=== PATIENT | female | born 1950 | race Caucasian/White ===

== ENCOUNTER 2019-02-19 23:03 | Inpatient (IN) | payer MEDICARE, OTHER ==
[2019-02-19] MEDS ORDERED: ASPIRIN 81 MG PO STA (23:06)
--- NOTE | 2019-02-19 23:26 | ED ---
General Adult HPI - General Chief complaint: Chest Pain Stated complaint: chest pain Time Seen by Provider: 02/19/19 23:05 Source: patient, EMS Mode of arrival: EMS Limitations: no limitations - History of Present Illness Initial comments: Dictation was produced using [employer] dictation software. please excuse any grammatical, word or spelling errors. Chief Complaint: 68-year-old female presents with chest pain. History of Present Illness: She is 68-year-old female presents today with chest pain. She states the pain as a stabbing pain that radiates to her right jaw. She still been having progressive exertional dyspnea over the last several weeks. She was seen by her primary care physician yesterday. Her PCP did an EKG which she reports demonstrated T-wave inversions. She was discharged from the PCPs office with plans to have a stress test on Friday. Today she had this episode of chest pain. She's been having this pain ongoing for the last several days patient states that in the past and would last for 5 minutes and go away. Today she was concerned because her symptoms lasted for longer than 5 minutes. No associated diaphoresis. No associated nausea or vomiting. Patient's past medical history of hypertension. Denies tobacco use. No numbness and paresthesias to the arms or legs. She had some nitroglycerin that she took without significant effect on her chest pain. Currently she denies any chest pain. She called EMS and was brought to the emergency department. The ROS documented in this emergency department record has been reviewed and confirmed by me. Those systems with pertinent positive or negative responses have been documented in the HPI. All other systems are other negative and/or noncontributory. PHYSICAL EXAM: General Impression: Alert and oriented x3, not in acute distress HEENT: Normocephalic atraumatic, extra-ocular movements intact, pupils equal and reactive to light bilaterally, mucous membranes moist. Cardiovascular: Heart regular rate and rhythm, S1&S2 audible, no murmurs, rubs or gallops Chest: Lungs clear to auscultation bilaterally, no rhonchi, no wheeze, no rales Abdomen: Bowel sounds present, abdomen soft, non-tender, non-distended, no organomegaly Musculoskeletal: Pulses present and equal in all extremities, no peripheral edema Motor: no focal deficits noted Neurological: CN II-XII grossly intact, no focal motor or sensory deficits noted Skin: Intact with no visualized rashes Psych: Normal affect and mood ED course: 68-year-old female presents with atypical chest pain with typical features. Her blood pressure is 182/106. rest of vital signs are unremarkable. EKG shows diffuse T wave inversions. She is currently symptom-free. Laboratory evaluation obtained. CBC, coag panel unremarkable. Metabolic panel is unremarkable. Troponin elevated 0.393. Chest x-ray shows no acute processes. Clinical presentation consistent with non-ST segment elevation [place]. Patient given heparin. She is given aspirin. Patient will be admitted for non- ST segment elevation myocardial infarction. Patient agreeable with results. Patient given Nitropaste. Patient case was discussed in detail with Dr. Caruso who is aware of patient and her elevated troponin. Cardiology consulted. She understandable agreeable to plan. EKG interpretation: Ventricular rate a 65, normal sinus rhythm,. 180, QS 90, QTC 470. No NV prolongation, no QTC prolongation. No old EKG for comparison. There are diffuse T-wave inversions apparent in precordial leads, high lateral leads - Related Data Allergies Allergy/AdvReac Type Severity Reaction Status Date / Time amoxicillin Allergy Rash/Hives Verified 02/19/19 23:29 erythromycin base Allergy Rash/Hives Verified 02/19/19 23:29 keratin Allergy Swelling Verified 02/19/19 23:29 peanut [Peanut Butter] Allergy Itching Verified 02/19/19 23:29 Penicillins Allergy Rash/Hives Verified 02/19/19 23:29 Sulfa (Sulfonamide Allergy Unknown Verified 02/19/19 23:29 Antibiotics) Childhood wheat Allergy Rash/Hives Verified 02/19/19 23:29 Review of Systems ROS Statement: Those systems with pertinent positive or pertinent negative responses have been documented in the HPI. ROS Other: All systems not noted in ROS Statement are negative. Past Medical History Past Medical History: Hypertension History of Any Multi-Drug Resistant Organisms: None Reported Past Surgical History: Adenoidectomy, Back Surgery, Cholecystectomy, Hysterectomy Past Psychological History: No Psychological Hx Reported Smoking Status: Former smoker Past Alcohol Use History: Occasional Past Drug Use History: None Reported General Exam Limitations: no limitations Course Vital Signs 02/19/19 02/19/19 23:15 23:19 Temperature 98.5 F Pulse Rate 63 Pulse Rate [ 63 [facility]ending [facility] ] Respiratory 18 Rate Blood Pressure 182/106 O2 Sat by Pulse 97 Oximetry Medical Decision Making - Lab Data Result diagrams: 02/19/19 23:07 02/19/19 23:07 Lab Results 02/19/19 02/19/19 02/19/19 Range/Units 23:07 23:07 23:07 WBC 6.4 (3.8-10.6) k/uL RBC 3.33 L (3.80-5.40) m/uL Hgb 11.0 L (11.4-16.0) gm/dL Hct 32.9 L (34.0-46.0) % MCV 98.6 (80.0-100.0) fL MCH 32.9 (25.0-35.0) pg MCHC 33.4 (31.0-37.0) g/dL RDW 12.7 (11.5-15.5) % Plt Count 272 (150-450) k/uL Neutrophils % 41 % Lymphocytes % 47 % Monocytes % 5 % Eosinophils % 4 % Basophils % 1 % Neutrophils # 2.6 (1.3-7.7) k/uL Lymphocytes # 3.0 (1.0-4.8) k/uL Monocytes # 0.3 (0-1.0) k/uL Eosinophils # 0.2 (0-0.7) k/uL Basophils # 0.1 (0-0.2) k/uL PT 9.8 (9.0-12.0) sec INR 0.9 (<1.2) APTT 22.7 (22.0-30.0) sec Sodium 141 (137-145) mmol/L Potassium 4.2 (3.5-5.1) mmol/L Chloride 110 H (98-107) mmol/L Carbon Dioxide 23 (22-30) mmol/L Anion Gap 8 mmol/L BUN 17 (7-17) mg/dL Creatinine 1.00 (0.52-1.04) mg/dL Est GFR (CKD-EPI)AfAm 67 (>60 ml/min/1.73 sqM) Est GFR (CKD-EPI)NonAf 58 (>60 ml/min/1.73 sqM) Glucose 111 H (74-99) mg/dL Calcium 9.1 (8.4-10.2) mg/dL Magnesium 2.2 (1.6-2.3) mg/dL Total Bilirubin 0.3 (0.2-1.3) mg/dL AST 23 (14-36) U/L ALT 13 (9-52) U/L Alkaline Phosphatase 62 (38-126) U/L Troponin I (0.000-0.034) ng/mL Total Protein 7.1 (6.3-8.2) g/dL Albumin 4.1 (3.5-5.0) g/dL 02/19/19 Range/Units 23:07 WBC (3.8-10.6) k/uL RBC (3.80-5.40) m/uL Hgb (11.4-16.0) gm/dL Hct (34.0-46.0) % MCV (80.0-100.0) fL MCH (25.0-35.0) pg MCHC (31.0-37.0) g/dL RDW (11.5-15.5) % Plt Count (150-450) k/uL Neutrophils % % Lymphocytes % % Monocytes % % Eosinophils % % Basophils % % Neutrophils # (1.3-7.7) k/uL Lymphocytes # (1.0-4.8) k/uL Monocytes # (0-1.0) k/uL Eosinophils # (0-0.7) k/uL Basophils # (0-0.2) k/uL PT (9.0-12.0) sec INR (<1.2) APTT (22.0-30.0) sec Sodium (137-145) mmol/L Potassium (3.5-5.1) mmol/L Chloride (98-107) mmol/L Carbon Dioxide (22-30) mmol/L Anion Gap mmol/L BUN (7-17) mg/dL Creatinine (0.52-1.04) mg/dL Est GFR (CKD-EPI)AfAm (>60 ml/min/1.73 sqM) Est GFR (CKD-EPI)NonAf (>60 ml/min/1.73 sqM) Glucose (74-99) mg/dL Calcium (8.4-10.2) mg/dL Magnesium (1.6-2.3) mg/dL Total Bilirubin (0.2-1.3) mg/dL AST (14-36) U/L ALT (9-52) U/L Alkaline Phosphatase (38-126) U/L Troponin I 0.393 H* (0.000-0.034) ng/mL Total Protein (6.3-8.2) g/dL Albumin (3.5-5.0) g/dL Disposition Clinical Impression: NSTEMI (non-ST elevated myocardial infarction) Disposition: ADMITTED IP TO THIS HOSP Referrals: Marcelle Marcano DO [Primary Care Provider] - 1-2 days Decision Time: 00:29
[2019-02-19 23:30] LABS: Basophils # (A) 0.1 k/uL (0-0.2); Basophils % (A) 1 %; Eosinophils # (A) 0.2 k/uL (0-0.7); Eosinophils % (A) 4 %; HCT 32.9 % (34.0-46.0); Lymphocytes % (A) 47 %; MCH 32.9 pg (25.0-35.0); MCHC 33.4 g/dL (31.0-37.0); MCV 98.6 fL (80.0-100.0); Mean Platelet Volume 7.1; Monocytes # (A) 0.3 k/uL (0-1.0); Monocytes % (A) 5 %; Neutrophils # (A) 2.6 k/uL (1.3-7.7); Neutrophils % (A) 41 %; Platelet Count 272 k/uL (150-450); RBC 3.33 m/uL (3.80-5.40); RDW 12.7 % (11.5-15.5); WBC 6.4 k/uL (3.8-10.6)
[2019-02-19 23:38] LABS: Albumin 4.1 g/dL (3.5-5.0); Calcium 9.1 mg/dL (8.4-10.2); Magnesium 2.2 mg/dL (1.6-2.3); Potassium 4.2 mmol/L (3.5-5.1); Total Bilirubin 0.3 mg/dL (0.2-1.3); Total Protein 7.1 g/dL (6.3-8.2)
[2019-02-19 23:39] LABS: INR 0.9 (<1.2); Partial Thromboplastin Time 22.7 sec (22.0-30.0); Prothrombin Time 9.8 sec (9.0-12.0)
--- NOTE | 2019-02-20 00:04 | XR ---
EXAMINATION TYPE: XR chest 2V DATE OF EXAM: 02/19/2019 COMPARISON: NONE HISTORY: Chest pain TECHNIQUE: Frontal and lateral views of the chest are obtained. FINDINGS: Heart and mediastinum are normal. Lungs are clear. Costophrenic angles are clear. There ar e chest leads. Bony thorax is intact. IMPRESSION: No active cardiopulmonary disease. Normal heart.
[2019-02-20] MEDS ORDERED: HEPARIN SODIUM,PORCINE 5,000 UNIT/ML 1 ML VIAL IV ONE (00:17)
[2019-02-20] MEDS ORDERED: HEPARIN SODIUM,PORCINE 5,000 UNIT/ML 1 ML VIAL IV PRN (00:17)
[2019-02-20] MEDS ORDERED: NITROGLYCERIN SL TABS 0.4 MG TAB SUBLINGUAL PRN ×2 (00:26→13:08)
[2019-02-20] MEDS ORDERED: HEPARIN SOD,PORK IN 0.45% NACL 25,000 UNIT in 0.45% NACL 1 250ML.BAG IV SCH (00:30)
[2019-02-20] MEDS: NITROGLYCERIN OINT 1 INCH/GM PACKET TOPICAL SCH ×5 (00:33→22:54)
[2019-02-20 08:39] LABS: Cholesterol 208 mg/dL (<200); HDL Cholesterol 42 mg/dL (40-60); LDL Cholesterol,Calculated 140 mg/dL (0-99); Triglycerides 129 mg/dL (<150)
[2019-02-20] MEDS: METOPROLOL TARTRATE 25 MG TAB PO SCH ×2 (09:00→20:38)
[2019-02-20] MEDS: LOSARTAN 25 MG TAB PO SCH ×2 (09:00→20:39)
[2019-02-20] MEDS: ATORVASTATIN 40 MG TAB PO SCH (09:00)
[2019-02-20] MEDS ORDERED: ALPRAZolam 0.5 MG TAB PO PRN (09:32)
[2019-02-20] MEDS ORDERED: ALPRAZolam 0.25 MG TAB PO PRN (09:32)
[2019-02-20] MEDS ORDERED: SODIUM CHLORIDE 0.9% 1,000 ML in EMPTY BAG 1 BAG IV ONE (09:32)
--- NOTE | 2019-02-20 09:44 | P.CRDCN ---
History of Present Illness History of present illness: HISTORY OF PRESENTING ILLNESS This is a pleasant 68-year-old female past medical history significant for hypertension. She presented with chest pressure. 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 We have been asked to see him in consultation for chest pain. She states for the previous one week she has been experiencing intermittent symptoms of chest discomfort in the left precordial region. Previously her pain would come she would sit down and her pain would subside. This all episode lasted roughly 5 minutes with no radiation or associated symptoms. However yesterday she felt a pressure in the chest and this time radiated to the base of her neck and associated with shortness of breath. She sat down to rest and her symptoms did not improve. She continues to have vague pressure in the chest that has decreased in intensity since admission however she still feels discomfort at the base of her neck. She saw her primary care physician regarding this chest discomfort for which he ordered an EKG and she is scheduled for a stress test next week. DIAGNOSTICS EKG reveals sinus mechanism heart rate of 65, T-wave inversions noted in the precordial leads.. Chest xray different acute cardiopulmonary process. Troponin 0.393 and 0.488, LDL 140, HDL 42 and total cholesterol 208. Laboratory reviewed, WBC 6.4, hemoglobin 11, platelets 272, sodium 141, potassium 4.2, creatinine 1.0 with GFR 58, magnesium 2.2,. Current cardiac medications include losartan 25 mg daily, clonidine 0.1 mg 3 times a day. REVIEW OF SYSTEMS At the time of my exam: CONSTITUTIONAL: Denies fever or chills. CARDIOVASCULAR: Complains of chest pain Denies shortness of breath, orthopnea, PND or palpitations. RESPIRATORY: Denies cough. GASTROINTESTINAL: Denies abdominal pain, diarrhea, constipation, nausea or vomiting. MUSCULOSKELETAL: Denies myalgias. NEUROLOGIC: Denies numbness, tingling or weakness. ENDOCRINE: Denies fatigue, weight change, polydipsia or polyurina. GENITOURINARY: Denies burning, hematuria or urgency with micturation. HEMATOLOGIC: Denies history of anemia or bleeding. PHYSICAL EXAMINATION Blood pressure 141/93 heart rate 69 afebrile maintaining oxygen saturation on room air. CONSTITUTIONAL: No apparent distress. HEENT: Head is normocephalic. Pupils are equal, round. Sclerae anicteric. Mucous membranes of the mouth are moist. No JVD. No carotid bruit. CHEST EXAMINATION: Lungs are clear to auscultation. No chest wall tenderness is noted on palpation or with deep breathing. HEART EXAMINATION: Regular rate and rhythm. S1, S2 heard. No murmurs, gallops or rub. ABDOMEN: Soft, nontender. Positive bowel sounds. EXTREMITIES: 2+ peripheral pulses, no lower extremity edema and no calf tenderness. NEUROLOGIC EXAMINATION: Patient is awake, alert and oriented x3. ASSESSMENT Non-ST elevated myocardial infarction Unstable angina Hypertension Dyslipidemia PLAN Obtain 2-D echocardiogram and Doppler study to assess cardiac structure and function. Proceed with cardiac catheterization. I have discussed the risks, benefits and alternative therapies for the above-mentioned procedure and for both sedation/analgesia as well as necessary blood product administration, if indicated, as they pertain to this patient. The patient has indicated understanding and acceptance of the risks and procedures discussed. Questions have been answered appropriately and she is agreeable to move forward with the above stated procedure. Initiate atorvastatin 40 mg daily, Lopressor 25 mg twice a day. Continue losartan 25 mg twice a day. Further recommendations to follow based upon clinical course. Thank you kindly for this consultation. Nurse Practitioner note has been reviewed, I agree with a documented findings and plan of care. Patient was seen and examined. Past Medical History Past Medical History: Hypertension History of Any Multi-Drug Resistant Organisms: None Reported Past Surgical History: Adenoidectomy, Back Surgery, Cholecystectomy, Hysterectomy Past Anesthesia/Blood Transfusion Reactions: No Reported Reaction Past Psychological History: No Psychological Hx Reported Smoking Status: Former smoker Past Alcohol Use History: Occasional Past Drug Use History: None Reported Medications and Allergies Home Medications Medication Instructions Recorded Confirmed Type Acetaminophen/Diphenhydramine 1 - 2 tab PO HS PRN 02/20/19 02/20/19 History [Tylenol Pm Ex-Strength Caplet] Celecoxib [CeleBREX] 200 mg PO DAILY 02/20/19 02/20/19 History Dipyridamole-Aspirin 200-25 mg 1 tab PO BID 02/20/19 02/20/19 History [Aggrenox 25MG -200MG] Levothyroxine Sodium 112 mcg PO DAILY 02/20/19 02/20/19 History Losartan [Cozaar] 25 mg PO BID 02/20/19 02/20/19 History Pantoprazole [Protonix] 40 mg PO DAILY 02/20/19 02/20/19 History Sertraline [Zoloft] 50 mg PO DAILY 02/20/19 02/20/19 History cloNIDine HCL [Catapres] 0.1 mg PO TID 02/20/19 02/20/19 History lamoTRIgine [LaMICtal] 100 mg PO HS 02/20/19 02/20/19 History Allergies Allergy/AdvReac Type Severity Reaction Status Date / Time amoxicillin Allergy Rash/Hives Verified 02/20/19 08:32 erythromycin base Allergy Rash/Hives Verified 02/20/19 08:32 keratin Allergy Swelling Verified 02/20/19 08:32 peanut [Peanut Butter] Allergy Itching Verified 02/20/19 08:32 Penicillins Allergy Rash/Hives Verified 02/20/19 08:32 Sulfa (Sulfonamide Allergy Unknown Verified 02/20/19 08:32 Antibiotics) Childhood wheat Allergy Rash/Hives Verified 02/20/19 08:32 Physical Exam Vitals: Vital Signs Temp Pulse Pulse Resp BP BP Pulse Ox 02/20/19 04:00 98.0 F 69 18 141/93 97 02/20/19 01:39 98.3 F 70 18 146/100 97 02/20/19 01:30 70 18 02/20/19 01:03 66 18 145/90 97 02/20/19 00:36 63 18 184/102 98 02/19/19 23:19 63 02/19/19 23:15 98.5 F 63 18 182/106 97 Intake and Output 02/19/19 02/20/19 02/20/19 22:59 06:59 14:59 Intake Total 160 Balance 160 Intake: IV 160 0.9 160 Other: Voiding Method Toilet # Voids 1 Weight 71.2 kg Results 02/19/19 23:07 02/19/19 23:07 Cardiac Enzymes 02/19/19 02/19/19 02/20/19 Range/Units 23:07 23:07 05:33 AST 23 (14-36) U/L Troponin I 0.393 H* 0.488 H* (0.000-0.034) ng/mL Coagulation 02/19/19 02/20/19 Range/Units 23:07 05:33 PT 9.8 (9.0-12.0) sec APTT 22.7 69.3 H (22.0-30.0) sec Lipids 02/20/19 Range/Units 05:33 Triglycerides 129 (<150) mg/dL Cholesterol 208 H (<200) mg/dL HDL Cholesterol 42 (40-60) mg/dL CBC 02/19/19 Range/Units 23:07 WBC 6.4 (3.8-10.6) k/uL RBC 3.33 L (3.80-5.40) m/uL Hgb 11.0 L (11.4-16.0) gm/dL Hct 32.9 L (34.0-46.0) % Plt Count 272 (150-450) k/uL Comprehensive Metabolic Panel 02/19/19 Range/Units 23:07 Sodium 141 (137-145) mmol/L Potassium 4.2 (3.5-5.1) mmol/L Chloride 110 H (98-107) mmol/L Carbon Dioxide 23 (22-30) mmol/L BUN 17 (7-17) mg/dL Creatinine 1.00 (0.52-1.04) mg/dL Glucose 111 H (74-99) mg/dL Calcium 9.1 (8.4-10.2) mg/dL AST 23 (14-36) U/L ALT 13 (9-52) U/L Alkaline Phosphatase 62 (38-126) U/L Total Protein 7.1 (6.3-8.2) g/dL Albumin 4.1 (3.5-5.0) g/dL Current Medications Generic Name Dose Route Start Last Admin Trade Name Freq PRN Reason Stop Dose Admin Alprazolam 0.25 mg 02/20/19 09:32 Xanax PO Q6HR PRN Mild Anxiety Alprazolam 0.5 mg 02/20/19 09:32 Xanax PO Q6HR PRN Moderate Anxiety Aspirin 325 mg 02/21/19 09:00 Aspirin PO DAILY LEROY Atorvastatin Calcium 40 mg 02/20/19 09:00 02/20/19 09:00 Lipitor PO 40 mg DAILY LEROY Administration Heparin Sodium (Porcine) 0 unit 02/20/19 00:17 Heparin IV PER PROTOCOL PRN Low PTT Protocol Heparin Sodium/Sodium Chloride 250 mls @ 8.709 mls/hr 02/20/19 00:30 02/20/19 00:24 25,000 unit/ Sodium Chloride IV 12 units/kg/hr .Q24H LEROY 8.709 mls/hr Administration Protocol 12 UNITS/KG/HR Sodium Chloride 1,000 ml/ IV 1,000 mls @ 71.2 mls/hr 02/20/19 09:32 Solution IV 02/20/19 23:34 .Q14H3M ONE 1 ML/KG/HR Losartan Potassium 25 mg 02/20/19 09:00 02/20/19 09:00 Cozaar PO 25 mg BID LEROY Administration Metoprolol Tartrate 25 mg 02/20/19 09:00 02/20/19 09:00 Lopressor PO 25 mg BID LEORY Administration Nitroglycerin 0.4 mg 02/20/19 00:26 Nitrostat SUBLINGUAL Q5M PRN Chest Pain Nitroglycerin 1 inch 02/20/19 00:30 02/20/19 06:23 Nitro-Bid Oint TOPICAL 1 inch Q6HR LEROY Administration Intake and Output 02/19/19 02/20/19 02/20/19 22:59 06:59 14:59 Intake Total 160 Balance 160 Intake: IV 160 0.9 160 Other: Voiding Method Toilet # Voids 1 Weight 71.2 kg 02/19/19 23:07 02/19/19 23:07
[2019-02-20] MEDS ORDERED: ASPIRIN 325 MG TAB PO STA (10:01)
[2019-02-20] MEDS ORDERED: ATORVASTATIN 40 MG TAB PO STA (10:02)
--- NOTE | 2019-02-20 11:27 | P.HPIM ---
History of Present Illness 62-year-old pleasant female came in with complaints of chest pressure-like sensation has been going on for the about a week and lately it has been worsening and lastly episodes lasted for 5 minutes radiating to the neck area. Patient is found to have mildly elevated troponin of 0.4 patient is being treated for non-ST elevation microinfarction will undergo cardiac catheterization today. He was having the shortness of breath associated with this chest pain. Patient just pain is nonpleuritic not associated with food. Review of Systems REVIEW OF SYSTEMS: CONSTITUTIONAL: No fever, no malaise, no fatigue. HEENT: No recent visual problems or hearing problems. Denied any sore throat. CARDIOVASCULAR: No orthopnea, PND, no palpitations, no syncope. PULMONARY:no cough, no hemoptysis. GASTROINTESTINAL: No diarrhea, no nausea, no vomiting, no abdominal pain. NEUROLOGICAL: No headaches, no weakness, no numbness. HEMATOLOGICAL: Denies any bleeding or petechiae. GENITOURINARY: Denies any burning micturition, frequency, or urgency. MUSCULOSKELETAL/RHEUMATOLOGICAL: Denies any joint pain, swelling, or any muscle pain. ENDOCRINE: Denies any polyuria or polydipsia. The rest of the 14-point review of systems is negative. Past Medical History Past Medical History: Hypertension History of Any Multi-Drug Resistant Organisms: None Reported Past Surgical History: Adenoidectomy, Back Surgery, Cholecystectomy, Hysterectomy Past Anesthesia/Blood Transfusion Reactions: No Reported Reaction Past Psychological History: No Psychological Hx Reported Smoking Status: Former smoker Past Alcohol Use History: Occasional Past Drug Use History: None Reported Medications and Allergies Home Medications Medication Instructions Recorded Confirmed Type Acetaminophen/Diphenhydramine 1 - 2 tab PO HS PRN 02/20/19 02/20/19 History [Tylenol Pm Ex-Strength Caplet] Celecoxib [CeleBREX] 200 mg PO DAILY 02/20/19 02/20/19 History Dipyridamole-Aspirin 200-25 mg 1 tab PO BID 02/20/19 02/20/19 History [Aggrenox 25MG -200MG] Levothyroxine Sodium 112 mcg PO DAILY 02/20/19 02/20/19 History Losartan [Cozaar] 25 mg PO BID 02/20/19 02/20/19 History Pantoprazole [Protonix] 40 mg PO DAILY 02/20/19 02/20/19 History Sertraline [Zoloft] 50 mg PO DAILY 02/20/19 02/20/19 History cloNIDine HCL [Catapres] 0.1 mg PO TID 02/20/19 02/20/19 History lamoTRIgine [LaMICtal] 100 mg PO HS 02/20/19 02/20/19 History Allergies Allergy/AdvReac Type Severity Reaction Status Date / Time amoxicillin Allergy Rash/Hives Verified 02/20/19 08:32 erythromycin base Allergy Rash/Hives Verified 02/20/19 08:32 keratin Allergy Swelling Verified 02/20/19 08:32 peanut [Peanut Butter] Allergy Itching Verified 02/20/19 08:32 Penicillins Allergy Rash/Hives Verified 02/20/19 08:32 Sulfa (Sulfonamide Allergy Unknown Verified 02/20/19 08:32 Antibiotics) Childhood wheat Allergy Rash/Hives Verified 02/20/19 08:32 Physical Exam Vitals: Vital Signs Temp Pulse Pulse Resp BP BP Pulse Ox 02/20/19 04:00 98.0 F 69 18 141/93 97 02/20/19 01:39 98.3 F 70 18 146/100 97 02/20/19 01:30 70 18 02/20/19 01:03 66 18 145/90 97 02/20/19 00:36 63 18 184/102 98 02/19/19 23:19 63 02/19/19 23:15 98.5 F 63 18 182/106 97 Intake and Output 02/19/19 02/20/19 02/20/19 22:59 06:59 14:59 Intake Total 160 84.187 Balance 160 84.187 Intake: IV 160 0.9 160 Intake, IV Titration 84.187 Amount Heparin Sod,Pork in 0.45% 84.187 NaCl 25,000 unit In 0.45 % NaCl 1 250ml.bag @ 12 UNITS/KG/HR 8.709 mls/hr IV .Q24H [facility] Rx#: [id number] Other: Voiding Method Toilet # Voids 1 Weight 71.2 kg PHYSICAL EXAMINATION: GENERAL: The patient is alert and oriented x3, not in any acute distress. Well developed, well nourished. HEENT: Pupils are round and equally reacting to light. EOMI. No scleral icterus. No conjunctival pallor. Normocephalic, atraumatic. No pharyngeal erythema. No thyromegaly. CARDIOVASCULAR: S1 and S2 present. No murmurs, rubs, or gallops. PULMONARY: Chest is clear to auscultation, no wheezing or crackles. ABDOMEN: Soft, nontender, nondistended, normoactive bowel sounds. No palpable organomegaly. MUSCULOSKELETAL: No joint swelling or deformity. EXTREMITIES: No cyanosis, clubbing, or pedal edema. NEUROLOGICAL: Gross neurological examination did not reveal any focal deficits. SKIN: No rashes. Results CBC & Chem 7: 02/19/19 23:07 02/19/19 23:07 Labs: Abnormal Lab Results - Last 24 Hours (Table) 02/19/19 02/19/19 02/19/19 Range/Units 23:07 23:07 23:07 RBC 3.33 L (3.80-5.40) m/uL Hgb 11.0 L (11.4-16.0) gm/dL Hct 32.9 L (34.0-46.0) % APTT (22.0-30.0) sec Chloride 110 H (98-107) mmol/L Glucose 111 H (74-99) mg/dL Troponin I 0.393 H* (0.000-0.034) ng/mL Cholesterol (<200) mg/dL LDL Cholesterol, Calc (0-99) mg/dL 02/20/19 02/20/19 02/20/19 Range/Units 05:33 05:33 05:33 RBC (3.80-5.40) m/uL Hgb (11.4-16.0) gm/dL Hct (34.0-46.0) % APTT 69.3 H (22.0-30.0) sec Chloride (98-107) mmol/L Glucose (74-99) mg/dL Troponin I 0.488 H* (0.000-0.034) ng/mL Cholesterol 208 H (<200) mg/dL LDL Cholesterol, Calc 140 H (0-99) mg/dL Thrombosis Risk Factor Assmnt - Choose All That Apply Any of the Below Risk Factors Present?: No Other Risk Factors: Yes Each Risk Factor Represents 2 Points: Age 61-74 years Thrombosis Risk Factor Assessment Total Risk Factor Score: 2 Thrombosis Risk Factor Assessment Level: Low Risk Assessment and Plan Plan: Acute non-ST elevation myocardial infarction:: Patient will continued on IV heparin patient will undergo cardiac catheterization today. He'll be continued on antiplatelet therapy beta elly. -Hyperlipidemia -Hypertension -Depression -Hypothyroidism -Other psychiatric issues including depression: Patient will be resumed and continued on home medications patient is on clonidine apparently for his ADHD. Right now as she was started on beta elly on hold off on clonidine probably will start her back on that medication upon discharge.
[2019-02-20] MEDS ORDERED: LIDOCAINE 1% INJ 10MG/ML (20 ML MDV) ONE (11:34)
[2019-02-20] MEDS ORDERED: fentaNYL (PF) 50 MCG/ML 2 ML AMP ONE (11:35)
[2019-02-20] MEDS ORDERED: IV FLUID CONTINUATION 800 ML IV ONE (11:59)
[2019-02-20] MEDS ORDERED: fentaNYL (PF) 50 MCG/ML 2 ML AMP IV ONE (12:08)
[2019-02-20] MEDS ORDERED: LIDOCAINE 1% INJ 10MG/ML (20 ML MDV) SQ ONE (12:08)
[2019-02-20] MEDS ORDERED: MIDAZOLAM 2 MG/2 ML VIAL IV ONE (12:08)
[2019-02-20] MEDS ORDERED: BIVALIRUDIN BOLUS 250 MG/50 ML IV ONE (12:30)
[2019-02-20] MEDS ORDERED: PRASUGREL 10 MG TAB ONE (12:31)
[2019-02-20] MEDS ORDERED: PRASUGREL 10 MG TAB PO ONE (12:33)
[2019-02-20] MEDS ORDERED: BIVALIRUDIN 250 MG in SODIUM CHLORIDE 0.9% 50 ML IV ONE (12:34)
[2019-02-20] MEDS ORDERED: MIDAZOLAM 2 MG/2 ML VIAL IVP ONE (12:40)
[2019-02-20] MEDS ORDERED: HYDROmorphone 1 MG/ML 1 ML SYRINGE ONE (12:46)
[2019-02-20] MEDS ORDERED: HYDROmorphone 1 MG/ML 1 ML SYRINGE IVP ONE (12:48)
[2019-02-20] MEDS ORDERED: ENALAPRILAT 1.25 MG/ML 1 ML VIAL ONE (12:53)
[2019-02-20] MEDS ORDERED: hydrALAZINE HCL 20 MG/ML 1 ML VIAL ONE (12:53)
[2019-02-20] MEDS ORDERED: NITROGLYCERIN 1000MCG/10ML SYRINGE INTRAARTER ONE (12:53)
[2019-02-20] MEDS ORDERED: hydrALAZINE HCL 20 MG/ML 1 ML VIAL IV ONE (12:56)
[2019-02-20] MEDS ORDERED: ENALAPRILAT 1.25 MG/ML 1 ML VIAL IV ONE (12:56)
[2019-02-20] MEDS ORDERED: IOPAMIDOL-370 100ML BTL INJ ONE (13:01)
[2019-02-20] MEDS ORDERED: IOPAMIDOL-370 125ML BTL INJ ONE (13:01)
[2019-02-20] MEDS ORDERED: RX INFO: IV CONTRAST WAS GIVEN 1 EACH MISC MISCELLANE PRN (13:08)
[2019-02-20] MEDS ORDERED: MAG HYDROX/AL HYDROX/SIMETH 30 ML CUP PO PRN (13:08)
[2019-02-20] MEDS ORDERED: ZOLPIDEM 5 MG TAB PO PRN (13:08)
[2019-02-20] MEDS ORDERED: ATROPINE SULFATE 0.1 MG/ML 10ML SYRINGE IV PRN (13:08)
[2019-02-20] MEDS ORDERED: SODIUM CHLORIDE 0.9% 1,000 ML IV SCH (13:15)
--- NOTE | 2019-02-20 13:22 | P.PCN ---
Date of Procedure: 02/20/19 Operative Findings: PERCUTANEOUS CORONARY INTERVENTION Performing physician: Antoine Slade M.D. RPVI Procedure performed: 1. Successful stenting of the distal left anterior descending artery using 2.0 x 15 mm Stafford JIA with an excellent angiographic results (90% to 0%) 2. Successful stenting of the proximal left anterior descending artery using 3.25 x 18 mm Xience JIA with an excellent angiographic results (99% to 0%) Indication: This is a pleasant 68-year-old female patient who presented to the hospital with a chest discomfort associated with EKG changes concerning for ischemia as well as abnormal cardiac enzymes consistent with acute non-ST elevation CA. She underwent a heart catheterization by Dr. Garcia and that revealed severe triple- vessel CAD. The decision was made to or percutaneous coronary intervention on the LAD and bring the patient back to undergo PCI of the LCx and RCA Approach: Right common femoral artery Complication: None Level of sedation: Moderate sedation next of 34 minutes Procedure description: Please refer to be diagnostic heart catheterization was performed by Dr. Garcia earlier today. Anticoagulation was initiated using Angiomax. Subsequently I did engage the left main using JL 3.5 guide. I did wire the LAD using a whisper wire. I did balloon angioplasty of the LAD using 2.5 mm balloon which was inflated distally under 10 john and proximally under 12 john. Each inflation was done for 15 seconds. Because I had difficulties advancing the balloon I decided to wire the LAD using a candis wire which was a run-through wire. Having said that I wire the LAD using a run-through wire and the run- through wire was positioned in the distal LAD. After that for the lesion distally, I deployed 2.0 x 15 mm Joe JIA which was positioned under fluoroscopy guidance and deployed under 12 john for 20 seconds. For the lesion in the proximal LAD I deployed 3.25 by 18 mm Xience JIA where the stent again was positioned under fluoroscopy guidance and deployed under 12 john for 20 seconds. Subsequently a gave the patient 200 g of IC nitroglycerin. Then I did do an angiogram which revealed excellent angiographic results without any dissection and was REGINA-3 flow. I did deploy the Perclose device with good hemostasis. Postprocedure management: 1. Dual antiplatelet therapy 2. Risk factors modification 3. PCI of the RCA and LCx 4. Follow-up with the patient
--- NOTE | 2019-02-20 15:01 | ECHOF ---
Referral Reason:cp MEASUREMENTS -------- HEIGHT: 162.6 cm WEIGHT: 70.8 kg BP: RVIDd: 3.2 cm (< 3.3) IVSd: 0.9 cm (0.6 - 1.1) LVIDd: 4.1 cm (3.9 - 5.3) LVPWd: 1.2 cm (0.6 - 1.1) IVSs: 1.2 cm LVIDs: 3.4 cm LVPWs: 1.3 cm LAESV Index (A-L): 20.16 ml/m Ao Diam: 2.6 cm (2.0 - 3.7) AV Cusp: 2.0 cm (1.5 - 2.6) LA Diam: 2.7 cm (2.7 - 3.8) MV EXCURSION: 11.106 mm (> 18.000) MV EF SLOPE: 41 mm/s (70 - 150) EPSS: 0.7 cm MV E Kermit: 0.49 m/s MV DecT: 279 ms MV A Kermit: 0.56 m/s MV E/A Ratio: 0.88 RAP: 5.00 mmHg RVSP: 7.46 mmHg TAPSE: 18.39 mm FINDINGS -------- Sinus rhythm. This was a technically difficult study with suboptimal views. The left ventricular size is normal. Left ventricular wall thickness is normal. Overall left vent ricular systolic function is moderately impaired with, an EF between 35 - 40 %. Normal LAP. Grade 1 Diastolic Dysfunction. Apical anterior LV wall motion is hypokinetic. Apical lateral LV wall mo tion is hypokinetic. Apical inferior LV wall motion is hypokinetic. Apical septum LV wall motio n is hypokinetic. Septal Hypokinesis The right ventricle is normal in size. The left atrial size is normal. Normal LA size by volume 22+/-6 ml/m2. The right atrial size is normal. 5.0mg of Lumason was utilized for enhancement of images The aortic valve is trileaflet and appears structurally normal. The mitral valve is normal. Mild mitral regurgitation is present. The tricuspid valve appears structurally normal. Mild tricuspid regurgitation present. Right vent ricular systolic pressure is normal at < 35 mmHg. There is no pulmonic regurgitation present. The aortic root size is normal. IVC Not well visulized. There is no pericardial effusion. CONCLUSIONS -------- 1. Sinus rhythm. 2. This was a technically difficult study with suboptimal views. 3. The left ventricular size is normal. 4. Left ventricular wall thickness is normal. 5. Overall left ventricular systolic function is moderately impaired with, an EF between 35 - 40 %. 6. Normal LAP. Grade 1 Diastolic Dysfunction. 7. Apical anterior LV wall motion is hypokinetic. 8. Apical lateral LV wall motion is hypokinetic. 9. Apical inferior LV wall motion is hypokinetic. 10. Apical septum LV wall motion is hypokinetic. 11. Septal Hypokinesis 12. The right ventricle is normal in size. 13. The left atrial size is normal. 14. Normal LA size by volume 22+/-6 ml/m2. 15. The right atrial size is normal. 16. 5.0mg of Lumason was utilized for enhancement of images 17. The aortic valve is trileaflet and appears structurally normal. 18. The mitral valve is normal. 19. Mild mitral regurgitation is present. 20. The tricuspid valve appears structurally normal. 21. Mild tricuspid regurgitation present. 22. Right ventricular systolic pressure is normal at < 35 mmHg. 23. There is no pulmonic regurgitation present. 24. The aortic root size is normal. 25. IVC Not well visulized. 26. There is no pericardial effusion. LEATHER LEVELER: Mari Franks RDCS
[2019-02-20] MEDS: cloNIDine HCL 0.1 MG TAB PO SCH ×2 (17:34→22:05)
--- NOTE | 2019-02-20 18:08 | CC ---
CARDIAC CATHETERIZATION REPORT INDICATION: Acute non ST-segment elevation PA. PROCEDURE NOTE: After obtaining informed consent, left heart catheterization and coronary angiogram were performed via the right femoral artery using standard Jay catheters. Patient tolerated the procedure well without any obvious immediate complications. A femoral angiogram was performed and Angio-Seal will be deployed for hemostasis. Patient received moderate conscious sedation and total sedation time was 20 minutes. FINDINGS: HEMODYNAMICS: Left ventricular end-diastolic pressure is 16-18 mm. There is no significant gradient across the aortic valve. LEFT VENTRICULOGRAM: Left ventriculogram is not performed. ANGIOGRAPHIC DATA: Left main coronary artery: Left main coronary artery appears calcified but is free of significant stenosis. Divides into left anterior descending coronary artery and circumflex coronary artery. LAD shows 2 focal areas of tight stenosis. Proximally there is a 90-95% focal stenosis and distally there is another 90% stenosis. Circumflex coronary artery shows a 70% stenosis. Right coronary artery which is a large dominant vessel shows a long segment of atherosclerotic plaque extending from proximal to the mid RCA. At its worst it seems to be 70% stenosed. CONCLUSIONS: Three-vessel coronary artery disease with focal stenotic lesions within the proximal and distal LAD, circumflex coronary artery and proximal to mid RCA. PLAN: Patient will undergo angioplasty with stent placement of LAD and we will address the circumflex and the right coronary artery down the road. MMODL / IJN: [id number] /
[2019-02-20] MEDS: lamoTRIgine 100 MG TAB PO SCH (20:38)
[2019-02-21] MEDS: NITROGLYCERIN OINT 1 INCH/GM PACKET TOPICAL SCH ×4 (05:58→23:59)
[2019-02-21] MEDS: LEVOTHYROXINE 112 MCG TAB PO SCH (06:03)
[2019-02-21] MEDS: LOSARTAN 25 MG TAB PO SCH ×2 (08:19→19:54)
[2019-02-21] MEDS: PRASUGREL 10 MG TAB PO SCH (08:20)
[2019-02-21] MEDS: METOPROLOL TARTRATE 25 MG TAB PO SCH ×2 (08:20→19:54)
[2019-02-21] MEDS: PANTOPRAZOLE 40 MG TABLET PO SCH (08:20)
[2019-02-21] MEDS: SERTRALINE 50 MG TAB PO SCH (08:20)
[2019-02-21] MEDS: ATORVASTATIN 40 MG TAB PO SCH (08:20)
[2019-02-21] MEDS: cloNIDine HCL 0.1 MG TAB PO SCH (08:25)
[2019-02-21] MEDS ORDERED: ASPIRIN 325 MG TAB PO SCH (09:00)
[2019-02-21] MEDS: ASPIRIN 81 MG PO SCH (10:19)
--- NOTE | 2019-02-21 11:08 | P.PN ---
Subjective patient was admitted for non-ST elevation myocardial infarction underwent cardiac catheterization which showed three-vessel disease patient had stenting of mid and distal LAD patient will undergo stenting to RCA down the line. Patient does have EF of 35-40% probably acute systolic dysfunction from acute myocardial. Patient is chest pain-free feeling much better today. Constitutional: Denied any fatigue denied any fever. Cardio vascular: denied any chest pain, palpitations Gastrointestinal denied any nausea vomiting Pulmonary: Denied any shortness of breath cough Neurologic denied any new focal deficits All inpatient medications were reviewed and appropriate changes in these medications as dictated in the interval history and assessment and plan. Objective - Vital Signs Vital signs: Vital Signs Temp 97.2 F L 02/21/19 07:15 Pulse 65 02/21/19 08:00 Resp 18 02/21/19 08:00 BP 108/62 02/21/19 07:15 Pulse Ox 96 02/21/19 07:15 Intake & Output 02/20/19 02/21/19 02/21/19 18:59 06:59 18:59 Intake Total 1344.187 260 Output Total 550 Balance 794.187 260 Weight 70 kg Intake: IV 400 Sodium Chloride 0.9% 1, 225 000 ml @ 75 mls/hr IV . [id number] LEROY Rx#:[id number] Intake, IV Titration 84.187 Amount Heparin Sod,Pork in 0.45% 84.187 NaCl 25,000 unit In 0.45 % NaCl 1 250ml.bag @ 12 UNITS/KG/HR 8.709 mls/hr IV .Q24H LEROY Rx#: [id number] Oral 860 260 Output: Urine 550 Other: Voiding Method Toilet Toilet Toilet # Voids 1 1 - Exam PHYSICAL EXAMINATION: GENERAL: The patient is alert and oriented x3, not in any acute distress. Well developed, well nourished. HEENT: Pupils are round and equally reacting to light. EOMI. No scleral icterus. No conjunctival pallor. Normocephalic, atraumatic. No pharyngeal erythema. No thyromegaly. CARDIOVASCULAR: S1 and S2 present. No murmurs, rubs, or gallops. PULMONARY: Chest is clear to auscultation, no wheezing or crackles. ABDOMEN: Soft, nontender, nondistended, normoactive bowel sounds. No palpable organomegaly. MUSCULOSKELETAL: No joint swelling or deformity. EXTREMITIES: No cyanosis, clubbing, or pedal edema. NEUROLOGICAL: Gross neurological examination did not reveal any focal deficits. SKIN: No rashes. - Labs CBC & Chem 7: 02/19/19 23:07 02/21/19 05:59 Labs: Abnormal Lab Results - Last 24 Hours (Table) 02/20/19 02/21/19 02/21/19 Range/Units 10:40 05:59 05:59 APTT 20.9 L (22.0-30.0) sec Creatinine 1.10 H (0.52-1.04) mg/dL Troponin I 0.272 H* (0.000-0.034) ng/mL Assessment and Plan Plan: Acute non-ST elevation myocardial infarction::patient had cardiac catheteriz ation and stenting to mid and distal LAD patient occlusion Bryant as well. He'll be continued on antiplatelet therapy beta elly. -acute systolic dysfunction probably ischemic cardiomyopathy not in acute heart failure exacerbation. Patient is euvolemic patient will continue on DOMINICK inhibitor. EF 35-40% -Hyperlipidemia -Hypertension -Depression -Hypothyroidism -Other psychiatric issues including depression: Patient will be resumed and continued on home medications patient is on clonidine apparently for his ADHD. Right now as she was started on beta elly on hold off on clonidine probably will start her back on that medication upon discharge.
--- NOTE | 2019-02-21 11:15 | P.PN ---
Subjective HISTORY OF PRESENTING ILLNESS This is a pleasant 68-year-old female past medical history significant for hypertension. She underwent cardiac catheterization yesterday revealing LAD with 2 areas of tight stenosis, proximal 90-95% and distally 90%, circumflex with 70% stenosis, RCA with a long segment of atherosclerotic plaque extending from the proximal to the mid RCA at worst 70%, left main free of significant disease. She underwent successful stent placement to the LAD with 2 drug- eluting stents. She is seen and examined resting heart was sitting up in bed in no acute distress. She denies any further symptoms of chest discomfort. She has been up and ambulating without difficulty. Blood pressure 108/62 heart rate 65 afebrile maintaining oxygen saturation on room air. Laboratory data reviewed, creatinine 1.1. Currently maintained on Effient 10 mg daily, metoprolol 25 mg twice a day, losartan 25 mg twice a day, atorvastatin 40 mg daily and aspirin 81 mg daily. Echocardiogram revealed impaired LV systolic function. PHYSICAL EXAMINATION CONSTITUTIONAL: No apparent distress. HEENT: Head is normocephalic. Pupils are equal, round. Sclerae anicteric. Mucous membranes of the mouth are moist. No JVD. No carotid bruit. CHEST EXAMINATION: Lungs are clear to auscultation. No chest wall tenderness is noted on palpation or with deep breathing. HEART EXAMINATION: Regular rate and rhythm. S1, S2 heard. No murmurs, gallops or rub. EXTREMITIES: 2+ peripheral pulses, no lower extremity edema and no calf tenderness. Right femoral access site clean, dry and intact with no evidence of hematoma, bleeding or ecchymosis. ASSESSMENT Non-ST elevated myocardial infarction Unstable angina Hypertension Dyslipidemia PLAN Continue current medical regimen. Continue to observe for additional 24 hours. Importance of dual antiplatelet therapy compliance discussed at great length with the patient. We will ask the medical case manager to check the cost of Effient tomorrow morning when the pharmacy opens. Further recommendations to follow. Nurse Practitioner note has been reviewed, I agree with a documented findings and plan of care. Patient was seen and examined. Objective - Vital Signs Vital signs: Vital Signs Temp 97.2 F L 02/21/19 07:15 Pulse 65 02/21/19 08:00 Resp 18 02/21/19 08:00 BP 108/62 02/21/19 07:15 Pulse Ox 96 02/21/19 07:15 Intake & Output 02/20/19 02/21/19 02/21/19 18:59 06:59 18:59 Intake Total 1344.187 260 Output Total 550 Balance 794.187 260 Weight 70 kg Intake: IV 400 Sodium Chloride 0.9% 1, 225 000 ml @ 75 mls/hr IV . [id number] [facility]ERO[facility] Rx#:[id number] Intake, IV Titration 84.187 Amount Heparin Sod,Pork in 0.45% 84.187 NaCl 25,000 unit In 0.45 % NaCl 1 250ml.bag @ 12 UNITS/KG/HR 8.709 mls/hr IV .Q24H [facility]EROY Rx#: [id number] Oral 860 260 Output: Urine 550 Other: Voiding Method Toilet Toilet Toilet # Voids 1 1 - Labs CBC & Chem 7: 02/19/19 23:07 02/21/19 05:59 Labs: Abnormal Lab Results - Last 24 Hours (Table) 02/20/19 02/21/19 02/21/19 Range/Units 10:40 05:59 05:59 APTT 20.9 L (22.0-30.0) sec Creatinine 1.10 H (0.52-1.04) mg/dL Troponin I 0.272 H* (0.000-0.034) ng/mL
[2019-02-21] MEDS ORDERED: LOPERAMIDE 2 MG CAP PO PRN (11:52)
[2019-02-21] MEDS: lamoTRIgine 100 MG TAB PO SCH (19:54)
[2019-02-22] MEDS: NITROGLYCERIN OINT 1 INCH/GM PACKET TOPICAL SCH ×2 (05:53→11:30)
[2019-02-22] MEDS: LEVOTHYROXINE 112 MCG TAB PO SCH (05:53)
[2019-02-22 07:40] LABS: HCT 34.3 % (34.0-46.0); HGB 11.2 gm/dL (11.4-16.0); MCH 32.8 pg (25.0-35.0); MCHC 32.7 g/dL (31.0-37.0); MCV 100.2 fL (80.0-100.0); Mean Platelet Volume 6.8; Platelet Count 269 k/uL (150-450); RBC 3.42 m/uL (3.80-5.40); RDW 12.9 % (11.5-15.5)
[2019-02-22 07:51] LABS: Calcium 9.2 mg/dL (8.4-10.2); Potassium 4.2 mmol/L (3.5-5.1)
[2019-02-22] MEDS: PRASUGREL 10 MG TAB PO SCH (10:22)
[2019-02-22] MEDS: METOPROLOL TARTRATE 25 MG TAB PO SCH (10:22)
[2019-02-22] MEDS: PANTOPRAZOLE 40 MG TABLET PO SCH (10:22)
[2019-02-22] MEDS: SERTRALINE 50 MG TAB PO SCH (10:23)
[2019-02-22] MEDS: ATORVASTATIN 40 MG TAB PO SCH (10:23)
[2019-02-22] MEDS: LOSARTAN 25 MG TAB PO SCH ×2 (10:23→19:52)
[2019-02-22] MEDS: ASPIRIN 81 MG PO SCH (10:23)
[2019-02-22] MEDS ORDERED: MELOXICAM 7.5 MG TAB PO SCH (10:30)
--- NOTE | 2019-02-22 11:35 | P.DS ---
Providers Date of admission: 02/20/19 00:26 Expected date of discharge: 02/22/19 Attending physician: Sebastian Marcano MD Consults: 02/20/19 00:26 Consult Physician Urgent Consulting Provider: Danny Garcia Consult Reason/Comments: nstemi Do you want consulting provider notified?: Yes 02/20/19 13:08 Consult Physician Routine Consulting Provider: [facility] Consult Reason/Comments: Post Interventional patient Do you want consulting provider notified?: Already Contacted Primary care physician: Marcelle Marcano Hospital Course: Final Diagnoses: Acute non-ST elevation myocardial infarction::patient had cardiac catheterization and stenting to mid and distal LAD. -Unstable angina -acute systolic dysfunction probably ischemic cardiomyopathy not in acute heart failure exacerbation. -Hyperlipidemia -Hypertension -Depression -Hypothyroidism Hospital course: This a 68-year-old female admitted with non-STEMI, status post cardiac catheterization with stenting of the mid and distal LAD. Significant clinical improvement. Patient will be discharged home in a stable condition with guarded prognosis, pending clearance and final DC recommendations as per cardiology. - Exam GENERAL: alert and oriented x3, no acute distress. CARDIOVASCULAR: S1 and S2 present. No murmurs, rubs, or gallops. PULMONARY: Chest is clear to auscultation, no wheezing or crackles. ABDOMEN: Soft, nontender, nondistended, normoactive bowel sounds. No palpable organomegaly NEUROLOGICAL: Gross neurological examination did not reveal any focal deficits. The impression and plan of care has been dictated as directed. : I performed a history and examination of this patient, discussed the same with the dictator. I agree with the dictator's note ,documented as a scribe. Any additional findings or plans will be noted. Patient Condition at Discharge: Stable Plan - Discharge Summary Discharge Rx Participant: No New Discharge Prescriptions: New Nitroglycerin Sl Tabs [Nitrostat] 0.4 mg SUBLINGUAL Q5M PRN #100 tab PRN Reason: Chest Pain Prasugrel [Effient] 10 mg PO DAILY #30 tab Atorvastatin [Lipitor] 40 mg PO DAILY #30 tab Metoprolol Tartrate [Lopressor] 25 mg PO BID #60 tab Aspirin EC [Ecotrin Low Dose] 81 mg PO DAILY #30 tablet. cloNIDine HCL [Catapres] 0.1 mg PO TID #1 tab Continue Celecoxib [CeleBREX] 200 mg PO DAILY Sertraline [Zoloft] 50 mg PO DAILY Pantoprazole [Protonix] 40 mg PO DAILY Losartan [Cozaar] 25 mg PO BID lamoTRIgine [LaMICtal] 100 mg PO HS Levothyroxine Sodium 112 mcg PO DAILY Acetaminophen/Diphenhydramine [Tylenol Pm Ex-Strength Caplet] 1 - 2 tab PO HS PRN PRN Reason: Pain Discontinued Dipyridamole-Aspirin 200-25 mg [Aggrenox 25MG -200MG] 1 tab PO BID cloNIDine HCL [Catapres] 0.1 mg PO TID Discharge Medication List Acetaminophen/Diphenhydramine [Tylenol Pm Ex-Strength Caplet] 1 - 2 tab PO HS PRN 02/20/19 [History] Celecoxib [CeleBREX] 200 mg PO DAILY 02/20/19 [History] Levothyroxine Sodium 112 mcg PO DAILY 02/20/19 [History] Losartan [Cozaar] 25 mg PO BID 02/20/19 [History] Pantoprazole [Protonix] 40 mg PO DAILY 02/20/19 [History] Sertraline [Zoloft] 50 mg PO DAILY 02/20/19 [History] lamoTRIgine [LaMICtal] 100 mg PO HS 02/20/19 [History] Aspirin EC [Ecotrin Low Dose] 81 mg PO DAILY #30 tablet. 02/22/19 [Rx] Atorvastatin [Lipitor] 40 mg PO DAILY #30 tab 02/22/19 [Rx] Metoprolol Tartrate [Lopressor] 25 mg PO BID #60 tab 02/22/19 [Rx] Nitroglycerin Sl Tabs [Nitrostat] 0.4 mg SUBLINGUAL Q5M PRN #100 tab 02/22/19 [Rx] Prasugrel [Effient] 10 mg PO DAILY #30 tab 02/22/19 [Rx] cloNIDine HCL [Catapres] 0.1 mg PO TID #1 tab 02/22/19 [Rx] Follow up Appointment(s)/Referral(s): Marcelle Marcano DO [Primary Care Provider] - 02/26/19 11:00 am (Friday with Dr. Sebastian Marcano in [place]) Danny Garcia MD [STAFF PHYSICIAN] - 03/04/19 3:30 pm () Ambulatory/Diagnostic Orders: Complete Blood Count w/diff [LAB.AMB] Time Frame: 3 Days, Location: None Selected Patient Instructions/Handouts: *Surgery [facility] - After Heart Catheterization - Monitoring Coordinator Instructions Activity/Diet/Wound Care/Special Instructions: Pending cardiology clearance, marie CASTILLO recommendations. Imdur -as per cardiology. Confirm cardiology follow-up prior to discharge.
--- NOTE | 2019-02-22 12:45 | P.PN ---
Subjective Progress Note Date: 02/22/19 This is a pleasant 68-year-old female who presented to the hospital with a non-ST elevation myocardial infarction. She underwent a cardiac catheterization which revealed a LAD stenosis of 90-95% proximal and 90% distal for which she underwent stent placement, circumflex also had a 70% stenosis, RCA had a long segment of plaque extending from the proximal to the mid RCA of 70%, left main was free of any disease. Patient was seen and examined this morning, she denied any chest discomfort, but did complain of some mid back discomfort that felt like a band sensation. She states that it was similar to her presenting symptoms. She also states that the symptoms to come and go. Her EKG shows normal sinus rhythm with deep T-wave inversions noted in the anterior lateral leads. Echocardiogram with Doppler study was performed which revealed an ejection fraction of 35-40%. Blood pressure this morning 178/98, heart rate in the 70s, 95% on room air. White blood cell count 7.0, hemoglobin 11.2, platelet count 69. Sodium 142, potassium 4.2, BUN 24 and creatinine 1.0. Patient's current medications include aspirin 81 mg daily, Lipitor 40 mg daily which we will increase to 80 mg daily, Cozaar 25 mg one tablet by mouth twice a day, metoprolol 25 mg one tablet by mouth twice a day, mild ache which we will discontinue, Nitropaste which we will discontinue, Effient 10 mg daily. We will discontinue the Lopressor and start the patient on Coreg for more optimal blood pressure control. We will also start the patient on some Aldactone today. Patient has been encouraged to be up ambulating in the hallway today, she has not yet ambulated. Objective - Vital Signs Vital signs: Vital Signs Temp 98.6 F 02/22/19 08:00 Pulse 75 02/22/19 08:00 Resp 18 02/22/19 08:00 BP 178/98 02/22/19 08:00 Pulse Ox 95 02/22/19 08:00 Intake & Output 02/21/19 02/22/19 02/22/19 18:59 06:59 18:59 Intake Total 1320 Balance 1320 Weight 70 kg 70 kg Intake: Oral 1320 Other: Voiding Method Toilet Toilet # Voids 1 - Exam PHYSICAL EXAMINATION: GENERAL: 68-year-old female in no acute distress at the time of my examination HEENT: Head is atraumatic, normocephalic. Pupils equal, round. Sclera anicteric. Conjunctiva are clear. Mucous membranes of the mouth are moist. Neck is supple. There is no elevated jugular venous pressure. No carotid bruit is heard. HEART EXAMINATION: Heart S1, S2 normal. No murmur or gallop heard. CHEST EXAMINATION: Lungs are clear to auscultation and precussion. No chest wall tenderness is noted on palpation or with deep breathing. ABDOMEN: Soft, nontender. Bowel sounds are heard. No organomegaly noted. EXTREMITIES: 2+ peripheral pulses with no evidence of peripheral edema and no ca lf tenderness noted. Right groin is soft, no evidence of any hematoma. NEUROLOGIC patient is awake, alert and oriented 3 . . - Labs CBC & Chem 7: 02/22/19 07:02 02/22/19 07:02 Labs: Abnormal Lab Results - Last 24 Hours (Table) 02/22/19 02/22/19 Range/Units 07:02 07:02 RBC 3.42 L (3.80-5.40) m/uL Hgb 11.2 L (11.4-16.0) gm/dL MCV 100.2 H (80.0-100.0) fL Chloride 110 H (98-107) mmol/L BUN 24 H (7-17) mg/dL Glucose 103 H (74-99) mg/dL Assessment and Plan Plan: Assessment and plan #1 non-ST elevation myocardial infarction, status post angioplasty and stenting of the LAD with 2 drug-eluting stents #2 ischemic cardiomyopathy #3 hypertension #4 hyperlipidemia Plan We will discontinue the Lopressor and start the patient on Coreg for more optimal blood pressure control. Add Aldactone to the medication regime. Discontinue the Nitropaste. Continue baby aspirin along with Effient. Continue to observe for 24 hours. DNP note has been reviewed, I agree with a documented findings and plan of care. Patient was seen and examined.
[2019-02-22] MEDS: CARVEDILOL 6.25 MG TAB PO SCH ×2 (14:01→17:58)
[2019-02-22] MEDS: SPIRONOLACTONE 25 MG TAB PO SCH (14:01)
[2019-02-22] MEDS ORDERED: ISOSORBIDE MONONITRATE ER 30 MG TAB.ER.24H PO STA (15:36)
[2019-02-22] MEDS ORDERED: LOSARTAN 25 MG TAB PO STA (15:37)
[2019-02-22] MEDS ORDERED: ASPIRIN 325 MG TAB PO STA (15:42)
[2019-02-22] MEDS ORDERED: NITROGLYCERIN SL TABS 0.4 MG TAB SUBLINGUAL PRN (15:42)
[2019-02-22] MEDS ORDERED: SODIUM CHLORIDE 0.9% 1,000 ML in EMPTY BAG 1 BAG IV ONE (15:42)
[2019-02-22] MEDS ORDERED: ATORVASTATIN 80 MG TAB PO STA (15:42)
[2019-02-22] MEDS ORDERED: CARVEDILOL 6.25 MG TAB PO SCH (17:30)
[2019-02-22] MEDS: lamoTRIgine 100 MG TAB PO SCH (19:52)
[2019-02-23] MEDS: ALPRAZolam 0.25 MG TAB PO PRN (00:25)
[2019-02-23] MEDS: ASPIRIN 81 MG PO SCH (05:56)
[2019-02-23] MEDS: ATORVASTATIN 80 MG TAB PO SCH (05:56)
[2019-02-23] MEDS: LEVOTHYROXINE 112 MCG TAB PO SCH (06:21)
[2019-02-23] MEDS: PANTOPRAZOLE 40 MG TABLET PO SCH (06:22)
[2019-02-23] MEDS: PRASUGREL 10 MG TAB PO SCH (06:22)
[2019-02-23] MEDS: CARVEDILOL 6.25 MG TAB PO SCH ×2 (06:22→16:40)
[2019-02-23] MEDS: LOSARTAN 25 MG TAB PO SCH ×2 (06:22→20:12)
[2019-02-23] MEDS: SERTRALINE 50 MG TAB PO SCH (06:22)
[2019-02-23] MEDS: SPIRONOLACTONE 25 MG TAB PO SCH (06:22)
[2019-02-23 06:25] LABS: Glucose,Whole Blood 108 mg/dL (75-99)
[2019-02-23] MEDS: ALPRAZolam 0.5 MG TAB PO PRN (13:39)
--- NOTE | 2019-02-23 17:49 | P.PN ---
Subjective Progress Note Date: 02/23/19 Hospital course: This a 68-year-old female admitted with non-STEMI, status post cardiac catheterization with stenting of the mid and distal LAD. Patient reported fluctuating "band like" pain in her mid back, similar to her prior symptoms she presented with, discharges placed on hold yesterday patient con tinued to be monitored over night. Symptoms persisted and patient is scheduled with cardiac catheterization today with cardiology. Objective - Vital Signs Vital signs: Vital Signs Temp 97.7 F 02/23/19 15:22 Pulse 84 02/23/19 15:24 Resp 16 02/23/19 15:24 BP 153/80 02/23/19 15:22 Pulse Ox 98 02/23/19 15:22 Intake & Output 02/22/19 02/23/19 02/23/19 18:59 06:59 18:59 Intake Total 1340 580 Balance 1340 580 Weight 69.9 kg Intake: IV 20 580 Invasive Line 2 20 20 Sodium Chloride 0.9% 1, 560 000 ml In Empty Bag 1 bag @ 1 ML/KG/HR 70 mls/hr IV .[id number] ONE Rx#: [id number] Oral 1320 Other: Voiding Method Toilet Toilet Toilet # Voids 3 2 - Exam GENERAL: alert and oriented x3, no acute distress. CARDIOVASCULAR: S1 and S2 present. No murmurs, rubs, or gallops. PULMONARY: Chest is clear to auscultation, no wheezing or crackles. ABDOMEN: Soft, nontender, nondistended, normoactive bowel sounds. No palpable organomegaly NEUROLOGICAL: Gross neurological examination did not reveal any focal deficits. - Labs CBC & Chem 7: 02/22/19 07:02 02/22/19 07:02 Labs: Abnormal Lab Results - Last 24 Hours (Table) 02/23/19 Range/Units 06:23 POC Glucose (mg/dL) 108 H (75-99) mg/dL Assessment and Plan Assessment: Acute non-ST elevation myocardial infarction: Status post cardiac catheterization and stenting to mid and distal LAD. -Unstable angina -acute systolic dysfunction probably ischemic cardiomyopathy not in acute heart failure exacerbation. -Hyperlipidemia -Hypertension -Depression -Hypothyroidism Plan: Continue current medication regime , Coreg, Effient, baby aspirin, Aldactone , statin, monitoring and symptomatic treatment. NPO, scheduled to return back for further cardiac catheterization/intervention. Follow closely with cardiology. The impression and plan of care has been dictated as directed. : I performed a history and examination of this patient, discussed the same with the dictator. I agree with the dictator's note ,documented as a scribe. Any additional findings or plans will be noted.
[2019-02-23] MEDS: lamoTRIgine 100 MG TAB PO SCH (20:12)
[2019-02-24] MEDS: ATORVASTATIN 80 MG TAB PO SCH (05:04)
[2019-02-24] MEDS: CARVEDILOL 6.25 MG TAB PO SCH ×2 (05:04→17:17)
[2019-02-24] MEDS: LEVOTHYROXINE 112 MCG TAB PO SCH (05:04)
[2019-02-24] MEDS: PANTOPRAZOLE 40 MG TABLET PO SCH (05:04)
[2019-02-24] MEDS: LOSARTAN 25 MG TAB PO SCH ×2 (05:04→21:25)
[2019-02-24] MEDS: PRASUGREL 10 MG TAB PO SCH (05:04)
[2019-02-24] MEDS: ASPIRIN 81 MG PO SCH (05:04)
[2019-02-24] MEDS: SERTRALINE 50 MG TAB PO SCH (05:05)
[2019-02-24] MEDS: ALPRAZolam 0.25 MG TAB PO PRN (05:05)
[2019-02-24 06:29] LABS: Calcium 9.4 mg/dL (8.4-10.2)
[2019-02-24 06:34] LABS: Basophils % (A) 0 %; Eosinophils # (A) 0.2 k/uL (0-0.7); Eosinophils % (A) 3 %; HCT 33.3 % (34.0-46.0); HGB 11.2 gm/dL (11.4-16.0); Lymphocytes # (A) 2.1 k/uL (1.0-4.8); Lymphocytes % (A) 31 %; MCH 33.4 pg (25.0-35.0); MCHC 33.6 g/dL (31.0-37.0); MCV 99.2 fL (80.0-100.0); Mean Platelet Volume 6.3; Monocytes # (A) 0.4 k/uL (0-1.0); Monocytes % (A) 6 %; Neutrophils # (A) 3.8 k/uL (1.3-7.7); Neutrophils % (A) 57 %; Platelet Count 276 k/uL (150-450); RBC 3.35 m/uL (3.80-5.40); RDW 12.7 % (11.5-15.5); WBC 6.7 k/uL (3.8-10.6)
[2019-02-24] MEDS ORDERED: LIDOCAINE 1% INJ 10MG/ML (20 ML MDV) ONE (09:12)
[2019-02-24] MEDS ORDERED: VERAPAMIL 2.5 MG/ML 2 ML AMP ONE (09:16)
[2019-02-24] MEDS ORDERED: SODIUM CHLORIDE 0.9% 1,000 ML IV ONE (09:23)
[2019-02-24] MEDS: MIDAZOLAM 2 MG/2 ML VIAL IV ONE ×2 (09:28→09:44)
[2019-02-24] MEDS ORDERED: LIDOCAINE 1% INJ 10MG/ML (20 ML MDV) SQ ONE (09:31)
[2019-02-24] MEDS ORDERED: BIVALIRUDIN BOLUS 250 MG/50 ML IV ONE (09:45)
[2019-02-24] MEDS ORDERED: BIVALIRUDIN 250 MG in SODIUM CHLORIDE 0.9% 50 ML IV ONE (09:46)
[2019-02-24] MEDS ORDERED: ONDANSETRON 4 MG/2 ML VIAL ONE (09:59)
[2019-02-24] MEDS ORDERED: hydrALAZINE HCL 20 MG/ML 1 ML VIAL ONE (10:01)
[2019-02-24] MEDS ORDERED: hydrALAZINE HCL 20 MG/ML 1 ML VIAL IV ONE (10:02)
[2019-02-24] MEDS: NITROGLYCERIN 1000MCG/10ML SYRINGE INTRACORON ONE ×2 (10:03→10:05)
[2019-02-24] MEDS ORDERED: ONDANSETRON 4 MG/2 ML VIAL IVP ONE (10:03)
[2019-02-24] MEDS ORDERED: IOPAMIDOL-370 125ML BTL INJ ONE (10:10)
[2019-02-24] MEDS ORDERED: ATROPINE SULFATE 0.1 MG/ML 10ML SYRINGE IV PRN (10:21)
[2019-02-24] MEDS ORDERED: MAG HYDROX/AL HYDROX/SIMETH 30 ML CUP PO PRN (10:21)
[2019-02-24] MEDS ORDERED: ZOLPIDEM 5 MG TAB PO PRN (10:21)
[2019-02-24] MEDS ORDERED: RX INFO: IV CONTRAST WAS GIVEN 1 EACH MISC MISCELLANE PRN (10:21)
[2019-02-24] MEDS ORDERED: SODIUM CHLORIDE 0.9% 1,000 ML IV SCH (10:30)
--- NOTE | 2019-02-24 11:00 | PTCA ---
PERCUTANEOUSTRANS CORORONARY ANGIOGRAPHY PERCUTANEOUS CORONARY INTERVENTION: DATE OF SERVICE: February 24, 2019 PERFORMING PHYSICIAN: Judith. Antoine Slade MD, [facility]. PROCEDURE PERFORMED: 1. An atherectomy of the right coronary artery using the orbital atherectomy device. 2. Successful stenting of the mid right coronary artery using 3.0 x 28 mm Xience JIA with an excellent angiographic results and reduction of stenosis from 80% to 0%. 3. Placement of transvenous temporary pacemaker from right femoral artery. INDICATION: This is a pleasant 68-year-old female patient who presented to the hospital this past Friday with chest discomfort and ruled in for acute [id number]-WX-[id number] myocardial infarction. She underwent at that point, a heart catheterization by Dr. Garcia and that revealed severe triple-vessel coronary artery disease with critical LAD and severe disease involving the circumflex and RCA. She underwent at that point, stenting of the LAD. She continues to have chest discomfort and she was brought today to undergo a PCI of the RCA and left circumflex. APPROACH: Right common femoral artery. COMPLICATION: None. LEVEL OF SEDATION: Moderate with sedation length of 45 minutes. PROCEDURE DESCRIPTION: After obtaining an informed consent, the patient was brought to the cardiac cleaning laborer. The right common femoral artery was cannulated using micropuncture technique, the micropuncture wire passed easily then I placed a 6-Iranian sheath. After that, I cannulated the right common femoral vein using the same technique and I placed another 6-Iranian sheath there as well. After that under fluoroscopy guidance, I advanced transvenous temporary pacemaker to the right ventricle where the pacemaker was positioned in the RV apex under fluoroscopy guidance and the pacemaker was set up for a back heart rate of 60 and amp of 5. After that, I cannulated the right coronary artery using JR4 guide. I did wire it using a Whisper wire then I exchanged my Whisper wire into ViperWire using a Teleport catheter. Please note that anticoagulation with Angiomax was started right after accessing the right common femoral artery and right common femoral vein. Subsequently, I did atherectomy of the right coronary artery using the orbital atherectomy device from [facility] where I did 2 runs under low speed. Subsequently I did balloon angioplasty using 2.5 x 15 mm balloon before I deployed a 3.0 x 28 mm Xience JIA where the stent was positioned under fluoroscopy guidance and deployed under 14 atmospheres for 20 seconds with the following angiogram showing excellent angiographic results and the procedure was completed without any complication. POSTPROCEDURE MANAGEMENT: 1. Dual antiplatelet therapy. 2. Risk factors modifications. 3. PCI of the left circumflex to be done. We did not do it this time because of the contrast threshold. LEYLA / FERNANDEZ: [id number] /
[2019-02-24] MEDS: NITROGLYCERIN SL TABS 0.4 MG TAB SUBLINGUAL PRN ×2 (11:28→11:34)
[2019-02-24] MEDS: NITROGLYCERIN-D5W PMX 50 MG in DEXTROSE/WATER 1 250ML.BAG IV SCH (12:00)
[2019-02-24] MEDS: ISOSORBIDE MONONITRATE ER 30 MG TAB.ER.24H PO SCH (13:09)
[2019-02-24] MEDS: SPIRONOLACTONE 25 MG TAB PO SCH (13:09)
--- NOTE | 2019-02-24 15:11 | P.PN ---
Subjective Progress Note Date: 02/24/19 Hospital course: This a 68-year-old female admitted with non-STEMI, status post cardiac catheterization with stenting of the mid and distal LAD. Patient reported fluctuating "band like" pain in her mid back, similar to her prior symptoms she presented with, discharges placed on hold yesterday patient con tinued to be monitored over night. Symptoms persisted and patient is scheduled with cardiac catheterization today with cardiology. 02/24/19 scheduled for cardiac catheterization this morning. Currently denies chest pain, shortness of breath or palpitations. Hypertensive, hydralazine ordered as per cardiology. Objective - Vital Signs Vital signs: Vital Signs Temp 97.5 F L 02/24/19 08:05 Pulse 69 02/24/19 13:15 Resp 18 02/24/19 13:15 BP 161/86 02/24/19 13:15 Pulse Ox 99 02/24/19 13:15 Intake & Output 02/23/19 02/24/19 02/24/19 18:59 06:59 18:59 Intake Total 1980 95 Balance 1980 95 Weight 70 kg Intake: IV 580 95 Invasive Line 2 20 Sodium Chloride 0.9% 1, 560 000 ml In Empty Bag 1 bag @ 1 ML/KG/HR 70 mls/hr IV .[id number] ONE Rx#: [id number] Oral 1400 Other: Voiding Method Toilet Toilet # Voids 1 1 - Exam GENERAL: alert and oriented x3, no acute distress. CARDIOVASCULAR: S1 and S2 present. No murmurs, rubs, or gallops. PULMONARY: Chest is clear to auscultation, no wheezing or crackles. ABDOMEN: Soft, nontender, nondistended, normoactive bowel sounds. No palpable organomegaly NEUROLOGICAL: Gross neurological examination did not reveal any focal deficits. SKIN: No rash - Labs CBC & Chem 7: 02/24/19 05:32 02/24/19 05:32 Labs: Abnormal Lab Results - Last 24 Hours (Table) 02/24/19 02/24/19 Range/Units 05:32 05:32 RBC 3.35 L (3.80-5.40) m/uL Hgb 11.2 L (11.4-16.0) gm/dL Hct 33.3 L (34.0-46.0) % Chloride 110 H (98-107) mmol/L Carbon Dioxide 21 L (22-30) mmol/L BUN 22 H (7-17) mg/dL Glucose 108 H (74-99) mg/dL Assessment and Plan Assessment: Acute non-ST elevation myocardial infarction: Status post cardiac catheterization and stenting to mid and distal LAD. -Unstable angina -acute systolic dysfunction probably ischemic cardiomyopathy not in acute heart failure exacerbation. -Hyperlipidemia -Hypertension -Depression -Hypothyroidism Plan: Continue current medication regime , Coreg, Effient, baby aspirin, Aldactone , statin, monitoring and symptomatic treatment. NPO, scheduled to return back for further cardiac catheterization/intervention this morning. Follow closely with cardiology. The impression and plan of care has been dictated as directed. : I performed a history and examination of this patient, discussed the same with the dictator. I agree with the dictator's note ,documented as a scribe. Any additional findings or plans will be noted.
[2019-02-24] MEDS: ALPRAZolam 0.5 MG TAB PO PRN ×2 (16:11→22:54)
[2019-02-24] MEDS ORDERED: MORPHINE SULFATE 2 MG/ML SYRINGE IVP STA (17:41)
[2019-02-24] MEDS: lamoTRIgine 100 MG TAB PO SCH (21:25)
[2019-02-25 06:29] LABS: Basophils % (A) 1 %; Eosinophils # (A) 0.3 k/uL (0-0.7); Eosinophils % (A) 4 %; HCT 30.3 % (34.0-46.0); Lymphocytes # (A) 2.1 k/uL (1.0-4.8); Lymphocytes % (A) 31 %; MCH 32.3 pg (25.0-35.0); MCHC 31.9 g/dL (31.0-37.0); MCV 101.5 fL (80.0-100.0); Mean Platelet Volume 7.1; Monocytes # (A) 0.4 k/uL (0-1.0); Monocytes % (A) 6 %; Neutrophils # (A) 3.7 k/uL (1.3-7.7); Neutrophils % (A) 56 %; Platelet Count 259 k/uL (150-450); RBC 2.98 m/uL (3.80-5.40); RDW 12.8 % (11.5-15.5); WBC 6.5 k/uL (3.8-10.6)
[2019-02-25 06:30] LABS: HGB 9.6 gm/dL (11.4-16.0)
[2019-02-25] MEDS: LEVOTHYROXINE 112 MCG TAB PO SCH (06:32)
[2019-02-25] MEDS: CARVEDILOL 6.25 MG TAB PO SCH ×2 (06:32→17:01)
[2019-02-25 06:39] LABS: Calcium 8.5 mg/dL (8.4-10.2); Potassium 3.6 mmol/L (3.5-5.1)
[2019-02-25] MEDS: PRASUGREL 10 MG TAB PO SCH (08:07)
[2019-02-25] MEDS: SPIRONOLACTONE 25 MG TAB PO SCH (08:07)
[2019-02-25] MEDS: SERTRALINE 50 MG TAB PO SCH (08:07)
[2019-02-25] MEDS: LOSARTAN 25 MG TAB PO SCH ×2 (08:07→20:28)
[2019-02-25] MEDS: ASPIRIN 81 MG PO SCH (08:07)
[2019-02-25] MEDS: PANTOPRAZOLE 40 MG TABLET PO SCH (08:07)
[2019-02-25] MEDS: ISOSORBIDE MONONITRATE ER 30 MG TAB.ER.24H PO SCH (08:08)
[2019-02-25] MEDS: ATORVASTATIN 80 MG TAB PO SCH (08:08)
[2019-02-25] MEDS: ALPRAZolam 0.5 MG TAB PO PRN ×2 (09:56→20:28)
[2019-02-25] MEDS: NITROGLYCERIN-D5W PMX 50 MG in DEXTROSE/WATER 1 250ML.BAG IV SCH (10:04)
[2019-02-25] MEDS ORDERED: ACETAMINOPHEN TAB 325 MG TAB PO PRN (11:15)
[2019-02-25 12:05] LABS: Glucose,Whole Blood 117 mg/dL (75-99)
[2019-02-25 14:12] VITALS: BMI 26.8
--- NOTE | 2019-02-25 14:39 | P.PN ---
Subjective Progress Note Date: 02/25/19 This is a pleasant 68-year-old female who presented to the hospital with a non-ST elevation myocardial infarction. She underwent a cardiac catheterization which revealed a LAD stenosis of 90-95% proximal and 90% distal for which she underwent stent placement, circumflex also had a 70% stenosis, RCA had a long segment of plaque extending from the proximal to the mid RCA of 70%, left main was free of any disease. Patient was seen and examined this morning, she denied any chest discomfort, but did complain of some mid back discomfort that felt like a band sensation. She states that it was similar to her presenting symptoms. She also states that the symptoms to come and go. Her EKG shows normal sinus rhythm with deep T-wave inversions noted in the anterior lateral leads. Echocardiogram with Doppler study was performed which revealed an ejection fraction of 35-40%. Blood pressure this morning 178/98, heart rate in the 70s, 95% on room air. White blood cell count 7.0, hemoglobin 11.2, platelet count 69. Sodium 142, potassium 4.2, BUN 24 and creatinine 1.0. Patient's current medications include aspirin 81 mg daily, Lipitor 40 mg daily which we will increase to 80 mg daily, Cozaar 25 mg one tablet by mouth twice a day, metoprolol 25 mg one tablet by mouth twice a day, mild ache which we will discontinue, Nitropaste which we will discontinue, Effient 10 mg daily. We will discontinue the Lopressor and start the patient on Coreg for more optimal blood pressure control. We will also start the patient on some Aldactone today. Patient has been encouraged to be up ambulating in the hallway today, she has not yet ambulated. 02/25/2019 Patient was taken back to the cardiac catheterization lab yesterday underwent stenting of the RCA, prior to that patient did undergo arthrectomy of the RCA using the orbital arthrectomy device. She also had placement of a transvenous. Pacemaker from the right femoral artery. was seen and examined this morning, denied any chest pain, breathing is stable. She just feels extremely tired. Blood pressure 142/60 with a heart rate in the 80s, 97% on room air. White blood cell count 6.5, hemoglobin 9.6, 11.2 yesterday, platelet count 259. Sodium 143, potassium 3.6, BUN 19 and creatinine 0.8. Objective - Vital Signs Vital signs: Vital Signs Temp 98.2 F 02/25/19 08:00 Pulse 86 02/25/19 12:00 Resp 20 02/25/19 12:00 BP 142/67 02/25/19 12:00 Pulse Ox 97 02/25/19 12:00 Intake & Output 02/24/19 02/25/19 02/25/19 18:59 06:59 18:59 Intake Total 455 237 360 Output Total 500 Balance -45 237 360 Weight 70.8 kg 70.8 kg Intake: IV 95 Oral 360 237 360 Output: Urine 500 Other: Voiding Method Bedpan # Voids 1 1 - Exam PHYSICAL EXAMINATION: GENERAL: 68-year-old female in no acute distress at the time of my examination HEENT: Head is atraumatic, normocephalic. Pupils equal, round. Sclera anicteric. Conjunctiva are clear. Mucous membranes of the mouth are moist. Neck is supple. There is no elevated jugular venous pressure. No carotid bruit is heard. HEART EXAMINATION: Heart S1, S2 normal. No murmur or gallop heard. CHEST EXAMINATION: Lungs are clear to auscultation and precussion. No chest wall tenderness is noted on palpation or with deep breathing. ABDOMEN: Soft, nontender. Bowel sounds are heard. No organomegaly noted. EXTREMITIES: 2+ peripheral pulses with no evidence of peripheral edema and no calf tenderness noted. Right groin is soft, resume no hematoma, no bruit. NEUROLOGIC patient is awake, alert and oriented 3 . . - Labs CBC & Chem 7: 02/25/19 05:43 02/25/19 05:43 Labs: Abnormal Lab Results - Last 24 Hours (Table) 02/25/19 02/25/19 02/25/19 Range/Units 05:43 05:43 11:54 RBC 2.98 L (3.80-5.40) m/uL Hgb 9.6 L D (11.4-16.0) gm/dL Hct 30.3 L (34.0-46.0) % MCV 101.5 H (80.0-100.0) fL Chloride 111 H (98-107) mmol/L BUN 19 H (7-17) mg/dL Glucose 111 H (74-99) mg/dL POC Glucose (mg/dL) 117 H (75-99) mg/dL Assessment and Plan Plan: Assessment and plan #1 non-ST elevation myocardial infarction, status post angioplasty and stenting of the LAD with 2 drug-eluting stents #2 ischemic cardiomyopathy #3 hypertension #4 hyperlipidemia Plan We will continue the patient on her current medications. Check a CBC in the morning, encouraged her to walk in the hallway this afternoon plan for possible discharge home in the morning if stable. DNP note has been reviewed, I agree with a documented findings and plan of care. Patient was seen and examined.
[2019-02-25 16:51] LABS: Glucose,Whole Blood 102 mg/dL (75-99)
[2019-02-25] MEDS: lamoTRIgine 100 MG TAB PO SCH (20:28)
--- NOTE | 2019-02-25 21:49 | P.PN ---
Subjective Progress Note Date: 02/25/19 She underwent cath yesterday and is now feeling much better. Had some chest discomfort last night but today has felt well. No dyspnea with exertion. Objective - Vital Signs Vital signs: Vital Signs Temp 98.0 F 02/25/19 20:32 Pulse 79 02/25/19 20:32 Resp 16 02/25/19 20:32 BP 133/83 02/25/19 20:32 Pulse Ox 96 02/25/19 20:32 Intake & Output 02/25/19 02/25/19 02/26/19 06:59 18:59 06:59 Intake Total 237 720 360 Balance 237 720 360 Weight 70.8 kg 70.8 kg Intake: Oral 237 720 360 Other: Voiding Method Bedpan Toilet # Voids 1 3 1 - Exam Gen: alert, well developed, NAD HEENT: mucus membranes moist CV: RRR, no murmur Lungs: normal effort, clear throughout Ext: no edema - Labs CBC & Chem 7: 02/25/19 05:43 02/25/19 05:43 Labs: Abnormal Lab Results - Last 24 Hours (Table) 02/25/19 02/25/19 02/25/19 Range/Units 05:43 05:43 11:54 RBC 2.98 L (3.80-5.40) m/uL Hgb 9.6 L D (11.4-16.0) gm/dL Hct 30.3 L (34.0-46.0) % MCV 101.5 H (80.0-100.0) fL Chloride 111 H (98-107) mmol/L BUN 19 H (7-17) mg/dL Glucose 111 H (74-99) mg/dL POC Glucose (mg/dL) 117 H (75-99) mg/dL 02/25/19 Range/Units 16:49 RBC (3.80-5.40) m/uL Hgb (11.4-16.0) gm/dL Hct (34.0-46.0) % MCV (80.0-100.0) fL Chloride (98-107) mmol/L BUN (7-17) mg/dL Glucose (74-99) mg/dL POC Glucose (mg/dL) 102 H (75-99) mg/dL Assessment and Plan (1) Coronary artery disease involving [place] coronary artery Current Visit: Yes Status: Acute Code(s): I25.10 - ATHSCL HEART DISEASE OF [place] CORONARY ARTERY W/O ANG PCTRS SNOMED Code(s): 4509661059802 (2) NSTEMI (non-ST elevated myocardial infarction) Current Visit: Yes Status: Acute Code(s): I21.4 - NON-ST ELEVATION (NSTEMI) MYOCARDIAL INFARCTION SNOMED Code(s): 12261554 (3) Essential hypertension Current Visit: Yes Status: Acute Code(s): I10 - ESSENTIAL (PRIMARY) HYPERTENSION SNOMED Code(s): 21261154 (4) Acquired hypothyroidism Current Visit: Yes Status: Acute Code(s): E03.9 - HYPOTHYROIDISM, UNSPECIFIED SNOMED Code(s): 788736000 Plan: Continue to monitor patient, continue on current treatment including beta block er, ARB, effient, ASA. Discharge planning in progress for tomorrow
[2019-02-25 23:56] VITALS: RESP 18
[2019-02-26] MEDS: LEVOTHYROXINE 112 MCG TAB PO SCH (06:42)
[2019-02-26] MEDS: CARVEDILOL 6.25 MG TAB PO SCH (06:42)
[2019-02-26 08:08] LABS: Basophils % (A) 0 %; Eosinophils # (A) 0.3 k/uL (0-0.7); Eosinophils % (A) 4 %; HCT 28.2 % (34.0-46.0); HGB 9.6 gm/dL (11.4-16.0); Lymphocytes % (A) 34 %; MCH 33.8 pg (25.0-35.0); MCV 99.4 fL (80.0-100.0); Mean Platelet Volume 6.4; Monocytes # (A) 0.3 k/uL (0-1.0); Monocytes % (A) 6 %; Neutrophils # (A) 3.1 k/uL (1.3-7.7); Neutrophils % (A) 53 %; Platelet Count 256 k/uL (150-450); RBC 2.84 m/uL (3.80-5.40); RDW 12.8 % (11.5-15.5); WBC 5.9 k/uL (3.8-10.6)
[2019-02-26] MEDS: ATORVASTATIN 80 MG TAB PO SCH (08:37)
[2019-02-26] MEDS: PRASUGREL 10 MG TAB PO SCH (08:37)
[2019-02-26] MEDS: SPIRONOLACTONE 25 MG TAB PO SCH (08:37)
[2019-02-26] MEDS: SERTRALINE 50 MG TAB PO SCH (08:38)
[2019-02-26] MEDS: ASPIRIN 81 MG PO SCH (08:38)
[2019-02-26] MEDS: ISOSORBIDE MONONITRATE ER 30 MG TAB.ER.24H PO SCH (08:38)
[2019-02-26] MEDS: PANTOPRAZOLE 40 MG TABLET PO SCH (08:38)
[2019-02-26] MEDS: LOSARTAN 25 MG TAB PO SCH (08:38)
[2019-02-26] MEDS: NITROGLYCERIN-D5W PMX 50 MG in DEXTROSE/WATER 1 250ML.BAG IV SCH (08:39)
[2019-02-26 09:12] VITALS: BP 134/64; PULSE 71; TEMP 97.4
--- NOTE | 2019-02-26 12:34 | P.PN ---
Subjective Progress Note Date: 02/26/19 This is a pleasant 68-year-old female who presented to the hospital with a non-ST elevation myocardial infarction. She underwent a cardiac catheterization which revealed a LAD stenosis of 90-95% proximal and 90% distal for which she underwent stent placement, circumflex also had a 70% stenosis, RCA had a long segment of plaque extending from the proximal to the mid RCA of 70%, left main was free of any disease. Patient was seen and examined this morning, she denied any chest discomfort, but did complain of some mid back discomfort that felt like a band sensation. She states that it was similar to her presenting symptoms. She also states that the symptoms to come and go. Her EKG shows normal sinus rhythm with deep T-wave inversions noted in the anterior lateral leads. Echocardiogram with Doppler study was performed which revealed an ejection fraction of 35-40%. Blood pressure this morning 178/98, heart rate in the 70s, 95% on room air. White blood cell count 7.0, hemoglobin 11.2, platelet count 69. Sodium 142, potassium 4.2, BUN 24 and creatinine 1.0. Patient's current medications include aspirin 81 mg daily, Lipitor 40 mg daily which we will increase to 80 mg daily, Cozaar 25 mg one tablet by mouth twice a day, metoprolol 25 mg one tablet by mouth twice a day, mild ache which we will discontinue, Nitropaste which we will discontinue, Effient 10 mg daily. We will discontinue the Lopressor and start the patient on Coreg for more optimal blood pressure control. We will also start the patient on some Aldactone today. Patient has been encouraged to be up ambulating in the hallway today, she has not yet ambulated. 02/25/2019 Patient was taken back to the cardiac catheterization lab yesterday underwent stenting of the RCA, prior to that patient did undergo arthrectomy of the RCA using the orbital arthrectomy device. She also had placement of a transvenous. Pacemaker from the right femoral artery. Patient was seen and examined this morning, denied any chest pain, breathing is stable. She just feels extremely tired. Blood pressure 142/60 with a heart rate in the 80s, 97% on room air. White blood cell count 6.5, hemoglobin 9.6, 11.2 yesterday, platelet count 259. Sodium 143, potassium 3.6, BUN 19 and creatinine 0.8. 02/26/2019 Patient seen and examined this morning, sitting up at bedside. Hemodynamically stable. Denies any chest discomfort and no difficulty in breathing. She slept well through the night last night. Blood pressure 134/60 with a heart rate of 70, 95% on room air. White blood cell count 5.9, hemoglobin 9.6, platelet count 256. Objective - Vital Signs Vital signs: Vital Signs Temp 97.4 F L 02/26/19 08:00 Pulse 71 02/26/19 08:00 Resp 18 02/26/19 08:00 BP 134/64 02/26/19 08:00 Pulse Ox 95 02/26/19 08:00 Intake & Output 02/25/19 02/26/19 02/26/19 18:59 06:59 18:59 Intake Total 720 360 120 Balance 720 360 120 Weight 70.8 kg 71.6 kg Intake: Oral 720 360 120 Other: Voiding Method Toilet # Voids 3 1 - Exam PHYSICAL EXAMINATION: GENERAL: 68-year-old female in no acute distress at the time of my examination HEENT: Head is atraumatic, normocephalic. Pupils equal, round. Sclera anicteric. Conjunctiva are clear. Mucous membranes of the mouth are moist. Neck is supple. There is no elevated jugular venous pressure. No carotid bruit is heard. HEART EXAMINATION: Heart S1, S2 normal. No murmur or gallop heard. CHEST EXAMINATION: Lungs are clear to auscultation and precussion. No chest wall tenderness is noted on palpation or with deep breathing. ABDOMEN: Soft, nontender. Bowel sounds are heard. No organomegaly noted. EXTREMITIES: 2+ peripheral pulses with no evidence of peripheral edema and no calf tenderness noted. Right groin is soft, resume no hematoma, no bruit. NEUROLOGIC patient is awake, alert and oriented 3 . . - Labs CBC & Chem 7: 02/26/19 07:51 02/25/19 05:43 Labs: Abnormal Lab Results - Last 24 Hours (Table) 02/25/19 02/26/19 Range/Units 16:49 07:51 RBC 2.84 L (3.80-5.40) m/uL Hgb 9.6 L (11.4-16.0) gm/dL Hct 28.2 L (34.0-46.0) % POC Glucose (mg/dL) 102 H (75-99) mg/dL Assessment and Plan Plan: Assessment and plan #1 non-ST elevation myocardial infarction, status post angioplasty and stenting of the LAD with 2 drug-eluting stents #2 ischemic cardiomyopathy #3 hypertension #4 hyperlipidemia Plan We will continue the patient on her current medications. Hemoglobin today is 9.6, patient be able to be discharged home today from cardiology's perspective, we will make her a follow-up appointment to see Dr. Mccullough in the office post discharge. DNP note has been reviewed, I agree with a documented findings and plan of care. Patient was seen and examined.
== END 2019-02-26 12:50 | disposition home or self-care (01) | DRG 247 ==
LOC: EC 23:03 → 3SCARD 02-20 00:26
PROVIDERS: ADMIT Family Medicine; ATTEND Family Medicine
PROC: 4A023N7 Measurement of Cardiac Sampling and Pressure, Left Heart, Percutaneous Approach (ICD-10-PCS; 2019-02-20)
PROC: B2111ZZ Fluoroscopy of Multiple Coronary Arteries using Low Osmolar Contrast (ICD-10-PCS; 2019-02-20)
PROC: 027035Z Dilation of Coronary Artery, One Artery with Two Drug-eluting Intraluminal Devices, Percutaneous Approach (ICD-10-PCS; principal; 2019-02-20 11:25)
PROC: 027034Z Dilation of Coronary Artery, One Artery with Drug-eluting Intraluminal Device, Percutaneous Approach (ICD-10-PCS; 2019-02-24)
PROC: X2C0361 Extirpation of Matter from Coronary Artery, One Artery using Orbital Atherectomy Technology, Percutaneous Approach, New Technology Group 1 (ICD-10-PCS; 2019-02-24)
PROC: 5A1213Z Performance of Cardiac Pacing, Intermittent (ICD-10-PCS; 2019-02-24)
DX: I21.4 Non-ST elevation (NSTEMI) myocardial infarction (principal); E03.9 Hypothyroidism, unspecified; E78.5 Hyperlipidemia, unspecified; F32.9 Major depressive disorder, single episode, unspecified; F90.9 Attention-deficit hyperactivity disorder, unspecified type; I10 Essential (primary) hypertension; I25.110 Atherosclerotic heart disease of native coronary artery with unstable angina pectoris; I25.5 Ischemic cardiomyopathy; Z79.1 Long term (current) use of non-steroidal anti-inflammatories (NSAID); Z79.82 Long term (current) use of aspirin; Z79.890 Hormone replacement therapy; Z79.899 Other long term (current) drug therapy; Z87.891 Personal history of nicotine dependence; Z90.710 Acquired absence of both cervix and uterus; Z90.49 Acquired absence of other specified parts of digestive tract; Z88.1 Allergy status to other antibiotic agents; Z88.0 Allergy status to penicillin; Z88.2 Allergy status to sulfonamides; M54.9 Dorsalgia, unspecified
CPT/HCPCS: 36415; 71046; 80048; 80053; 80061; 82565; 83735; 84484; 85025; 85027; 85610; 85730; 93005; 93306; 93458; 96365; 96376; 99285; C1874

== ENCOUNTER → 2019-03-01 | Outpatient (CLI) | payer MEDICARE, OTHER ==
[2019-03-01 11:11] LABS: Basophils % (A) 1 %; Eosinophils # (A) 0.2 k/uL (0-0.7); Eosinophils % (A) 4 %; HCT 29.7 % (34.0-46.0); Lymphocytes % (A) 42 %; MCH 33.6 pg (25.0-35.0); MCHC 33.8 g/dL (31.0-37.0); MCV 99.3 fL (80.0-100.0); Monocytes # (A) 0.2 k/uL (0-1.0); Monocytes % (A) 5 %; Neutrophils # (A) 2.1 k/uL (1.3-7.7); Neutrophils % (A) 46 %; Platelet Count 305 k/uL (150-450); RBC 2.99 m/uL (3.80-5.40); RDW 12.7 % (11.5-15.5); WBC 4.7 k/uL (3.8-10.6)
[2019-03-01 17:44] LABS: African American GFR (CKD) 53.8 (60.0-200.0); Anion Gap 11.3 mmol/L (4.00-12.00); Calcium 8.9 mg/dL (8.7-10.3); Carbon Dioxide 22.7 mmol/L (21.6-31.8); Potassium 3.9 mmol/L (3.5-5.5)
== END | disposition home or self-care (01) ==
LOC: LABWHC1 09:12
PROVIDERS: ATTEND Nurse Practitioner
DX: I21.4 Non-ST elevation (NSTEMI) myocardial infarction (principal)
CPT/HCPCS: 36415; 80048; 85025

== ENCOUNTER → 2019-04-05 | Outpatient (CLI) | payer MEDICARE ==
[2019-04-05 10:48] LABS: HGB 10.6 gm/dL (11.4-16.0); MCH 33.3 pg (25.0-35.0); MCV 100.9 fL (80.0-100.0); Platelet Count 227 k/uL (150-450); RBC 3.17 m/uL (3.80-5.40); RDW 12.8 % (11.5-15.5); WBC 4.9 k/uL (3.8-10.6)
== END | disposition home or self-care (01) ==
LOC: LABPAT 09:59
PROVIDERS: ATTEND Internal Medicine Interventional Cardiology
DX: Z01.812 Encounter for preprocedural laboratory examination (principal); I25.10 Atherosclerotic heart disease of native coronary artery without angina pectoris
CPT/HCPCS: 36415; 80051; 82565; 84520; 85027

== ENCOUNTER 2019-04-08 08:26 | Day surgery (SDC) | payer MEDICARE, OTHER ==
[2019-04-02 14:14] VITALS: BMI 26.6
[~2019-04-08 08:26] MED LIST: ALPRAZolam 0.25 MG TAB PO PRN; ALPRAZolam 0.5 MG TAB PO PRN; ASPIRIN 325 MG TAB PO STA; NITROGLYCERIN SL TABS 0.4 MG TAB SUBLINGUAL PRN; SODIUM CHLORIDE 0.9% 1,000 ML in EMPTY BAG 1 BAG IV ONE
[2019-04-08] MEDS ORDERED: SODIUM CHLORIDE 0.9% 1,000 ML IV ONE (08:49)
[2019-04-08] MEDS ORDERED: hydrALAZINE HCL 20 MG/ML 1 ML VIAL IVP STA ×2 (08:58→14:41)
[2019-04-08] MEDS: LOSARTAN 25 MG TAB PO SCH (10:26)
[2019-04-08] MEDS: cloNIDine HCL 0.1 MG TAB PO SCH ×2 (10:26→18:36)
[2019-04-08] MEDS ORDERED: LIDOCAINE 1% INJ 10MG/ML (20 ML MDV) ONE (11:32)
[2019-04-08] MEDS ORDERED: MIDAZOLAM 2 MG/2 ML VIAL IV ONE ×2 (11:46→12:10)
[2019-04-08] MEDS ORDERED: LIDOCAINE 1% INJ 10MG/ML (20 ML MDV) SQ ONE (11:47)
[2019-04-08] MEDS ORDERED: BIVALIRUDIN BOLUS 250 MG/50 ML IV ONE (11:51)
[2019-04-08] MEDS ORDERED: BIVALIRUDIN 250 MG in SODIUM CHLORIDE 0.9% 50 ML IV ONE (11:51)
[2019-04-08] MEDS ORDERED: HYDROmorphone 1 MG/ML 1 ML SYRINGE ONE (12:06)
[2019-04-08] MEDS ORDERED: HYDROmorphone 1 MG/ML 1 ML SYRINGE IVP ONE (12:07)
[2019-04-08] MEDS: NITROGLYCERIN 1000MCG/10ML SYRINGE INTRACORON ONE ×2 (12:07→12:17)
[2019-04-08] MEDS ORDERED: IOPAMIDOL-370 125ML BTL INJ ONE (12:24)
[2019-04-08] MEDS ORDERED: NITROGLYCERIN SL TABS 0.4 MG TAB SUBLINGUAL PRN ×2 (12:28→12:31)
[2019-04-08] MEDS ORDERED: MAG HYDROX/AL HYDROX/SIMETH 30 ML CUP PO PRN (12:31)
[2019-04-08] MEDS ORDERED: RX INFO: IV CONTRAST WAS GIVEN 1 EACH MISC MISCELLANE PRN (12:31)
[2019-04-08] MEDS ORDERED: ZOLPIDEM 5 MG TAB PO PRN (12:31)
[2019-04-08] MEDS ORDERED: ATROPINE SULFATE 0.1 MG/ML 10ML SYRINGE IV PRN (12:31)
[2019-04-08] MEDS ORDERED: SODIUM CHLORIDE 0.9% 1,000 ML IV SCH (12:45)
--- NOTE | 2019-04-08 16:12 | PTCA ---
PERCUTANEOUSTRANS CORORONARY ANGIOGRAPHY DATE OF SERVICE: 04/08/2019 PERFORMING PHYSICIAN: Antoine Slade M.D. PROCEDURE PERFORMED: Successful stenting of the mid left circumflex using 2.75 x 15 and 2.75 x 15 mm Xience drug-eluting stents which were post dilated using 3 mm noncompliant balloon with excellent angiographic results and reduction of stenosis from 90% to 0%. INDICATION: This is a 69-year-old female patient with hypertension and dyslipidemia who was admitted to the hospital a few weeks ago with acute cnt-ZM-hicfuezzy myocardial infarction. She underwent heart catheterization and stenting of the LAD and RCA and she was brought today to undergo PCI of the left circumflex. APPROACH: Right common femoral artery. COMPLICATIONS: None. LEVEL OF SEDATION: Moderate, with sedation length of 41 minutes. PROCEDURE DESCRIPTION: After obtaining informed consent, the patient was brought to the cardiac laboratory technology teacher. The right common femoral artery was cannulated using micropuncture technique. The micropuncture wire passed easily. Then I placed a 6-[place] sheath in the right common femoral artery. After that, anticoagulation was initiated using Angiomax with bolus and drip. Subsequently I did engage the left main using JL4 guide. I did wire the left circumflex using a long Whisper J wire and short run-through wire. I did that because of tortuous mid left circumflex. After that I did balloon angioplasty of the left circumflex using a 2.5 x 12 mm balloon. After that, I deployed 2.75 x 15 mm Xience JIA where the stent was positioned under fluoroscopic guidance and deployed under 18 atmospheres for 20 seconds. The following angiogram showed an area distal to the stent that appeared to be hazy and tight, and because of that I decided to cover that with a stent. I pre-dilated using 2.5 x 12 mm balloon before I deployed another 2.75 x 15 mm Xience JIA. The second stent was deployed under 16 atmospheres for 20 seconds. I post- dilated 2 stents using 3.0 x 20 mm NC balloon. The following angiogram showed excellent angiographic results and the procedure was completed without any complication. POST-PROCEDURE MANAGEMENT: 1. Dual anti-platelet therapy. 2. Risk factor modifications. 3. Follow up with the patient. MMODL / IJN: [id number] /
[2019-04-08] MEDS: CARVEDILOL 6.25 MG TAB PO SCH (18:36)
[2019-04-08] MEDS ORDERED: hydrALAZINE HCL 20 MG/ML 1 ML VIAL IVP PRN (19:22)
[2019-04-08] MEDS ORDERED: lamoTRIgine 100 MG TAB PO SCH (21:00)
[2019-04-09 05:03] VITALS: PULSE 67; RESP 18; TEMP 98
[2019-04-09] MEDS ORDERED: LEVOTHYROXINE 112 MCG TAB PO SCH (06:30)
[2019-04-09] MEDS: CARVEDILOL 6.25 MG TAB PO SCH (06:39)
[2019-04-09 07:17] LABS: Basophils % (A) 0 %; Eosinophils # (A) 0.1 k/uL (0-0.7); Eosinophils % (A) 2 %; HCT 32.2 % (34.0-46.0); HGB 10.5 gm/dL (11.4-16.0); Lymphocytes # (A) 2.2 k/uL (1.0-4.8); Lymphocytes % (A) 35 %; MCH 32.6 pg (25.0-35.0); MCHC 32.6 g/dL (31.0-37.0); MCV 99.9 fL (80.0-100.0); Mean Platelet Volume 7.7; Monocytes # (A) 0.4 k/uL (0-1.0); Monocytes % (A) 6 %; Neutrophils # (A) 3.6 k/uL (1.3-7.7); Neutrophils % (A) 56 %; Platelet Count 227 k/uL (150-450); RBC 3.23 m/uL (3.80-5.40); WBC 6.5 k/uL (3.8-10.6)
[2019-04-09 07:25] LABS: Calcium 9.3 mg/dL (8.4-10.2); Potassium 3.8 mmol/L (3.5-5.1)
[2019-04-09] MEDS ORDERED: PANTOPRAZOLE 40 MG TABLET PO SCH (07:30)
[2019-04-09] MEDS: LOSARTAN 25 MG TAB PO SCH (08:57)
[2019-04-09] MEDS ORDERED: ISOSORBIDE MONONITRATE ER 30 MG TAB.ER.24H PO SCH (09:00)
[2019-04-09] MEDS ORDERED: ATORVASTATIN 80 MG TAB PO SCH (09:00)
[2019-04-09] MEDS ORDERED: ASPIRIN 81 MG PO SCH (09:00)
[2019-04-09] MEDS ORDERED: SERTRALINE 50 MG TAB PO SCH (09:00)
[2019-04-09] MEDS ORDERED: PRASUGREL 10 MG TAB PO SCH (09:00)
[2019-04-09] MEDS ORDERED: MELOXICAM 7.5 MG TAB PO SCH (09:00)
[2019-04-09] MEDS ORDERED: SPIRONOLACTONE 25 MG TAB PO SCH (09:00)
[2019-04-09] MEDS: cloNIDine HCL 0.1 MG TAB PO SCH (09:04)
[2019-04-09 09:13] VITALS: BP 151/87
--- NOTE | 2019-04-09 09:48 | DS ---
DISCHARGE SUMMARY ADMISSION DATE: April 08, 2019 DISCHARGE DATE: April 09, 2019 BRIEF HISTORY: This is a 69-year-old female patient who is known to have coronary artery disease and prior stenting of the LAD and RCA and known severe disease involving the left circumflex, who was experiencing symptoms of chest discomfort with exertion. Because she continues to have chest discomfort and she was on maximized medical treatment, she was brought today to undergo PCI of the left circumflex. She underwent yesterday PCI of the left circumflex with an excellent angiographic result by the end and without any complication from right groin approach. The right groin is soft and nontender and without any bruises. The patient is going to be discharged home on dual antiplatelet therapy and I will follow up with the patient next week in the office. MMSAKINA / FERNANDEZ: [id number] /
== END 2019-04-09 09:30 | disposition home or self-care (01) ==
LOC: CATHCVL 08:26 → 3SCARD 12:26 → CATHCVL 04-09 09:30
PROVIDERS: ATTEND Internal Medicine Interventional Cardiology
DX: I25.10 Atherosclerotic heart disease of native coronary artery without angina pectoris (principal); I10 Essential (primary) hypertension; E78.5 Hyperlipidemia, unspecified
CPT/HCPCS: 80048; 85025; C9600; C1769 ×4; C1887; C1725 ×2; C1894; C1874; J2250; J0360; J2001; J1170; J0583; Q9967

== ENCOUNTER → 2020-06-10 | Outpatient (CLI) | payer MEDICARE, OTHER ==
--- NOTE | 2020-06-11 14:47 | XR ---
EXAMINATION TYPE: XR bone survey complete DATE OF EXAM: 06/10/2020 COMPARISON: NONE HISTORY: I67.89 D64.89 D47.2 N18.9 . Abnormal blood lab values. Technique: Complete skeletal survey. Bony calvarium : 2 views of the bony calvarium demonstrate. No suspicious focal lytic lesion clearly seen. Chest x-ray: No acute cardiopulmonary process. Demineralization without suspicious focal lytic lesion clearly seen. Spine: Two views of the cervical, thoracic and lumbar spines are submitted. Grade 1 anterolisthesis C6 on C7. Moderate disc space narrowing and spurring C4-C5 level. Multilevel uncovertebral facet dege nerative changes. Below convex scoliosis centered at L3-L4 level. Moderate to severe disc space narro wing and spurring right L3-L4 level. Metallic disc material L4-L5 level. Multilevel spinous process h ypertrophy and facet arthropathy in the lumbar spine. Severe narrowing and bony fusion L2-L3 level. D emineralization. No suspicious focal lytic lesion clearly seen. PELVIS: Single view of the pelvis demonstrates gvfj-op-knzxmfqi axial joint space loss both hips. Sca ttered pelvic phleboliths. Lucency from overlying bowel gas makes evaluation right iliac bone slightl y suboptimal. No suspicious focal lytic lesion clearly seen. UPPER EXTREMITIES: Two views of the upper extremities. Demineralization is present. No suspicious foc al lytic lesion clearly seen. LOWER EXTREMITIES: 2 views of the lower extremities show some demineralization without suspicious foc al lytic lesion clearly seen IMPRESSION: No suspicious focal lytic lesion clearly identified.
== END | disposition home or self-care (01) ==
LOC: RADXRMAIN 13:09
PROVIDERS: ATTEND Internal Medicine Hematology & Oncology
DX: I67.89 Other cerebrovascular disease (principal); N18.9 Chronic kidney disease, unspecified; D47.2 Monoclonal gammopathy; D64.89 Other specified anemias
CPT/HCPCS: 77075

== ENCOUNTER → 2022-01-02 | Outpatient (CLI) | payer MEDICARE ==
--- NOTE | 2022-01-02 08:38 | MM ---
Reason for Exam: Screening (asymptomatic). Last mammogram was performed 8 year(s) and 4 month(s) ago. Patient History: Menarche at age 13. First Full-Term at age 25. Left ovary removed at age 43. Right ovary removed at age 43. Hysterectomy at age 43. Postmenopausal. Patient has history of breast feeding. Other cancer, age 30. Estrogen for 10 years from age 43 until age 53. Paternal aunt had breast cancer, age 70. Risk Values: [place] 5 year model risk: 1.9%. NCI Lifetime model risk: 5.4%. Prior Study Comparison: 05/31/2010 Bilateral Screening Mammogram, [facility]. 06/05/2011 Bilateral Screening Mammogram, [facility]. 08/10/2012 Bilateral Screening Mammogram, [facility]. 08/24/2013 Bilateral Screening Mammogram, [facility]. 08/31/2013 Left Diagnostic Mammogram, [facility]. Tissue Density: The breast tissue is heterogeneously dense. This may lower the sensitivity of mammography. Findings: Analyzed By CAD. At the site of clinical concern there is an approximate 2 cm spiculated mass 8.3 cm from the nipple highly suspicious for malignancy. No additional masses are seen within either breast. There are enlarged lymph nodes within the left axilla which are also suspicious. A couple of benign calcifications are noted. Overall Assessment: Incomplete: need additional imaging evaluation, BI-RAD 0 Management: Diagnostic Breast Ultrasound of the left breast. A clinical breast exam by your physician is recommended on an annual basis and results should be correlated with mammographic findings. Electronically signed and approved by: Chetan Guzmán M.D. Radiologis
--- NOTE | 2022-01-02 08:43 | USB ---
Reason for Exam: Clinical finding. Patient History: Menarche at age 13. First Full-Term at age 25. Left ovary removed at age 43. Right ovary removed at age 43. Hysterectomy at age 43. Postmenopausal. Patient has history of breast feeding. Other cancer, age 30. Estrogen for 10 years from age 43 until age 53. Paternal aunt had breast cancer, age 70. Risk Values: Ursula 5 year model risk: 1.9%. NCI Lifetime model risk: 5.4%. Technique: Method: Targeted. Prior Study Comparison: 08/10/2012 Bilateral Screening Mammogram, [facility]. 08/24/2013 Bilateral Screening Mammogram, [facility]. 08/31/2013 Left Diagnostic Mammogram, [facility]. Findings: The area of palpable concern of the left breast, the axilla of the left breast and the retroareolar of the left breast were scanned. There is a hypoechoic spiculated mass at the left 1:00 position 8 cm from the nipple which measures of 2.0 x 1.4 x 1.4 cm and is felt to reflect malignancy until proven otherwise. In addition there are 2 enlarged lymph nodes within the left axilla with thickened cortex. No additional masses are seen with certainty. Overall Assessment: Highly suggestive of malignancy, BI-RAD 5 Management: Ultrasound Core Biopsy of the left breast. A clinical breast exam by your physician is recommended on an annual basis and results should be correlated with mammographic findings. Electronically signed and approved by: Chetan Guzmán M.D. Radiologis
== END | disposition home or self-care (01) ==
LOC: RADMAMWWP 07:38
PROVIDERS: ATTEND Family Medicine
DX: Z12.31 Encounter for screening mammogram for malignant neoplasm of breast (principal); Z08 Encounter for follow-up examination after completed treatment for malignant neoplasm; Z80.3 Family history of malignant neoplasm of breast
CPT/HCPCS: 77063; 77067

== ENCOUNTER → 2022-01-08 | Day surgery (SDC) | payer MEDICARE ==
--- NOTE | 2022-01-15 09:16 | USB ---
Risk Values: Ursula 5 year model risk: 1.9%. NCI Lifetime model risk: 5.4%. Pathology Description: Location: 1 o'clock. Marker Left Behind. Needle Type: Celero Cores: 3 Gauge: 12 The procedure of ultrasound guided core biopsy was explained to the patient. Benefits, alternatives, and risks were discussed. An informed consent was then obtained. The patient was placed in supine positioning for imaging and for the procedure. The overlying skin was prepped and draped in usual sterile fashion. Lidocaine buffered with bicarbonate was used as anesthetic into the skin and subcutaneous tissue up to area of concern in the left 1:00 breast. Also localized was an abnormal axillary tail lymph node. Under ultrasound guidance, a 12-gauge vacuum assisted biopsy gun device was used to obtain 3 core samples from the 1:00 mass. Following this, a biopsy clip was left in lesion. In addition two core samples were obtained from an abnormal left axillary tail lymph node. Microclip marker was also deployed. The patient tolerated the procedure well without any immediate complication. The patient was kept in the radiology department for short stay after the procedure and then discharged home in stable condition. Postprocedure mammogram: The patient was transferred to mammography for physician ordered post procedure mammogram for clip placement verification. Impression: Successful, uncomplicated ultrasound guided core biopsy of area of concern in the left 1:00 breast as well as an abnormal lymph node left axillary tail, full pathology results to follow. Pathology Results: Result: Malignant, Invasive ductal carcinoma. A. LEFT BREAST, ONE O'CLOCK, ULTRASOUND GUIDED NEEDLE CORE BIOPSY: Invasive moderately differentiated ductal carcinoma (Grade 2). See Surgical Pathology Cancer Case Summary. B. LEFT AXILLA LLYMPH NODE, CORE BIOPSY: Lymph node positive for metastatic carcinoma consistent with ductal breast primary. Greatest dimension of metastatic tumor measures 10 mm. Pathology Description: Location: axilla. Marker Left Behind. Needle Type: Celero Cores: 2 Gauge: 12 Tissue Density: Left: The breast tissue is heterogeneously dense. This may lower the sensitivity of mammography. Overall Assessment: Malignant Assessment: MG diagnostic mammo LT wo CAD. - Left: Known biopsy proven malignancy, BI-RAD 6. Management: Surgical Consultation of the left breast. Electronically signed and approved by: Chetan Guzmán M.D. Radiologis
== END ==
LOC: RADUSWWP 12:44
PROVIDERS: ATTEND Surgery
DX: D05.12 Intraductal carcinoma in situ of left breast (principal); C77.3 Secondary and unspecified malignant neoplasm of axilla and upper limb lymph nodes
CPT/HCPCS: 88305; 88342; 88341; 77065; 38505; 19083; A4648; 19084

== ENCOUNTER → 2022-02-01 | Outpatient (CLI) | payer MEDICARE ==
--- NOTE | 2022-02-03 09:29 | PE ---
EXAMINATION TYPE: PET CT fusion skull to thigh DATE OF EXAM: 02/01/2022 COMPARISON: Recent mammograms and ultrasounds. HISTORY: Newly diagnosed left-sided breast cancer. TECHNIQUE: Following the intravenous administration of 11.7 mCi of F-18 FDG, whole body images are p erformed from the skull base to the midthigh. Images are reviewed on the computer in the coronal, ax ial, and sagittal planes. Reconstructed rotating images are created on independent workstation and r eviewed on the computer. A localization and attenuation correction CT is performed in conjunction w ith the PET scan. Blood glucose equal 79. SCAN: Initial Scan FINDINGS: SKULL BASE AND NECK: No areas of abnormal hypermetabolic uptake. CHEST, MEDIASTINUM, AND HILAR REGION: Left upper outer quadrant breast spiculated mass measures 2.2 x 2.0 cm axial image 87 has mild hypermetabolic uptake, max SUV of 3.4. Biopsy clip noted lateral infe rior aspect axial image 89. Abnormal left axillary lymph node redemonstrated measuring 1.7 x 1.5 cm has abnormal hypermetabolic u ptake, max SUV 4.86 on axial image 77. Biopsy clip not well seen on CT images. No areas of abnormal hypermetabolic uptake in the right breast or axilla. No areas of abnormal hyperm etabolic uptake in the remainder of the thorax. ABDOMEN AND PELVIS: Normal excretion. No areas of abnormal hypermetabolic uptake. OSSEOUS STRUCTURES: No areas of abnormal hypermetabolic uptake. OTHER CT: Mild calcified plaque left carotid bulb level. Severe three-vessel coronary artery calcific ation and/or stents. Correlate clinically. Ascending aorta is ectatic up to 3.6 cm. Cholecystectomy clips are seen. Sigmoid colonic diverticula. Uterus surgically absent. Scattered pelv ic phleboliths are seen. Facet arthropathy in the lower lumbar spine. Severe disc space narrowing L4-L5 level. IMPRESSION: Demonstration of known left breast neoplasm and left axillary adenopathy. No involvement in the right breast identified on PET/CT. No metastatic disease seen.
== END | disposition home or self-care (01) ==
LOC: RADPETMAIN 14:44
PROVIDERS: ATTEND Internal Medicine Hematology & Oncology
DX: C50.412 Malignant neoplasm of upper-outer quadrant of left female breast (principal)
CPT/HCPCS: 78815; A9552

== ENCOUNTER → 2022-02-11 | Outpatient (CLI) | payer MEDICARE ==
--- NOTE | 2022-02-12 09:11 | BMR ---
EXAMINATION TYPE: MR breast BILAT wo/w con DATE OF EXAM: 02/11/2022 COMPARISON: 3-D screening mammogram January 02, 2022 BI-RADS 0. Left breast limited ultrasound same day BI-RADS 5 HISTORY: Left breast cancer, lump of left breast, history of positive biopsy January 08, 2022 invas richard moderately differentiated ductal carcinoma grade 2 with positive axillary involvement. PET/CT Oct luis [id number] TECHNIQUE: A series of fat and water weighted images in the long and short axis views of both breasts are obtained in conjunction with dynamic contrast MRI with subtraction technique. The patient was i njected with 7 mL intravenous Gadavist gadolinium contrast. Three-dimensional and additional postpr ocessing imaging is created on independent workstation and reviewed during official interpretation of this study. FINDINGS: Heterogeneously dense fibroglandular tissue is redemonstrated bilaterally. Abnormal enlarge d left axillary lymph nodes are redemonstrated correlating with history of biopsy proven disease. Dyn ami postcontrast imaging shows mild background enhancement bilaterally. Delayed dynamic imaging show s no suspicious internal mammary adenopathy bilaterally. With regards to the right breast there is no abnormal skin thickening. No pathologic enhancement or e nhancing masses are identified. The chest wall is intact. Regards to the left breast there is enhancing 2.3 x 2.2 x 2.3 cm mass axial image 772 series 801 and sagittal image 25 in the slight upper outer aspect middle 2 slight posterior depth with artifact from biopsy clip along the anterior lateral inferior aspect or spine to biopsy-proven neoplasm with some irregular margins. There is abnormal confluent 2.0 x 1.3 cm left axillary lymph nodes with biopsy cli p along the anterior inferior aspect. There are 3 abnormal adjacent enlarged left axillary lymph node s. Some additional prominent but subcentimeter lymph nodes are seen superior to this in the left axil la. Findings correlate with most recent PET/CT. No additional pathologic enhancement or enhancing mas ses. No abnormal skin thickening. The chest wall is intact. No suspicious incidental findings. IMPRESSION: Biopsy-proven malignancy left breast with left axillary adenopathy redemonstrated. No mul ticentric neoplasm left breast or evidence for invasive malignancy in the opposite right breast. BI-RADS 6 biopsy-proven cancer left breast BI-RADS 1 negative study right breast Recommendation: Appropriate surgical and oncologic management of known left breast neoplasm.
== END | disposition home or self-care (01) ==
LOC: RADMRIMAIN 15:51
PROVIDERS: ATTEND Surgery
DX: C50.912 Malignant neoplasm of unspecified site of left female breast (principal)
CPT/HCPCS: C8908; A9585; 77049

== ENCOUNTER 2022-02-19 10:54 | Day surgery (SDC) | payer MEDICARE ==
[2022-02-15 14:53] VITALS: BMI 24.9
[~2022-02-19 10:54] MED LIST changes: +ACETAMINOPHEN TAB 500 MG TAB PO PRN; -ALPRAZolam 0.25 MG TAB PO PRN; -ALPRAZolam 0.5 MG TAB PO PRN; -ASPIRIN 325 MG TAB PO STA; +HEPARIN SODIUM,PORCINE/PF 5,000 UNIT/0.5 ML SYRINGE SQ PRN; -NITROGLYCERIN SL TABS 0.4 MG TAB SUBLINGUAL PRN; +Pre Op ABX Message 1 EACH MISC MISCELLANE ONE; -SODIUM CHLORIDE 0.9% 1,000 ML in EMPTY BAG 1 BAG IV ONE
--- NOTE | 2022-02-19 11:07 | P.GSHP ---
History of Present Illness H&P Date: 02/19/22 Chief Complaint: Left breast cancer 71-year-old female here today for Port-A-Cath placement. Patient was recently diagnosed with left breast cancer with regional cameron metastasis. Patient is starting neoadjuvant chemotherapy. Has not had a port previously. Past Medical History Past Medical History: Coronary Artery Disease (CAD), Cancer, CVA/TIA, Hyperlipidemia, Hypertension, Myocardial Infarction ([place]), Osteoarthritis (OA), Renal Disease, Thyroid Disorder Additional Past Medical History / Comment(s): hx. thyroid cancer early , colitis, TIA approx. 12 yrs. ago-no residual effects. chronic kidney disease stage 4, monoclonal anemia, recent dx left breast cancer Last Myocardial Infarction Date:: 2018 History of Any Multi-Drug Resistant Organisms: None Reported Past Surgical History: Adenoidectomy, Back Surgery, Cholecystectomy, Heart Catheterization With Stent, Hysterectomy Additional Past Surgical History / Comment(s): 5 stents total, total thyroidectomy & radioactive iodine tx. after, cage/disk back surgery, shanelle cataract, rt eye surgery Past Anesthesia/Blood Transfusion Reactions: No Reported Reaction Date of Last Stent Placement:: 04/08/19 Smoking Status: Former smoker - Past Family History Mother Family Medical History: No Reported History Father Family Medical History: Cancer Medications and Allergies Home Medications Medication Instructions Recorded Confirmed Type Acetaminophen/Diphenhydramine 1 - 2 tab PO HS PRN 02/20/19 02/15/22 History [Tylenol Pm Ex-Strength Caplet] Levothyroxine Sodium 112 mcg PO DAILY 02/20/19 02/15/22 History Losartan [Cozaar] 25 mg PO HS 02/20/19 02/15/22 History Pantoprazole [Protonix] 40 mg PO DAILY 02/20/19 02/15/22 History Sertraline [Zoloft] 50 mg PO DAILY 02/20/19 02/15/22 History lamoTRIgine [LaMICtal] 100 mg PO HS 02/20/19 02/15/22 History Aspirin EC [Ecotrin Low Dose] 81 mg PO DAILY #30 tablet.dr 02/22/19 02/15/22 Rx Isosorbide Mononitrate ER [Imdur] 30 mg PO DAILY #30 tab.er.24h 02/26/19 02/15/22 Rx Nitroglycerin Sl Tabs [Nitrostat] 0.4 mg SUBLINGUAL Q5M PRN #25 tab 02/26/19 02/15/22 Rx Spironolactone [Aldactone] 25 mg PO DAILY #30 tab 02/26/19 02/15/22 Rx Atorvastatin [Lipitor] 80 mg PO HS 02/15/22 02/15/22 History carvediloL [Coreg] 3.125 mg PO BID 02/15/22 02/15/22 History Allergies Allergy/AdvReac Type Severity Reaction Status Date / Time amoxicillin Allergy Rash/Hives Verified 02/15/22 14:34 erythromycin base Allergy Rash/Hives Verified 02/15/22 14:34 keratin Allergy Swelling Verified 02/15/22 14:34 peanut [Peanut Butter] Allergy Itching Verified 02/15/22 14:34 Penicillins Allergy Rash/Hives Verified 02/15/22 14:34 Sulfa (Sulfonamide Allergy Unknown Verified 02/15/22 14:34 Antibiotics) Childhood wheat Allergy Rash/Hives Verified 02/15/22 14:34 clopidogrel [From Plavix] AdvReac Itching Verified 02/15/22 14:34 Surgical - Exam Physical exam: General: Well-developed, well-nourished HEENT: Normocephalic, sclerae nonicteric Abdomen: Nontender, nondistended Extremities: No edema Neuro: Alert and oriented Assessment and Plan (1) Breast cancer, left Narrative/Plan: 71-year-old female with left-sided breast cancer. We'll proceed with Port-A-Cath placement at this time. Risks of bleeding, infection, DVT, pneumothorax, catheter malfunction, anesthesia related complications were discussed. The patient understands and wishes to proceed. Current Visit: Yes Status: Acute Code(s): C50.912 - MALIGNANT NEOPLASM OF UNSPECIFIED SITE OF LEFT FEMALE BREAST SNOMED Code(s): 220786112
[2022-02-19] MEDS ORDERED: ONDANSETRON 4 MG/2 ML VIAL IVP ONE (11:26)
[2022-02-19] MEDS ORDERED: HYDROmorphone 0.5 MG/0.5 ML SYRINGE IVP PRN (11:26)
[2022-02-19] MEDS ORDERED: LIDOCAINE 1% (10MG/ML) FOR IV START INTRADERMA PRN (11:26)
[2022-02-19] MEDS ORDERED: DEXAMETHASONE SOD PHOSPHATE 4 MG/ML 1 ML VIAL IV ONE (11:26)
[2022-02-19] MEDS ORDERED: LACTATED RINGERS 1,000 ML IV SCH (11:26)
[2022-02-19] MEDS ORDERED: fentaNYL (PF) 50 MCG/ML 2 ML AMP ONE (12:29)
[2022-02-19] MEDS ORDERED: SODIUM CHLORIDE 0.9% 100 ML BAG ONE (12:29)
[2022-02-19] MEDS ORDERED: LIDOCAINE 2% INJ 20 MG/ML (2 ML VIAL) ONE (12:29)
[2022-02-19] MEDS ORDERED: MIDAZOLAM 2 MG/2 ML VIAL ONE (12:29)
[2022-02-19] MEDS ORDERED: PROPOFOL 10 MG/ML 20 ML VIAL IV ONE (12:29)
[2022-02-19] MEDS ORDERED: ceFAZolin 1,000 MG VIAL ONE (12:29)
[2022-02-19] MEDS ORDERED: PHENYLEPHRINE-0.9% NACL SYG 1,000 MCG/10 ML SYRINGE ONE (12:29)
[2022-02-19] MEDS ORDERED: LIDOCAINE 1% INJ 10MG/ML (10 ML MDV) SQ ONE ×2 (12:32→12:34)
[2022-02-19] MEDS ORDERED: ceFAZolin 1,000 MG VIAL IVPB ONE (12:45)
[2022-02-19] MEDS ORDERED: NALOXONE 0.4 MG/ML 1 ML VIAL IV PRN (13:23)
--- NOTE | 2022-02-19 13:25 | P.OP ---
Date of Procedure: 02/19/22 Procedure(s) Performed: PREOPERATIVE DIAGNOSIS: Breast cancer POSTOPERATIVE DIAGNOSIS: Same PROCEDURE: Port-A-Cath placement with fluoroscopic and ultrasound guidance SURGEON: Zeeshan EBL: Minimal ANESTHESIA: Gen. COMPLICATIONS: None OPERATIVE PROCEDURE: Patient was brought and placed on the operative table in the supine position. The patient was sedated per anesthesia that time. The chest and neck were prepped and draped in usual sterile fashion. The ultrasound probe was used to identify the location of the right internal jugular vein. The skin was localized with lidocaine. The Seldinger needle was advanced into the IJ under ultrasound guidance. The wire was advanced through the needle under fl uoroscopic guidance into the superior vena cava. A port pocket was created in the right infraclavicular location. The catheter was tunneled from the wire entrance site to the port pocket. The port was then connected to the catheter. The dilator introducer was threaded over the guidewire. The guidewire and dilator were then removed. The catheter was advanced through the introducer and introducer was then removed. The tip was seen to be in the right atrial junction via fluoroscopy. A picture of the radiograph showing the tip at the radial digital junction was taken. Port was flushed with both saline and a Hep- Lock solution. There was good flow both in and out of the port. The port was sutured in underlying tissues using 3-0 silk sutures. The subcutaneous tissues were reapproximated using 3-0 Vicryl sutures and the skin at both locations using 4-0 Monocryl sutures. Skin glue and sterile dressings then applied. DISPOSITION: Stable to recovery room
[2022-02-19 13:33] VITALS: RESP 16; TEMP 97.8
--- NOTE | 2022-02-19 14:00 | FL ---
EXAMINATION TYPE: FL guided central line placemt HISTORY: Fluoroscopy time Impression: 1. Fluoroscopy support provided to the referring physician.
--- NOTE | 2022-02-19 14:09 | XR ---
EXAMINATION TYPE: XR chest 1V portable DATE OF EXAM: 02/19/2022 2:04 PM COMPARISON: Chest radiographs from 02/19/2019. TECHNIQUE: XR chest 1V portable Frontal and lateral views of the chest. CLINICAL INDICATION:Female, 71 years old with history of Check line placement; FINDINGS: Lungs/Pleura: There is no evidence of pleural effusion, focal consolidation, or pneumothorax. Pulmonary vascularity: Unremarkable. Heart/mediastinum: Cardiomediastinal silhouette is unremarkable. Musculoskeletal: No acute osseous pathology. Lines/Tubes: Eqygsf-u-Yufj projecting over the right hemithorax with distal tip at the superior vena cava. IMPRESSION: Right Ixakfv-v-Fkum with tip in appropriate position. No pneumothorax.
[2022-02-19 14:39] VITALS: BP 144/82; PULSE 72
== END 2022-02-19 14:40 | disposition home or self-care (01) ==
LOC: OR 10:54
PROVIDERS: ATTEND Surgery
DX: C50.912 Malignant neoplasm of unspecified site of left female breast (principal); I25.10 Atherosclerotic heart disease of native coronary artery without angina pectoris; E78.5 Hyperlipidemia, unspecified; I10 Essential (primary) hypertension; I25.2 Old myocardial infarction; M19.90 Unspecified osteoarthritis, unspecified site; E07.9 Disorder of thyroid, unspecified; Z87.891 Personal history of nicotine dependence; Z86.73 Personal history of transient ischemic attack (TIA), and cerebral infarction without residual deficits; Z90.89 Acquired absence of other organs; Z90.49 Acquired absence of other specified parts of digestive tract; Z95.5 Presence of coronary angioplasty implant and graft; Z90.710 Acquired absence of both cervix and uterus; Z98.41 Cataract extraction status, right eye; Z98.42 Cataract extraction status, left eye; Z79.82 Long term (current) use of aspirin; Z79.890 Hormone replacement therapy; Z79.1 Long term (current) use of non-steroidal anti-inflammatories (NSAID); Z79.899 Other long term (current) drug therapy; Z88.0 Allergy status to penicillin; Z88.1 Allergy status to other antibiotic agents; Z88.2 Allergy status to sulfonamides; Z91.010 Allergy to peanuts; Z91.018 Allergy to other foods
CPT/HCPCS: 77001; 71045; 36561; 76937; J2250; J1100; J2405; J0690; J3010; J1642; J2370; J2001 ×2; J2704; J1644

== ENCOUNTER 2022-02-28 09:10 | Inpatient (IN) | payer MEDICARE ==
[2022-02-28] MEDS ORDERED: SODIUM CHLORIDE 0.9% 500 ML 500 ML IV STA (09:36)
[2022-02-28] MEDS ORDERED: SODIUM CHLORIDE 0.9% 1,000 ML IV STA (09:36)
[2022-02-28] MEDS ORDERED: DIPHENOX-ATROP 2.5-0.025 MG 1 EACH TAB PO STA (09:37)
[2022-02-28] MEDS ORDERED: ONDANSETRON 4 MG/2 ML VIAL IVP STA (09:37)
--- NOTE | 2022-02-28 10:07 | ED ---
General Adult HPI - General Chief complaint: Weakness Stated complaint: Chemo Side Effects Time Seen by Provider: 02/28/22 09:27 Source: patient, RN notes reviewed Mode of arrival: wheelchair Limitations: no limitations - History of Present Illness Initial comments: 71-year-old female presents to the emergency Department chief complaint of weakness, nausea, diarrhea. Patient states she had chemotherapy last Friday states his was the first round of chemotherapy for breast cancer. Patient states that she started having diarrhea on Friday has been persistent. Patient states she's had very minimal intake. Patient denies any fevers or chills she did have some mild abdominal discomfort yesterday but has resolved. Patient states she just feels very weak and fatigued at this time. - Related Data Home Medications Medication Instructions Recorded Confirmed Acetaminophen/Diphenhydramine 1 - 2 tab PO HS PRN 02/20/19 02/22/22 [Tylenol Pm Ex-Strength Caplet] Levothyroxine Sodium 112 mcg PO DAILY 02/20/19 02/22/22 Losartan [Cozaar] 25 mg PO HS 02/20/19 02/22/22 Pantoprazole [Protonix] 40 mg PO DAILY 02/20/19 02/22/22 Sertraline [Zoloft] 50 mg PO DAILY 02/20/19 02/22/22 lamoTRIgine [LaMICtal] 100 mg PO HS 02/20/19 02/22/22 Atorvastatin [Lipitor] 80 mg PO HS 02/15/22 02/22/22 carvediloL [Coreg] 3.125 mg PO BID 02/15/22 02/22/22 Aspirin EC [Ecotrin Low Dose] 81 mg PO DAILY 02/19/22 02/22/22 Cyanocobalamin [Vitamin B-12] 500 mg PO DAILY 02/19/22 02/22/22 Ergocalciferol [Vitamin D2 (1250 1.25 mg PO WEEKLY 02/19/22 02/22/22 Mcg = 77771 Iu)] Previous Rx's Medication Instructions Recorded Isosorbide Mononitrate ER [Imdur] 30 mg PO DAILY #30 tab.er.24h 02/26/19 Nitroglycerin Sl Tabs [Nitrostat] 0.4 mg SUBLINGUAL Q5M PRN #25 tab 02/26/19 Spironolactone [Aldactone] 25 mg PO DAILY #30 tab 02/26/19 Allergies Allergy/AdvReac Type Severity Reaction Status Date / Time amoxicillin Allergy Rash/Hives Verified 02/28/22 09:24 erythromycin base Allergy Rash/Hives Verified 02/28/22 09:24 keratin Allergy Swelling Verified 02/28/22 09:24 Penicillins Allergy Rash/Hives Verified 02/28/22 09:24 Sulfa (Sulfonamide Allergy Unknown Verified 02/28/22 09:24 Antibiotics) Childhood wheat Allergy Rash/Hives Verified 02/28/22 09:24 clopidogrel [From Plavix] AdvReac Itching Verified 02/28/22 09:24 imiquimod AdvReac Nausea & Verified 02/28/22 09:24 Vomiting imiquimod AdvReac Vomiting Uncoded 02/28/22 09:24 Review of Systems ROS Statement: Those systems with pertinent positive or pertinent negative responses have been documented in the HPI. ROS Other: All systems not noted in ROS Statement are negative. Past Medical History Past Medical History: Coronary Artery Disease (CAD), Cancer, CVA/TIA, Hyperlipidemia, Hypertension, Myocardial Infarction ([place]), Osteoarthritis (OA), Renal Disease, Thyroid Disorder Additional Past Medical History / Comment(s): hx. thyroid cancer early , colitis, TIA approx. 12 yrs. ago-no residual effects. chronic kidney disease stage 4, monoclonal anemia, recent dx left breast cancer Last Myocardial Infarction Date:: 2018 History of Any Multi-Drug Resistant Organisms: None Reported Past Surgical History: Adenoidectomy, Back Surgery, Cholecystectomy, Heart Catheterization With Stent, Hysterectomy Additional Past Surgical History / Comment(s): 5 stents total, total thyroidectomy & radioactive iodine tx. after, cage/disk back surgery, shanelle cataract, rt eye surgery Past Anesthesia/Blood Transfusion Reactions: No Reported Reaction Date of Last Stent Placement:: 04/08/19 Past Psychological History: Depression Smoking Status: Former smoker - Past Family History Mother Family Medical History: No Reported History Father Family Medical History: Cancer General Exam Limitations: no limitations General appearance: alert, in no apparent distress Head exam: Present: atraumatic, normocephalic, normal inspection Eye exam: Present: normal appearance, PERRL, EOMI. Absent: scleral icterus, conjunctival injection, periorbital swelling ENT exam: Present: normal exam, mucous membranes moist Neck exam: Present: normal inspection. Absent: tenderness, meningismus, lymphadenopathy Respiratory exam: Present: normal lung sounds bilaterally. Absent: respiratory distress, wheezes, rales, rhonchi, stridor Cardiovascular Exam: Present: regular rate, normal rhythm, normal heart sounds. Absent: systolic murmur, diastolic murmur, rubs, gallop, clicks GI/Abdominal exam: Present: soft, normal bowel sounds. Absent: distended, tenderness, guarding, rebound, rigid Back exam: Absent: CVA tenderness (R), CVA tenderness (L) Neurological exam: Present: alert Course Vital Signs 02/28/22 09:24 Temperature 98.2 F Pulse Rate 88 Respiratory 16 Rate Blood Pressure 119/78 O2 Sat by Pulse 99 Oximetry Medical Decision Making - Medical Decision Making 71-year-old female presented for diarrhea status post chemotherapy. Patient is acidotic, metabolic acidosis related to diarrhea, dehydration. Patient will be admitted for fluid hydration, symptom control. - Lab Data Result diagrams: 02/28/22 09:57 02/28/22 09:57 Lab Results 02/28/22 02/28/22 02/28/22 Range/Units 09:57 09:57 09:57 WBC 1.5 L (3.8-10.6) k/uL RBC 3.63 L (3.80-5.40) m/uL Hgb 12.6 (11.4-16.0) gm/dL Hct 36.4 (34.0-46.0) % MCV 100.2 H (80.0-100.0) fL MCH 34.7 (25.0-35.0) pg MCHC 34.6 (31.0-37.0) g/dL RDW 12.8 (11.5-15.5) % Plt Count 166 (150-450) k/uL MPV 9.9 Sodium 141 (137-145) mmol/L Potassium 4.1 (3.5-5.1) mmol/L Chloride 111 H (98-107) mmol/L Carbon Dioxide 16 L (22-30) mmol/L Anion Gap 14 mmol/L BUN 44 H (7-17) mg/dL Creatinine 1.31 H (0.52-1.04) mg/dL Est GFR (CKD-EPI)AfAm 47 (>60 ml/min/1.73 sqM) Est GFR (CKD-EPI)NonAf 41 (>60 ml/min/1.73 sqM) Glucose 137 H (74-99) mg/dL Plasma Lactic Acid Moises (0.7-2.0) mmol/L Calcium 9.0 (8.4-10.2) mg/dL Phosphorus 3.2 (2.5-4.5) mg/dL Magnesium 2.2 (1.6-2.3) mg/dL Total Bilirubin 0.9 (0.2-1.3) mg/dL AST 36 (14-36) U/L ALT 55 H (4-34) U/L Alkaline Phosphatase 94 (38-126) U/L Total Protein 7.5 (6.3-8.2) g/dL Albumin 4.5 (3.5-5.0) g/dL Amylase 39 (30-110) U/L Lipase 55 (23-300) U/L Urine Color Yellow Urine Appearance Cloudy H (Clear) Urine pH 5.5 (5.0-8.0) Ur Specific [place] 1.023 (1.001-1.035) Urine Protein 1+ H (Negative) Urine Glucose (UA) Negative (Negative) Urine Ketones 1+ H (Negative) Urine Blood Trace H (Negative) Urine Nitrite Negative (Negative) Urine Bilirubin Negative (Negative) Urine Urobilinogen <2.0 (<2.0) mg/dL Ur Leukocyte Esterase Small H (Negative) Urine RBC 2 (0-5) /hpf Urine WBC 17 H (0-5) /hpf Ur Squamous Epith Cells 6 H (0-4) /hpf Hyaline Casts 18 H (0-2) /lpf Urine Mucus Few H (None) /hpf 02/28/22 Range/Units 09:57 WBC (3.8-10.6) k/uL RBC (3.80-5.40) m/uL Hgb (11.4-16.0) gm/dL Hct (34.0-46.0) % MCV (80.0-100.0) fL MCH (25.0-35.0) pg MCHC (31.0-37.0) g/dL RDW (11.5-15.5) % Plt Count (150-450) k/uL MPV Sodium (137-145) mmol/L Potassium (3.5-5.1) mmol/L Chloride (98-107) mmol/L Carbon Dioxide (22-30) mmol/L Anion Gap mmol/L BUN (7-17) mg/dL Creatinine (0.52-1.04) mg/dL Est GFR (CKD-EPI)AfAm (>60 ml/min/1.73 sqM) Est GFR (CKD-EPI)NonAf (>60 ml/min/1.73 sqM) Glucose (74-99) mg/dL Plasma Lactic Acid Moises 1.5 (0.7-2.0) mmol/L Calcium (8.4-10.2) mg/dL Phosphorus (2.5-4.5) mg/dL Magnesium (1.6-2.3) mg/dL Total Bilirubin (0.2-1.3) mg/dL AST (14-36) U/L ALT (4-34) U/L Alkaline Phosphatase (38-126) U/L Total Protein (6.3-8.2) g/dL Albumin (3.5-5.0) g/dL Amylase (30-110) U/L Lipase (23-300) U/L Urine Color Urine Appearance (Clear) Urine pH (5.0-8.0) Ur Specific [place] (1.001-1.035) Urine Protein (Negative) Urine Glucose (UA) (Negative) Urine Ketones (Negative) Urine Blood (Negative) Urine Nitrite (Negative) Urine Bilirubin (Negative) Urine Urobilinogen (<2.0) mg/dL Ur Leukocyte Esterase (Negative) Urine RBC (0-5) /hpf Urine WBC (0-5) /hpf Ur Squamous Epith Cells (0-4) /hpf Hyaline Casts (0-2) /lpf Urine Mucus (None) /hpf Disposition Clinical Impression: Metabolic acidosis, Diarrhea, Dehydration, Status post chemotherapy, Breast cancer, left Disposition: ADMITTED IP TO THIS HOSP Condition: Fair Referrals: Marcelle Marcano DO [Primary Care Provider] - 1-2 days Time of Disposition: 11:40
[2022-02-28 10:14] LABS: HCT 36.4 % (34.0-46.0); HGB 12.6 gm/dL (11.4-16.0); MCH 34.7 pg (25.0-35.0); MCHC 34.6 g/dL (31.0-37.0); MCV 100.2 fL (80.0-100.0); Mean Platelet Volume 9.9; Platelet Count 166 k/uL (150-450); RBC 3.63 m/uL (3.80-5.40); RDW 12.8 % (11.5-15.5)
[2022-02-28 10:31] LABS: Albumin 4.5 g/dL (3.5-5.0); Magnesium 2.2 mg/dL (1.6-2.3); Phosphorus 3.2 mg/dL (2.5-4.5); Potassium 4.1 mmol/L (3.5-5.1); Total Bilirubin 0.9 mg/dL (0.2-1.3); Total Protein 7.5 g/dL (6.3-8.2)
[2022-02-28 10:32] LABS: WBC 1.5 k/uL (3.8-10.6)
[2022-02-28 10:59] LABS: Appearance,Urine Cloudy (Clear); Bilirubin,Urine Negative (Negative); Blood,Urine Trace (Negative); Color,Urine Yellow; Glucose,Urine (UA) Negative (Negative); Hyaline Casts,Urine 18 /lpf (0-2); Ketones,Urine 1+ (Negative); Leukocyte Esterase,Urine Small (Negative); Mucus,Urine Few /hpf; Nitrite,Urine Negative (Negative); PH, Urine 5.5 (5.0-8.0); Protein,Urine 1+ (Negative); RBC,Urine 2 /hpf (0-5); Specific Gravity,Urine 1.023 (1.001-1.035); Squamous Epithelial Cell,Urine 6 /hpf (0-4); Urobilinogen,Urine <2.0 mg/dL (<2.0); WBC,Urine 17 /hpf (0-5)
[2022-02-28] MEDS ORDERED: NALOXONE 0.4 MG/ML 1 ML VIAL IV PRN (12:17)
[2022-02-28] MEDS: SODIUM CHLORIDE 0.9% 1,000 ML IV SCH (12:30)
[2022-02-28 15:55] LABS: Neutrophils % (M) 29 %
[2022-02-28 15:56] LABS: Band Neutrophils % 4 %; Eosinophils # (M) 0.03 k/uL (0-0.7); Lymphocytes # (M) 0.78 k/uL (1.0-4.8); Nucleated Red Blood Cells 0 /100 WBC (0-0); Total Cells Counted 100
[2022-02-28 15:57] LABS: Reactive Lymphocytes Present
[2022-02-28] MEDS: LOPERAMIDE 2 MG CAP PO PRN (21:48)
[2022-03-01] MEDS: SODIUM CHLORIDE 0.9% 1,000 ML IV SCH ×2 (04:07→18:18)
[2022-03-01] MEDS: ONDANSETRON 4 MG/2 ML VIAL IVP PRN (07:27)
[2022-03-01] MEDS: SERTRALINE 50 MG TAB PO SCH (09:50)
[2022-03-01] MEDS: LOPERAMIDE 2 MG CAP PO PRN (09:50)
[2022-03-01] MEDS: PANTOPRAZOLE 40 MG TABLET PO SCH (09:50)
[2022-03-01] MEDS: LEVOTHYROXINE 112 MCG TAB PO SCH (09:50)
[2022-03-01] MEDS: ISOSORBIDE MONONITRATE ER 30 MG TAB.ER.24H PO SCH (09:50)
[2022-03-01] MEDS ORDERED: DIPHENOX-ATROP 2.5-0.025 MG 1 EACH TAB PO STA (11:36)
--- NOTE | 2022-03-01 11:52 | P.CONS ---
History of Present Illness - Reason for Consult Consult date: 03/01/22 breast cancer Requesting physician: Nehemias Gamez - Chief Complaint weak, poor oral intake - History of Present Illness Mrs. Ness is a pleasant female patient of Dr. Appiah with well-controlled comorbid conditions who was initially seen 2018 for anemia. She was startedo oral iron, she had colonoscopy in 2018, EGD in 2010, was on PPI therapy. Workup showed a very small IgA kappa monoclonal protein, could not be further quantified. Bone survey and 24 hour urine is negative for plasma cell neoplasm. 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 She was seen 01/28/22 because of a new diagnosis Of breast cancer. Mammogram 01/02/22 that was prompted by her feeling pain and a lump in the left breast while reaching across with her left arm. The symptoms had started about 10-14 days prior to the mammogram. This showed a 2 cm thick related mass at 8.3 cm from the nipple. Prior mammogram had been in 2013. There was enlarged lymph nodes in the axilla. US same day showed a 2 x 1.4 x 1.4 cm related mass at 1:00, 8 cm from the nipple. There are 2 enlarged lymph nodes in the left axilla that were concerning. US-guided biopsy of the breast mass, as well as the left axillary tail lymph node, both positive for invasive ductal carcinoma, grade 2, strongly ER/GA positive, HER-2 2+ IHC, FISH showed amplification. There was no prior personal history of breast or ovarian malignancy. A paternal aunt had history of breast cancer in her 70s. Patient had menarche at 13, and JUANITA/BSO in her mid 30s. She is G4, P4, L4. P1 was at 25. She breast-fed 1 child for about 3 months. She took hormone replacement therapy after her surgery for about 10 years. Staging PET showed uptake in the primary site and left axilla but no evidence of distant disease. Baseline echocardiogram was normal. 02/12/[address] Appiah to discuss results Of testing, diagnosis, prognosis. Intent of treatment curative. Patient had first cycle neoadjuvant treatment with carboplatin/Taxotere/trastuzumab/Pertuzumab with GCSF. She had her first cycle on Fri, diarrhea started Sun, She could have 10-14 stools in a day, she tried Imodium but it was not working. Reports anything she ate or d rank went "right through me". This led to poor intake, Subsequent progressive weakness. Denies fever, oral irritation, nausea, vomiting, unusual chest pain, cough, difficulty breathing, abdominal cramping, blood or mucus in the stool, no urinary symptoms, swelling in the legs. On admission she was provided with a dose of Lomotil and it lasted for about 5 hours-decreased episodes and urgency of stooling-but then, frequency and urgency have returned. Patient reports that she has a history of diarrhea, is prone to diarrhea, denies a formal diagnosis of colitis or other gastrointestinal disorder. Patient reports allergy to wheat. C. difficile negative. CBC good considering patient just had treatment, WBC/ANC low, patient did receive G-CSF. Creatinine elevated at 1.31. Review of Systems 10 point review of systems is negative except as stated in HPI Past Medical History Past Medical History: Coronary Artery Disease (CAD), Cancer, CVA/TIA, Hyperlipidemia, Hypertension, Myocardial Infarction ([place]), Osteoarthritis (OA), Renal Disease, Thyroid Disorder Additional Past Medical History / Comment(s): hx. thyroid cancer early , colitis, TIA approx. 12 yrs. ago-no residual effects. chronic kidney disease stage 4, monoclonal anemia, recent dx left breast cancer Last Myocardial Infarction Date:: 2018 History of Any Multi-Drug Resistant Organisms: None Reported Past Surgical History: Adenoidectomy, Back Surgery, Cholecystectomy, Heart Catheterization With Stent, Hysterectomy Additional Past Surgical History / Comment(s): 5 stents total, total thyroidectomy & radioactive iodine tx. after, cage/disk back surgery, shanelle cataract, rt eye surgery Past Anesthesia/Blood Transfusion Reactions: No Reported Reaction Date of Last Stent Placement:: 04/08/19 Past Psychological History: Depression Smoking Status: Former smoker Past Alcohol Use History: Rare Additional Past Alcohol Use History / Comment(s): quit smoking 1992, smoked since teens, 1ppd Past Drug Use History: None Reported - Past Family History Mother Family Medical History: No Reported History Father Family Medical History: Cancer Medications and Allergies Home Medications Medication Instructions Recorded Confirmed Type Acetaminophen/Diphenhydramine 1 - 2 tab PO HS PRN 02/20/19 02/28/22 History [Tylenol Pm Ex-Strength Caplet] Levothyroxine Sodium 112 mcg PO DAILY 02/20/19 02/28/22 History Losartan [Cozaar] 25 mg PO HS 02/20/19 02/28/22 History Pantoprazole [Protonix] 40 mg PO DAILY 02/20/19 02/28/22 History Sertraline [Zoloft] 50 mg PO DAILY 02/20/19 02/28/22 History lamoTRIgine [LaMICtal] 100 mg PO HS 02/20/19 02/28/22 History Isosorbide Mononitrate ER [Imdur] 30 mg PO DAILY #30 tab.er.24h 02/26/19 02/28/22 Rx Nitroglycerin Sl Tabs [Nitrostat] 0.4 mg SUBLINGUAL Q5M PRN #25 tab 02/26/19 02/28/22 Rx Spironolactone [Aldactone] 25 mg PO DAILY #30 tab 02/26/19 02/28/22 Rx Atorvastatin [Lipitor] 80 mg PO HS 02/15/22 02/28/22 History carvediloL [Coreg] 3.125 mg PO BID 02/15/22 02/28/22 History Aspirin EC [Ecotrin Low Dose] 81 mg PO DAILY 02/19/22 02/28/22 History Cyanocobalamin [Vitamin B-12] 500 mg PO DAILY 02/19/22 02/28/22 History Ergocalciferol [Vitamin D2 (1250 1.25 mg PO BOYKIN 02/19/22 02/28/22 History Mcg = 15160 Iu)] Chemo Infusion 1 dose IV DIRECTED 02/28/22 02/28/22 History dexAMETHasone [Decadron] 8 mg PO DIRECTED 02/28/22 02/28/22 History ondansetron HCL [Zofran] 8 mg PO Q8HR PRN 02/28/22 02/28/22 History Allergies Allergy/AdvReac Type Severity Reaction Status Date / Time amoxicillin Allergy Rash/Hives Verified 02/28/22 12:36 erythromycin base Allergy Rash/Hives Verified 02/28/22 12:36 keratin Allergy Swelling Verified 02/28/22 12:36 Penicillins Allergy Rash/Hives Verified 02/28/22 12:36 Sulfa (Sulfonamide Allergy Unknown Verified 02/28/22 12:36 Antibiotics) Childhood wheat Allergy Rash/Hives Verified 02/28/22 12:36 clopidogrel [From Plavix] AdvReac Itching Verified 02/28/22 12:36 imiquimod AdvReac Nausea & Verified 02/28/22 12:36 Vomiting Physical Exam Vitals: Vital Signs Temp Pulse Pulse Resp BP BP BP 03/01/22 04:32 97.7 F 75 16 02/28/22 18:27 98.5 F 72 18 143/77 02/28/22 17:23 72 18 132/81 02/28/22 15:19 72 18 139/79 02/28/22 12:31 86 18 138/84 110/69 02/28/22 09:24 98.2 F 88 16 119/78 BP Pulse Ox 03/01/22 04:32 159/89 95 02/28/22 18:27 97 02/28/22 17:23 96 02/28/22 15:19 98 02/28/22 12:31 144/97 96 02/28/22 09:24 99 Intake and Output 02/28/22 03/01/22 03/01/22 22:59 06:59 14:59 Other: Voiding Method Toilet # Bowel Movements 10 - Constitutional General appearance: average body habitus, cooperative, no acute distress - EENT Eyes: anicteric sclerae, EOMI ENT: hearing grossly normal, normal oropharynx - Neck Neck: no lymphadenopathy - Respiratory Respiratory: right: CTA, left: wheezing - Cardiovascular Rhythm: regular Heart sounds: normal: S1, S2 Abnormal Heart Sounds: no systolic murmur, no diastolic murmur, no rub, no S3 Gallop, no S4 Gallop, no click, no other leg Peripheral Edema: bilateral: None - Gastrointestinal General gastrointestinal: no absent bowel sounds, no decreased bowel sounds, no distended, no hepatomegaly, no hyperactive bowel sounds, normal bowel sounds, no organomegaly, no rigid, no scaphoid, soft, no splenomegaly, no tenderness, no umbilical hernia, no ventral hernia - Integumentary Integumentary: normal - Neurologic Neurologic: CNII-XII intact - Musculoskeletal Musculoskeletal: strength equal bilaterally - Psychiatric Psychiatric: A&O x's 3, appropriate affect, intact judgment & insight Results CBC & Chem 7: 02/28/22 09:57 02/28/22 09:57 Labs: Abnormal Lab Results - Last 24 Hours (Table) 02/28/22 02/28/22 02/28/22 Range/Units 09:57 09:57 09:57 WBC 1.5 L (3.8-10.6) k/uL RBC 3.63 L (3.80-5.40) m/uL MCV 100.2 H (80.0-100.0) fL Neutrophils # (Manual) 0.40 L* (1.3-7.7) k/uL Lymphocytes # (Manual) 0.78 L (1.0-4.8) k/uL Chloride 111 H (98-107) mmol/L Carbon Dioxide 16 L (22-30) mmol/L BUN 44 H (7-17) mg/dL Creatinine 1.31 H (0.52-1.04) mg/dL Glucose 137 H (74-99) mg/dL ALT 55 H (4-34) U/L Urine Appearance Cloudy H (Clear) Urine Protein 1+ H (Negative) Urine Ketones 1+ H (Negative) Urine Blood Trace H (Negative) Ur Leukocyte Esterase Small H (Negative) Urine WBC 17 H (0-5) /hpf Ur Squamous Epith Cells 6 H (0-4) /hpf Hyaline Casts 18 H (0-2) /lpf Urine Mucus Few H (None) /hpf Microbiology - Last 24 Hours (Table) 02/28/22 09:57 Urine Culture - Preliminary Urine,Voided Assessment and Plan (1) Diarrhea Current Visit: Yes Status: Acute Priority: High Code(s): R19.7 - DIARRHEA, UNSPECIFIED SNOMED Code(s): 58423969 (2) Dehydration Current Visit: Yes Status: Acute Priority: High Code(s): E86.0 - DEHYDRATION SNOMED Code(s): 25764593 (3) Breast cancer, left Current Visit: Yes Status: Acute Priority: High Code(s): C50.912 - MALIGNANT NEOPLASM OF UNSPECIFIED SITE OF LEFT FEMALE BREAST SNOMED Code(s): 603928087 Plan: Diarrhea. Patient has a history of the same but, her general can cause exacerbations of diarrhea. C. difficile is negative. Patient is not having any severe abdominal symptoms, Exam is overall benign. 1 time dose of 2 tablets of Lomotil was ordered for patient as she stated this worked well for her. Added when necessary dose of Lomotil that can be alternated with the Imodium. Patient is receiving IV fluids for dehydration. Hemoglobin and platelets are normal. Low WBC and ANC reviewed. Patient received G-CSF 1 week ago, anticipate recovery of WBC/ANC in the next 2-3 days. Patient encouraged to eat what she tolerates. Will report patient admission to treating Oncologist. Encourage patient to utilize Lomotil and treat diarrhea before adjusting regimen as intent is curative. Attests: I have seen and examined pt, performed H&P, developed impression and plan of care. Discussed with dictator. Agree with documentation, dictated as a scribe.
[2022-03-01] MEDS: lamoTRIgine 100 MG TAB PO SCH (20:10)
[2022-03-01] MEDS: DIPHENOX-ATROP 2.5-0.025 MG 1 EACH TAB PO PRN (20:10)
[2022-03-01] MEDS: ATORVASTATIN 80 MG TAB PO SCH (20:10)
[2022-03-02] MEDS: ONDANSETRON 4 MG/2 ML VIAL IVP PRN (01:27)
[2022-03-02] MEDS: DIPHENOX-ATROP 2.5-0.025 MG 1 EACH TAB PO PRN ×3 (01:27→16:23)
[2022-03-02] MEDS: LEVOTHYROXINE 112 MCG TAB PO SCH (06:40)
[2022-03-02] MEDS: SODIUM CHLORIDE 0.9% 1,000 ML IV SCH ×2 (06:40→16:24)
[2022-03-02 07:01] LABS: Basophils % (A) 0 %; Eosinophils % (A) 0 %; HCT 30.6 % (34.0-46.0); HGB 10.4 gm/dL (11.4-16.0); Lymphocytes # (A) 1.2 k/uL (1.0-4.8); Lymphocytes % (A) 10 %; MCH 34.6 pg (25.0-35.0); MCHC 34.1 g/dL (31.0-37.0); MCV 101.5 fL (80.0-100.0); Macrocytosis Slight; Mean Platelet Volume 9.7; Monocytes # (A) 0.8 k/uL (0-1.0); Monocytes % (A) 6 %; Neutrophils # (A) 10.4 k/uL (1.3-7.7); Neutrophils % (A) 83 %; Platelet Count 165 k/uL (150-450); RBC 3.02 m/uL (3.80-5.40); RDW 13.1 % (11.5-15.5); WBC 12.6 k/uL (3.8-10.6)
[2022-03-02] MEDS: PANTOPRAZOLE 40 MG TABLET PO SCH ×2 (09:47→16:23)
[2022-03-02] MEDS: ISOSORBIDE MONONITRATE ER 30 MG TAB.ER.24H PO SCH (09:47)
[2022-03-02] MEDS: SERTRALINE 50 MG TAB PO SCH (09:47)
[2022-03-02] MEDS ORDERED: [UNRECOGNIZED DRUG - OTHER] PO PRN (11:31)
[2022-03-02] MEDS ORDERED: NITROGLYCERIN SL TABS 0.4 MG TAB SUBLINGUAL PRN (11:31)
[2022-03-02] MEDS ORDERED: ACETAMINOPHEN PO PRN (11:31)
[2022-03-02] MEDS: CEFEPIME 2 GM in SODIUM CHLORIDE 0.9% 100 ML IVPB SCH ×2 (12:59→20:35)
[2022-03-02] MEDS ORDERED: diphenhydrAMINE 50 MG/ML 1 ML VIAL IVP PRN (14:00)
[2022-03-02] MEDS: carvediloL 3.125 MG TAB PO SCH (16:24)
[2022-03-02] MEDS: ATORVASTATIN 80 MG TAB PO SCH (20:35)
[2022-03-02] MEDS: lamoTRIgine 100 MG TAB PO SCH (20:35)
[2022-03-02] MEDS: LOSARTAN 25 MG TAB PO SCH (20:35)
[2022-03-02] MEDS: HEPARIN SODIUM,PORCINE/PF 5,000 UNIT/0.5 ML SYRINGE SQ SCH (20:35)
[2022-03-02] MEDS: LOPERAMIDE 2 MG CAP PO PRN (20:43)
--- NOTE | 2022-03-03 03:01 | HP ---
HISTORY AND PHYSICAL CHIEF COMPLAINT: Diarrhea, fever. HISTORY OF PRESENT ILLNESS: This 71-year-old woman with the past medical history of multiple medical problems, is undergoing chemotherapy for left breast cancer. The patient is complaining of diarrhea. Clostridium difficile is negative. Patient also has some mild fever also. There is no history of any headache, loss of consciousness, and seizures. The labs showed neutropenia initially, but white count is elevated at this time. Creatinine is 1.31. PAST MEDICAL HISTORY: History of breast cancer, history of CAD. The rest of the history and old chart is reviewed. HOME MEDICATIONS: Reviewed include Zofran, and dose and rest of medication noted. ALLERGIES: Reviewed include penicillin and multiple other antibiotics. FAMILY HISTORY: No history of heart disease or strokes in the family. SOCIAL HISTORY: Previous history of smoking. REVIEW OF SYSTEMS: 14-point review of systems is negative except as mentioned earlier. PHYSICAL EXAMINATION: VITAL SIGNS: Pulse is 88, blood pressure n, respirations 16. HEENT: Conjunctivae normal. NECK: n. CARDIOVASCULAR: n RESPIRATION: Few scattered rhonchi. ABDOMEN: Soft. Mild diffuse discomfort. No guarding. No rigidity. No mass palpable. LEGS: No edema. No swelling. NERVOUS SYSTEM: n LABORATORY DATA: WBCntd. The rest of the labs are noted. Otherwise, no other labs are available. ASSESSMENT: 1. Diarrhea. Possible neutropenic sepsis. 2. Possible chemotherapy-induced diarrhea. 3. Neutropenia. 4. History of breast cancer. 5. Hypertension. 6. Hyperlipidemia. 7. Multiple medical issues. RECOMMENDATIONS AND DISCUSSION: This 71-year-old woman who presented with multiple complex medical issues, we will monitor the patient closely. Recommend empiric antibiotics. Symptomatic treatment for the diarrhea. Otherwise cautious IV fluids. Resume the home medications. DVT prophylaxis. Prognosis guarded because of multiple complex medical issues and further recommendations to follow. See orders for further details. MMODL / IJN: [id number] / VITOR
[2022-03-03] MEDS: CEFEPIME 2 GM in SODIUM CHLORIDE 0.9% 100 ML IVPB SCH ×3 (03:54→15:29)
[2022-03-03] MEDS: DIPHENOX-ATROP 2.5-0.025 MG 1 EACH TAB PO PRN ×2 (03:54→15:28)
[2022-03-03] MEDS: SODIUM CHLORIDE 0.9% 1,000 ML IV SCH ×2 (03:56→21:27)
[2022-03-03] MEDS: LEVOTHYROXINE 112 MCG TAB PO SCH (06:34)
[2022-03-03 07:05] LABS: INR 1.1 (<1.2); Partial Thromboplastin Time 23.3 sec (22.0-30.0)
[2022-03-03] MEDS: PANTOPRAZOLE 40 MG TABLET PO SCH ×2 (08:39→16:20)
[2022-03-03] MEDS: SERTRALINE 50 MG TAB PO SCH (08:39)
[2022-03-03] MEDS: HEPARIN SODIUM,PORCINE/PF 5,000 UNIT/0.5 ML SYRINGE SQ SCH ×2 (08:39→21:27)
[2022-03-03] MEDS: ISOSORBIDE MONONITRATE ER 30 MG TAB.ER.24H PO SCH (08:39)
[2022-03-03] MEDS: CYANOCOBALAMIN 500 MCG TAB PO SCH (08:39)
[2022-03-03] MEDS: SPIRONOLACTONE 25 MG TAB PO SCH (08:39)
[2022-03-03] MEDS: carvediloL 3.125 MG TAB PO SCH ×2 (08:39→16:20)
[2022-03-03] MEDS: ONDANSETRON 4 MG/2 ML VIAL IVP PRN (08:41)
[2022-03-03] MEDS ORDERED: ERGOCALCIFEROL 1,250 MCG (50,000 IU) CAPSULE PO SCH (09:00)
[2022-03-03 10:16] LABS: African American GFR (CKD) 64.1 (60.0-200.0); Albumin 3.7 g/dL (3.8-4.9); Albumin/Globulin Ratio 1.63 (1.60-3.17); Anion Gap 12.9 mmol/L (10.00-18.00); BUN/Creat Ratio 23.82 Ratio (12.00-20.00); Blood Urea Nitrogen 24.3 mg/dL (9.0-27.0); Calcium 8.9 mg/dL (8.7-10.3); Carbon Dioxide 16.3 mmol/L (20.0-27.5); Globulin 2.2 g/dL (1.6-3.3); Non-African American GFR(CKD) 55.3 (60.0-200.0); Potassium 3.6 mmol/L (3.5-5.5); Total Bilirubin 0.3 mg/dL (0.30-1.20); Total Protein 5.9 g/dL (6.2-8.2)
[2022-03-03 11:24] LABS: Basophils # (M) 0 X 10*3/uL (0.00-0.10); Crenated RBC 2+; Elliptocytes 2+; Eosinophils # (M) 0 X 10*3/uL (0.04-0.35); HCT 27.8 % (37.2-46.3); HGB 9.3 g/dL (12.0-15.0); MCH 34.2 pg (27.0-32.0); MCHC 33.5 g/dL (32.0-37.0); MCV 102.2 fL (80.0-97.0); Mean Platelet Volume 12.5 fL (9.5-12.2); Monocytes # (M) 0.56 X 10*3/uL (0.20-1.00); Myelocytes % 1 % (0-0); NRBC Per 100 WBC 0.1 /100 WBCS (0.0-0.0); Neutrophils # (M) 16.54 X 10*3/uL (2.00-8.90); Neutrophils % (M) 88 %; Platelet Count 168 X 10*3/uL (140-440); RBC 2.72 X 10*6/uL (4.10-5.20); RDW 13.9 % (11.5-14.5)
[2022-03-03] MEDS: IOPAMIDOL CONTRAST (ORAL USE) VIAL PO PRN ×2 (15:20→16:20)
--- NOTE | 2022-03-03 15:40 | XR ---
EXAMINATION TYPE: XR chest 1V portable DATE OF EXAM: 03/03/2022 COMPARISON: 02/19/2022 HISTORY: Short of breath TECHNIQUE: Single view FINDINGS: Heart is normal. Lungs are clear of infiltrate. No heart failure. There are no hilar masses . There is right central venous catheter with tip in the superior vena cava. Costophrenic angles are clear. IMPRESSION: No active cardiopulmonary disease. No change.
--- NOTE | 2022-03-03 17:24 | CT ---
EXAMINATION TYPE: CT abdomen pelvis wo con DATE OF EXAM: 03/03/2022 COMPARISON: None HISTORY: Diarrhea, nausea and vomiting. CT DLP: 282.8 mGycm Automated exposure control for dose reduction was used. Images obtained from the diaphragm to the floor the pelvis with oral contrast only. The lung bases are clear of infiltrate. No pleural effusion. Heart size is normal. No pericardial eff usion. Liver spleen and stomach appear intact. No pancreatic mass. There are clips from cholecystectomy. The bile ducts are not dilated. There is no adrenal mass. Kidneys have normal size. No hydronephrosis. Ureters are not dilated. No re troperitoneal adenopathy. Bladder distends smoothly. No inguinal hernia. No free fluid in the pelvis. There is mild levoscoliosis. There is a minimal thoracolumbar dextroscoliosis. There is multilevel l umbar spondylotic changes. There is disc prosthesis at L4-5. The bony pelvis is intact. The hip joint s are intact. Appendix is partly seen and appears normal. There is no mesenteric edema. No ascites or free air. No sign of a bowel obstruction. There is large bowel fluid extending to the sigmoid colon. IMPRESSION: Large bowel fluid could relate to some diarrhea. This appears new compared to the old exam. Otherwise negative exam. No evidence of bowel obstruction.
[2022-03-03] MEDS: LOPERAMIDE 2 MG CAP PO PRN (18:58)
[2022-03-03] MEDS: LOSARTAN 25 MG TAB PO SCH (21:27)
[2022-03-03] MEDS: ATORVASTATIN 80 MG TAB PO SCH (21:27)
[2022-03-03] MEDS: lamoTRIgine 100 MG TAB PO SCH (21:27)
--- NOTE | 2022-03-04 02:38 | PN ---
PROGRESS NOTE DATE OF SERVICE: 03/03/2022 SUBJECTIVE: This 71-year-old woman, who was admitted with significant diarrhea, is being closely monitored. No chest pain. No palpitations. No fever. OBJECTIVE: VITAL SIGNS: Pulse is 81, blood pressure 112/64, respirations 18. CHEST: Clear to auscultation. CARDIOVASCULAR: S1, S2. ABDOMEN: Soft. Mild diffuse discomfort. PAST MEDICAL HISTORY: Reviewed. REVIEW OF SYSTEMS: A 14-point review of systems is negative as mentioned earlier. CURRENT MEDICATIONS: Reviewed and include cefepime. Dose and rest of medications reviewed. LABORATORY DATA: WBC 18.8. ASSESSMENT: 1. Intractable diarrhea, possible neutropenic sepsis. 2. Possible chemotherapy-induced diarrhea. 3. Urinary tract infection with Klebsiella pneumoniae and Proteus mirabilis. 4. Neutropenia. 5. History of breast cancer. 6. Hypertension. 7. Hyperlipidemia. 8. Multiple medical issues. RECOMMENDATIONS: I recommend to continue current medications and symptomatic treatment. The C. difficile has been negative. I would recommend stool culture as well as CT scan of the abdomen and pelvis and chest x-ray to complete the workup. See orders for further details. The urine culture is showing Klebsiella pneumoniae and Proteus mirabilis. Infectious Disease consultation also has been recommended. MMODL / IJN: [id number] /
[2022-03-04] MEDS: SODIUM CHLORIDE 0.9% 1,000 ML IV SCH ×2 (03:45→21:19)
[2022-03-04] MEDS: CEFEPIME 2 GM in SODIUM CHLORIDE 0.9% 100 ML IVPB SCH (04:57)
[2022-03-04] MEDS: DIPHENOX-ATROP 2.5-0.025 MG 1 EACH TAB PO PRN (05:00)
[2022-03-04] MEDS: LOPERAMIDE 2 MG CAP PO PRN ×2 (05:00→13:46)
[2022-03-04] MEDS: LEVOTHYROXINE 112 MCG TAB PO SCH (06:04)
--- NOTE | 2022-03-04 08:49 | P.CONS ---
History of Present Illness - Reason for Consult Consult date: 03/03/22 Sepsis Requesting physician: Maggie Gonzalez - Chief Complaint Vomiting and diarrhea x 5 days - History of Present Illness Patient is a 71-year female with a past medical history significant for breast cancer for the patient is here for her first chemotherapy on 02/12 patient mention 2 days later on Friday she started feeling sick and did have multiple episodes of loose stools with the symptom persisted she presented to the ER on 02/28/2022 her main symptom has been diarrhea and patient mention when she was started on Lomotil she started having more of a vomiting and unable to keep anything down patient did have mild lower abdominal pain morphine the laking due to the abruption and no radiation with the symptoms the patient has been evaluated by ER physician on arrival to the ER the patient was afebrile she did have 1 low-grade fever of 99.9 on 03/01/2022 however the patient did have no fever since then the patient not hypoxic or need for supplemental oxygen patient did have a white count of 1.5 on admission which is up to 18.80 today BUN/creatinine was mildly elevated on admission subsequent normalized limits of the normal urine was mildly positive urine culture reviewed grew Klebsiella and Proteus patient is currently be treated with the cefepime infectious disease was consulted for further management of antibiotic therapy concern for sepsis Review of Systems Positive point has been mentioned in the HPI rest of the systems are negative Past Medical History Past Medical History: Coronary Artery Disease (CAD), Cancer, CVA/TIA, Hyperlipidemia, Hypertension, Myocardial Infarction ([place]), Osteoarthritis (OA), Renal Disease, Thyroid Disorder Additional Past Medical History / Comment(s): hx. thyroid cancer early , colitis, TIA approx. 12 yrs. ago-no residual effects. chronic kidney disease stage 4, monoclonal anemia, recent dx left breast cancer Last Myocardial Infarction Date:: 2018 History of Any Multi-Drug Resistant Organisms: None Reported Past Surgical History: Adenoidectomy, Back Surgery, Cholecystectomy, Heart Catheterization With Stent, Hysterectomy Additional Past Surgical History / Comment(s): 5 stents total, total thyroidectomy & radioactive iodine tx. after, cage/disk back surgery, shanelle cataract, rt eye surgery Past Anesthesia/Blood Transfusion Reactions: No Reported Reaction Date of Last Stent Placement:: 04/08/19 Past Psychological History: Depression Smoking Status: Former smoker Past Alcohol Use History: Rare Additional Past Alcohol Use History / Comment(s): quit smoking 1992, smoked since teens, 1ppd Past Drug Use History: None Reported - Past Family History Mother Family Medical History: No Reported History Father Family Medical History: Cancer Medications and Allergies Home Medications Medication Instructions Recorded Confirmed Type Acetaminophen/Diphenhydramine 1 - 2 tab PO HS PRN 02/20/19 02/28/22 History [Tylenol Pm Ex-Strength Caplet] Levothyroxine Sodium 112 mcg PO DAILY 02/20/19 02/28/22 History Losartan [Cozaar] 25 mg PO HS 02/20/19 02/28/22 History Pantoprazole [Protonix] 40 mg PO DAILY 02/20/19 02/28/22 History Sertraline [Zoloft] 50 mg PO DAILY 02/20/19 02/28/22 History lamoTRIgine [LaMICtal] 100 mg PO HS 02/20/19 02/28/22 History Isosorbide Mononitrate ER [Imdur] 30 mg PO DAILY #30 tab.er.24h 02/26/19 02/28/22 Rx Nitroglycerin Sl Tabs [Nitrostat] 0.4 mg SUBLINGUAL Q5M PRN #25 tab 02/26/19 02/28/22 Rx Spironolactone [Aldactone] 25 mg PO DAILY #30 tab 02/26/19 02/28/22 Rx Atorvastatin [Lipitor] 80 mg PO HS 02/15/22 02/28/22 History carvediloL [Coreg] 3.125 mg PO BID 02/15/22 02/28/22 History Aspirin EC [Ecotrin Low Dose] 81 mg PO DAILY 02/19/22 02/28/22 History Cyanocobalamin [Vitamin B-12] 500 mg PO DAILY 02/19/22 02/28/22 History Ergocalciferol [Vitamin D2 (1250 1.25 mg PO BOYKIN 02/19/22 02/28/22 History Mcg = 56701 Iu)] Chemo Infusion 1 dose IV DIRECTED 02/28/22 02/28/22 History dexAMETHasone [Decadron] 8 mg PO DIRECTED 02/28/22 02/28/22 History ondansetron HCL [Zofran] 8 mg PO Q8HR PRN 02/28/22 02/28/22 History Allergies Allergy/AdvReac Type Severity Reaction Status Date / Time amoxicillin Allergy Rash/Hives Verified 02/28/22 12:36 erythromycin base Allergy Rash/Hives Verified 02/28/22 12:36 keratin Allergy Swelling Verified 02/28/22 12:36 Penicillins Allergy Rash/Hives Verified 02/28/22 12:36 Sulfa (Sulfonamide Allergy Unknown Verified 02/28/22 12:36 Antibiotics) Childhood wheat Allergy Rash/Hives Verified 02/28/22 12:36 clopidogrel [From Plavix] AdvReac Itching Verified 02/28/22 12:36 imiquimod AdvReac Nausea & Verified 02/28/22 12:36 Vomiting Physical Exam Vitals: Vital Signs Temp Pulse Resp BP BP Pulse Ox 03/03/22 11:50 98.0 F 81 18 112/64 97 03/03/22 08:00 88 16 03/03/22 04:23 97.3 F L 88 16 134/75 97 03/02/22 21:00 97.7 F 83 16 144/70 83 L Intake and Output 03/03/22 03/03/22 03/03/22 06:59 14:59 22:59 Intake Total 700 Balance 700 Intake: Intake, IV Titration 700 Amount Cefepime 2 gm In Sodium 100 Chloride 0.9% 100 ml @ 25 mls/hr IVPB Q8H [facility] Rx#: [id number] Sodium Chloride 0.9% 1, 600 000 ml @ 75 mls/hr IV . [id number] [facility] Rx#:[id number] Other: Voiding Method Toilet GENERAL DESCRIPTION: Elderly female lying in bed, no distress. No tachypnea or accessory muscle of respiration use. HEENT: Shows Pallor , no scleral icterus. Oral mucous membrane is dry. No pharyngeal erythema or thrush NECK: Trachea central, no thyromegaly. LUNGS: Unlabored breathing. Decreased breath sounds at the base. No wheeze or crackle. HEART: S1, S2, regular rate and rhythm. No loud murmur ABDOMEN: Soft, no tenderness , guarding or rigidity, no organomegaly EXTREMITIES: No edema of feet. SKIN: No rash, no masses palpable. NEUROLOGICAL: The patient is awake, alert, oriented x3, mood and affect normal. Results CBC & Chem 7: 03/03/22 06:15 03/03/22 06:07 Labs: Abnormal Lab Results - Last 24 Hours (Table) 03/03/22 03/03/22 Range/Units 06:07 06:15 WBC 18.80 H (4.50-10.00) X 10*3/uL RBC 2.72 L (4.10-5.20) X 10*6/uL Hgb 9.3 L (12.0-15.0) g/dL Hct 27.8 L (37.2-46.3) % MCV 102.2 H (80.0-97.0) fL MCH 34.2 H (27.0-32.0) pg MPV 12.5 H (9.5-12.2) fL Absolute Nucleated RBC 0.02 H (0.00-0.00) X 10*3/uL Myelocytes % 1 H (0-0) % Neutrophils # (Manual) 16.54 H (2.00-8.90) X 10*3/uL Eosinophils # (Manual) 0 L (0.04-0.35) X 10*3/uL NRBC/100 WBC Diff 0.1 H (0.0-0.0) /100 WBCS Chloride 116 H (96-109) mmol/L Carbon Dioxide 16.3 L (20.0-27.5) mmol/L Est GFR (CKD-EPI)NonAf 55.3 L (60.0-200.0) BUN/Creatinine Ratio 23.82 H (12.00-20.00) Ratio Glucose 127 H (70-110) mg/dL Total Protein 5.9 L (6.2-8.2) g/dL Albumin 3.7 L (3.8-4.9) g/dL Microbiology - Last 24 Hours (Table) 03/02/22 11:33 Blood Culture - Preliminary Blood No Growth after 24 hours 03/02/22 11:33 Blood Culture - Preliminary Blood No Growth after 24 hours 02/28/22 09:57 Urine Culture - Final Urine,Voided Klebsiella pneumoniae Proteus mirabilis Assessment and Plan (1) UTI (urinary tract infection) Current Visit: Yes Status: Acute Code(s): N39.0 - URINARY TRACT INFECTION, SITE NOT SPECIFIED SNOMED Code(s): 04301589 Plan: 1patient presented to hospital with intractable nausea vomiting and diarrhea more likely due to her chemotherapy patient did have mildly positive UA and possible component of cystitis/Drake not entirely excluded with urine culture did grow Klebsiella and Proteus. 2we will check a stool culture stool for C. difficile to complete the work-up. 3we will switch cefepime to Rocephin to which both the pathogens are sensitive. 4-Gentle IV fluid We will follow on clinical condition and cultures to further adjust medication if needed Thank you for this consultation will follow this patient along with you Time with Patient: Greater than 30
[2022-03-04] MEDS: carvediloL 3.125 MG TAB PO SCH ×2 (09:16→17:27)
[2022-03-04] MEDS: PANTOPRAZOLE 40 MG TABLET PO SCH ×2 (09:16→17:27)
[2022-03-04] MEDS: ISOSORBIDE MONONITRATE ER 30 MG TAB.ER.24H PO SCH (09:16)
[2022-03-04] MEDS: CYANOCOBALAMIN 500 MCG TAB PO SCH (09:16)
[2022-03-04] MEDS: SPIRONOLACTONE 25 MG TAB PO SCH (09:16)
[2022-03-04] MEDS: SERTRALINE 50 MG TAB PO SCH (09:16)
[2022-03-04] MEDS: HEPARIN SODIUM,PORCINE/PF 5,000 UNIT/0.5 ML SYRINGE SQ SCH ×2 (09:16→21:17)
[2022-03-04 09:19] LABS: ALT 36 U/L (8-44); AST 35 U/L (13-35); African American GFR (CKD) 43.7 (60.0-200.0); Albumin 3.6 g/dL (3.8-4.9); Albumin/Globulin Ratio 1.71 (1.60-3.17); Alkaline Phosphatase 96 U/L (41-126); BUN/Creat Ratio 19.71 Ratio (12.00-20.00); Blood Urea Nitrogen 27.6 mg/dL (9.0-27.0); Calcium 8.7 mg/dL (8.7-10.3); Carbon Dioxide 12.9 mmol/L (20.0-27.5); Chloride 119 mmol/L (96-109); Globulin 2.1 g/dL (1.6-3.3); Glucose 86 mg/dL (70-110); Non-African American GFR(CKD) 37.7 (60.0-200.0); Potassium 3.2 mmol/L (3.5-5.5); Sodium 146 mmol/L (135-145); Total Bilirubin <0.15 mg/dL (0.30-1.20); Total Protein 5.7 g/dL (6.2-8.2)
[2022-03-04 09:58] LABS: Acanthocytes 2+; Basophils # (A) 0.01 X 10*3/uL (0.00-0.10); Basophils % (A) 0 %; Eosinophils # (A) 0.02 X 10*3/uL (0.04-0.35); Eosinophils % (A) 0.1 %; HCT 26.7 % (37.2-46.3); HGB 8.5 g/dL (12.0-15.0); Immature Grans, Automated 2.9 %; Lymphocytes # (A) 2.02 X 10*3/uL (0.90-5.00); MCH 33.3 pg (27.0-32.0); MCHC 31.8 g/dL (32.0-37.0); MCV 104.7 fL (80.0-97.0); Mean Platelet Volume 12.3 fL (9.5-12.2); Monocytes # (A) 1.23 X 10*3/uL (0.20-1.00); Monocytes % (A) 5.5 %; NRBC Per 100 WBC 0.1 /100 WBCS (0.0-0.0); Neutrophils % (A) 82.5 %; Platelet Count 176 X 10*3/uL (140-440); RBC 2.55 X 10*6/uL (4.10-5.20); RDW 14.1 % (11.5-14.5); WBC 22.44 X 10*3/uL (4.50-10.00)
[2022-03-04] MEDS ORDERED: BENZOCAINE/MENTHOL LOZENG 1 EACH LOZENGE MUCOUS MEM PRN (11:23)
[2022-03-04] MEDS ORDERED: Potassium Replacement Protocol 1 EACH MISC MISCELLANE PRN (15:29)
--- NOTE | 2022-03-04 15:55 | P.PN ---
Subjective Progress Note Date: 03/04/22 This is a 71-year-old female admitted with nausea, vomiting, diarrhea-suspect related to chemotherapy, acute UTI, neutropenia and multiple other medical issues. Neutropenia has resolved. Afebrile. denies chest pain, palpitations or shortness of breath. Denies chills. Denies nausea vomiting or abdominal pain, requesting diet advancement. Diarrhea episodes have decreased today. Potassium 3.2, replacement protocol ordered. Large bowel fluid could relate to some diarrhea and CT of abdomen and pelvis otherwise negative exam with no evidence of bowel obstruction reported. Objective - Vital Signs Vital signs: Vital Signs Temp 97.8 F 03/04/22 13:00 Pulse 73 03/04/22 13:00 Resp 16 03/04/22 13:00 BP 144/73 03/04/22 13:00 Pulse Ox 97 03/04/22 13:00 FiO2 Intake & Output 03/03/22 03/04/22 03/04/22 18:59 06:59 18:59 Intake Total 60 625 Output Total 50 Balance 10 625 Intake: Intake, IV Titration 625 Amount Cefepime 2 gm In Sodium 100 Chloride 0.9% 100 ml @ 25 mls/hr IVPB Q12H [facility] Rx# :[id number] Sodium Chloride 0.9% 1, 525 000 ml @ 75 mls/hr IV . [id number] [facility] Rx#:[id number] Oral 60 Output: Emesis 50 Other: Voiding Method Toilet Toilet # Voids 5 # Bowel Movements 3 4 - Exam PHYSICAL EXAM: VITAL SIGNS: [As above] GENERAL: Sitting up in bed, no acute distress HEENT: Conjunctivae normal. eyes normal. NECK: Supple, No JVD. No thyroid enlargement. No LNs CARDIOVASCULAR: S1, S2 regular.. No murmur RESPIRATION: Breath sounds diminished in the bases. No rhonchi or crackles ABDOMEN: Soft, nontender . No guarding. no masses palpable. Bowel sounds heard. LEGS: No edema. no swelling PSYCHIATRY: Alert and oriented X3, mood and affect normal. NERVOUS SYSTEM: Cranial N 2-12 grossly normal. No focal deficits. Strength and sensation grossly intact.. Skin: Warm and dry, no rash - Labs CBC & Chem 7: 03/04/22 04:19 03/04/22 04:19 Labs: Abnormal Lab Results - Last 24 Hours (Table) 03/04/22 03/04/22 Range/Units 04:19 04:19 WBC 22.44 H (4.50-10.00) X 10*3/uL RBC 2.55 L (4.10-5.20) X 10*6/uL Hgb 8.5 L (12.0-15.0) g/dL Hct 26.7 L (37.2-46.3) % MCV 104.7 H (80.0-97.0) fL MCH 33.3 H (27.0-32.0) pg MCHC 31.8 L (32.0-37.0) g/dL MPV 12.3 H (9.5-12.2) fL Absolute Nucleated RBC 0.02 H (0.00-0.00) X 10*3/uL Immature Gran # 0.66 H (0.00-0.04) X 10*3/uL Neutrophils # 18.50 H (1.80-7.70) X 10*3/uL Monocytes # 1.23 H (0.20-1.00) X 10*3/uL Eosinophils # 0.02 L (0.04-0.35) X 10*3/uL NRBC/100 WBC Diff 0.1 H (0.0-0.0) /100 WBCS Sodium 146 H (135-145) mmol/L Potassium 3.2 L (3.5-5.5) mmol/L Chloride 119 H (96-109) mmol/L Carbon Dioxide 12.9 L (20.0-27.5) mmol/L BUN 27.6 H (9.0-27.0) mg/dL Est GFR (CKD-EPI)AfAm 43.7 L (60.0-200.0) Est GFR (CKD-EPI)NonAf 37.7 L (60.0-200.0) Total Bilirubin <0.15 L (0.30-1.20) mg/dL Total Protein 5.7 L (6.2-8.2) g/dL Albumin 3.6 L (3.8-4.9) g/dL Microbiology - Last 24 Hours (Table) 03/02/22 11:33 Blood Culture - Preliminary Blood No Growth after 48 hours 03/02/22 11:33 Blood Culture - Preliminary Blood No Growth after 48 hours Assessment and Plan Assessment: Intractable nausea vomiting and diarrhea suspect related to chemotherapy,C-diff. negative. Leukopenia, recovered Dehydration secondary to the above Acute UTI with Klebsiella pneumoniae and Proteus mirabilis Hypokalemia History of left breast cancer Plan: Continue on current medication regime ,monitoring and symptomatic anoop atment. Maintain gentle IV fluid hydration, Lomotil, alternating with Imodium prn. Potassium replacement protocol. Magnesium level added on/pending. Diet advancement to soft diet. Antibiotics as per infectious disease. Discharge planning in progress for tomorrow pending patient tolerates diet advancement, final DC recommendations and clearance per ID. The impression and plan of care has been dictated as directed. : I performed a history and examination of this patient, discussed the same with the dictator. I agree with the dictator's note ,documented as a scribe. Any additional findings or plans will be noted.
[2022-03-04] MEDS: POTASSIUM CHLORIDE ER 20 MEQ TAB.ER PO SCH ×2 (16:02→17:27)
[2022-03-04] MEDS: lamoTRIgine 100 MG TAB PO SCH (21:17)
[2022-03-04] MEDS: LOSARTAN 25 MG TAB PO SCH (21:17)
[2022-03-04] MEDS: ATORVASTATIN 80 MG TAB PO SCH (21:17)
--- NOTE | 2022-03-04 22:56 | P.PN ---
Subjective Progress Note Date: 03/04/22 Principal diagnosis: Urinary tract infection/leukocytosis Patient is a 71 year old female with with a recent diagnosis of her breast cancer status post chemotherapy subsequently admitted to the hospital with intractable nausea vomiting and diarrhea. On today's evaluation that is 03/04/2022, the patient denies having any fever or any chills denies any further nausea or vomiting no abdominal pain or chest pain shortness of breath or cough Objective - Vital Signs Vital signs: Vital Signs Temp 97.6 F 03/04/22 04:30 Pulse 73 03/04/22 04:30 Resp 15 03/04/22 04:30 BP 155/79 03/04/22 04:30 Pulse Ox 99 03/04/22 04:30 FiO2 Intake & Output 03/03/22 03/04/22 03/04/22 18:59 06:59 18:59 Intake Total 60 625 Output Total 50 Balance 10 625 Intake: Intake, IV Titration 625 Amount Cefepime 2 gm In Sodium 100 Chloride 0.9% 100 ml @ 25 mls/hr IVPB Q12H [facility] Rx# :[id number] Sodium Chloride 0.9% 1, 525 000 ml @ 75 mls/hr IV . [id number] [facility] Rx#:[id number] Oral 60 Output: Emesis 50 Other: Voiding Method Toilet Toilet # Voids 5 # Bowel Movements 3 4 - Exam GENERAL DESCRIPTION: An elderly female lying in bed in no distress RESPIRATORY SYSTEM: Unlabored breathing , decreased breath sounds at bases HEART: S1 S2 regular rate and rhythm , ABDOMEN: Soft , no tenderness EXTREMITIES: No edema feet - Labs CBC & Chem 7: 03/04/22 04:19 03/04/22 20:21 Labs: Abnormal Lab Results - Last 24 Hours (Table) 03/04/22 03/04/22 Range/Units 04:19 04:19 WBC 22.44 H (4.50-10.00) X 10*3/uL RBC 2.55 L (4.10-5.20) X 10*6/uL Hgb 8.5 L (12.0-15.0) g/dL Hct 26.7 L (37.2-46.3) % MCV 104.7 H (80.0-97.0) fL MCH 33.3 H (27.0-32.0) pg MCHC 31.8 L (32.0-37.0) g/dL MPV 12.3 H (9.5-12.2) fL Absolute Nucleated RBC 0.02 H (0.00-0.00) X 10*3/uL Immature Gran # 0.66 H (0.00-0.04) X 10*3/uL Neutrophils # 18.50 H (1.80-7.70) X 10*3/uL Monocytes # 1.23 H (0.20-1.00) X 10*3/uL Eosinophils # 0.02 L (0.04-0.35) X 10*3/uL NRBC/100 WBC Diff 0.1 H (0.0-0.0) /100 WBCS Sodium 146 H (135-145) mmol/L Potassium 3.2 L (3.5-5.5) mmol/L Chloride 119 H (96-109) mmol/L Carbon Dioxide 12.9 L (20.0-27.5) mmol/L BUN 27.6 H (9.0-27.0) mg/dL Est GFR (CKD-EPI)AfAm 43.7 L (60.0-200.0) Est GFR (CKD-EPI)NonAf 37.7 L (60.0-200.0) Total Bilirubin <0.15 L (0.30-1.20) mg/dL Total Protein 5.7 L (6.2-8.2) g/dL Albumin 3.6 L (3.8-4.9) g/dL Microbiology - Last 24 Hours (Table) 03/02/22 11:33 Blood Culture - Preliminary Blood No Growth after 24 hours 03/02/22 11:33 Blood Culture - Preliminary Blood No Growth after 24 hours Assessment and Plan (1) UTI (urinary tract infection) Current Visit: Yes Status: Acute Code(s): N39.0 - URINARY TRACT INFECTION, SITE NOT SPECIFIED SNOMED Code(s): 26455338 Plan: 1patient presented to hospital with intractable nausea vomiting and diarrhea more likely due to her chemotherapy patient did have mildly positive UA and possible component of cystitis/Drake not entirely excluded with urine culture did grow Klebsiella and Proteus. 2 stool culture pending stool for C. difficile has been negative. 3patient will continue with Rocephin and monitor clinical course closely Time with Patient: Less than 30
[2022-03-05] MEDS ORDERED: Potassium Replacement Protocol 1 EACH MISC MISCELLANE PRN ×2 (00:20→09:31)
[2022-03-05] MEDS: POTASSIUM CHLORIDE ER 20 MEQ TAB.ER PO SCH ×2 (00:36→01:50)
[2022-03-05] MEDS: LEVOTHYROXINE 112 MCG TAB PO SCH (05:09)
[2022-03-05] MEDS: ONDANSETRON 4 MG/2 ML VIAL IVP PRN (05:14)
[2022-03-05] MEDS: LOSARTAN 25 MG TAB PO SCH ×3 (05:47→20:33)
[2022-03-05] MEDS: carvediloL 3.125 MG TAB PO SCH ×2 (08:13→17:32)
[2022-03-05] MEDS: HEPARIN SODIUM,PORCINE/PF 5,000 UNIT/0.5 ML SYRINGE SQ SCH ×2 (08:13→20:33)
[2022-03-05] MEDS: SERTRALINE 50 MG TAB PO SCH (08:13)
[2022-03-05] MEDS: CYANOCOBALAMIN 500 MCG TAB PO SCH (08:13)
[2022-03-05] MEDS: PANTOPRAZOLE 40 MG TABLET PO SCH ×2 (08:13→17:32)
[2022-03-05] MEDS: SPIRONOLACTONE 25 MG TAB PO SCH (08:13)
[2022-03-05] MEDS: ISOSORBIDE MONONITRATE ER 30 MG TAB.ER.24H PO SCH (08:13)
--- NOTE | 2022-03-05 08:34 | P.PN ---
Subjective Progress Note Date: 03/04/22 Principal diagnosis: N,V,D post chemo TCHP with GCSF In f/u today pt is reporting up to 10 stools during day and hourly over night, bright gree, no abd pain or rectal pain, no blood or mucus. Not using antidiarrheals consistently. No stool infection. UA + for le pneu and proteus winnie. No fevers, she is ambulating. Objective - Vital Signs Vital signs: Vital Signs Temp 97.8 F 03/04/22 13:00 Pulse 73 03/04/22 13:00 Resp 16 03/04/22 13:00 BP 144/73 03/04/22 13:00 Pulse Ox 97 03/04/22 13:00 FiO2 Intake & Output 03/04/22 03/04/22 03/05/22 06:59 18:59 06:59 Intake Total 625 875 Balance 625 875 Intake: Intake, IV Titration 625 875 Amount Cefepime 2 gm In Sodium 100 Chloride 0.9% 100 ml @ 25 mls/hr IVPB Q12H [facility] Rx# :[id number] Sodium Chloride 0.9% 1, 525 825 000 ml @ 75 mls/hr IV . [id number] [facility] Rx#:[id number] cefTRIAXone 1 gm In 50 Sodium Chloride 0.9% 50 ml @ 100 mls/hr IVPB Q24HR [facility] Rx#:[id number] Other: Voiding Method Toilet # Voids 6 # Bowel Movements 4 6 - Constitutional General appearance: Present: average body habitus, cooperative, no acute distress - EENT Eyes: Present: anicteric sclerae, EOMI ENT: Present: hearing grossly normal, normal oropharynx - Respiratory Respiratory: bilateral: CTA - Cardiovascular Rhythm: regular Heart sounds: normal: S1, S2 Abnormal Heart Sounds: Absent: systolic murmur, diastolic murmur, rub, S3 Gallop, S4 Gallop, click, other - Peripheral edema leg Peripheral Edema: bilateral: None - Gastrointestinal General gastrointestinal: Present: normal bowel sounds, soft. Absent: absent bowel sounds, decreased bowel sounds, distended, hepatomegaly, hyperactive bowel sounds, organomegaly, rigid, scaphoid, splenomegaly, tenderness, umbilical hernia, ventral hernia - Integumentary Integumentary: Present: normal - Neurologic Neurologic: Present: CNII-XII intact - Musculoskeletal Musculoskeletal: Present: strength equal bilaterally - Psychiatric Psychiatric: Present: A&O x's 3, appropriate affect, intact judgment & insight - Labs CBC & Chem 7: 03/04/22 04:19 03/04/22 20:21 Labs: Abnormal Lab Results - Last 24 Hours (Table) 03/04/22 03/04/22 Range/Units 04:19 04:19 WBC 22.44 H (4.50-10.00) X 10*3/uL RBC 2.55 L (4.10-5.20) X 10*6/uL Hgb 8.5 L (12.0-15.0) g/dL Hct 26.7 L (37.2-46.3) % MCV 104.7 H (80.0-97.0) fL MCH 33.3 H (27.0-32.0) pg MCHC 31.8 L (32.0-37.0) g/dL MPV 12.3 H (9.5-12.2) fL Absolute Nucleated RBC 0.02 H (0.00-0.00) X 10*3/uL Immature Gran # 0.66 H (0.00-0.04) X 10*3/uL Neutrophils # 18.50 H (1.80-7.70) X 10*3/uL Monocytes # 1.23 H (0.20-1.00) X 10*3/uL Eosinophils # 0.02 L (0.04-0.35) X 10*3/uL NRBC/100 WBC Diff 0.1 H (0.0-0.0) /100 WBCS Sodium 146 H (135-145) mmol/L Potassium 3.2 L (3.5-5.5) mmol/L Chloride 119 H (96-109) mmol/L Carbon Dioxide 12.9 L (20.0-27.5) mmol/L BUN 27.6 H (9.0-27.0) mg/dL Est GFR (CKD-EPI)AfAm 43.7 L (60.0-200.0) Est GFR (CKD-EPI)NonAf 37.7 L (60.0-200.0) Total Bilirubin <0.15 L (0.30-1.20) mg/dL Total Protein 5.7 L (6.2-8.2) g/dL Albumin 3.6 L (3.8-4.9) g/dL Microbiology - Last 24 Hours (Table) 03/02/22 11:33 Blood Culture - Preliminary Blood No Growth after 48 hours 03/02/22 11:33 Blood Culture - Preliminary Blood No Growth after 48 hours - Imaging and Cardiology CT scan - abdomen: report reviewed CT scan - pelvis: report reviewed Assessment and Plan (1) Diarrhea Current Visit: Yes Status: Acute Priority: High Code(s): R19.7 - DIARRHEA, UNSPECIFIED SNOMED Code(s): 72403210 (2) Dehydration Current Visit: Yes Status: Acute Priority: High Code(s): E86.0 - DEHYDRATION SNOMED Code(s): 67744620 (3) Breast cancer, left Current Visit: Yes Status: Acute Priority: High Code(s): C50.912 - MALIGNANT NEOPLASM OF UNSPECIFIED SITE OF LEFT FEMALE BREAST SNOMED Code(s): 382922726 Plan: Diarrhea. Patient has a history of the same. C. difficile is negative. Patient is not having any severe abdominal symptoms, Exam remains benign. Antidiarrheals not being given in any consistent manner. Lomotil ordered sched, imodium PRN Cont IV fluids. Anemia and normal plt at rich. G-CSF about 10 days ago-recovery and increase in WBC/ANC 2/2 the same. Patient encouraged to eat what she tolerates. Dr. Mcgheeests: I have seen and examined pt, performed H&P, developed impression and plan of care. Discussed with dictator. Agree with documentation, dictated as a scribe.
[2022-03-05] MEDS: SODIUM CHLORIDE 0.9% 1,000 ML IV SCH (08:52)
[2022-03-05 10:20] LABS: BUN/Creat Ratio 16.62 Ratio (12.00-20.00)
[2022-03-05 10:21] LABS: African American GFR (CKD) 47.8 (60.0-200.0); Anion Gap 12.5 mmol/L (10.00-18.00); Blood Urea Nitrogen 21.6 mg/dL (9.0-27.0); Calcium 8.6 mg/dL (8.7-10.3); Non-African American GFR(CKD) 41.2 (60.0-200.0); Potassium 2.9 mmol/L (3.5-5.5)
[2022-03-05] MEDS: MAG HYDROX/AL HYDROX/SIMETH 30 ML, LIDOCAINE VISCOUS 2% 30 ML, diphenhydrAMINE ELIXIR 7... PO SCH ×12 (10:39→23:34)
[2022-03-05] MEDS: SIMETHICONE 80 MG CHEWABLE PO SCH ×4 (10:40→22:17)
[2022-03-05] MEDS: DIPHENOX-ATROP 2.5-0.025 MG 1 EACH TAB PO SCH ×4 (10:40→22:17)
[2022-03-05 11:36] LABS: Basophils # (A) 0.01 X 10*3/uL (0.00-0.10); Basophils % (A) 0 %; Eosinophils # (A) 0.02 X 10*3/uL (0.04-0.35); Eosinophils % (A) 0.1 %; HCT 27.9 % (37.2-46.3); HGB 9.3 g/dL (12.0-15.0); Immature Grans, Automated 3.8 %; Lymphocytes # (A) 2.06 X 10*3/uL (0.90-5.00); Lymphocytes % (A) 7.7 %; MCH 33.6 pg (27.0-32.0); MCHC 33.3 g/dL (32.0-37.0); MCV 100.7 fL (80.0-97.0); Mean Platelet Volume 11.7 fL (9.5-12.2); Monocytes # (A) 1.23 X 10*3/uL (0.20-1.00); Monocytes % (A) 4.6 %; NRBC Per 100 WBC 0.1 /100 WBCS (0.0-0.0); Neutrophils # (A) 22.49 X 10*3/uL (1.80-7.70); Neutrophils % (A) 83.8 %; Platelet Count 212 X 10*3/uL (140-440); RBC 2.77 X 10*6/uL (4.10-5.20); RDW 14.5 % (11.5-14.5); WBC 26.82 X 10*3/uL (4.50-10.00)
[2022-03-05 11:37] LABS: Acanthocytes 2+
[2022-03-05 11:55] VITALS: RESP 18
[2022-03-05] MEDS: POTASSIUM CHLORIDE 20 MEQ in WATER FOR INJECTION 1 100ML.BAG IVPB SCH ×4 (12:22→22:17)
[2022-03-05] MEDS ORDERED: ACETAMINOPHEN TAB 325 MG TAB PO PRN (12:25)
--- NOTE | 2022-03-05 12:36 | P.PN ---
Subjective Progress Note Date: 03/05/22 Principal diagnosis: N,V,D post chemo TCHP with GCSF In f/u today pt reporting few less stools, still diarrhea, no abd pain or rectal pain, blood or mucus. She did vomit 1 overnight, relates it to oral potassium. Her throat irritation is since starting treatment. No respiratory complaints, denies swelling in the legs, she is ambulatory. Objective - Vital Signs Vital signs: Vital Signs Temp 97.9 F 03/05/22 11:26 Pulse 75 03/05/22 11:26 Resp 18 03/05/22 11:26 BP 154/80 03/05/22 11:26 Pulse Ox 96 03/05/22 11:26 FiO2 Intake & Output 03/04/22 03/05/22 03/05/22 18:59 06:59 18:59 Intake Total 875 Output Total 150 Balance 875 -150 Intake: Intake, IV Titration 875 Amount Sodium Chloride 0.9% 1, 825 000 ml @ 75 mls/hr IV . [id number] [facility] Rx#:[id number] cefTRIAXone 1 gm In 50 Sodium Chloride 0.9% 50 ml @ 100 mls/hr IVPB Q24HR [facility] Rx#:[id number] Output: Urine/Stool Mix 150 Other: Voiding Method Toilet # Voids 6 1 # Bowel Movements 6 - Constitutional General appearance: Present: average body habitus, cooperative, no acute distress - EENT EENT Comment(s): Mild oral irritation, redness, no ulcerations or thrush Eyes: Present: anicteric sclerae, EOMI ENT: Present: hearing grossly normal - Respiratory Respiratory: bilateral: CTA - Cardiovascular Rhythm: regular Heart sounds: normal: S1, S2 Abnormal Heart Sounds: Absent: systolic murmur, diastolic murmur, rub, S3 Gallop, S4 Gallop, click, other - Peripheral edema leg Peripheral Edema: bilateral: None - Gastrointestinal General gastrointestinal: Present: normal bowel sounds, soft - Neurologic Neurologic: Present: CNII-XII intact - Musculoskeletal Musculoskeletal: Present: strength equal bilaterally - Psychiatric Psychiatric: Present: A&O x's 3, appropriate affect, intact judgment & insight - Labs CBC & Chem 7: 03/05/22 05:34 03/05/22 05:34 Labs: Abnormal Lab Results - Last 24 Hours (Table) 03/04/22 03/05/22 03/05/22 Range/Units 20:21 05:34 05:34 WBC 26.82 H (4.50-10.00) X 10*3/uL RBC 2.77 L (4.10-5.20) X 10*6/uL Hgb 9.3 L (12.0-15.0) g/dL Hct 27.9 L (37.2-46.3) % MCV 100.7 H (80.0-97.0) fL MCH 33.6 H (27.0-32.0) pg Absolute Nucleated RBC 0.04 H (0.00-0.00) X 10*3/uL Immature Gran # 1.01 H (0.00-0.04) X 10*3/uL Neutrophils # 22.49 H (1.80-7.70) X 10*3/uL Monocytes # 1.23 H (0.20-1.00) X 10*3/uL Eosinophils # 0.02 L (0.04-0.35) X 10*3/uL NRBC/100 WBC Diff 0.1 H (0.0-0.0) /100 WBCS Sodium 146 H (135-145) mmol/L Potassium 3.3 L 2.9 L (3.5-5.1) mmol/L Chloride 119 H (96-109) mmol/L Carbon Dioxide 15.0 L (20.0-27.5) mmol/L Est GFR (CKD-EPI)AfAm 47.8 L (60.0-200.0) Est GFR (CKD-EPI)NonAf 41.2 L (60.0-200.0) Calcium 8.6 L (8.7-10.3) mg/dL Microbiology - Last 24 Hours (Table) 03/04/22 19:40 Stool Culture - Preliminary Stool 03/02/22 11:33 Blood Culture - Preliminary Blood No Growth after 48 hours 03/02/22 11:33 Blood Culture - Preliminary Blood No Growth after 48 hours Assessment and Plan (1) Diarrhea Current Visit: Yes Status: Acute Priority: High Code(s): R19.7 - DIARRHEA, UNSPECIFIED SNOMED Code(s): 18286738 (2) Dehydration Current Visit: Yes Status: Acute Priority: High Code(s): E86.0 - DEHYDRATION SNOMED Code(s): 06350201 (3) Breast cancer, left Current Visit: Yes Status: Acute Priority: High Code(s): C50.912 - MALIGNANT NEOPLASM OF UNSPECIFIED SITE OF LEFT FEMALE BREAST SNOMED Code(s): 053452090 Plan: Diarrhea. Patient has a history of the same. C. difficile is negative. Patient is not having any severe abdominal symptoms, Exam remains benign. Antidiarrheals were not being given in any consistent manner. Wanted to have Lomotil ordered sched and imodium PRN-did not get the orders in. This was corrected today. Have asked for stool to be collected and volume to be recorded Pt oral irritation being treated. Cont IV fluids. Anemia, mild stable, not progressive, normal plt at rich. G-CSF about 10 days ago-recovery and increase in WBC/ANC 2/2 the same. Patient encouraged to eat what she tolerates. D/W Dietitian. She will see pt and provide info for diarrhea and dietary preferences\ Rx for lomotil [facility]
[2022-03-05] MEDS: LORATADINE 10 MG TAB PO SCH (14:51)
[2022-03-05] MEDS: SALT AND SODA MOUTHWASH 1,000 ML PO SCH ×3 (14:51→21:01)
[2022-03-05 15:02] VITALS: BMI 25.7
--- NOTE | 2022-03-05 16:49 | P.DS ---
Providers Date of admission: 03/04/22 09:53 Expected date of discharge: 03/05/22 Attending physician: Sebastian Marcano MD Consults: 02/28/22 14:52 Consult Physician Urgent Consulting Provider: Micah Hurst Consult Reason/Comments: Established patient Do you want consulting provider notified?: Yes 03/03/22 15:04 Consult Physician Routine Consulting Provider: Rosa Maria Delgado Consult Reason/Comments: sepsis Do you want consulting provider notified?: Yes Primary care physician: Marcelle Marcano [facility] Course: Final Diagnoses: Intractable nausea vomiting and diarrhea suspect related to chemotherapy,C-diff. negative. HTN, improved after IV fluids discontinued Leukopenia, recovered Dehydration secondary to the above Acute UTI with Klebsiella pneumoniae and Proteus mirabilis Hypokalemia History of left breast cancer Hospital course:This is a 71-year-old female admitted with nausea, vomiting, diarrhea-suspect related to chemotherapy, acute UTI, neutropenia and multiple other medical issues. Neutropenia has resolved. Afebrile. denies chest pain, palpitations or shortness of breath. Denies chills. Denies nausea vomiting or abdominal pain, requesting diet advancement. Diarrhea episodes have decreased today. Potassium 3.2, replacement protocol ordered. Large bowel fluid could relate to some diarrhea and CT of abdomen and pelvis otherwise negative exam with no evidence of bowel obstruction reported. Received potassium supplementation with repeat potassium level III.3 last night, a.m. labs pending. Complains of mild soreness/burning, cools solution ordered. Blood pressure elevated this morning, IV fluids discontinued. Diarrhea significantly improved. Patient will be discharged home later today, in a stable condition with guarded prognosis, after: patient tolerates lunch, blood pressure within normal limits-otherwise will add another antihypertensive as needed, pending potassium level within normal limits and pending final DC recommendations and clearance per both oncology and infectious disease. The impression and plan of care has been dictated as directed. : I performed a history and examination of this patient, discussed the same with the dictator. I agree with the dictator's note ,documented as a scribe. Any additional findings or plans will be noted. Patient Condition at Discharge: Stable Plan - Discharge Summary Discharge Rx Participant: Yes New Discharge Prescriptions: New Loperamide [Imodium] 2 mg PO QID PRN cap PRN Reason: Diarrhea Diphenox-Atrop 2.5-0.025 mg [Lomotil] 2 tab PO QID PRN 3 Days #24 tab PRN Reason: Diarrhea Simethicone [Gas-X] 125 mg PO Q8H PRN #1 capsule PRN Reason: Bloating Diphenox-Atrop 2.5-0.025 mg [Lomotil] 2 each PO QID PRN #24 tab PRN Reason: Diarrhea Continue Sertraline [Zoloft] 50 mg PO DAILY Losartan [Cozaar] 25 mg PO HS lamoTRIgine [LaMICtal] 100 mg PO HS Levothyroxine Sodium 112 mcg PO DAILY Acetaminophen/Diphenhydramine [Tylenol Pm Ex-Strength Caplet] 1 - 2 tab PO HS PRN PRN Reason: Pain Spironolactone [Aldactone] 25 mg PO DAILY #30 tab Isosorbide Mononitrate ER [Imdur] 30 mg PO DAILY #30 tab.er.24h Nitroglycerin Sl Tabs [Nitrostat] 0.4 mg SUBLINGUAL Q5M PRN #25 tab PRN Reason: Chest Pain Atorvastatin [Lipitor] 80 mg PO HS dexAMETHasone [Decadron] 8 mg PO DIRECTED Chemo Infusion 1 dose IV DIRECTED carvediloL [Coreg] 3.125 mg PO BID Ergocalciferol [Vitamin D2 (1250 Mcg = 03947 Iu)] 1.25 mg PO BOYKIN Aspirin EC [Ecotrin Low Dose] 81 mg PO DAILY Cyanocobalamin [Vitamin B-12] 500 mg PO DAILY ondansetron HCL [Zofran] 8 mg PO Q8HR PRN PRN Reason: Nausea Changed Pantoprazole [Protonix] 40 mg PO BID #60 tab Discharge Medication List Acetaminophen/Diphenhydramine [Tylenol Pm Ex-Strength Caplet] 1 - 2 tab PO HS PRN 02/20/19 [History] Levothyroxine Sodium 112 mcg PO DAILY 02/20/19 [History] Losartan [Cozaar] 25 mg PO HS 02/20/19 [History] Sertraline [Zoloft] 50 mg PO DAILY 02/20/19 [History] lamoTRIgine [LaMICtal] 100 mg PO HS 02/20/19 [History] Isosorbide Mononitrate ER [Imdur] 30 mg PO DAILY #30 tab.er.24h 02/26/19 [Rx] Nitroglycerin Sl Tabs [Nitrostat] 0.4 mg SUBLINGUAL Q5M PRN #25 tab 02/26/19 [Rx] Spironolactone [Aldactone] 25 mg PO DAILY #30 tab 02/26/19 [Rx] Atorvastatin [Lipitor] 80 mg PO HS 02/15/22 [History] carvediloL [Coreg] 3.125 mg PO BID 02/15/22 [History] Aspirin EC [Ecotrin Low Dose] 81 mg PO DAILY 02/19/22 [History] Cyanocobalamin [Vitamin B-12] 500 mg PO DAILY 02/19/22 [History] Ergocalciferol [Vitamin D2 (1250 Mcg = 68582 Iu)] 1.25 mg PO BOYKIN 02/19/22 [History] Chemo Infusion 1 dose IV DIRECTED 02/28/22 [History] dexAMETHasone [Decadron] 8 mg PO DIRECTED 02/28/22 [History] ondansetron HCL [Zofran] 8 mg PO Q8HR PRN 02/28/22 [History] Diphenox-Atrop 2.5-0.025 mg [Lomotil] 2 each PO QID PRN #24 tab 03/05/22 [Rx] Diphenox-Atrop 2.5-0.025 mg [Lomotil] 2 tab PO QID PRN 3 Days #24 tab 03/05/22 [Rx] Loperamide [Imodium] 2 mg PO QID PRN cap 03/05/22 [Rx] Pantoprazole [Protonix] 40 mg PO BID #60 tab 03/05/22 [Rx] Simethicone [Gas-X] 125 mg PO Q8H PRN #1 capsule 03/05/22 [Rx] Follow up Appointment(s)/Referral(s): Irwin Appiah MD [STAFF PHYSICIAN] - 03/22/22 8:45 am (This appointment is at the [facility], [facility], second floor) Marcelle Marcano DO [Primary Care Provider] - 03/11/22 8:45 am (patient will be seen in [facility] [place])
--- NOTE | 2022-03-05 20:07 | CDI ---
Documentation Clarification Form Date: 03/05/2022 07:42:20 PM From: Kylie Ibarra RN, CCDS Admit Date: 03/04/2022 09:53:00 AM Patient Name: Odilia Ness Visit Number: [id number] Discharge Date: ATTENTION: The Clinical Documentation Specialists (CDI) and [facility] Coding Staff appreciate your assistance in clarifying documentation. Please respond to the clarification below the line at the bottom and electronically sign. The CDI & [facility] Coding staff will review the response and follow-up if needed. Please note: Queries are made part of the Legal Health Record. If you have any questions, please contact the author of this message via ITS. Dr. Sebastian Marcano The patient presented with the following clinical indicators. Additional clarification regarding the etiology/cause of the clinical indicators is requested. History/Risk Factors: Left breast cancer 03/03 Attending (covering Dr. Gonzalez) Intractable diarrhea, possible neutropenic sepsis 03/03 ID: Intractable nausea, vomiting and diarrhea documented likely due to her chemotherapy. She had mildly positive UA and possible component of cystitis with urine culture did grow Klebsiella and proteus. 03/04 Attending: Intractable nausea vomiting, and diarrhea suspected related to chemotherapy. Acute UTI with Klebsiella pneumoniae and Proteus mirabilis. Clinical Indicators: 71-year-old female presented to hospital with intractable nausea, vomiting and diarrhea documented likely due to her chemotherapy. She had mildly positive UA and possible component of cystitis with urine culture did grow Klebsiella and proteus per ID progress note on 03/04/22. WBC: 1.5, 12.6, 18.80 Lactic acid: 1.5 03/02 Blood cultures: Pending, no growth to date 02/28 Vital signs: 119/78 88 16 98.2 99 % Ra Treatment: .9NS 1,000 Bolus x2 02/28 Zosyn 4 MG IVP Once stat then Q 8 RPN Cefepime HCL 2 GM IVPB Q8 hrs. 03/02-03/03 Rocephin 1 GM IVPB 03/04 In your professional opinion, please clarify if these findings signify one of the following conditions: [ ] Sepsis Ruled In [ ] Sepsis, Ruled out [ ] Other, please specify [ ] Unable to determine SIRS Criteria: 2 or more of the following may indicate SIRS -Temperature < 96.8F (36C) or > 101.0F (38.3C) -Heart Rate > 90 bpm -Respiratory Rate > 20 breaths/min or PaCO2 < 32 mmHg -White Blood Cell Count > 12,000 or < 4,000 cells/mm3 or > 10% bands (Template Last Reviewed: May 2020) Sepsis Ruled In MTDD
[2022-03-05] MEDS: ATORVASTATIN 80 MG TAB PO SCH (20:33)
[2022-03-05] MEDS: lamoTRIgine 100 MG TAB PO SCH (20:33)
[2022-03-06] MEDS: SALT AND SODA MOUTHWASH 1,000 ML PO SCH ×3 (05:17→09:52)
[2022-03-06] MEDS: LEVOTHYROXINE 112 MCG TAB PO SCH (05:17)
[2022-03-06 05:33] VITALS: TEMP 98.2
[2022-03-06 06:34] LABS: ALT 33 U/L (4-34); AST 48 U/L (14-36); African American GFR (CKD) 63 (>60 ml/min/1.73 sqM); Albumin 3.5 g/dL (3.5-5.0); Albumin/Globulin Ratio 1.4; Alkaline Phosphatase 129 U/L (38-126); Anion Gap 7 mmol/L; Blood Urea Nitrogen 14 mg/dL (7-17); Calcium 8.2 mg/dL (8.4-10.2); Carbon Dioxide 20 mmol/L (22-30); Chloride 114 mmol/L (98-107); Globulin 2.5 g/dL; Glucose 98 mg/dL (74-99); Non-African American GFR(CKD) 54 (>60 ml/min/1.73 sqM); Potassium 3.4 mmol/L (3.5-5.1); Sodium 141 mmol/L (137-145); Total Bilirubin 0.4 mg/dL (0.2-1.3)
[2022-03-06] MEDS: SIMETHICONE 80 MG CHEWABLE PO SCH (09:51)
[2022-03-06] MEDS: HEPARIN SODIUM,PORCINE/PF 5,000 UNIT/0.5 ML SYRINGE SQ SCH (09:51)
[2022-03-06] MEDS: ISOSORBIDE MONONITRATE ER 30 MG TAB.ER.24H PO SCH (09:51)
[2022-03-06] MEDS: PANTOPRAZOLE 40 MG TABLET PO SCH (09:51)
[2022-03-06] MEDS: SERTRALINE 50 MG TAB PO SCH (09:51)
[2022-03-06] MEDS: carvediloL 3.125 MG TAB PO SCH (09:52)
[2022-03-06] MEDS: LOSARTAN 25 MG TAB PO SCH (09:52)
[2022-03-06] MEDS: MAG HYDROX/AL HYDROX/SIMETH 30 ML, LIDOCAINE VISCOUS 2% 30 ML, diphenhydrAMINE ELIXIR 7... PO SCH ×4 (09:52)
[2022-03-06] MEDS: SPIRONOLACTONE 25 MG TAB PO SCH (09:52)
[2022-03-06] MEDS: LORATADINE 10 MG TAB PO SCH (09:52)
[2022-03-06] MEDS: CYANOCOBALAMIN 500 MCG TAB PO SCH (09:52)
[2022-03-06 11:22] VITALS: BP 139/78; PULSE 74
[2022-03-06] MEDS: DIPHENOX-ATROP 2.5-0.025 MG 1 EACH TAB PO SCH (11:27)
--- NOTE | 2022-03-06 12:13 | P.PN ---
Subjective Progress Note Date: 03/06/22 Principal diagnosis: N,V,D post chemo TCHP with GCSF In f/u today pt reports she slept through the night with no stooling! Throat irritation is stable, she is swallowing a little better. No other c/o. Objective - Vital Signs Vital signs: Vital Signs Temp 98.2 F 03/06/22 11:17 Pulse 74 03/06/22 11:17 Resp 18 03/06/22 11:17 BP 139/78 03/06/22 11:17 Pulse Ox 99 03/06/22 11:17 FiO2 Intake & Output 03/05/22 03/06/22 03/06/22 18:59 06:59 18:59 Intake Total 200 60 Output Total 150 Balance 50 60 Weight 68.039 kg Intake: Intake, IV Titration 200 Amount Potassium Chloride 20 meq 200 In Water For Injection 1 100ml.bag @ 50 mls/hr IVPB Q2H [facility] Rx#: [id number] Oral 60 Output: Urine/Stool Mix 150 Other: Voiding Method Toilet # Voids 2 - Constitutional General appearance: Present: average body habitus, cooperative, no acute distress - EENT Eyes: Present: anicteric sclerae, EOMI ENT: Present: hearing grossly normal, normal oropharynx - Respiratory Respiratory: bilateral: CTA - Cardiovascular Rhythm: regular Heart sounds: normal: S1, S2 Abnormal Heart Sounds: Absent: systolic murmur, diastolic murmur, rub, S3 Gallop, S4 Gallop, click, other - Peripheral edema leg Peripheral Edema: bilateral: None - Gastrointestinal General gastrointestinal: Present: normal bowel sounds, soft - Integumentary Integumentary: Present: normal - Neurologic Neurologic: Present: CNII-XII intact - Musculoskeletal Musculoskeletal: Present: strength equal bilaterally - Psychiatric Psychiatric: Present: A&O x's 3, appropriate affect, intact judgment & insight - Labs CBC & Chem 7: 03/05/22 05:34 03/06/22 06:00 Labs: Abnormal Lab Results - Last 24 Hours (Table) 03/05/22 03/06/22 Range/Units 17:41 06:00 Potassium 3.3 L 3.4 L (3.5-5.1) mmol/L Chloride 114 H (98-107) mmol/L Carbon Dioxide 20 L (22-30) mmol/L Calcium 8.2 L (8.4-10.2) mg/dL AST 48 H (14-36) U/L Alkaline Phosphatase 129 H (38-126) U/L Total Protein 6.0 L (6.3-8.2) g/dL Microbiology - Last 24 Hours (Table) 03/04/22 19:40 Stool Culture - Preliminary Stool Estefanía albicans 03/02/22 11:33 Blood Culture - Preliminary Blood No Growth after 72 hours 03/02/22 11:33 Blood Culture - Preliminary Blood No Growth after 72 hours Assessment and Plan (1) Diarrhea Current Visit: Yes Status: Acute Priority: High Code(s): R19.7 - DIARRHEA, UNSPECIFIED SNOMED Code(s): 55255970 (2) Dehydration Current Visit: Yes Status: Acute Priority: High Code(s): E86.0 - DEHYDRATION SNOMED Code(s): 79146952 (3) Breast cancer, left Current Visit: Yes Status: Acute Priority: High Code(s): C50.912 - MALIGNANT NEOPLASM OF UNSPECIFIED SITE OF LEFT FEMALE BREAST SNOMED Code(s): 639189040 Plan: Diarrhea. Patient has a history of the same. Sched antidiarrheals, no stools overnight. Stool volume with urine was 150cc. Pt to cont antidiarrheals, hold only if no stool in a day. She verbalized understanding. Rx for the same sent Educated on oral care. Cont salt and soda and kools. K+ still slightly low. Rx sent for KCL 10meq BID until seen in ofc next Tue Appt for blood draw, BMP and mag levels in ofc next week.
--- NOTE | 2022-03-06 13:50 | P.PN ---
Subjective Progress Note Date: 03/05/22 Principal diagnosis: Urinary tract infection/leukocytosis Patient is a 71 year old female with with a recent diagnosis of her breast cancer status post chemotherapy subsequently admitted to the hospital with intractable nausea vomiting and diarrhea. On today's evaluation that is 03/05/2022 the patient remains to be afebrile, the patient is breathing comfortably patient does have any nausea vomiting no abdominal pain and the patient already has improved no bowel movement since yesterday no chest pain shortness of breath or cough Objective - Vital Signs Vital signs: Vital Signs Temp 97.9 F 03/05/22 11:26 Pulse 75 03/05/22 11:26 Resp 18 03/05/22 11:26 BP 154/80 03/05/22 11:26 Pulse Ox 96 03/05/22 11:26 FiO2 Intake & Output 03/04/22 03/05/22 03/05/22 18:59 06:59 18:59 Intake Total 875 Output Total 150 Balance 875 -150 Weight 68.039 kg Intake: Intake, IV Titration 875 Amount Sodium Chloride 0.9% 1, 825 000 ml @ 75 mls/hr IV . [id number] [facility] Rx#:[id number] cefTRIAXone 1 gm In 50 Sodium Chloride 0.9% 50 ml @ 100 mls/hr IVPB Q24HR [facility] Rx#:[id number] Output: Urine/Stool Mix 150 Other: Voiding Method Toilet # Voids 6 1 # Bowel Movements 6 - Exam GENERAL DESCRIPTION: An elderly female lying in bed in no distress RESPIRATORY SYSTEM: Unlabored breathing , decreased breath sounds at bases HEART: S1 S2 regular rate and rhythm , ABDOMEN: Soft , no tenderness EXTREMITIES: No edema feet - Labs CBC & Chem 7: 03/05/22 05:34 03/06/22 06:00 Labs: Abnormal Lab Results - Last 24 Hours (Table) 03/04/22 03/05/22 03/05/22 Range/Units 20:21 05:34 05:34 WBC 26.82 H (4.50-10.00) X 10*3/uL RBC 2.77 L (4.10-5.20) X 10*6/uL Hgb 9.3 L (12.0-15.0) g/dL Hct 27.9 L (37.2-46.3) % MCV 100.7 H (80.0-97.0) fL MCH 33.6 H (27.0-32.0) pg Absolute Nucleated RBC 0.04 H (0.00-0.00) X 10*3/uL Immature Gran # 1.01 H (0.00-0.04) X 10*3/uL Neutrophils # 22.49 H (1.80-7.70) X 10*3/uL Monocytes # 1.23 H (0.20-1.00) X 10*3/uL Eosinophils # 0.02 L (0.04-0.35) X 10*3/uL NRBC/100 WBC Diff 0.1 H (0.0-0.0) /100 WBCS Sodium 146 H (135-145) mmol/L Potassium 3.3 L 2.9 L (3.5-5.1) mmol/L Chloride 119 H (96-109) mmol/L Carbon Dioxide 15.0 L (20.0-27.5) mmol/L Est GFR (CKD-EPI)AfAm 47.8 L (60.0-200.0) Est GFR (CKD-EPI)NonAf 41.2 L (60.0-200.0) Calcium 8.6 L (8.7-10.3) mg/dL Microbiology - Last 24 Hours (Table) 03/02/22 11:33 Blood Culture - Preliminary Blood No Growth after 72 hours 03/02/22 11:33 Blood Culture - Preliminary Blood No Growth after 72 hours 03/04/22 19:40 Stool Culture - Preliminary Stool Assessment and Plan (1) UTI (urinary tract infection) Current Visit: Yes Status: Acute Code(s): N39.0 - URINARY TRACT INFECTION, SITE NOT SPECIFIED SNOMED Code(s): 00630941 Plan: 1patient presented to hospital with intractable nausea vomiting and diarrhea more likely due to her chemotherapy patient did have mildly positive UA and possible component of cystitis/Drake not entirely excluded with urine culture did grow Klebsiella and Proteus. 2 stool culture pending stool for C. difficile has been negative. 3Patient seem to have shown clinical improvement with Rocephin to continue inpatient finishing therapy with oral Ceftin Time with Patient: Less than 30
--- NOTE | 2022-03-06 13:51 | P.PN ---
Subjective Progress Note Date: 03/06/22 Principal diagnosis: Urinary tract infection/leukocytosis Patient is a 71 year old female with with a recent diagnosis of her breast cancer status post chemotherapy subsequently admitted to the hospital with intractable nausea vomiting and diarrhea. On today's evaluation that is 03/06/2022 the patient remains to be afebrile, the patient is breathing comfortably patient denies having any chest pain or shortness of breath or cough denies any further nausea vomiting no abdominal pain acute diarrhea has resolved no bowel movement over the last 2 days per patient Objective - Vital Signs Vital signs: Vital Signs Temp 98.2 F 03/06/22 11:17 Pulse 74 03/06/22 11:17 Resp 18 03/06/22 11:17 BP 139/78 03/06/22 11:17 Pulse Ox 99 03/06/22 11:17 FiO2 Intake & Output 03/05/22 03/06/22 03/06/22 18:59 06:59 18:59 Intake Total 200 60 Output Total 150 Balance 50 60 Weight 68.039 kg Intake: Intake, IV Titration 200 Amount Potassium Chloride 20 meq 200 In Water For Injection 1 100ml.bag @ 50 mls/hr IVPB Q2H [facility] Rx#: [id number] Oral 60 Output: Urine/Stool Mix 150 Other: Voiding Method Toilet # Voids 2 - Exam GENERAL DESCRIPTION: An elderly female lying in bed in no distress RESPIRATORY SYSTEM: Unlabored breathing , decreased breath sounds at bases HEART: S1 S2 regular rate and rhythm , ABDOMEN: Soft , no tenderness EXTREMITIES: No edema feet - Labs CBC & Chem 7: 03/05/22 05:34 03/06/22 06:00 Labs: Abnormal Lab Results - Last 24 Hours (Table) 03/05/22 03/06/22 Range/Units 17:41 06:00 Potassium 3.3 L 3.4 L (3.5-5.1) mmol/L Chloride 114 H (98-107) mmol/L Carbon Dioxide 20 L (22-30) mmol/L Calcium 8.2 L (8.4-10.2) mg/dL AST 48 H (14-36) U/L Alkaline Phosphatase 129 H (38-126) U/L Total Protein 6.0 L (6.3-8.2) g/dL Microbiology - Last 24 Hours (Table) 03/04/22 19:40 Stool Culture - Preliminary Stool Estefanía albicans 03/02/22 11:33 Blood Culture - Preliminary Blood No Growth after 72 hours 03/02/22 11:33 Blood Culture - Preliminary Blood No Growth after 72 hours Assessment and Plan (1) UTI (urinary tract infection) Current Visit: Yes Status: Acute Code(s): N39.0 - URINARY TRACT INFECTION, SITE NOT SPECIFIED SNOMED Code(s): 47057484 Plan: 1patient presented to hospital with intractable nausea vomiting and diarrhea more likely due to her chemotherapy patient did have mildly positive UA and possible component of cystitis/Pyelo not entirely excluded with urine culture di d grow Klebsiella and Proteus. 2 Stool culture have been finalized with Estefanía which is likely GI arjun. 3patient urine culture positive for Klebsiella and Proteus patient has clinically responded to Rocephin finishing therapy with oral Ceftin Time with Patient: Less than 30
== END 2022-03-06 14:13 | disposition home or self-care (01) | DRG 872 ==
LOC: EC 09:10 → 5NMEDONC 12:17 → OBSVTOIN 03-04 09:53
PROVIDERS: ADMIT Family Medicine; ATTEND Family Medicine
DX: A41.9 Sepsis, unspecified organism (principal); N39.0 Urinary tract infection, site not specified; E87.20 Acidosis, unspecified; K52.1 Toxic gastroenteritis and colitis; A41.59 Other Gram-negative sepsis; C50.912 Malignant neoplasm of unspecified site of left female breast; D70.9 Neutropenia, unspecified; E78.5 Hyperlipidemia, unspecified; E86.0 Dehydration; E87.6 Hypokalemia; E89.0 Postprocedural hypothyroidism; I10 Essential (primary) hypertension; I25.10 Atherosclerotic heart disease of native coronary artery without angina pectoris; D64.9 Anemia, unspecified; I25.2 Old myocardial infarction; Z17.0 Estrogen receptor positive status [ER+]; T45.1X5A Adverse effect of antineoplastic and immunosuppressive drugs, initial encounter; Z79.82 Long term (current) use of aspirin; Z79.890 Hormone replacement therapy; Z79.899 Other long term (current) drug therapy; Z80.3 Family history of malignant neoplasm of breast; Z85.850 Personal history of malignant neoplasm of thyroid; Z86.73 Personal history of transient ischemic attack (TIA), and cerebral infarction without residual deficits; Z87.891 Personal history of nicotine dependence; Z92.21 Personal history of antineoplastic chemotherapy; Z88.1 Allergy status to other antibiotic agents; Z88.0 Allergy status to penicillin; Z88.2 Allergy status to sulfonamides
CPT/HCPCS: 36415; 71045; 74176; 80048; 80053; 81001; 82150; 83605; 83690; 83735; 84100; 84132; 85025; 85610; 85730; 87040; 87045; 87046; 87077; 87086; 87186; 87324; 96361; 96374; 99285

== ENCOUNTER 2022-03-20 14:12 | Emergency (ER) | payer MEDICARE ==
[2022-03-20 15:01] VITALS: RESP 16
[2022-03-20] MEDS ORDERED: SODIUM CHLORIDE 0.9% 1,000 ML IV STA ×2 (19:00)
[2022-03-20 20:16] LABS: Basophils % (A) 0 %; Eosinophils # (A) 0.1 k/uL (0-0.7); Eosinophils % (A) 1 %; HCT 32.1 % (34.0-46.0); HGB 10.7 gm/dL (11.4-16.0); Lymphocytes # (A) 1.3 k/uL (1.0-4.8); Lymphocytes % (A) 13 %; MCH 34.3 pg (25.0-35.0); MCHC 33.4 g/dL (31.0-37.0); MCV 102.9 fL (80.0-100.0); Macrocytosis Slight; Mean Platelet Volume 9.2; Monocytes # (A) 0.2 k/uL (0-1.0); Monocytes % (A) 2 %; Neutrophils # (A) 8.1 k/uL (1.3-7.7); Neutrophils % (A) 82 %; Platelet Count 296 k/uL (150-450); RBC 3.12 m/uL (3.80-5.40); RDW 14.2 % (11.5-15.5); WBC 9.8 k/uL (3.8-10.6)
--- NOTE | 2022-03-20 20:17 | XR ---
EXAMINATION TYPE: XR chest 2V DATE OF EXAM: 03/20/2022 COMPARISON: 03/03/2022 HISTORY: Weakness TECHNIQUE: 2 view FINDINGS: Heart is normal. Lungs are clear. Diaphragm is normal. The pulmonary vascularity is normal. There is right central venous catheter with tip in the superior vena cava. IMPRESSION: No active cardiopulmonary disease. There is 20% wedging of T10 vertebra that appears new compared to chest x-ray of 02/19/2019.
[2022-03-20 20:21] LABS: Albumin 4.3 g/dL (3.5-5.0); Calcium 9.2 mg/dL (8.4-10.2); Magnesium 1.9 mg/dL (1.6-2.3); Total Bilirubin 0.7 mg/dL (0.2-1.3); Total Protein 7.5 g/dL (6.3-8.2)
[2022-03-20 20:33] LABS: Potassium 6.4 mmol/L (3.5-5.1)
--- NOTE | 2022-03-20 21:04 | ED ---
Weakness HPI - General Chief complaint: Weakness Stated complaint: Blood pressure, Dizzy Time Seen by Provider: 03/20/22 18:42 Source: patient Mode of arrival: wheelchair Limitations: no limitations - History of Present Illness Initial comments: This patient is a 72-year-old woman with history of breast cancer. She states she currently is having therapy, last treatment, being last week. She states that she has had increasing fatigue, generalized weakness, and has a little bit of increased weakness with walking. She suspects she may be a little de hydrated. She is not having focal weakness. She has not noted fever or chills. No chest pain or dyspnea. On review of systems she is denying symptoms related to focal infection. No cough, chest pain, congestion or dyspnea. No urinary frequency or dysuria. No sinus congestion, sore throat or cough. MD Complaint: generalized weakness, lack of energy, difficulty walking Onset/Timin -: days(s) Location: generalized Severity: moderate Severity scale (1-10): 0 Consistency: constant Improves with: none Worsens with: none Associated Symptoms: denies other symptoms - Related Data Home Medications Medication Instructions Recorded Confirmed Acetaminophen/Diphenhydramine 1 - 2 tab PO HS PRN 02/20/19 03/15/22 [Tylenol Pm Ex-Strength Caplet] Levothyroxine Sodium 112 mcg PO DAILY 02/20/19 03/15/22 Losartan [Cozaar] 25 mg PO HS 02/20/19 03/15/22 Sertraline [Zoloft] 50 mg PO DAILY 02/20/19 03/15/22 lamoTRIgine [LaMICtal] 100 mg PO HS 02/20/19 03/15/22 Atorvastatin [Lipitor] 80 mg PO HS 02/15/22 03/15/22 carvediloL [Coreg] 3.125 mg PO BID 02/15/22 03/15/22 Aspirin EC [Ecotrin Low Dose] 81 mg PO DAILY 02/19/22 03/15/22 Cyanocobalamin [Vitamin B-12] 500 mg PO DAILY 02/19/22 03/15/22 Ergocalciferol [Vitamin D2 (1250 1.25 mg PO BOYKIN 02/19/22 03/15/22 Mcg = 79266 Iu)] Chemo Infusion 1 dose IV DIRECTED 02/28/22 03/15/22 dexAMETHasone [Decadron] 8 mg PO DIRECTED 02/28/22 03/15/22 ondansetron HCL [Zofran] 8 mg PO Q8HR PRN 02/28/22 03/15/22 Previous Rx's Medication Instructions Recorded Isosorbide Mononitrate ER [Imdur] 30 mg PO DAILY #30 tab.er.24h 02/26/19 Nitroglycerin Sl Tabs [Nitrostat] 0.4 mg SUBLINGUAL Q5M PRN #25 tab 02/26/19 Spironolactone [Aldactone] 25 mg PO DAILY #30 tab 02/26/19 Diphenox-Atrop 2.5-0.025 mg 2 each PO QID PRN #24 tab 03/05/22 [Lomotil] Diphenox-Atrop 2.5-0.025 mg 2 tab PO QID PRN 3 Days #24 tab 03/05/22 [Lomotil] Loperamide [Imodium] 2 mg PO QID PRN cap 03/05/22 Pantoprazole [Protonix] 40 mg PO BID #60 tab 03/05/22 Simethicone [Gas-X] 125 mg PO Q8H PRN #1 capsule 03/05/22 Potassium Chloride 10 meq PO BID #14 tab 03/06/22 Allergies Allergy/AdvReac Type Severity Reaction Status Date / Time amoxicillin Allergy Rash/Hives Verified 03/20/22 15:00 erythromycin base Allergy Rash/Hives Verified 03/20/22 15:00 keratin Allergy Swelling Verified 03/20/22 15:00 Penicillins Allergy Rash/Hives Verified 03/20/22 15:00 Sulfa (Sulfonamide Allergy Unknown Verified 03/20/22 15:00 Antibiotics) Childhood wheat Allergy Rash/Hives Verified 03/20/22 15:00 clopidogrel [From Plavix] AdvReac Itching Verified 03/20/22 15:00 imiquimod AdvReac Nausea & Verified 03/20/22 15:00 Vomiting Review of Systems ROS Statement: Those systems with pertinent positive or pertinent negative responses have been documented in the HPI. ROS Other: All systems not noted in ROS Statement are negative. Constitutional: Reports: weakness. Denies: fever, chills ENT: Denies: throat pain, congestion Respiratory: Denies: cough, dyspnea Cardiovascular: Denies: chest pain, palpitations, syncope Gastrointestinal: Denies: abdominal pain, vomiting, diarrhea Genitourinary: Denies: dysuria, frequency, hematuria Musculoskeletal: Denies: back pain Skin: Denies: rash Neurological: Denies: headache, weakness Past Medical History Past Medical History: Coronary Artery Disease (CAD), Cancer, CVA/TIA, Hyperlipidemia, Hypertension, Myocardial Infarction ([place]), Osteoarthritis (OA), Renal Disease, Thyroid Disorder Additional Past Medical History / Comment(s): hx. thyroid cancer early , c olitis, TIA approx. 12 yrs. ago-no residual effects. chronic kidney disease stage 4, monoclonal anemia, recent dx left breast cancer Last Myocardial Infarction Date:: 2018 History of Any Multi-Drug Resistant Organisms: None Reported Past Surgical History: Adenoidectomy, Back Surgery, Cholecystectomy, Heart Catheterization With Stent, Hysterectomy Additional Past Surgical History / Comment(s): 5 stents total, total thyroidectomy & radioactive iodine tx. after, cage/disk back surgery, shanelle cataract, rt eye surgery Past Anesthesia/Blood Transfusion Reactions: No Reported Reaction Date of Last Stent Placement:: 04/08/19 Past Psychological History: Depression Smoking Status: Former smoker Past Alcohol Use History: None Reported Past Drug Use History: None Reported - Past Family History Mother Family Medical History: No Reported History Father Family Medical History: Cancer General Exam Limitations: no limitations General appearance: alert, in no apparent distress Head exam: Present: atraumatic, normocephalic Eye exam: Present: normal appearance. Absent: scleral icterus, conjunctival injection ENT exam: Present: normal oropharynx, mucous membranes dry Neck exam: Present: normal inspection, full ROM. Absent: meningismus Respiratory exam: Present: normal lung sounds bilaterally. Absent: respiratory distress, wheezes, rales, rhonchi, stridor Cardiovascular Exam: Present: regular rate, normal rhythm, normal heart sounds. Absent: systolic murmur, diastolic murmur, rubs, gallop GI/Abdominal exam: Present: soft. Absent: distended, tenderness, guarding, rebound, rigid, mass Extremities exam: Present: normal inspection, normal capillary refill. Absent: pedal edema, calf tenderness Back exam: Present: normal inspection. Absent: CVA tenderness (R), CVA tenderness (L) Neurological exam: Present: alert Skin exam: Present: warm, dry, intact, normal color. Absent: rash Course Vital Signs 03/20/22 03/20/22 03/20/22 14:57 20:23 23:08 Temperature 97.9 F 98.1 F 98.8 F Pulse Rate 67 80 76 Respiratory 16 16 16 Rate Blood Pressure 85/54 129/103 138/72 O2 Sat by Pulse 98 97 99 Oximetry Medical Decision Making - Medical Decision Making Patient is 72-year-old woman currently undergoing cancer treatment related breast cancer. She presents with generalized weakness and fatigue and is found to have dehydration as well as hyperkalemia. Treatment given in the department and I was going to admit the patient but she states she would much rather go home. Will at this point defer to patient's wishes. Discussed appropriate further care as well as having the potassium checked in short order and returning if she is not feeling any better or if there is any worsening. - Lab Data Result diagrams: 03/20/22 19:58 03/20/22 19:58 Lab Results 03/20/22 03/20/22 03/20/22 Range/Units 19:58 19:58 19:58 WBC 9.8 (3.8-10.6) k/uL RBC 3.12 L (3.80-5.40) m/uL Hgb 10.7 L (11.4-16.0) gm/dL Hct 32.1 L (34.0-46.0) % MCV 102.9 H (80.0-100.0) fL MCH 34.3 (25.0-35.0) pg MCHC 33.4 (31.0-37.0) g/dL RDW 14.2 (11.5-15.5) % Plt Count 296 (150-450) k/uL MPV 9.2 Neutrophils % 82 % Lymphocytes % 13 % Monocytes % 2 % Eosinophils % 1 % Basophils % 0 % Neutrophils # 8.1 H (1.3-7.7) k/uL Lymphocytes # 1.3 (1.0-4.8) k/uL Monocytes # 0.2 (0-1.0) k/uL Eosinophils # 0.1 (0-0.7) k/uL Basophils # 0.0 (0-0.2) k/uL Macrocytosis Slight Sodium 133 L (137-145) mmol/L Potassium 6.4 H* (3.5-5.1) mmol/L Chloride 101 (98-107) mmol/L Carbon Dioxide 23 (22-30) mmol/L Anion Gap 9 mmol/L BUN 27 H (7-17) mg/dL Creatinine 1.56 H (0.52-1.04) mg/dL Est GFR (CKD-EPI)AfAm 38 (>60 ml/min/1.73 sqM) Est GFR (CKD-EPI)NonAf 33 (>60 ml/min/1.73 sqM) Glucose 103 H (74-99) mg/dL Plasma Lactic Acid Moises 1.1 (0.7-2.0) mmol/L Calcium 9.2 (8.4-10.2) mg/dL Magnesium 1.9 (1.6-2.3) mg/dL Total Bilirubin 0.7 (0.2-1.3) mg/dL AST 59 H (14-36) U/L ALT 35 H (4-34) U/L Alkaline Phosphatase 123 (38-126) U/L Troponin I (0.000-0.034) ng/mL Total Protein 7.5 (6.3-8.2) g/dL Albumin 4.3 (3.5-5.0) g/dL 03/20/22 Range/Units 19:58 WBC (3.8-10.6) k/uL RBC (3.80-5.40) m/uL Hgb (11.4-16.0) gm/dL Hct (34.0-46.0) % MCV (80.0-100.0) fL MCH (25.0-35.0) pg MCHC (31.0-37.0) g/dL RDW (11.5-15.5) % Plt Count (150-450) k/uL MPV Neutrophils % % Lymphocytes % % Monocytes % % Eosinophils % % Basophils % % Neutrophils # (1.3-7.7) k/uL Lymphocytes # (1.0-4.8) k/uL Monocytes # (0-1.0) k/uL Eosinophils # (0-0.7) k/uL Basophils # (0-0.2) k/uL Macrocytosis Sodium (137-145) mmol/L Potassium (3.5-5.1) mmol/L Chloride (98-107) mmol/L Carbon Dioxide (22-30) mmol/L Anion Gap mmol/L BUN (7-17) mg/dL Creatinine (0.52-1.04) mg/dL Est GFR (CKD-EPI)AfAm (>60 ml/min/1.73 sqM) Est GFR (CKD-EPI)NonAf (>60 ml/min/1.73 sqM) Glucose (74-99) mg/dL Plasma Lactic Acid Moises (0.7-2.0) mmol/L Calcium (8.4-10.2) mg/dL Magnesium (1.6-2.3) mg/dL Total Bilirubin (0.2-1.3) mg/dL AST (14-36) U/L ALT (4-34) U/L Alkaline Phosphatase (38-126) U/L Troponin I <0.012 (0.000-0.034) ng/mL Total Protein (6.3-8.2) g/dL Albumin (3.5-5.0) g/dL Disposition Clinical Impression: Weakness, Dehydration, Acute kidney injury, Hyperkalemia Disposition: HOME SELF-CARE Condition: Good Instructions (If sedation given, give patient instructions): Dehydration (ED), Hyperkalemia (ED) Is patient prescribed a controlled substance at d/c from ED?: No Referrals: Marcelle Marcano DO [Primary Care Provider] - 1-2 days
[2022-03-20 23:09] VITALS: BP 138/72; PULSE 76; TEMP 98.8
== END 2022-03-20 23:11 | disposition home or self-care (01) ==
LOC: EC 14:12
DX: S37.009A Unspecified injury of unspecified kidney, initial encounter (principal); R53.1 Weakness; E86.0 Dehydration; E87.5 Hyperkalemia; I25.10 Atherosclerotic heart disease of native coronary artery without angina pectoris; Z86.73 Personal history of transient ischemic attack (TIA), and cerebral infarction without residual deficits; E78.5 Hyperlipidemia, unspecified; I10 Essential (primary) hypertension; I25.2 Old myocardial infarction; M19.90 Unspecified osteoarthritis, unspecified site; E07.9 Disorder of thyroid, unspecified; F32.A Depression, unspecified; Z87.891 Personal history of nicotine dependence; Z88.0 Allergy status to penicillin; Z88.2 Allergy status to sulfonamides; Z91.018 Allergy to other foods; Z88.8 Allergy status to other drugs, medicaments and biological substances; Z79.82 Long term (current) use of aspirin; Z79.890 Hormone replacement therapy; Z79.899 Other long term (current) drug therapy; X58.XXXA Exposure to other specified factors, initial encounter
CPT/HCPCS: 36415; 71046; 80053; 83605; 83735; 84484; 85025; 93005; 99285

== ENCOUNTER 2022-07-12 07:06 | Day surgery (SDC) | payer MEDICARE, OTHER ==
[2022-07-10 13:02] VITALS: BMI 22.3
[~2022-07-12 07:06] MED LIST changes: +DEXAMETHASONE SOD PHOSPHATE 4 MG/ML 1 ML VIAL IV ONE; +HYDROmorphone 0.5 MG/0.5 ML SYRINGE IVP PRN; +LIDOCAINE 1% (10MG/ML) FOR IV START INTRADERMA PRN; +METOCLOPRAMIDE 5 MG/ML 2 ML VIAL IVP PRN; +ONDANSETRON 4 MG/2 ML VIAL IVP ONE
[2022-07-12] MEDS: LACTATED RINGERS 1,000 ML IV SCH (07:31)
[2022-07-12] MEDS ORDERED: ALPRAZolam 0.25 MG TAB ONE (08:07)
[2022-07-12 08:11] LABS: Anisocytosis Slight; Basophils % (A) 0 %; Eosinophils % (A) 0 %; HCT 22.4 % (34.0-46.0); HGB 7.6 gm/dL (11.4-16.0); Lymphocytes # (A) 1.2 k/uL (1.0-4.8); Lymphocytes % (A) 33 %; MCH 38.9 pg (25.0-35.0); MCHC 34.1 g/dL (31.0-37.0); MCV 114.2 fL (80.0-100.0); Macrocytosis Marked; Mean Platelet Volume 8.6; Monocytes # (A) 0.2 k/uL (0-1.0); Monocytes % (A) 4 %; Neutrophils # (A) 2.1 k/uL (1.3-7.7); Neutrophils % (A) 61 %; Platelet Count 133 k/uL (150-450); RBC 1.96 m/uL (3.80-5.40); RDW 17.2 % (11.5-15.5); WBC 3.5 k/uL (3.8-10.6)
[2022-07-12 08:13] LABS: Glucose,Whole Blood 115 mg/dL (70-110)
[2022-07-12 08:23] LABS: Albumin 3.7 g/dL (3.5-5.0); Calcium 8.1 mg/dL (8.4-10.2); Potassium 3.7 mmol/L (3.5-5.1); Total Bilirubin 0.4 mg/dL (0.2-1.3); Total Protein 6.3 g/dL (6.3-8.2)
[2022-07-12] MEDS ORDERED: LIDOCAINE 1% INJ 10MG/ML (20 ML MDV) SQ ONE (09:11)
[2022-07-12] MEDS ORDERED: LIDOCAINE 2% INJ 20 MG/ML (2 ML VIAL) ONE (10:22)
[2022-07-12] MEDS ORDERED: PROPOFOL 10 MG/ML 20 ML VIAL IV ONE (10:22)
[2022-07-12] MEDS ORDERED: fentaNYL (PF) 50 MCG/ML 2 ML AMP ONE (10:22)
[2022-07-12] MEDS ORDERED: hydrALAZINE HCL 20 MG/ML 1 ML VIAL ONE (10:22)
[2022-07-12] MEDS ORDERED: GLYCOPYRROLATE 0.2 MG/ML 2 ML VIAL ONE (10:22)
[2022-07-12] MEDS ORDERED: ETOMIDATE 2 MG/ML 10 ML VIAL ONE (10:22)
[2022-07-12] MEDS ORDERED: SUCCINYLCHOLINE CHLORIDE 200 MG/10 ML VIAL IV ONE (10:22)
[2022-07-12] MEDS ORDERED: BUPIVACAIN-EPI 0.25%-1:200,000 30 ML VIAL SQ ONE (10:28)
[2022-07-12] MEDS ORDERED: ONDANSETRON 4 MG/2 ML VIAL IVP PRN (12:28)
[2022-07-12] MEDS ORDERED: ACETAMINOPHEN TAB 325 MG TAB PO PRN (12:28)
[2022-07-12] MEDS ORDERED: traMADol 50 MG TAB PO PRN (12:28)
[2022-07-12] MEDS ORDERED: HYDROmorphone 0.5 MG/0.5 ML SYRINGE IVP PRN (12:28)
[2022-07-12] MEDS ORDERED: HYDROmorphone 1 MG/ML 1 ML SYRINGE IVP PRN (12:28)
[2022-07-12] MEDS ORDERED: NALOXONE 0.4 MG/ML 1 ML VIAL IV PRN (12:28)
[2022-07-12] MEDS ORDERED: hydrALAZINE HCL 20 MG/ML 1 ML VIAL IVP ONE (12:35)
--- NOTE | 2022-07-12 12:36 | P.OP ---
Date of Procedure: 07/12/22 Procedure(s) Performed: PREOPERATIVE DIAGNOSIS: Left breast cancer POSTOPERATIVE DIAGNOSIS: Same PROCEDURE: Left Breast wire localization lumpectomy with axillary node dissection with wire localization left axillary node SURGEON: Zeeshan EBL: Minimal ANESTHESIA: General COMPLICATIONS: None OPERATIVE PROCEDURE: Patient was placed on the operating room table in the supine position. The breast was prepped and draped sterilely at the time. The left axilla was addressed at that time. Dissection subcutaneously took place using electrocautery. Careful dissection continued until we identified the left axillary vein. The patient had a wire entering into the left axilla that was brought out through our incision site. This was noted to be present within lymphatic tissue inferiorly. The superior axillary contents were swept inferiorly using both electrocautery LigaSure and Ligaclip. No bleeding was en countered. The thoracodorsal neurovascular bundle was encountered posteriorly and protected throughout the case. The course of the long thoracic nerve likewise was protected. The axillary contents with some residual palpable adenopathy was then removed as one piece including the wire that was placed by radiology preoperatively. [facility] a specimen radiograph confirmed the clip to be present. This was then sent for permanent sectioning. The operative field was inspected. No bleeding was seen. A drain was placed in the left axillary space exiting inferiorly. The drain was sutured in place using a 3-0 silk stitch. The subcutaneous tissues were closed using 3- 0 Vicryl sutures. The skin was closed using 4-0 Monocryl sutures. The wire entrance site was then addressed. This was present at the 2-3:00 location. A curvilinear incision was made adjacent to the wire entrance site. I followed the wire down into the breast tissue. An adequate lumpectomy specimen then took place around the wire. Margins of 1.5-2 cm worth attempted to be achieved. Palpation of the specimen suggested that the medial and superior margins were somewhat close. I took an additional margin medially and superiorly and this margin was painted the appropriate color on the new margin side. The initial specimen was also painted the appropriate 6 colors. Clips were used to identify the lumpectomy cavity. The clip was confirmed to be within the lumpectomy specimen by radiology. The subcutaneous tissues were closed using 3-0 Vicryl sutures. The skin was closed using a running 4-0 Monocryl stitch. Skin glue was then applied. DISPOSITION: Stable to recovery room
[2022-07-12] MEDS: HYDROcodone/APAP 5-325MG 1 EACH TAB PO PRN ×2 (17:15→22:25)
[2022-07-12] MEDS: D5-0.45% NACL WITH KCL 20MEQ/L 1,000 ML IV SCH (17:17)
[2022-07-12] MEDS: HEPARIN SODIUM,PORCINE/PF 5,000 UNIT/0.5 ML SYRINGE SQ SCH (17:17)
[2022-07-12] MEDS: DOCUSATE 100 MG CAP PO SCH (22:30)
[2022-07-13] MEDS: HEPARIN SODIUM,PORCINE/PF 5,000 UNIT/0.5 ML SYRINGE SQ SCH ×2 (00:25→07:52)
[2022-07-13] MEDS: HYDROcodone/APAP 5-325MG 1 EACH TAB PO PRN ×3 (02:20→15:40)
[2022-07-13] MEDS: LACTATED RINGERS 1,000 ML IV SCH (05:51)
[2022-07-13] MEDS: D5-0.45% NACL WITH KCL 20MEQ/L 1,000 ML IV SCH (05:51)
[2022-07-13] MEDS: DOCUSATE 100 MG CAP PO SCH (07:59)
[2022-07-13] MEDS ORDERED: PANTOPRAZOLE 40 MG/10 ML VIAL IV SCH (09:00)
--- NOTE | 2022-07-13 09:33 | P.DS ---
Providers Date of admission: 07/12/2022 Expected date of discharge: 07/13/22 Attending physician: Ki Byers Consults: 07/12/22 12:28 Consult Physician Routine Consulting Provider: Sebastian Marcano Consult Reason/Comments: Medical management Do you want consulting provider notified?: Yes Primary care physician: Marcelle Taylor [facility] Course: Is a 72-year-old female underwent left breast lumpectomy with sentinel node dissection. Patient did well postop. She had minimal complaints on postoperative day 1. Procedures: Left breast lumpectomy with sentinel node biopsy Patient Condition at Discharge: Good Plan - Discharge Summary Discharge Rx Participant: No New Discharge Prescriptions: New HYDROcodone/APAP 5-325MG [[place] 5-325] 1 tab PO Q6HR PRN 3 Days #10 tab PRN Reason: Analgesia No Action Sertraline [Zoloft] 50 mg PO QAM Losartan [Cozaar] 25 mg PO HS lamoTRIgine [LaMICtal] 100 mg PO HS Levothyroxine Sodium 112 mcg PO QAM Nitroglycerin Sl Tabs [Nitrostat] 0.4 mg SUBLINGUAL Q5M PRN #25 tab PRN Reason: Chest Pain Pyridoxine HCl (Vitamin B6) [Vitamin B-6] 100 mg PO DAILY carvediloL [Coreg] 3.125 mg PO BID Ergocalciferol [Vitamin D2 (1250 Mcg = 72424 Iu)] 1.25 mg PO BOYKIN Aspirin EC [Ecotrin Low Dose] 81 mg PO DAILY Cyanocobalamin [Vitamin B-12] 500 mcg PO DAILY Pantoprazole [Protonix] 40 mg PO BID #60 tab Isosorbide Mononitrate ER [Imdur] 30 mg PO QAM predniSONE 10 mg PO 1800 Discharge Medication List Levothyroxine Sodium 112 mcg PO QAM 02/20/19 [History] Losartan [Cozaar] 25 mg PO HS 02/20/19 [History] Sertraline [Zoloft] 50 mg PO QAM 02/20/19 [History] lamoTRIgine [LaMICtal] 100 mg PO HS 02/20/19 [History] Nitroglycerin Sl Tabs [Nitrostat] 0.4 mg SUBLINGUAL Q5M PRN #25 tab 02/26/19 [Rx] carvediloL [Coreg] 3.125 mg PO BID 02/15/22 [History] Aspirin EC [Ecotrin Low Dose] 81 mg PO DAILY 02/19/22 [History] Cyanocobalamin [Vitamin B-12] 500 mcg PO DAILY 02/19/22 [History] Ergocalciferol [Vitamin D2 (1250 Mcg = 39091 Iu)] 1.25 mg PO BOYKIN 02/19/22 [History] Pantoprazole [Protonix] 40 mg PO BID #60 tab 03/05/22 [Rx] Isosorbide Mononitrate ER [Imdur] 30 mg PO QAM 07/10/22 [History] Pyridoxine HCl (Vitamin B6) [Vitamin B-6] 100 mg PO DAILY 07/10/22 [History] predniSONE 10 mg PO 1800 07/10/22 [History] HYDROcodone/APAP 5-325MG [[place] 5-325] 1 tab PO Q6HR PRN 3 Days #10 tab 07/12/22 [Rx] Follow up Appointment(s)/Referral(s): Ki Byers MD [Medical Doctor] - 1 Week Patient Instructions/Handouts: *Surgery [facility] - (Anesthesia) Discharge Instructions Outpatient Surgery, Breast Lumpectomy (DC), Breast Cancer [place] Lymph Node Biopsy (DC) Discharge Disposition: HOME SELF-CARE
[2022-07-13] MEDS ORDERED: NITROGLYCERIN SL TABS 0.4 MG TAB SUBLINGUAL PRN (12:07)
[2022-07-13] MEDS ORDERED: carvediloL 3.125 MG TAB PO SCH (12:15)
[2022-07-13] MEDS ORDERED: ISOSORBIDE MONONITRATE ER 30 MG TAB.ER.24H PO SCH (12:15)
[2022-07-13] MEDS ORDERED: CYANOCOBALAMIN 500 MCG TAB PO SCH (12:15)
[2022-07-13] MEDS ORDERED: LOSARTAN 25 MG TAB PO STA (12:47)
[2022-07-13 14:43] VITALS: RESP 16
[2022-07-13 15:42] VITALS: BP 158/76; PULSE 65; TEMP 97.9
[2022-07-13] MEDS ORDERED: LOSARTAN 25 MG TAB PO SCH (21:00)
[2022-07-13] MEDS ORDERED: lamoTRIgine 100 MG TAB PO SCH (21:00)
--- NOTE | 2022-07-13 23:57 | P.CONS ---
History of Present Illness - Reason for Consult Consult date: 07/13/22 Medical management - Chief Complaint Left breast lumpectomy - History of Present Illness Patient is a 72-year-old female with a known history of breast cancer underwent chemotherapy and last on 06/07/2022, macular rash thought to be due to chemo related and is on prednisone tapering course, coronary artery disease with history of stent placement, hypertension, hyperlipidemia, history of [place], hypo thyroidism and a prior history of smoking was admitted to the hospital for left breast surgery. Patient underwent left breast wire localization lumpectomy with axillary node dissection with wire localization left axillary node. Patient tolerated the procedure very well. SETH drain with serosanguineous discharge. No complaints of worsening pain. No complaints of chest pain or shortness of breath. Postoperatively blood pressure is elevated. Blood pressure was 187/88 this morning. No complaints of shortness of breath or chest pain. No nausea vomiting. No headache or dizziness or lightheadedness. Laboratory data showed WBC 3.5 hemoglobin 7.6 and platelets 133 Sodium 141 potassium 3.7 chloride 105 bicarb is 29 BUN 28 and creatinine 0.98 and blood sugar is 111 and calcium 8.1 liver Zully not elevated. Review of Systems Constitutional: Patient denies any fever or chills . no Generalized weakness. Abdomen: Patient denied any nausea or vomiting or abd. pain Cardiovascular: Patient denies any chest pain or short of breath no palpitations. Respiratory: patient denied any cough . no sputum production. No shortness of breath Neurologic: Patient denied any numbness or tingling headache. Musculoskeletal: Patient denies any complaints of joint swelling or deformity. Skin: Generalized rash. No itching. Psychiatric: Negative Endocrine: No heat or cold intolerance. No recent weight gain. Genitourinary: No dysuria or hematuria. All other 14 point ROS negative except the above Past Medical History Past Medical History: Blood Disorder, Coronary Artery Disease (CAD), Cancer, CVA/TIA, GERD/Reflux, Hyperlipidemia, Hypertension, Myocardial Infarction ([place]), Osteoarthritis (OA), Renal Disease, Skin Disorder, Thyroid Disorder Additional Past Medical History / Comment(s): Hx thyroid cancer in the early . Colitis. blod clot in her eye about 10 years ago, TIA approximately 12 yrs ago with no residual effects. Chronic Kidney Disease Stage 4. Monoclonal Anemia. Left breast cancer diagnosed 12/2021, last chemo 06/07/22. Current full body rash from Chemo, on Prednisone until 07/13/22, per patient, Dr rajan. Last Myocardial Infarction Date:: 2018 History of Any Multi-Drug Resistant Organisms: None Reported Past Surgical History: Adenoidectomy, Back Surgery, Breast Surgery, Cholecystectomy, Heart Catheterization With Stent, Hysterectomy, Tonsillectomy Additional Past Surgical History / Comment(s): 5 total stents, total thyroidectomy with radioactive iodine treatment after, cage/disc back surgery, bilateral cataract surgery, right eye surgery, left breast biopsy, total hysterectomy. Past Anesthesia/Blood Transfusion Reactions: No Reported Reaction Date of Last Stent Placement:: 04/08/19 Past Psychological History: Depression Smoking Status: Former smoker Past Alcohol Use History: None Reported Additional Past Alcohol Use History / Comment(s): Quit smoking in 1992, smoked since teens, 1ppd. Past Drug Use History: None Reported - Past Family History Mother Family Medical History: No Reported History Father Family Medical History: Cancer Medications and Allergies Home Medications Medication Instructions Recorded Confirmed Type Levothyroxine Sodium 112 mcg PO QAM 02/20/19 07/12/22 History Losartan [Cozaar] 25 mg PO HS 02/20/19 07/12/22 History Sertraline [Zoloft] 50 mg PO QAM 02/20/19 07/12/22 History lamoTRIgine [LaMICtal] 100 mg PO HS 02/20/19 07/12/22 History Nitroglycerin Sl Tabs [Nitrostat] 0.4 mg SUBLINGUAL Q5M PRN #25 tab 02/26/19 07/12/22 Rx carvediloL [Coreg] 3.125 mg PO BID 02/15/22 07/12/22 History Aspirin EC [Ecotrin Low Dose] 81 mg PO DAILY 02/19/22 07/12/22 History Cyanocobalamin [Vitamin B-12] 500 mcg PO DAILY 02/19/22 07/12/22 History Ergocalciferol [Vitamin D2 (1250 1.25 mg PO BOYKIN 02/19/22 07/12/22 History Mcg = 61352 Iu)] Pantoprazole [Protonix] 40 mg PO BID #60 tab 03/05/22 07/12/22 Rx Isosorbide Mononitrate ER [Imdur] 30 mg PO QAM 07/10/22 07/12/22 History Pyridoxine HCl (Vitamin B6) 100 mg PO DAILY 07/10/22 07/12/22 History [Vitamin B-6] predniSONE 10 mg PO 1800 07/10/22 07/12/22 History HYDROcodone/APAP 5-325MG [[place] 1 tab PO Q6HR PRN 3 Days #10 tab 07/12/22 Rx 5-325] Allergies Allergy/AdvReac Type Severity Reaction Status Date / Time amoxicillin Allergy Rash/Hives Verified 07/12/22 07:27 caffeine Allergy Rash/Hives Verified 07/12/22 12:38 erythromycin base Allergy Rash/Hives Verified 07/12/22 07:27 keratin Allergy Swelling Verified 07/12/22 07:27 Penicillins Allergy Rash/Hives Verified 07/12/22 07:27 Sulfa (Sulfonamide Allergy Unknown Verified 07/12/22 07:27 Antibiotics) Childhood wheat Allergy Rash/Hives Verified 07/12/22 07:27 clopidogrel [From Plavix] AdvReac Itching Verified 07/12/22 07:27 imiquimod AdvReac Nausea & Verified 07/12/22 07:27 Vomiting Physical Exam Vitals: Vital Signs Temp Pulse Resp BP Pulse Ox 07/13/22 07:49 97.1 F L 62 17 174/86 100 07/13/22 02:26 97.7 F 63 17 176/90 95 07/12/22 21:25 70 16 07/12/22 19:20 97.7 F 68 16 153/75 96 07/12/22 13:49 73 16 147/80 99 07/12/22 13:20 72 16 149/83 99 07/12/22 12:53 65 16 142/75 98 07/12/22 12:46 67 16 157/79 99 07/12/22 12:38 65 16 168/94 99 07/12/22 12:23 67 16 166/90 99 Intake and Output 07/12/22 07/13/22 07/13/22 22:59 06:59 14:59 Intake Total 120 Output Total 470 50 Balance -350 -50 Intake: Oral 120 Output: Drainage 20 50 Left Chest 20 50 Urine 450 Other: Voiding Method Toilet Toilet # Voids 1 2 Weight 62.1 kg PHYSICAL EXAMINATION: Patient is lying in the bed comfortably, no acute distress, awake alert and oriented.. HEENT: Normocephalic. Neck is supple. Pupils reactive. Nostrils clear. Oral cavity is moist. Neck reveals no JVD, carotid bruits, or thyromegaly. CHEST EXAMINATION: Trachea is central. Symmetrical expansion. Lung hernandez clear to auscultation and percussion. Left breast surgical site is packed. SETH drain in place. CARDIAC: Normal S1, S2 with no gallops. No murmurs ABDOMEN: Soft. Bowel sounds present. Nontender. No organomegaly. No abdominal bruits. Extremities: reveal no edema. No clubbing or cyanosis Neurologically awake, alert, oriented x3 with well-coordinated movements. No focal deficits noted Skin: Patient does have generalized macular rash. No new lesions.. Psychiatric: Coperative. Nonsuicidal, Musculoskeletal: No joint swelling or deformity. Normal range of motion. Results CBC & Chem 7: 07/12/22 08:02 07/12/22 08:02 Assessment and Plan Assessment: Status post left breast lumpectomy with axillary node dissection with wire localization. Postoperative day 1 Uncontrolled hypertension. Left breast cancer diagnosed in 12/2021. Status post chemo. Last dose on 06/07/2022 Generalized rash likely chemo related. Continue with prednisone dose. Pancytopenia likely chemo related. Coronary artery disease history of stent placement GERD History of CVA/TIA History of [place] Osteoarthritis Hypothyroidism Depression Prior history of smoking quit in 1992 GI and DVT prophylaxis Plan: Patient will be started back on home blood pressure medications including Coreg, Imdur and losartan. Continue to titrate blood pressure medications. Patient will be continued on prednisone for rash and continue with triamcinolone cream at home. Current home medications including levothyroxine, Lamictal and Zoloft. Continue with pain management and follow-up with primary care physician and general surgery as an outpatient. SETH drain with serosanguineous discharge. Anticipate discharge once blood pressure is better controlled. We will continue to follow closely and further recommendations based on the clinical course. Thank you for your consult. Time with Patient: Greater than 30
[2022-07-14] MEDS ORDERED: LEVOTHYROXINE 112 MCG TAB PO SCH (06:30)
[2022-07-14] MEDS ORDERED: SERTRALINE 50 MG TAB PO SCH (09:00)
--- NOTE | 2022-07-19 11:25 | MM ---
Reason for Exam: Post Procedure Mammogram. Last screening mammogram was performed 6 month(s) ago. Patient History: Menarche at age 13. First Full-Term at age 25. Left ovary removed at age 43. Right ovary removed at age 43. Hysterectomy at age 43. Postmenopausal. Patient has history of breast feeding. Other cancer, age 30. Breast cancer, left, age 71. Estrogen for 10 years from age 43 until age 53. 01/08/2022, Malignant US biopsy breast VAD LT on the left side. 01/08/2022, US biopsy breast add'l VAD LT on the Left side. Paternal aunt had breast cancer, age 70. Prior Study Comparison: 08/31/2013 Left Diagnostic Mammogram, [facility]. 01/02/2022 Bilateral MG 3D screening mammo w/cad, [facility]. 01/08/2022 Left MG diagnostic mammo LT wo CAD., [facility]. Tissue Density: Left: The breast tissue is heterogeneously dense. This may lower the sensitivity of mammography. Pathology Description: Location: 1 o'clock, upper outer quadrant, anterior. Informed consent was obtained and all the patient's questions were answered. The lesion in question was localized mammographically. The standard sterile technique was utilized, as well as appropriate local anesthesia with 1% Lidocaine at the left 1:00 position at the site of prior biopsy including the previously sampled left axillary lymph node. Localization needle followed by placement of a guidewire was performed at the left 1:00 lesion and samples axillary lymph node under sonographic guidance. Verification images demonstrate appropriate deployment of the guidewire. The patient tolerated the procedure well and left the department in stable condition. Specimen radiographs demonstrates the clips in question to reside within the specimens submitted. IMPRESSION: Successful needle localization (2 sites) and open biopsy left breast and axilla with pathology results pending. Pathology Results: Result: Malignant, Invasive ductal carcinoma. A. LEFT AXILLARY CONTENTS: One of six lymph nodes positive for metastatic carcinoma consistent with ductal breast primary. Size of largest metastatic deposit measures 3.5 mm. Background scar/fibrosis and histiocytes consistent with neoadjuvant treatment related changes. B. LEFT BREAST, LUMPECTOMY: Rare microfoci of residual invasive moderately differentiated ductal carcinoma, margins negative. Scar/fibrosis consistent with neoadjuvant chemotherapy related changes. One of two intramammary lymph nodes positive for micrometastatic ductal carcinoma. Background fibrocystic changes with previous biopsy site and focal atypical lobular hyperplasia. See Surgical Pathology Cancer Case Summary. Pathology Description: Location: axilla. Overall Assessment: Malignant Assessment: MG diagnostic mammo LT wo CAD. - Left: Known biopsy proven malignancy, BI-RAD 6. Management: Surgical Consultation of the left breast. Electronically signed and approved by: Chetan Guzmán M.D. Radiologis
== END 2022-07-13 16:32 | disposition home or self-care (01) ==
LOC: OR 07:06 → 4SSUR 13:43 → OR 07-13 16:32
PROVIDERS: ATTEND Surgery
DX: C50.912 Malignant neoplasm of unspecified site of left female breast (principal); Z88.0 Allergy status to penicillin; Z88.2 Allergy status to sulfonamides; Z88.6 Allergy status to analgesic agent; Z79.82 Long term (current) use of aspirin; Z79.899 Other long term (current) drug therapy
CPT/HCPCS: 19302; 80053; 85025; 88307; 77065; 76098; 19285; 19286; J0330; J0360; J1100; J0690; J2405; J2001 ×2; J3010; J2704; C9113; J1170; J1644 ×2

== ENCOUNTER 2022-07-22 12:52 | Inpatient (IN) | payer MEDICARE, OTHER ==
[2022-07-22] MEDS ORDERED: ACETAMINOPHEN TAB 500 MG TAB PO STA (17:12)
[2022-07-22] MEDS ORDERED: SODIUM CHLORIDE 0.9% 500 ML 500 ML IV STA (17:12)
[2022-07-22] MEDS ORDERED: MORPHINE SULFATE 2 MG/ML SYRINGE IVP STA (17:12)
[2022-07-22] MEDS ORDERED: SODIUM CHLORIDE 0.9% 1,000 ML IV STA (17:12)
[2022-07-22] MEDS ORDERED: IBUPROFEN 600 MG TAB PO STA (17:12)
--- NOTE | 2022-07-22 17:24 | ED ---
Skin/Abscess/FB HPI - General Chief complaint: Skin/Abscess/Foreign Body Stated complaint: Sent by Dr Byers Time Seen by Provider: 07/22/22 16:21 Source: patient, RN notes reviewed, old records reviewed Mode of arrival: ambulatory Limitations: no limitations - History of Present Illness Initial comments: This is a 74 female to the ED today for evaluation in regards to postoperative wound reevaluation from breast CA surgery. Patienr has drainage nd SETH tube in place and pain work her from sleep this morning as well as having chills and sweats likely fever. This is all new and appears to have developed today. Patient is POD10 and did have follow up w Surgery earlier this week. MD complaint: discoloration, other (postoperative infection) -: hour(s) Tetanus Up to Date: yes Severity: moderate Severity scale (1-10): 7 Quality: stabbing Consistency: constant Improves with: none Worsens with: none Context: other (revernt surgery) Associated symptoms: fever, chills, rigors Treatments Prior to Arrival: none - Related Data Home Medications Medication Instructions Recorded Confirmed Levothyroxine Sodium 112 mcg PO DAILY 02/20/19 07/22/22 Losartan [Cozaar] 25 mg PO HS PRN 02/20/19 07/22/22 Sertraline [Zoloft] 50 mg PO DAILY 02/20/19 07/22/22 lamoTRIgine [LaMICtal] 100 mg PO HS 02/20/19 07/22/22 carvediloL [Coreg] 3.125 mg PO BID 02/15/22 07/22/22 Aspirin EC [Ecotrin Low Dose] 81 mg PO DAILY 02/19/22 07/22/22 Cyanocobalamin [Vitamin B-12] 500 mcg PO DAILY 02/19/22 07/22/22 Ergocalciferol [Vitamin D2 (1250 1.25 mg PO BOYKIN 02/19/22 07/22/22 Mcg = 51313 Iu)] Isosorbide Mononitrate ER [Imdur] 30 mg PO DAILY 07/10/22 07/22/22 Pyridoxine HCl (Vitamin B6) 100 mg PO DAILY 07/10/22 07/22/22 [Vitamin B-6] Diphenoxylate HCl/Atropine 1 - 2 tab PO BID PRN 07/22/22 07/22/22 [Lomotil 2.5-0.025 mg Tablet] Triamcinolone 0.1% Ointment 1 applic TOPICAL BID 07/22/22 07/22/22 [Kenalog 0.1% Ointment] Previous Rx's Medication Instructions Recorded Nitroglycerin Sl Tabs [Nitrostat] 0.4 mg SUBLINGUAL Q5M PRN #25 tab 02/26/19 Pantoprazole [Protonix] 40 mg PO BID #60 tab 03/05/22 Allergies Allergy/AdvReac Type Severity Reaction Status Date / Time amoxicillin Allergy Rash/Hives Verified 07/22/22 17:49 caffeine Allergy Rash/Hives Verified 07/22/22 17:49 erythromycin base Allergy Rash/Hives Verified 07/22/22 17:49 keratin Allergy Swelling Verified 07/22/22 17:49 Penicillins Allergy Rash/Hives Verified 07/22/22 17:49 Sulfa (Sulfonamide Allergy Unknown Verified 07/22/22 17:49 Antibiotics) Childhood wheat Allergy Rash/Hives Verified 07/22/22 17:49 clopidogrel [From Plavix] AdvReac Itching Verified 07/22/22 17:49 imiquimod AdvReac Nausea & Verified 07/22/22 17:49 Vomiting Review of Systems ROS Statement: Those systems with pertinent positive or pertinent negative responses have been documented in the HPI. ROS Other: All systems not noted in ROS Statement are negative. Past Medical History Past Medical History: Blood Disorder, Coronary Artery Disease (CAD), Cancer, CVA/TIA, GERD/Reflux, Hyperlipidemia, Hypertension, Myocardial Infarction ([place]), Osteoarthritis (OA), Renal Disease, Skin Disorder, Thyroid Disorder Additional Past Medical History / Comment(s): Hx thyroid cancer in the early . Colitis. blod clot in her eye about 10 years ago, TIA approximately 12 yrs ago with no residual effects. Chronic Kidney Disease Stage 4. Monoclonal Anemia. Left breast cancer diagnosed 12/2021, last chemo 06/07/22. Current full body rash from Chemo, on Prednisone until 07/13/22, per patient, Dr rajan. Last Myocardial Infarction Date:: 2018 History of Any Multi-Drug Resistant Organisms: None Reported Past Surgical History: Adenoidectomy, Back Surgery, Breast Surgery, Cholecystectomy, Heart Catheterization With Stent, Hysterectomy, Tonsillectomy Additional Past Surgical History / Comment(s): 5 total stents, total thyroidectomy with radioactive iodine treatment after, cage/disc back surgery, bilateral cataract surgery, right eye surgery, left breast biopsy, total hysterectomy. Past Anesthesia/Blood Transfusion Reactions: No Reported Reaction Date of Last Stent Placement:: 04/08/19 Past Psychological History: Depression Smoking Status: Former smoker Past Alcohol Use History: None Reported Past Drug Use History: None Reported - Past Family History Mother Family Medical History: No Reported History Father Family Medical History: Cancer General Exam - General Exam Comments Initial Comments: Postoperative wound edema erythema no drainage very tender Limitations: no limitations General appearance: alert, in no apparent distress Head exam: Present: atraumatic, normocephalic, normal inspection Eye exam: Present: normal appearance, PERRL, EOMI. Absent: scleral icterus, conjunctival injection, periorbital swelling ENT exam: Present: normal exam, mucous membranes moist Neck exam: Present: normal inspection. Absent: tenderness, meningismus, lymphadenopathy Respiratory exam: Present: normal lung sounds bilaterally. Absent: respiratory distress, wheezes, rales, rhonchi, stridor Cardiovascular Exam: Present: regular rate, normal rhythm, normal heart sounds. Absent: systolic murmur, diastolic murmur, rubs, gallop, clicks GI/Abdominal exam: Present: soft, normal bowel sounds. Absent: distended, tenderness, guarding, rebound, rigid Extremities exam: Present: normal inspection, full ROM, normal capillary refill. Absent: tenderness, pedal edema, joint swelling, calf tenderness Back exam: Present: normal inspection Neurological exam: Present: alert, oriented X3, CN II-XII intact Psychiatric exam: Present: normal affect, normal mood Skin exam: Present: warm, dry, intact, normal color. Absent: rash Course Vital Signs 07/22/22 07/22/22 13:27 18:15 Temperature 97.9 F 103 F H Pulse Rate 87 Respiratory 18 18 Rate Blood Pressure 136/77 141/79 O2 Sat by Pulse 98 Oximetry - Reevaluation(s) Reevaluation #1: 07/22/22 17:24 medical record is reviewed Reevaluation #2: 07/22/22 17:24 patient symptoms are improved Reevaluation #3: 07/22/22 18:32 Patient informed results and questions answered Reevaluation #4: 07/22/22 18:08 Was pt. sent in by a medical professional or institution? @ -Dr Byers Did you speak to anyone other than the patient for history? @ -no Did you review nursing and triage notes? @ -agree Were old charts reviewed? @ -yes Differential Diagnosis? @ -wound infection EKG interpreted by me (3pts min.)? @ -no X-rays interpreted by me (1pt min.)? @ -no CT interpreted by me (1pt min.)? @ -no U/S interpreted by me (1pt. min.)? @ -no What testing was considered but not performed? (CT, X-rays, U/S, labs)? Why? @ -no What meds were considered but not given? Why? @ -antibiotics Did you discuss the management of the patient with other professionals? @ -mandygon Dr Byers Did you reconcile home meds? @ -yes Was smoking cessation discussed for >3mins.? @ -no Was critical care preformed (if so, how long)? @ -no Were there social determinants of health that impacted care today? How? (Homelessness, low income, unemployed, alcoholism, drug addiction, transporta tion, low edu. Level, literacy, decrease access to med. care, skilled nursing, rehab)? @ -no Was there de-escalation of care discussed even if they declined? (Discuss DNR or withdrawal of care, Hospice)? @ -no What co-morbidities impacted this encounter? (DM, HTN, Smoking, COPD, CAD, Cancer, CVA, Hep., AIDS, mental health diagnosis, sleep apnea, morbid obesity)? @ -no Was patient admitted / discharged? @ -admit Undiagnosed new problem with uncertain prognosis? @ -no Drug Therapy requiring intensive monitoring for toxicity (Heparin, Nitro, Insulin, Cardizem)? @ -no Were any procedures done? @ -no Diagnosis/symptom? @ -no Acute, or Chronic, or Acute on Chronic? @ -no Uncomplicated (without systemic symptoms) or Complicated (systemic symptoms)? @ -no Side effects of treatment? @ -no Exacerbation, Progression, or Severe Exacerbation] @ -no Poses a threat to life or bodily function? @ -no Reevaluation #5: Differential Fever: Pneumonia, viral URI, endocarditis, myocarditis, pericarditis, otitis, sinusitis, peritonsillar Abscess, retropharyngeal Abscess, epiglottitis, peritonitis, appendicitis, Raquel cystitis, diverticulitis, hepatitis, colitis, UTI, PID, TOA, pyelonephritis, prostatitis, epididymitis, meningitis, encephalitis, pulmonary embolism, CVA, thyroid storm, pancreatitis, adrenal crisis, cavernous sinus thrombosis, this is not meant to be an all-inclusive list. - Consultations Consultation #1: spoke w Dr Byers who [facility] Medical Decision Making - Medical Decision Making 72 female DF for evaluation of left breast wound infection. Patient will be admitted for IV antibiotics and surgical consultation regarding SETH drain and left breast cellulitis and abscess Disposition Clinical Impression: Fever, Postoperative wound infection Disposition: ADMITTED IP TO THIS HOSP Condition: Good Referrals: Marcelle Marcano DO [Primary Care Provider] - 1-2 days Time of Disposition: 18:30
[2022-07-22] MEDS ORDERED: VANCOMYCIN IV PER PHARMACY 1 EACH MISC MISCELLANE PRN (18:30)
[2022-07-22] MEDS ORDERED: VANCOMYCIN 1,000 MG in SODIUM CHLORIDE 0.9% 250 ML IVPB STA (18:33)
[2022-07-22 19:25] LABS: Basophils % (A) 0 %; Eosinophils % (A) 0 %; HGB 7.8 gm/dL (11.4-16.0); Lymphocytes # (A) 0.7 k/uL (1.0-4.8); Lymphocytes % (A) 17 %; MCH 38.3 pg (25.0-35.0); MCV 112.6 fL (80.0-100.0); Macrocytosis Marked; Mean Platelet Volume 7.7; Monocytes # (A) 0.2 k/uL (0-1.0); Monocytes % (A) 5 %; Neutrophils % (A) 76 %; Platelet Count 202 k/uL (150-450); RBC 2.04 m/uL (3.80-5.40); RDW 15.8 % (11.5-15.5)
[2022-07-22 19:38] LABS: Partial Thromboplastin Time 24.1 sec (22.0-30.0); Prothrombin Time 10.3 sec (9.0-12.0)
[2022-07-22 19:39] LABS: Albumin 3.3 g/dL (3.5-5.0); Calcium 7.7 mg/dL (8.4-10.2); Magnesium 1.2 mg/dL (1.6-2.3); Phosphorus 2.8 mg/dL (2.5-4.5); Potassium 3.9 mmol/L (3.5-5.1); Total Bilirubin 0.2 mg/dL (0.2-1.3); Total Protein 5.8 g/dL (6.3-8.2)
[2022-07-22 20:06] LABS: Ovalocytes Present; Poikilocytosis (M) Present
[2022-07-22] MEDS ORDERED: NALOXONE 0.4 MG/ML 1 ML VIAL IV PRN (21:41)
[2022-07-22] MEDS ORDERED: MAGNESIUM OXIDE 400 MG TAB PO STA ×2 (21:52→21:56)
[2022-07-22] MEDS ORDERED: MAGNESIUM SULFATE-D5W PMX 1 GM in DEXTROSE/WATER 1 100ML.BAG IVPB ONE (21:52)
[2022-07-23] MEDS: MORPHINE SULFATE 4 MG/ML SYRINGE IV PRN ×2 (02:33→08:09)
[2022-07-23 05:09] LABS: Basophils % (A) 0 %; Eosinophils % (A) 0 %; HCT 22.7 % (34.0-46.0); HGB 7.5 gm/dL (11.4-16.0); Lymphocytes # (A) 0.9 k/uL (1.0-4.8); Lymphocytes % (A) 16 %; MCH 37.5 pg (25.0-35.0); MCV 113.7 fL (80.0-100.0); Macrocytosis Marked; Mean Platelet Volume 8.4; Monocytes # (A) 0.2 k/uL (0-1.0); Monocytes % (A) 4 %; Neutrophils # (A) 4.5 k/uL (1.3-7.7); Neutrophils % (A) 79 %; Platelet Count 161 k/uL (150-450); RBC 1.99 m/uL (3.80-5.40); RDW 15.8 % (11.5-15.5); WBC 5.7 k/uL (3.8-10.6)
[2022-07-23] MEDS ORDERED: ACETAMINOPHEN IV (For NPO) 1,000 MG in EMPTY BAG 1 BAG IVPB STA (08:59)
[2022-07-23] MEDS ORDERED: NITROGLYCERIN SL TABS 0.4 MG TAB SUBLINGUAL PRN (09:02)
[2022-07-23] MEDS: LEVOTHYROXINE 112 MCG TAB PO SCH (09:20)
[2022-07-23] MEDS: carvediloL 3.125 MG TAB PO SCH ×2 (09:20→16:27)
[2022-07-23] MEDS: PANTOPRAZOLE 40 MG TABLET PO SCH ×2 (09:20→16:27)
[2022-07-23] MEDS: ISOSORBIDE MONONITRATE ER 30 MG TAB.ER.24H PO SCH (09:20)
[2022-07-23] MEDS: SERTRALINE 50 MG TAB PO SCH (09:20)
[2022-07-23] MEDS: MAGNESIUM OXIDE 400 MG TAB PO SCH ×2 (09:23→20:08)
[2022-07-23] MEDS: TRIAMCINOLONE ACET 0.1% OINTMENT 15 GM TUBE TOPICAL SCH ×2 (10:56→20:08)
--- NOTE | 2022-07-23 12:33 | P.GSHP ---
History of Present Illness H&P Date: 07/23/22 CHIEF COMPLAINT: Left breast redness and pain HISTORY OF PRESENT ILLNESS: This is a 72-year-old female who is status post left breast with lumpectomy and axillary node dissection for left breast cancer completed on 07/12/[address] Byers. She reports she had been doing well and then yesterday she noted increased swelling and pain in the lateral aspect of the left breast. There is increased redness around the SETH drain site. She had been febrile. SETH drain had serous output. Patient also reports having chills and sweats. Patient has been started on IV antibiotics. Infectious disease co nsulted. He has been febrile and mildly tachycardic. PAST MEDICAL HISTORY: See below PAST SURGICAL HISTORY: See below MEDICATIONS: See below ALLERGIES: See below SOCIAL HISTORY: No illicit drug use. REVIEW OF SYSTEMS: CONSTITUTIONAL: Denies fever or chills. HEENT: Denies blurred vision, vision changes, or eye pain. Denies hemoptysis CARDIOVASCULAR: Denies chest pain or pressure. RESPIRATORY: No shortness of breath. GASTROINTESTINAL: See HPI for pertinent findings HEMATOLOGIC: Denies bleeding disorders. GENITOURINARY: Denies any blood in urine or increased urinary frequency. SKIN: Denies pruitis. Denies rash. PHYSICAL EXAM: VITAL SIGNS: Reviewed GENERAL: Well-developed in no acute distress. ABDOMEN: Soft. Nondistended. Nontender NEUROLOGIC: Alert and oriented. Cranial nerves II through XII grossly intact. Breast: Left breast increased swelling. There is area of erythema around the SETH drain site. Yellowish drainage noted on SETH drain dressing. Tender with palp ation. Warm to touch. Area has been circled. Actual incisions clean dry and intact. Patient does have a rash along the chest, breasts and abdomen LABORATORY DATA: WBC is 5.7 Hgb 7.5 platelets 161 Sodium is 133 potassium 3.9 creatinine 1.00 Lactic acid 0.7 Magnesium 1.2 IMAGING: ASSESSMENT: 1. Left breast cellulitis around SETH drain site 2. Left breast cancer status post lumpectomy and axillary node dissection on 07/12/2022 3. Hypomagnesemia PLAN: -Further recommendations forthcoming per surgeon -Continue antibiotics -Consult infectious disease and medicine service -Magnesium replaced. Repeat magnesium level in a.m. -Continue to monitor SETH drain -Continue pain medication as needed -Continue supportive care Physician [employer] note has been reviewed by physician. Signing provider agrees with the documented findings, assessment, and plan of care. I have personally seen and examined the patient, reviewed the CLINICAL TRIAL LEADER /PAs history, exam and MDM and agree with the assessment and plan as written. Based on total visit time, I have performed more than 50% of the visit. As above: Patient with evidence of synovitis around the SETH drain site. The SETH drain itself was milked and some cloudy fluid evacuated. She unfortunately is still having significant SETH drain output and would favor leaving drain in place for now. Continue IV antibiotics. Await infectious disease evaluation. Past Medical History Past Medical History: Blood Disorder, Coronary Artery Disease (CAD), Cancer, CVA/TIA, GERD/Reflux, Hyperlipidemia, Hypertension, Myocardial Infarction (HI), Osteoarthritis (OA), Renal Disease, Skin Disorder, Thyroid Disorder Additional Past Medical History / Comment(s): Hx thyroid cancer in the early . Colitis. blod clot in her eye about 10 years ago, TIA approximately 12 yrs ago with no residual effects. Chronic Kidney Disease Stage 4. Monoclonal Anemia. Left breast cancer diagnosed 12/2021, last chemo 06/07/22. Current full body rash from Chemo, on Prednisone until 07/13/22, per patient, Dr rajan. Last Myocardial Infarction Date:: 2018 History of Any Multi-Drug Resistant Organisms: None Reported Past Surgical History: Adenoidectomy, Back Surgery, Breast Surgery, Cholecystectomy, Heart Catheterization With Stent, Hysterectomy, Tonsillectomy Additional Past Surgical History / Comment(s): 5 total stents, total thyroidectomy with radioactive iodine treatment after, cage/disc back surgery, bilateral cataract surgery, right eye surgery, left breast biopsy, total hysterectomy. Past Anesthesia/Blood Transfusion Reactions: No Reported Reaction Date of Last Stent Placement:: 04/08/19 Past Psychological History: Depression Smoking Status: Former smoker Past Alcohol Use History: None Reported Additional Past Alcohol Use History / Comment(s): Quit smoking in 1992, smoked since teens, 1ppd. Past Drug Use History: None Reported - Past Family History Mother Family Medical History: No Reported History Father Family Medical History: Cancer Medications and Allergies Home Medications Medication Instructions Recorded Confirmed Type Levothyroxine Sodium 112 mcg PO DAILY 02/20/19 07/22/22 History Losartan [Cozaar] 25 mg PO HS PRN 02/20/19 07/22/22 History Sertraline [Zoloft] 50 mg PO DAILY 02/20/19 07/22/22 History lamoTRIgine [LaMICtal] 100 mg PO HS 02/20/19 07/22/22 History Nitroglycerin Sl Tabs [Nitrostat] 0.4 mg SUBLINGUAL Q5M PRN #25 tab 02/26/19 07/22/22 Rx carvediloL [Coreg] 3.125 mg PO BID 02/15/22 07/22/22 History Aspirin EC [Ecotrin Low Dose] 81 mg PO DAILY 02/19/22 07/22/22 History Cyanocobalamin [Vitamin B-12] 500 mcg PO DAILY 02/19/22 07/22/22 History Ergocalciferol [Vitamin D2 (1250 1.25 mg PO BOYKIN 02/19/22 07/22/22 History Mcg = 90323 Iu)] Pantoprazole [Protonix] 40 mg PO BID #60 tab 03/05/22 07/22/22 Rx Isosorbide Mononitrate ER [Imdur] 30 mg PO DAILY 07/10/22 07/22/22 History Pyridoxine HCl (Vitamin B6) 100 mg PO DAILY 07/10/22 07/22/22 History [Vitamin B-6] Diphenoxylate HCl/Atropine 1 - 2 tab PO BID PRN 07/22/22 07/22/22 History [Lomotil 2.5-0.025 mg Tablet] Triamcinolone 0.1% Ointment 1 applic TOPICAL BID 07/22/22 07/22/22 History [Kenalog 0.1% Ointment] Allergies Allergy/AdvReac Type Severity Reaction Status Date / Time amoxicillin Allergy Rash/Hives Verified 07/22/22 17:49 caffeine Allergy Rash/Hives Verified 07/22/22 17:49 erythromycin base Allergy Rash/Hives Verified 07/22/22 17:49 keratin Allergy Swelling Verified 07/22/22 17:49 Penicillins Allergy Rash/Hives Verified 07/22/22 17:49 Sulfa (Sulfonamide Allergy Unknown Verified 07/22/22 17:49 Antibiotics) Childhood wheat Allergy Rash/Hives Verified 07/22/22 17:49 clopidogrel [From Plavix] AdvReac Itching Verified 07/22/22 17:49 imiquimod AdvReac Nausea & Verified 07/22/22 17:49 Vomiting Surgical - Exam Vital Signs Temp Pulse Resp BP Pulse Ox 97.9 F 87 18 136/77 98 07/22/22 13:27 07/22/22 13:27 07/22/22 13:27 07/22/22 13:27 07/22/22 13:27 Results - Labs 07/23/22 05:00 07/23/22 04:40 Abnormal Lab Results - Last 24 Hours (Table) 07/22/22 07/22/22 07/23/22 Range/Units 18:43 18:43 04:40 RBC 2.04 L (3.80-5.40) m/uL Hgb 7.8 L (11.4-16.0) gm/dL Hct 23.0 L (34.0-46.0) % MCV 112.6 H (80.0-100.0) fL MCH 38.3 H (25.0-35.0) pg RDW 15.8 H (11.5-15.5) % Lymphocytes # 0.7 L (1.0-4.8) k/uL Macrocytosis Marked A Sodium 133 L (137-145) mmol/L Carbon Dioxide 20 L (22-30) mmol/L BUN 26 H (7-17) mg/dL Creatinine 1.05 H (0.52-1.04) mg/dL Glucose 105 H (74-99) mg/dL Calcium 7.7 L (8.4-10.2) mg/dL Magnesium 1.2 L (1.6-2.3) mg/dL Total Protein 5.8 L (6.3-8.2) g/dL Albumin 3.3 L (3.5-5.0) g/dL 07/23/22 Range/Units 05:00 RBC 1.99 L (3.80-5.40) m/uL Hgb 7.5 L (11.4-16.0) gm/dL Hct 22.7 L (34.0-46.0) % MCV 113.7 H (80.0-100.0) fL MCH 37.5 H (25.0-35.0) pg RDW 15.8 H (11.5-15.5) % Lymphocytes # 0.9 L (1.0-4.8) k/uL Macrocytosis Marked A Sodium (137-145) mmol/L Carbon Dioxide (22-30) mmol/L BUN (7-17) mg/dL Creatinine (0.52-1.04) mg/dL Glucose (74-99) mg/dL Calcium (8.4-10.2) mg/dL Magnesium (1.6-2.3) mg/dL Total Protein (6.3-8.2) g/dL Albumin (3.5-5.0) g/dL Diabetes panel 07/22/22 07/23/22 Range/Units 18:43 04:40 Sodium 133 L (137-145) mmol/L Potassium 3.9 (3.5-5.1) mmol/L Chloride 105 (98-107) mmol/L Carbon Dioxide 20 L (22-30) mmol/L BUN 26 H (7-17) mg/dL Creatinine 1.00 1.05 H (0.52-1.04) mg/dL Glucose 105 H (74-99) mg/dL Calcium 7.7 L (8.4-10.2) mg/dL AST 30 (14-36) U/L ALT 21 (4-34) U/L Alkaline Phosphatase 54 (38-126) U/L Total Protein 5.8 L (6.3-8.2) g/dL Albumin 3.3 L (3.5-5.0) g/dL Calcium panel 07/22/22 Range/Units 18:43 Calcium 7.7 L (8.4-10.2) mg/dL Phosphorus 2.8 (2.5-4.5) mg/dL Albumin 3.3 L (3.5-5.0) g/dL Pituitary panel 07/22/22 07/23/22 Range/Units 18:43 04:40 Sodium 133 L (137-145) mmol/L Potassium 3.9 (3.5-5.1) mmol/L Chloride 105 (98-107) mmol/L Carbon Dioxide 20 L (22-30) mmol/L BUN 26 H (7-17) mg/dL Creatinine 1.00 1.05 H (0.52-1.04) mg/dL Glucose 105 H (74-99) mg/dL Calcium 7.7 L (8.4-10.2) mg/dL Adrenal panel 07/22/22 07/23/22 Range/Units 18:43 04:40 Sodium 133 L (137-145) mmol/L Potassium 3.9 (3.5-5.1) mmol/L Chloride 105 (98-107) mmol/L Carbon Dioxide 20 L (22-30) mmol/L BUN 26 H (7-17) mg/dL Creatinine 1.00 1.05 H (0.52-1.04) mg/dL Glucose 105 H (74-99) mg/dL Calcium 7.7 L (8.4-10.2) mg/dL Total Bilirubin 0.2 (0.2-1.3) mg/dL AST 30 (14-36) U/L ALT 21 (4-34) U/L Alkaline Phosphatase 54 (38-126) U/L Total Protein 5.8 L (6.3-8.2) g/dL Albumin 3.3 L (3.5-5.0) g/dL
[2022-07-23] MEDS ORDERED: Magnesium Replacement Protocol 1 EACH MISC MISCELLANE PRN (13:20)
--- NOTE | 2022-07-23 13:36 | P.CONS ---
History of Present Illness - Reason for Consult Consult date: 07/23/22 Medical management GERD,HTN Requesting physician: Ki Byers - Chief Complaint Left breast edema, redness, pain - History of Present Illness This is a pleasant 72-year-old female status post left breast lumpectomy and axillary node dissection with SETH drain secondary to left breast cancer on 07/12/2022, presented to the ER with significant increased swelling, pain, war mth of the left breast that started yesterday morning, awakening her from sleep. Denies any chills or fevers. T-max 103, WBC 5.7, neutrophils 79, lactic acid 0.7, minimal tachycardia, blood cultures obtained, infectious disease consulted. SETH drain with serous drainage ,denies any drainage from incisional sites. Denies any trauma to the affected site. Reports pain had been well controlled and not required any pain medication since last Friday. Reports rash on torso and extremities has been present since February after receiving chemo. Followed up with Dr. Byers last friday.Vital signs stable, maintaining O2 sats in the mid 90s to 100% on room air. Received IV fluid hydration with IV antibiotics initiated. Denies chest pain, palpitations or shortness of breath. Hemoglobin 7.5, platelets 161 and INR 1, BUN 26, creatinine 1, now 1.05, potassium 3.9, magnesium 1.2, received magnesium supplementation-repeat level pending. Review of Systems ROS Statement: Those systems with pertinent positive or pertinent negative responses have been documented in the HPI. ROS Other: All systems not noted in ROS Statement are negative. Past Medical History Past Medical History: Blood Disorder, Coronary Artery Disease (CAD), Cancer, CVA/TIA, GERD/Reflux, Hyperlipidemia, Hypertension, Myocardial Infarction (VT), Osteoarthritis (OA), Renal Disease, Skin Disorder, Thyroid Disorder Additional Past Medical History / Comment(s): Hx thyroid cancer in the early . Colitis. blod clot in her eye about 10 years ago, TIA approximately 12 yrs ago with no residual effects. Chronic Kidney Disease Stage 4. Monoclonal Anemia. Left breast cancer diagnosed 12/2021, last chemo 06/07/22. Current full body rash from Chemo, on Prednisone until 07/13/22, per patient, Dr rajan. Last Myocardial Infarction Date:: 2018 History of Any Multi-Drug Resistant Organisms: None Reported Past Surgical History: Adenoidectomy, Back Surgery, Breast Surgery, Cholecystectomy, Heart Catheterization With Stent, Hysterectomy, Tonsillectomy Additional Past Surgical History / Comment(s): 5 total stents, total thyroidectomy with radioactive iodine treatment after, cage/disc back surgery, bilateral cataract surgery, right eye surgery, left breast biopsy, total hysterectomy. Past Anesthesia/Blood Transfusion Reactions: No Reported Reaction Date of Last Stent Placement:: 04/08/19 Past Psychological History: Depression Smoking Status: Former smoker Past Alcohol Use History: None Reported Additional Past Alcohol Use History / Comment(s): Quit smoking in 1992, smoked since teens, 1ppd. Past Drug Use History: None Reported - Past Family History Mother Family Medical History: No Reported History Father Family Medical History: Cancer Medications and Allergies Home Medications Medication Instructions Recorded Confirmed Type Levothyroxine Sodium 112 mcg PO DAILY 02/20/19 07/22/22 History Losartan [Cozaar] 25 mg PO HS PRN 02/20/19 07/22/22 History Sertraline [Zoloft] 50 mg PO DAILY 02/20/19 07/22/22 History lamoTRIgine [LaMICtal] 100 mg PO HS 02/20/19 07/22/22 History Nitroglycerin Sl Tabs [Nitrostat] 0.4 mg SUBLINGUAL Q5M PRN #25 tab 02/26/19 07/22/22 Rx carvediloL [Coreg] 3.125 mg PO BID 02/15/22 07/22/22 History Aspirin EC [Ecotrin Low Dose] 81 mg PO DAILY 02/19/22 07/22/22 History Cyanocobalamin [Vitamin B-12] 500 mcg PO DAILY 02/19/22 07/22/22 History Ergocalciferol [Vitamin D2 (1250 1.25 mg PO BOYKIN 02/19/22 07/22/22 History Mcg = 71127 Iu)] Pantoprazole [Protonix] 40 mg PO BID #60 tab 03/05/22 07/22/22 Rx Isosorbide Mononitrate ER [Imdur] 30 mg PO DAILY 07/10/22 07/22/22 History Pyridoxine HCl (Vitamin B6) 100 mg PO DAILY 07/10/22 07/22/22 History [Vitamin B-6] Diphenoxylate HCl/Atropine 1 - 2 tab PO BID PRN 07/22/22 07/22/22 History [Lomotil 2.5-0.025 mg Tablet] Triamcinolone 0.1% Ointment 1 applic TOPICAL BID 07/22/22 07/22/22 History [Kenalog 0.1% Ointment] Allergies Allergy/AdvReac Type Severity Reaction Status Date / Time amoxicillin Allergy Rash/Hives Verified 07/22/22 17:49 caffeine Allergy Rash/Hives Verified 07/22/22 17:49 erythromycin base Allergy Rash/Hives Verified 07/22/22 17:49 keratin Allergy Swelling Verified 07/22/22 17:49 Penicillins Allergy Rash/Hives Verified 07/22/22 17:49 Sulfa (Sulfonamide Allergy Unknown Verified 07/22/22 17:49 Antibiotics) Childhood wheat Allergy Rash/Hives Verified 07/22/22 17:49 clopidogrel [From Plavix] AdvReac Itching Verified 07/22/22 17:49 imiquimod AdvReac Nausea & Verified 07/22/22 17:49 Vomiting Physical Exam Vitals: Vital Signs Temp Pulse Pulse Resp BP BP Pulse Ox 07/23/22 06:22 100.1 F H 102 H 16 137/84 95 07/23/22 02:00 99.1 F 96 15 124/73 100 07/22/22 22:00 99.6 F 94/54 07/22/22 21:30 93/54 07/22/22 21:00 99/76 07/22/22 20:30 101/59 07/22/22 20:00 118/64 07/22/22 19:30 126/72 07/22/22 19:00 143/77 07/22/22 18:30 141/79 07/22/22 18:15 103 F H 18 141/79 07/22/22 13:27 97.9 F 87 18 136/77 98 Intake and Output 07/22/22 07/23/22 07/23/22 22:59 06:59 14:59 Other: Voiding Method Toilet # Voids 2 Weight 58.967 kg PHYSICAL EXAMINATION: GENERAL: The patient is alert and oriented x3, no acute distress. Well developed, well nourished. HEENT: Pupils are round and equally reacting to light. EOMI. No scleral icterus. No conjunctival pallor. Normocephalic, atraumatic. No pharyngeal erythema. No thyromegaly. Right chest port. CARDIOVASCULAR: S1 and S2 present. No murmurs, rubs, or gallops. PULMONARY: Chest is clear to auscultation, no wheezing or crackles. ABDOMEN: Soft, nontender, nondistended, normoactive bowel sounds. No palpable organomegaly. EXTREMITIES: No cyanosis, clubbing, or pedal edema. NEUROLOGICAL: Gross neurological examination did not reveal any focal deficits. SKIN: Chronic post chemo rash -torso, left breast erythema radiating around under her axilla, warm, tender, incisions well approximated-without drainage, SETH with serous drainage Results CBC & Chem 7: 07/23/22 05:00 07/23/22 04:40 Labs: Abnormal Lab Results - Last 24 Hours (Table) 07/22/22 07/22/22 07/23/22 Range/Units 18:43 18:43 04:40 RBC 2.04 L (3.80-5.40) m/uL Hgb 7.8 L (11.4-16.0) gm/dL Hct 23.0 L (34.0-46.0) % MCV 112.6 H (80.0-100.0) fL MCH 38.3 H (25.0-35.0) pg RDW 15.8 H (11.5-15.5) % Lymphocytes # 0.7 L (1.0-4.8) k/uL Macrocytosis Marked A Sodium 133 L (137-145) mmol/L Carbon Dioxide 20 L (22-30) mmol/L BUN 26 H (7-17) mg/dL Creatinine 1.05 H (0.52-1.04) mg/dL Glucose 105 H (74-99) mg/dL Calcium 7.7 L (8.4-10.2) mg/dL Magnesium 1.2 L (1.6-2.3) mg/dL Total Protein 5.8 L (6.3-8.2) g/dL Albumin 3.3 L (3.5-5.0) g/dL 07/23/22 Range/Units 05:00 RBC 1.99 L (3.80-5.40) m/uL Hgb 7.5 L (11.4-16.0) gm/dL Hct 22.7 L (34.0-46.0) % MCV 113.7 H (80.0-100.0) fL MCH 37.5 H (25.0-35.0) pg RDW 15.8 H (11.5-15.5) % Lymphocytes # 0.9 L (1.0-4.8) k/uL Macrocytosis Marked A Sodium (137-145) mmol/L Carbon Dioxide (22-30) mmol/L BUN (7-17) mg/dL Creatinine (0.52-1.04) mg/dL Glucose (74-99) mg/dL Calcium (8.4-10.2) mg/dL Magnesium (1.6-2.3) mg/dL Total Protein (6.3-8.2) g/dL Albumin (3.5-5.0) g/dL Assessment and Plan Assessment: -Left Breast cellulitis -Left breast cancer status post lumpectomy, axillary node dissection on 07/12/2022 -Hypomagnesemia -History of CAD,NSTEMI,stenting of mid and distal LAD,[place]. -Hyperlipidemia -Hypertension -Depression -Hypothyroidism Plan: Continue on current medication regime ,monitoring and symptomatic treatment. Repeat magnesium level pending. Maintain IV antibiotics, infectious disease consult in place, recommendations pending. Blood culture in progress. Pain management-adjusted; Tylenol, [place]. Resume diet pending general surgery clearance. Thank you Dr. Byers for the consult. The impression and plan of care has been dictated as directed. : I performed a history and examination of this patient, discussed the same with the dictator. I agree with the dictator's note ,documented as a scribe. Any additional findings or plans will be noted.
[2022-07-23] MEDS: MAGNESIUM SULFATE-D5W PMX 1 GM in DEXTROSE/WATER 1 100ML.BAG IVPB SCH ×2 (16:30→17:55)
[2022-07-23] MEDS: ACETAMINOPHEN TAB 325 MG TAB PO PRN (16:35)
--- NOTE | 2022-07-23 19:40 | P.CONS ---
History of Present Illness - Reason for Consult Consult date: 07/23/22 Fever Requesting physician: Brain Villegas - Chief Complaint breast pain and swelling x few days - History of Present Illness Patient is a 72 year old female with a past medical history significant for hypertension hyperlipidemia CVA TIA patient did have a left breast cancer diagnosed December 2021 with the last chemo has been on 06/07/2022 patient did have a history of left breast lumpectomy and lymph node dissection with SETH drain to the left breast since 07/12/2022, patient is presenting to the hospital for evaluation of increasing swelling pain and warmth to the left breast area that apparently started the day before presentation to the hospital patient denies any history of any trauma she's been complaining of pain to be sharp almost 10 out of 10 in severity with no radiation with associated swelling and redness and the patient did have a whitish drainage in the SETH drain, patient on presentation to the hospital did have a fever of 103F patient did have mild tachycardia however her white count was normal patient has been diagnosed her with the left breast cellulitis possible abscess has received a dose of Rocephin in the ER patient was subsequently continued on vancomycin and infectious disease was consulted for further management of antibiotic therapy has been evaluated by general surgery recommended no surgical drainage at this point Review of Systems Positive point and negatives has been mentioned in the HPI, complete review of systems was performed and all other systems are negative Past Medical History Past Medical History: Blood Disorder, Coronary Artery Disease (CAD), Cancer, CVA/TIA, GERD/Reflux, Hyperlipidemia, Hypertension, Myocardial Infarction ([place]), Osteoarthritis (OA), Renal Disease, Skin Disorder, Thyroid Disorder Additional Past Medical History / Comment(s): Hx thyroid cancer in the early . Colitis. blod clot in her eye about 10 years ago, TIA approximately 12 yrs ago with no residual effects. Chronic Kidney Disease Stage 4. Monoclonal Anemia. Left breast cancer diagnosed 12/2021, last chemo 06/07/22. Current full body rash from Chemo, on Prednisone until 07/13/22, per patient, Dr rajan. Last Myocardial Infarction Date:: 2018 History of Any Multi-Drug Resistant Organisms: None Reported Past Surgical History: Adenoidectomy, Back Surgery, Breast Surgery, Cholecystectomy, Heart Catheterization With Stent, Hysterectomy, Tonsillectomy Additional Past Surgical History / Comment(s): 5 total stents, total thyroidectomy with radioactive iodine treatment after, cage/disc back surgery, bilateral cataract surgery, right eye surgery, left breast biopsy, total hysterectomy. Past Anesthesia/Blood Transfusion Reactions: No Reported Reaction Date of Last Stent Placement:: 04/08/19 Past Psychological History: Depression Smoking Status: Former smoker Past Alcohol Use History: None Reported Additional Past Alcohol Use History / Comment(s): Quit smoking in 1992, smoked since teens, 1ppd. Past Drug Use History: None Reported - Past Family History Mother Family Medical History: No Reported History Father Family Medical History: Cancer Medications and Allergies Home Medications Medication Instructions Recorded Confirmed Type Levothyroxine Sodium 112 mcg PO DAILY 02/20/19 07/22/22 History Sertraline [Zoloft] 50 mg PO DAILY 02/20/19 07/22/22 History lamoTRIgine [LaMICtal] 100 mg PO HS 02/20/19 07/22/22 History Nitroglycerin Sl Tabs [Nitrostat] 0.4 mg SUBLINGUAL Q5M PRN #25 tab 02/26/19 07/22/22 Rx carvediloL [Coreg] 3.125 mg PO BID 02/15/22 07/22/22 History Aspirin EC [Ecotrin Low Dose] 81 mg PO DAILY 02/19/22 07/22/22 History Cyanocobalamin [Vitamin B-12] 500 mcg PO DAILY 02/19/22 07/22/22 History Ergocalciferol [Vitamin D2 (1250 1.25 mg PO BOYKIN 02/19/22 07/22/22 History Mcg = [id number] Iu)] Pantoprazole [Protonix] 40 mg PO BID #60 tab 03/05/22 07/22/22 Rx Isosorbide Mononitrate ER [Imdur] 30 mg PO DAILY 07/10/22 07/22/22 History Pyridoxine HCl (Vitamin B6) 100 mg PO DAILY 07/10/22 07/22/22 History [Vitamin B-6] Diphenoxylate HCl/Atropine 1 - 2 tab PO BID PRN 07/22/22 07/22/22 History [Lomotil 2.5-0.025 mg Tablet] Triamcinolone 0.1% Ointment 1 applic TOPICAL BID 07/22/22 07/22/22 History [Kenalog 0.1% Ointment] Folic Acid 1 mg PO DAILY tab 08/01/22 Rx Losartan [Cozaar] 50 mg PO BID #60 tab 08/01/22 Rx NIFEdipine XL [Procardia XL] 60 mg PO DAILY #30 tab 08/01/22 Rx cloNIDine HCL [Catapres] 0.2 mg PO TID #90 tab 08/01/22 Rx Allergies Allergy/AdvReac Type Severity Reaction Status Date / Time amoxicillin Allergy Rash/Hives Verified 07/22/22 17:49 caffeine Allergy Rash/Hives Verified 07/22/22 17:49 erythromycin base Allergy Rash/Hives Verified 07/22/22 17:49 keratin Allergy Swelling Verified 07/22/22 17:49 Penicillins Allergy Rash/Hives Verified 07/22/22 17:49 Sulfa (Sulfonamide Allergy Unknown Verified 07/22/22 17:49 Antibiotics) Childhood wheat Allergy Rash/Hives Verified 07/22/22 17:49 clopidogrel [From Plavix] AdvReac Itching Verified 07/22/22 17:49 imiquimod AdvReac Nausea & Verified 07/22/22 17:49 Vomiting Physical Exam Vitals: Vital Signs Temp Pulse Pulse Resp BP BP Pulse Ox 07/23/22 09:41 100 16 07/23/22 06:22 100.1 F H 102 H 16 137/84 95 07/23/22 02:00 99.1 F 96 15 124/73 100 07/22/22 22:00 99.6 F 94/54 07/22/22 21:30 93/54 07/22/22 21:00 99/76 07/22/22 20:30 101/59 07/22/22 20:00 118/64 07/22/22 19:30 126/72 07/22/22 19:00 143/77 07/22/22 18:30 141/79 07/22/22 18:15 103 F H 18 141/79 07/22/22 13:27 97.9 F 87 18 136/77 98 Intake and Output 07/22/22 07/23/22 07/23/22 22:59 06:59 14:59 Other: Voiding Method Toilet # Voids 2 Weight 58.967 kg GENERAL DESCRIPTION: Elderly female lying in bed, no distress. No tachypnea or accessory muscle of respiration use. HEENT: Shows Pallor , no scleral icterus. Oral mucous membrane is dry. NECK: Trachea central, no thyromegaly. LUNGS: Unlabored breathing. Clear to auscultation anteriorly. No wheeze or crackle. HEART: S1, S2, regular rate and rhythm. No loud murmur ABDOMEN: Soft, no tenderness , guarding or rigidity, no organomegaly EXTREMITIES: No edema of feet. SKIN: Extensive maculopapular rash over her body, patient did have a left breast with swelling redness and induration and did have a purulent fluid in the drainage catheter NEUROLOGICAL: The patient is awake, alert, oriented x3, mood and affect normal. Results CBC & Chem 7: 07/30/22 06:37 07/31/22 06:50 Labs: Abnormal Lab Results - Last 24 Hours (Table) 07/22/22 07/22/22 07/23/22 Range/Units 18:43 18:43 04:40 RBC 2.04 L (3.80-5.40) m/uL Hgb 7.8 L (11.4-16.0) gm/dL Hct 23.0 L (34.0-46.0) % MCV 112.6 H (80.0-100.0) fL MCH 38.3 H (25.0-35.0) pg RDW 15.8 H (11.5-15.5) % Lymphocytes # 0.7 L (1.0-4.8) k/uL Macrocytosis Marked A Sodium 133 L (137-145) mmol/L Carbon Dioxide 20 L (22-30) mmol/L BUN 26 H (7-17) mg/dL Creatinine 1.05 H (0.52-1.04) mg/dL Glucose 105 H (74-99) mg/dL Calcium 7.7 L (8.4-10.2) mg/dL Magnesium 1.2 L (1.6-2.3) mg/dL Total Protein 5.8 L (6.3-8.2) g/dL Albumin 3.3 L (3.5-5.0) g/dL 07/23/22 Range/Units 05:00 RBC 1.99 L (3.80-5.40) m/uL Hgb 7.5 L (11.4-16.0) gm/dL Hct 22.7 L (34.0-46.0) % MCV 113.7 H (80.0-100.0) fL MCH 37.5 H (25.0-35.0) pg RDW 15.8 H (11.5-15.5) % Lymphocytes # 0.9 L (1.0-4.8) k/uL Macrocytosis Marked A Sodium (137-145) mmol/L Carbon Dioxide (22-30) mmol/L BUN (7-17) mg/dL Creatinine (0.52-1.04) mg/dL Glucose (74-99) mg/dL Calcium (8.4-10.2) mg/dL Magnesium (1.6-2.3) mg/dL Total Protein (6.3-8.2) g/dL Albumin (3.5-5.0) g/dL Assessment and Plan (1) Cellulitis of left breast Current Visit: Yes Status: Acute Priority: High Code(s): N61.0 - MASTITIS WITHOUT ABSCESS SNOMED Code(s): 30725905 Plan: 1patient is in the hospital with sepsis in this patient who did have a left breast cancer status post lumpectomy and did have a SETH drain which did have whitish drainage and associated cellulitis involving the lateral aspect of the breast and concern for possible abscess 2-patient may benefit from surgical drainage and deep culture to guide further by therapy 3-Vancomycin pharmacy to dose target trough of 15 while watching kidney function and Vanco trough closely We will follow on clinical condition and cultures to further adjust medication if needed Thank you for this consultation will follow this patient with you Time with Patient: Greater than 30
[2022-07-23] MEDS: lamoTRIgine 100 MG TAB PO SCH (20:07)
[2022-07-23] MEDS: VANCOMYCIN 1,000 MG in SODIUM CHLORIDE 0.9% 250 ML IVPB SCH (20:07)
[2022-07-23] MEDS: HYDROcodone/APAP 5-325MG 1 EACH TAB PO PRN (22:04)
[2022-07-24] MEDS: MORPHINE SULFATE 4 MG/ML SYRINGE IV PRN (00:12)
[2022-07-24] MEDS: HYDROcodone/APAP 5-325MG 1 EACH TAB PO PRN ×2 (05:55→12:58)
[2022-07-24] MEDS: LEVOTHYROXINE 112 MCG TAB PO SCH (05:56)
[2022-07-24] MEDS: carvediloL 3.125 MG TAB PO SCH ×2 (05:56→17:49)
[2022-07-24] MEDS: PANTOPRAZOLE 40 MG TABLET PO SCH ×2 (05:56→17:49)
[2022-07-24] MEDS: ISOSORBIDE MONONITRATE ER 30 MG TAB.ER.24H PO SCH (08:37)
[2022-07-24] MEDS: SERTRALINE 50 MG TAB PO SCH (08:37)
[2022-07-24] MEDS: TRIAMCINOLONE ACET 0.1% OINTMENT 15 GM TUBE TOPICAL SCH ×2 (08:45→21:15)
[2022-07-24] MEDS: MAGNESIUM OXIDE 400 MG TAB PO SCH ×2 (08:45→21:14)
[2022-07-24 10:30] LABS: African American GFR (CKD) 62 (>60 ml/min/1.73 sqM); Anion Gap 4 mmol/L; Blood Urea Nitrogen 21 mg/dL (7-17); Calcium 7.3 mg/dL (8.4-10.2); Carbon Dioxide 21 mmol/L (22-30); Chloride 108 mmol/L (98-107); Glucose 107 mg/dL (74-99); Magnesium 2.1 mg/dL (1.6-2.3); Non-African American GFR(CKD) 54 (>60 ml/min/1.73 sqM); Potassium 3.9 mmol/L (3.5-5.1); Sodium 133 mmol/L (137-145)
--- NOTE | 2022-07-24 12:31 | P.PN ---
Subjective Progress Note Date: 07/24/22 - History of Present Illness This is a pleasant 72-year-old female status post left breast lumpectomy and axillary node dissection with SETH drain secondary to left breast cancer on , presented to the ER with significant increased swelling, pain, warmth of the left breast that started yesterday morning, awakening her from sleep. Denies any chills or fevers. T-max 103, WBC 5.7, neutrophils 79, lactic acid 0.7, minimal tachycardia, blood cultures obtained, infectious disease consulted. SETH drain with serous drainage ,denies any drainage from incisional sites. Denies any trauma to the affected site. Reports pain had been well controlled and not required any pain medication since last Friday. Reports rash on torso and extremities has been present since February after receiving chemo. Followed up with Dr. Byers last friday.Vital signs stable, maintaining O2 sats in the mid 90s to 100% on room air. Received IV fluid hydration with IV antibiotics initiated. Denies chest pain, palpitations or shortness of breath. Hemoglobin 7.5, platelets 161 and INR 1, BUN 26, creatinine 1, now 1.05, potassium 3.9, magnesium 1.2, received magnesium supplementation-repeat level pending. 07/24/2022 T-max 100.1, continues on vancomycin. BUN 21/creatinine 1.04. Pre liminary blood cultures reporting no growth after 24 hours. Evaluated by a infectious disease with recommendations noted. Left breast redness persists, softer but with significant SETH output of serous drainage. Denies chest pain, palpitations or shortness of breath. Maintaining O2 sats in the 90s on room air. Objective - Vital Signs Vital signs: Vital Signs Temp 99.5 F 07/24/22 06:23 Pulse 92 07/24/22 10:04 Resp 16 07/24/22 10:04 BP 126/70 07/24/22 06:23 Pulse Ox 93 L 07/24/22 06:23 FiO2 Intake & Output 07/23/22 07/24/22 07/24/22 18:59 06:59 18:59 Output Total 50 Balance -50 Output: Drainage 50 Left Lateral Breast 50 Other: Voiding Method Toilet Toilet # Voids 1 1 - Exam PHYSICAL EXAMINATION: GENERAL: The patient is alert and oriented x3, no acute distress. Well developed, well nourished. HEENT: Pupils are round and equally reacting to light. EOMI. No scleral icterus. No conjunctival pallor. Normocephalic, atraumatic. No pharyngeal erythema. No thyromegaly. Right chest port. CARDIOVASCULAR: S1 and S2 present. No murmurs, rubs, or gallops. PULMONARY: Chest is clear to auscultation, no wheezing or crackles. ABDOMEN: Soft, nontender, nondistended, normoactive bowel sounds. No palpable organomegaly. EXTREMITIES: No cyanosis, clubbing, or pedal edema. NEUROLOGICAL: Gross neurological examination did not reveal any focal deficits. SKIN: Chronic post chemo rash -torso, extremities, face with left breast persistent erythema radiating around under her axilla within outline, warm, tender,softer -less indurated, incisions well approximated-without drainage, SETH drain. - Labs CBC & Chem 7: 07/23/22 05:00 07/24/22 10:05 Labs: Abnormal Lab Results - Last 24 Hours (Table) 07/24/22 Range/Units 10:05 Sodium 133 L (137-145) mmol/L Chloride 108 H (98-107) mmol/L Carbon Dioxide 21 L (22-30) mmol/L BUN 21 H (7-17) mg/dL Glucose 107 H (74-99) mg/dL Calcium 7.3 L (8.4-10.2) mg/dL Microbiology - Last 24 Hours (Table) 07/22/22 18:49 Blood Culture - Preliminary Blood No Growth after 24 hours Assessment and Plan Assessment: -Left Breast cellulitis, -Left breast cancer status post lumpectomy, axillary node dissection on 07/12/2022 -Hypomagnesemia -History of CAD,NSTEMI,stenting of mid and distal LAD,[place]. -Hyperlipidemia -Hypertension -Depression -Hypothyroidism Plan: Continue on current medication regime ,monitoring and symptomatic treatment. Maintain IV antibiotics; possible abscess, recommending potential I and D as per infectious disease. Blood culture in progress. Pain management. The impression and plan of care has been dictated as directed. : I performed a history and examination of this patient, discussed the same with the dictator. I agree with the dictator's note ,documented as a scribe. Any additional findings or plans will be noted.
--- NOTE | 2022-07-24 15:15 | P.PN ---
Subjective Progress Note Date: 07/24/22 Principal diagnosis: Left breast abscess Patient is a 72 year old female with a past medical history significant for hypertension hyperlipidemia CVA TIA patient did have a left breast cancer diagnosed December 2021 with the last chemo has been on 06/07/2022 patient did have a history of left breast lumpectomy and lymph node dissection with SETH drain to the left breast since 07/12/2022, patient is presenting to the hospital for evaluation of increasing swelling pain and warmth to the left breast area, with concern for cellulitis to the left breast area. on today's evaluation that is 07/24/2022, the patient denies having any fever or any chills, patient is complaining of more pain and discomfort to the left breast area slightly more erythema continued to have a widely drainage in the SETH, and chest pain shortness of breath or cough and no diarrhea Objective - Vital Signs Vital signs: Vital Signs Temp 99.5 F 07/24/22 06:23 Pulse 92 07/24/22 10:04 Resp 16 07/24/22 10:04 BP 126/70 07/24/22 06:23 Pulse Ox 93 L 07/24/22 06:23 FiO2 Intake & Output 07/23/22 07/24/22 07/24/22 18:59 06:59 18:59 Output Total 50 Balance -50 Output: Drainage 50 Left Lateral Breast 50 Other: Voiding Method Toilet Toilet # Voids 1 1 - Exam GENERAL DESCRIPTION: An elderly female lying in bed in no distress RESPIRATORY SYSTEM: Unlabored breathing , decreased breath sounds at bases HEART: S1 S2 regular rate and rhythm , ABDOMEN: Soft , no tenderness Left breast exam in the presence of the daughter did shows slight more erythema induration and tenderness - Labs CBC & Chem 7: 07/23/22 05:00 07/24/22 10:05 Labs: Abnormal Lab Results - Last 24 Hours (Table) 07/24/22 Range/Units 10:05 Sodium 133 L (137-145) mmol/L Chloride 108 H (98-107) mmol/L Carbon Dioxide 21 L (22-30) mmol/L BUN 21 H (7-17) mg/dL Glucose 107 H (74-99) mg/dL Calcium 7.3 L (8.4-10.2) mg/dL Microbiology - Last 24 Hours (Table) 07/22/22 18:49 Blood Culture - Preliminary Blood No Growth after 24 hours Assessment and Plan (1) Cellulitis of left breast Current Visit: Yes Status: Acute Code(s): N61.0 - MASTITIS WITHOUT ABSCESS SNOMED Code(s): 79228036 Plan: 1patient is in the hospital with sepsis in this patient who did have a left breast cancer status post lumpectomy and did have a SETH drain which did have whitish drainage and associated cellulitis involving the lateral aspect of the breast and concern for possible abscess 2-patient may benefit from surgical drainage or a needle aspirate for microbiolo gical diagnosis and to decrease the pressure and discomfort 3- keeping in mind slight worsening of the symptoms we will add cefepime for gram-negative coverage and continue with the vancomycin Family the bedside and multiple questions were answered Time with Patient: Less than 30
[2022-07-24] MEDS: CEFEPIME 2 GM in SODIUM CHLORIDE 0.9% 100 ML IVPB SCH (15:36)
[2022-07-24 20:11] LABS: Anisocytosis Slight; Basophils % (A) 0 %; Eosinophils # (A) 0.1 k/uL (0-0.7); Eosinophils % (A) 2 %; HCT 21.3 % (34.0-46.0); Hypochromasia Slight; Lymphocytes # (A) 0.8 k/uL (1.0-4.8); Lymphocytes % (A) 15 %; MCH 38.7 pg (25.0-35.0); MCHC 32.7 g/dL (31.0-37.0); MCV 118.6 fL (80.0-100.0); Macrocytosis Marked; Mean Platelet Volume 10.1; Monocytes # (A) 0.3 k/uL (0-1.0); Monocytes % (A) 5 %; Neutrophils # (A) 4.2 k/uL (1.3-7.7); Neutrophils % (A) 77 %; Platelet Count 141 k/uL (150-450); RBC 1.79 m/uL (3.80-5.40); RDW 16.4 % (11.5-15.5); WBC 5.4 k/uL (3.8-10.6)
[2022-07-24 20:17] LABS: HGB 6.9 gm/dL (11.4-16.0)
--- NOTE | 2022-07-24 20:43 | P.PN ---
Subjective Progress Note Date: 07/24/22 Principal diagnosis: Cellulitis Patient states she is doing about the same today. T-max 99.5. Area of redness may have spread she thinks posteriorly somewhat. Feels somewhat swollen. White blood cell count is normal. Hemoglobin apparently today recently was found to be 6.9. He was previously in the sevens. Denies rectal bleeding or melena. Objective - Vital Signs Vital signs: Vital Signs Temp 98.5 F 07/24/22 14:00 Pulse 98 07/24/22 14:00 Resp 14 07/24/22 14:00 BP 113/60 07/24/22 14:00 Pulse Ox 95 07/24/22 14:00 FiO2 Intake & Output 07/24/22 07/24/22 07/25/22 06:59 18:59 06:59 Output Total 30 20 Balance -30 -20 Output: Drainage 30 20 Left Lateral Breast 30 20 Other: Voiding Method Toilet Toilet # Voids 1 - Exam Left lumpectomy incision clean and dry without erythema, left SETH drain site with erythema surrounding it, mild tenderness and induration this erythema does extend towards the sentinel lymph node axillary incision slightly - Labs CBC & Chem 7: 07/24/22 10:05 07/24/22 10:05 Labs: Abnormal Lab Results - Last 24 Hours (Table) 07/24/22 07/24/22 Range/Units 10:05 10:05 RBC 1.79 L (3.80-5.40) m/uL Hgb 6.9 L* (11.4-16.0) gm/dL Hct 21.3 L (34.0-46.0) % MCV 118.6 H (80.0-100.0) fL MCH 38.7 H (25.0-35.0) pg RDW 16.4 H (11.5-15.5) % Plt Count 141 L (150-450) k/uL Lymphocytes # 0.8 L (1.0-4.8) k/uL Macrocytosis Marked A Sodium 133 L (137-145) mmol/L Chloride 108 H (98-107) mmol/L Carbon Dioxide 21 L (22-30) mmol/L BUN 21 H (7-17) mg/dL Glucose 107 H (74-99) mg/dL Calcium 7.3 L (8.4-10.2) mg/dL Microbiology - Last 24 Hours (Table) 07/22/22 18:49 Blood Culture - Preliminary Blood No Growth after 24 hours Assessment and Plan (1) Cellulitis of left breast Narrative/Plan: 72-year-old female with cellulitis around the drain site. This seems to be about the same may be touch worse than yesterday. Unfortunately still having moderate amount of SETH drain output. We discussed the options of removing the drain since that seems to clearly be the site where this initiated from. Will keep the drain for today. We'll reevaluate tomorrow. Continue IV antibiotics per infectious disease. Recheck labs tomorrow morning and if hemoglobin remains below 7 will likely transfuse one unit. Continue to monitor closely. Current Visit: Yes Status: Acute Code(s): N61.0 - MASTITIS WITHOUT ABSCESS SNOMED Code(s): 41767130
[2022-07-24] MEDS: lamoTRIgine 100 MG TAB PO SCH (21:15)
[2022-07-24] MEDS: VANCOMYCIN 1,000 MG in SODIUM CHLORIDE 0.9% 250 ML IVPB SCH (21:15)
[2022-07-25] MEDS: CEFEPIME 2 GM in SODIUM CHLORIDE 0.9% 100 ML IVPB SCH ×2 (04:16→17:01)
[2022-07-25] MEDS: ACETAMINOPHEN TAB 325 MG TAB PO PRN (04:17)
[2022-07-25] MEDS: carvediloL 3.125 MG TAB PO SCH ×2 (06:12→16:58)
[2022-07-25] MEDS: LEVOTHYROXINE 112 MCG TAB PO SCH (06:12)
[2022-07-25] MEDS: PANTOPRAZOLE 40 MG TABLET PO SCH ×2 (06:12→16:55)
[2022-07-25 06:59] LABS: Basophils % (A) 0 %; Eosinophils # (A) 0.1 k/uL (0-0.7); Eosinophils % (A) 2 %; Hypochromasia Slight; Lymphocytes # (A) 0.7 k/uL (1.0-4.8); Lymphocytes % (A) 18 %; MCH 38.4 pg (25.0-35.0); MCHC 33.1 g/dL (31.0-37.0); MCV 116.1 fL (80.0-100.0); Macrocytosis Marked; Monocytes # (A) 0.2 k/uL (0-1.0); Monocytes % (A) 6 %; Neutrophils # (A) 2.6 k/uL (1.3-7.7); Neutrophils % (A) 72 %; Platelet Count 168 k/uL (150-450); RBC 1.65 m/uL (3.80-5.40); RDW 15.9 % (11.5-15.5); WBC 3.7 k/uL (3.8-10.6)
[2022-07-25 07:07] LABS: HGB 6.3 gm/dL (11.4-16.0)
[2022-07-25 07:08] LABS: HCT 19.2 % (34.0-46.0)
[2022-07-25 07:29] LABS: ALT 17 U/L (4-34); AST 29 U/L (14-36); African American GFR (CKD) 63 (>60 ml/min/1.73 sqM); Albumin 2.5 g/dL (3.5-5.0); Alkaline Phosphatase 47 U/L (38-126); Anion Gap 5 mmol/L; Blood Urea Nitrogen 21 mg/dL (7-17); Calcium 7.2 mg/dL (8.4-10.2); Carbon Dioxide 19 mmol/L (22-30); Chloride 108 mmol/L (98-107); Globulin 2.4 g/dL; Glucose 91 mg/dL (74-99); Non-African American GFR(CKD) 55 (>60 ml/min/1.73 sqM); Sodium 132 mmol/L (137-145); Total Bilirubin 0.3 mg/dL (0.2-1.3); Total Protein 4.9 g/dL (6.3-8.2)
[2022-07-25] MEDS: TRIAMCINOLONE ACET 0.1% OINTMENT 15 GM TUBE TOPICAL SCH ×2 (09:15→20:12)
[2022-07-25] MEDS: SERTRALINE 50 MG TAB PO SCH (09:16)
[2022-07-25] MEDS: ISOSORBIDE MONONITRATE ER 30 MG TAB.ER.24H PO SCH (09:16)
[2022-07-25] MEDS: MAGNESIUM OXIDE 400 MG TAB PO SCH ×2 (09:16→20:11)
[2022-07-25] MEDS: HYDROcodone/APAP 5-325MG 1 EACH TAB PO PRN ×3 (10:25→23:37)
[2022-07-25] MEDS ORDERED: diphenhydrAMINE 25 MG CAP PO STA (12:16)
--- NOTE | 2022-07-25 12:57 | P.PN ---
Subjective Progress Note Date: 07/25/22 Principal diagnosis: Cellulitis Patient says she feels about the same. She says her rash involving her upper torso is worse. Patient is wondering whether this is a contact dermatitis from the hospital gowns. Drain output slightly decreased. T-max 99.1. White blood cell count is normal. Hemoglobin today 6.3. Objective - Vital Signs Vital signs: Vital Signs Temp 98.3 F 07/25/22 12:20 Pulse 76 07/25/22 12:20 Resp 17 07/25/22 12:20 BP 108/59 07/25/22 12:20 Pulse Ox 98 07/25/22 12:20 FiO2 Intake & Output 07/24/22 07/25/22 07/25/22 18:59 06:59 18:59 Intake Total 480 Output Total 30 50 20 Balance -30 -50 460 Intake: Oral 480 Blood Product 0 Rc As-1 Unit 0 [id number] Output: Drainage 30 50 20 Left Lateral Breast 30 50 20 Other: Voiding Method Toilet Toilet Toilet # Voids 1 - Exam Patient's rash is worse today. It is involving both upper extremities chest and neck and is a more violent red. This may be related to the vancomycin. The drain site with persistent erythema and induration along with tenderness. No significant change from yesterday. There is no swelling tenderness or redness at the axilla - Labs CBC & Chem 7: 07/25/22 06:30 07/25/22 06:30 Labs: Abnormal Lab Results - Last 24 Hours (Table) 07/24/22 07/25/22 07/25/22 Range/Units 10:05 06:30 06:30 WBC 3.7 L (3.8-10.6) k/uL RBC 1.79 L 1.65 L (3.80-5.40) m/uL Hgb 6.9 L* 6.3 L* (11.4-16.0) gm/dL Hct 21.3 L 19.2 L* (34.0-46.0) % MCV 118.6 H 116.1 H (80.0-100.0) fL MCH 38.7 H 38.4 H (25.0-35.0) pg RDW 16.4 H 15.9 H (11.5-15.5) % Plt Count 141 L (150-450) k/uL Lymphocytes # 0.8 L 0.7 L (1.0-4.8) k/uL Macrocytosis Marked A Marked A Sodium 132 L (137-145) mmol/L Chloride 108 H (98-107) mmol/L Carbon Dioxide 19 L (22-30) mmol/L BUN 21 H (7-17) mg/dL Calcium 7.2 L (8.4-10.2) mg/dL Total Protein 4.9 L (6.3-8.2) g/dL Albumin 2.5 L (3.5-5.0) g/dL Crossmatch 07/25/22 Range/Units 06:30 WBC (3.8-10.6) k/uL RBC (3.80-5.40) m/uL Hgb (11.4-16.0) gm/dL Hct (34.0-46.0) % MCV (80.0-100.0) fL MCH (25.0-35.0) pg RDW (11.5-15.5) % Plt Count (150-450) k/uL Lymphocytes # (1.0-4.8) k/uL Macrocytosis Sodium (137-145) mmol/L Chloride (98-107) mmol/L Carbon Dioxide (22-30) mmol/L BUN (7-17) mg/dL Calcium (8.4-10.2) mg/dL Total Protein (6.3-8.2) g/dL Albumin (3.5-5.0) g/dL Crossmatch See Detail Microbiology - Last 24 Hours (Table) 07/22/22 18:49 Blood Culture - Preliminary Blood No Growth after 48 hours Assessment and Plan (1) Cellulitis of left breast Narrative/Plan: Options discussed with patient. The increased rash may be related to the vancomycin. We'll consult dermatology for evaluation if they can come see as an inpatient. We will take the patient's drain out today. I will culture the tip of the drain tube. Continue antibiotics. Current Visit: Yes Status: Acute Code(s): N61.0 - MASTITIS WITHOUT ABSCESS SNOMED Code(s): 01319827
[2022-07-25] MEDS: methylPREDNISolone SOD SUCCI 125 MG/2 ML VIAL IV SCH ×2 (13:39→20:13)
--- NOTE | 2022-07-25 13:43 | P.PN ---
Subjective Progress Note Date: 07/25/22 Principal diagnosis: Left breast abscess Patient is a 72 year old female with a past medical history significant for hypertension hyperlipidemia CVA TIA patient did have a left breast cancer diagnosed December 2021 with the last chemo has been on 06/07/2022 patient did have a history of left breast lumpectomy and lymph node dissection with SETH drain to the left breast since 07/12/2022, patient is presenting to the hospital for evaluation of increasing swelling pain and warmth to the left breast area, with concern for cellulitis to the left breast area. on today's evaluation that is 07/25/2022, the patient remains to be afebrile, patient did have removal of the SETH drain and the catheter tip has been sent for the cultures pain is slightly decreased mild pus was expressed out by the SQL REPORT WRITER for surgical team this morning no vomiting no diarrhea continued to have significant rash to the upper torso Objective - Vital Signs Vital signs: Vital Signs Temp 99.1 F 07/25/22 12:00 Pulse 71 07/25/22 12:00 Resp 14 07/25/22 12:00 BP 95/56 07/25/22 12:00 Pulse Ox 97 07/25/22 12:00 FiO2 Intake & Output 07/24/22 07/25/22 07/25/22 18:59 06:59 18:59 Intake Total 480 Output Total 30 50 Balance -30 -50 480 Intake: Oral 480 Blood Product 0 Rc As-1 Unit 0 [id number] Output: Drainage 30 50 Left Lateral Breast 30 50 Other: Voiding Method Toilet Toilet Toilet # Voids 1 - Exam GENERAL DESCRIPTION: An elderly female lying in bed in no distress RESPIRATORY SYSTEM: Unlabored breathing , decreased breath sounds at bases HEART: S1 S2 regular rate and rhythm , ABDOMEN: Soft , no tenderness Left breast exam in the presence of the daughter did shows slight more erythema induration and tenderness - Labs CBC & Chem 7: 07/25/22 06:30 07/25/22 06:30 Labs: Abnormal Lab Results - Last 24 Hours (Table) 07/24/22 07/25/22 07/25/22 Range/Units 10:05 06:30 06:30 WBC 3.7 L (3.8-10.6) k/uL RBC 1.79 L 1.65 L (3.80-5.40) m/uL Hgb 6.9 L* 6.3 L* (11.4-16.0) gm/dL Hct 21.3 L 19.2 L* (34.0-46.0) % MCV 118.6 H 116.1 H (80.0-100.0) fL MCH 38.7 H 38.4 H (25.0-35.0) pg RDW 16.4 H 15.9 H (11.5-15.5) % Plt Count 141 L (150-450) k/uL Lymphocytes # 0.8 L 0.7 L (1.0-4.8) k/uL Macrocytosis Marked A Marked A Sodium 132 L (137-145) mmol/L Chloride 108 H (98-107) mmol/L Carbon Dioxide 19 L (22-30) mmol/L BUN 21 H (7-17) mg/dL Calcium 7.2 L (8.4-10.2) mg/dL Total Protein 4.9 L (6.3-8.2) g/dL Albumin 2.5 L (3.5-5.0) g/dL Crossmatch 07/25/22 Range/Units 06:30 WBC (3.8-10.6) k/uL RBC (3.80-5.40) m/uL Hgb (11.4-16.0) gm/dL Hct (34.0-46.0) % MCV (80.0-100.0) fL MCH (25.0-35.0) pg RDW (11.5-15.5) % Plt Count (150-450) k/uL Lymphocytes # (1.0-4.8) k/uL Macrocytosis Sodium (137-145) mmol/L Chloride (98-107) mmol/L Carbon Dioxide (22-30) mmol/L BUN (7-17) mg/dL Calcium (8.4-10.2) mg/dL Total Protein (6.3-8.2) g/dL Albumin (3.5-5.0) g/dL Crossmatch See Detail Microbiology - Last 24 Hours (Table) 07/22/22 18:49 Blood Culture - Preliminary Blood No Growth after 48 hours Assessment and Plan (1) Cellulitis of left breast Current Visit: Yes Status: Acute Code(s): N61.0 - MASTITIS WITHOUT ABSCESS SNOMED Code(s): 65828668 Plan: 1patient is in the hospital with sepsis in this patient who did have a left breast cancer status post lumpectomy and did have a SETH drain which did have whitish drainage and associated cellulitis involving the lateral aspect of the breast and concern for possible abscess 2-patient blood culture has been negative local cultures were followed and antibiotic adjusted further if needed for now continue with vancomycin and cefepime may benefit from a short systemic steroids for the extensive rash related to chemotherapy discussed with the SQL REPORT WRITER for admitting team Time with Patient: Less than 30
--- NOTE | 2022-07-25 15:05 | P.PN ---
Subjective Progress Note Date: 07/25/22 This is a pleasant 72-year-old female status post left breast lumpectomy and axillary node dissection with SETH drain secondary to left breast cancer on 07/12/2022, presented to the ER with significant increased swelling, pain, warmth of the left breast that started yesterday morning, awakening her from sleep. Denies any chills or fevers. T-max 103, WBC 5.7, neutrophils 79, lactic acid 0.7, minimal tachycardia, blood cultures obtained, infectious disease consulted. SETH drain with serous drainage ,denies any drainage from incisional sites. Denies any trauma to the affected site. Reports pain had been well controlled and not required any pain medication since last Friday. Reports rash on torso and extremities has been present since February after receiving chemo. Followed up with Dr. Byers last friday.Vital signs stable, maintaining O2 sats in the mid 90s to 100% on room air. Received IV fluid hydration with IV antibiotics initiated. Denies chest pain, palpitations or shortness of breath. Hemoglobin 7.5, platelets 161 and INR 1, BUN 26, creatinine 1, now 1.05, potassium 3.9, magnesium 1.2, received magnesium supplementation-repeat level pending. 07/24/2022 T-max 100.1, continues on vancomycin. BUN 21/creatinine 1.04. Preliminary blood cultures reporting no growth after 24 hours. Evaluated by a infectious disease with recommendations noted. Left breast redness persists, so fter but with significant SETH output of serous drainage. Denies chest pain, palpitations or shortness of breath. Maintaining O2 sats in the 90s on room air. 07/25. Patient seen and examined. Patient complaining of rash over her neck and arms, states this been going on for the last couple of months. REVIEW OF SYSTEMS: CONSTITUTIONAL: No fever, no malaise,. CARDIOVASCULAR: No chest pain, no palpitations, no syncope. PULMONARY: No shortness of breath, no cough, GASTROINTESTINAL: No diarrhea, no nausea, no vomiting, no abdominal pain. NEUROLOGICAL: No headaches, no weakness, PHYSICAL EXAMINATION: GENERAL: The patient is alert and oriented x3, not in any acute distress. Well developed, well nourished. HEENT: Pupils are round and equally reacting to light. EOMI. No scleral icterus. No conjunctival pallor. Normocephalic, atraumatic. No pharyngeal erythema. No thyromegaly. CARDIOVASCULAR: S1 and S2 present. No murmurs, rubs, or gallops. PULMONARY: Chest is clear to auscultation, no wheezing or crackles. ABDOMEN: Soft, nontender, nondistended, normoactive bowel sounds. No palpable organomegaly. MUSCULOSKELETAL: No joint swelling or deformity. EXTREMITIES: No cyanosis, clubbing, or pedal edema. NEUROLOGICAL: Gross neurological examination did not reveal any focal deficits. SKIN: Rash seen. Left breast bandage seen Assessment and plan -Left Breast cellulitis, -Left breast cancer status post lumpectomy, axillary node dissection on -Hypomagnesemia -History of CAD,NSTEMI,stenting of mid and distal LAD,[place]. -Hyperlipidemia -Hypertension -Depression -Hypothyroidism Plan: Monitor vital signs Monitor CBC Monitor CMP Continue telemetry monitoring Continue wound care Continue IV cefepime and vancomycin follow-up in ID recs Follow-up in surgery recommendations Objective - Vital Signs Vital signs: Vital Signs Temp 98.2 F 07/25/22 06:57 Pulse 82 07/25/22 08:00 Resp 18 07/25/22 08:00 BP 92/54 07/25/22 06:57 Pulse Ox 94 L 07/25/22 06:57 FiO2 Intake & Output 07/24/22 07/25/22 07/25/22 18:59 06:59 18:59 Intake Total 480 Output Total 30 50 Balance -30 -50 480 Intake: Oral 480 Output: Drainage 30 50 Left Lateral Breast 30 50 Other: Voiding Method Toilet Toilet Toilet # Voids 1 - Labs CBC & Chem 7: 07/25/22 06:30 07/25/22 06:30 Labs: Abnormal Lab Results - Last 24 Hours (Table) 07/24/22 07/25/22 07/25/22 Range/Units 10:05 06:30 06:30 WBC 3.7 L (3.8-10.6) k/uL RBC 1.79 L 1.65 L (3.80-5.40) m/uL Hgb 6.9 L* 6.3 L* (11.4-16.0) gm/dL Hct 21.3 L 19.2 L* (34.0-46.0) % MCV 118.6 H 116.1 H (80.0-100.0) fL MCH 38.7 H 38.4 H (25.0-35.0) pg RDW 16.4 H 15.9 H (11.5-15.5) % Plt Count 141 L (150-450) k/uL Lymphocytes # 0.8 L 0.7 L (1.0-4.8) k/uL Macrocytosis Marked A Marked A Sodium 132 L (137-145) mmol/L Chloride 108 H (98-107) mmol/L Carbon Dioxide 19 L (22-30) mmol/L BUN 21 H (7-17) mg/dL Calcium 7.2 L (8.4-10.2) mg/dL Total Protein 4.9 L (6.3-8.2) g/dL Albumin 2.5 L (3.5-5.0) g/dL Crossmatch 07/25/22 Range/Units 06:30 WBC (3.8-10.6) k/uL RBC (3.80-5.40) m/uL Hgb (11.4-16.0) gm/dL Hct (34.0-46.0) % MCV (80.0-100.0) fL MCH (25.0-35.0) pg RDW (11.5-15.5) % Plt Count (150-450) k/uL Lymphocytes # (1.0-4.8) k/uL Macrocytosis Sodium (137-145) mmol/L Chloride (98-107) mmol/L Carbon Dioxide (22-30) mmol/L BUN (7-17) mg/dL Calcium (8.4-10.2) mg/dL Total Protein (6.3-8.2) g/dL Albumin (3.5-5.0) g/dL Crossmatch See Detail Microbiology - Last 24 Hours (Table) 07/22/22 18:49 Blood Culture - Preliminary Blood No Growth after 48 hours
[2022-07-25] MEDS ORDERED: methylPREDNISolone SOD SUCCI 125 MG/2 ML VIAL IV SCH (16:00)
[2022-07-25] MEDS: lamoTRIgine 100 MG TAB PO SCH (20:11)
[2022-07-25] MEDS: VANCOMYCIN 1,000 MG in SODIUM CHLORIDE 0.9% 250 ML IVPB SCH (21:52)
[2022-07-26] MEDS: LOSARTAN 25 MG TAB PO PRN ×2 (03:35→20:13)
[2022-07-26] MEDS: PANTOPRAZOLE 40 MG TABLET PO SCH ×2 (04:48→16:11)
[2022-07-26] MEDS: LEVOTHYROXINE 112 MCG TAB PO SCH (04:48)
[2022-07-26] MEDS: CEFEPIME 2 GM in SODIUM CHLORIDE 0.9% 100 ML IVPB SCH ×2 (04:50→16:11)
[2022-07-26] MEDS: methylPREDNISolone SOD SUCCI 125 MG/2 ML VIAL IV SCH ×3 (04:57→20:15)
[2022-07-26] MEDS: HYDROcodone/APAP 5-325MG 1 EACH TAB PO PRN (06:31)
[2022-07-26] MEDS: carvediloL 3.125 MG TAB PO SCH ×2 (06:35→16:11)
[2022-07-26 09:06] LABS: African American GFR (CKD) 58.1 (60.0-200.0); Anion Gap 10.7 mmol/L (10.00-18.00); Blood Urea Nitrogen 16.5 mg/dL (9.0-27.0); Calcium 8.2 mg/dL (8.7-10.3); Carbon Dioxide 18.3 mmol/L (20.0-27.5); Non-African American GFR(CKD) 50.1 (60.0-200.0); Potassium 4.2 mmol/L (3.5-5.5)
[2022-07-26] MEDS: ISOSORBIDE MONONITRATE ER 30 MG TAB.ER.24H PO SCH (09:26)
[2022-07-26] MEDS: SERTRALINE 50 MG TAB PO SCH (09:26)
[2022-07-26] MEDS: MAGNESIUM OXIDE 400 MG TAB PO SCH ×2 (09:27→20:13)
[2022-07-26] MEDS: TRIAMCINOLONE ACET 0.1% OINTMENT 15 GM TUBE TOPICAL SCH ×2 (09:27→20:14)
[2022-07-26 11:17] LABS: Basophils # (A) 0 X 10*3/uL (0.00-0.10); Basophils % (A) 0 %; Eosinophils # (A) 0 X 10*3/uL (0.04-0.35); Eosinophils % (A) 0 %; HCT 21.2 % (37.2-46.3); HGB 6.9 g/dL (12.0-15.0); Immature Grans, Automated 0.5 %; Lymphocytes # (A) 0.66 X 10*3/uL (0.90-5.00); Lymphocytes % (A) 15.5 %; MCH 37.1 pg (27.0-32.0); MCHC 32.5 g/dL (32.0-37.0); Mean Platelet Volume 10.3 fL (9.5-12.2); Monocytes # (A) 0.11 X 10*3/uL (0.20-1.00); Monocytes % (A) 2.6 %; NRBC Per 100 WBC 0 /100 WBCS (0.0-0.0); Neutrophils # (A) 3.48 X 10*3/uL (1.80-7.70); Neutrophils % (A) 81.4 %; Platelet Count 178 X 10*3/uL (140-440); RBC 1.86 X 10*6/uL (4.10-5.20); RDW 16.8 % (11.5-14.5); WBC 4.27 X 10*3/uL (4.50-10.00)
[2022-07-26 11:18] LABS: Elliptocytes 2+; Macrocytosis (M) 3+
[2022-07-26] MEDS ORDERED: diphenhydrAMINE 50 MG/ML 1 ML VIAL IVP STA (11:35)
--- NOTE | 2022-07-26 12:37 | P.PN ---
Subjective Progress Note Date: 07/26/22 This is a pleasant 72-year-old female status post left breast lumpectomy and axillary node dissection with SETH drain secondary to left breast cancer on 07/12/2022, presented to the ER with significant increased swelling, pain, warmth of the left breast that started yesterday morning, awakening her from sleep. Denies any chills or fevers. T-max 103, WBC 5.7, neutrophils 79, lactic acid 0.7, minimal tachycardia, blood cultures obtained, infectious disease consulted. SETH drain with serous drainage ,denies any drainage from incisional sites. Denies any trauma to the affected site. Reports pain had been well controlled and not required any pain medication since last Friday. Reports rash on torso and extremities has been present since February after receiving chemo. Followed up with Dr. Byers last friday.Vital signs stable, maintaining O2 sats in the mid 90s to 100% on room air. Received IV fluid hydration with IV antibiotics initiated. Denies chest pain, palpitations or shortness of breath. Hemoglobin 7.5, platelets 161 and INR 1, BUN 26, creatinine 1, now 1.05, potassium 3.9, magnesium 1.2, received magnesium supplementation-repeat level pending. 07/24/2022 T-max 100.1, continues on vancomycin. BUN 21/creatinine 1.04. Preliminary blood cultures reporting no growth after 24 hours. Evaluated by a infectious disease with recommendations noted. Left breast redness persists, so fter but with significant SETH output of serous drainage. Denies chest pain, palpitations or shortness of breath. Maintaining O2 sats in the 90s on room air. 07/25. Patient seen and examined. Patient complaining of rash over her neck and arms, states this been going on for the last couple of months. 07/26. Patient seen and examined. Sitting upright in the chair. Patient has been afebrile. Hemoglobin 6.9, WBC 4.27. Rash is slightly improved compared to yesterday REVIEW OF SYSTEMS: CONSTITUTIONAL: No fever, no malaise,. CARDIOVASCULAR: No chest pain, no palpitations, no syncope. PULMONARY: No shortness of breath, no cough, GASTROINTESTINAL: No diarrhea, no nausea, no vomiting, no abdominal pain. NEUROLOGICAL: No headaches, no weakness, PHYSICAL EXAMINATION: GENERAL: The patient is alert and oriented x3, not in any acute distress. Well developed, well nourished. HEENT: Pupils are round and equally reacting to light. EOMI. No scleral icterus. No conjunctival pallor. Normocephalic, atraumatic. No pharyngeal erythema. No thyromegaly. CARDIOVASCULAR: S1 and S2 present. No murmurs, rubs, or gallops. PULMONARY: Chest is clear to auscultation, no wheezing or crackles. ABDOMEN: Soft, nontender, nondistended, normoactive bowel sounds. No palpable organomegaly. MUSCULOSKELETAL: No joint swelling or deformity. EXTREMITIES: No cyanosis, clubbing, or pedal edema. NEUROLOGICAL: Gross neurological examination did not reveal any focal deficits. SKIN: Rash seen. Left breast bandage seen Assessment and plan -Left Breast cellulitis, -Left breast cancer status post lumpectomy, axillary node dissection on 07/12/2022 -Hypomagnesemia -History of CAD,NSTEMI,stenting of mid and distal LAD,[place]. -Hyperlipidemia -Hypertension -Depression -Hypothyroidism Rash Plan: Monitor vital signs Monitor CBC is 6.9, will transfuse 1 unit of packed red blood cell Monitor CMP Continue Coreg, losartan, Imdur Continue Synthroid for hypothyroidism Continue wound care Continue pain management Continue IV cefepime and vancomycin follow-up in ID recs Follow-up in surgery recommendations Objective - Vital Signs Vital signs: Vital Signs Temp 97.9 F 07/26/22 06:34 Pulse 66 07/26/22 06:34 Resp 18 07/26/22 09:44 BP 166/83 07/26/22 06:34 Pulse Ox 94 L 07/26/22 06:34 FiO2 Intake & Output 07/25/22 07/26/22 07/26/22 18:59 06:59 18:59 Intake Total 580 118 Output Total 20 Balance 560 118 Intake: Oral 480 118 Blood Product 100 Rc As-1 Unit 100 [id number] Output: Drainage 20 Left Lateral Breast 20 Other: Voiding Method Toilet Toilet Toilet # Voids 2 - Labs CBC & Chem 7: 07/26/22 06:15 07/26/22 06:15 Labs: Abnormal Lab Results - Last 24 Hours (Table) 07/25/22 07/26/22 07/26/22 Range/Units 06:30 06:15 06:15 WBC 4.27 L (4.50-10.00) X 10*3/uL RBC 1.86 L (4.10-5.20) X 10*6/uL Hgb 6.9 L* (12.0-15.0) g/dL Hct 21.2 L (37.2-46.3) % MCV 114.0 H (80.0-97.0) fL MCH 37.1 H (27.0-32.0) pg RDW 16.8 H (11.5-14.5) % Lymphocytes # 0.66 L (0.90-5.00) X 10*3/uL Monocytes # 0.11 L (0.20-1.00) X 10*3/uL Eosinophils # 0 L (0.04-0.35) X 10*3/uL Carbon Dioxide 18.3 L (20.0-27.5) mmol/L Est GFR (CKD-EPI)AfAm 58.1 L (60.0-200.0) Est GFR (CKD-EPI)NonAf 50.1 L (60.0-200.0) Glucose 151 H (70-110) mg/dL Calcium 8.2 L (8.7-10.3) mg/dL Crossmatch See Detail Microbiology - Last 24 Hours (Table) 07/25/22 11:00 Gram Stain - Preliminary Catheter Site Wound Culture - Preliminary 07/22/22 18:49 Blood Culture - Preliminary Blood No Growth after 72 hours
[2022-07-26] MEDS: ACETAMINOPHEN TAB 325 MG TAB PO PRN (12:59)
--- NOTE | 2022-07-26 13:07 | P.PN ---
Subjective Progress Note Date: 07/26/22 CHIEF COMPLAINT: Left breast cellulitis HISTORY OF PRESENT ILLNESS: Patient continues to have swelling in the lateral aspect of the left breast. She has a significant rash across the torso and upper neck. Rash became worse yesterday after she received receiving a blood transfusion. Blood transfusion was stopped and patient received IV Benadryl. IV steroids were added for the rash. Also request for oncology consults. Dermatology was consulted yesterday but they are currently unavailable to take consults. Afebrile. WBC is 4.27 Hgb 6.9 up from 6.3 platelets are 178 sodium is 136 potassium 4.2 creatinine 1.1. SETH drain removed by Dr. Byers yesterday. SETH tip culture pending PHYSICAL EXAM: VITAL SIGNS: Reviewed GENERAL: Well-developed in no acute distress. HEENT: No sclera icterus. Extraocular movements grossly intact. Moist buccal mucosa. Head is atraumatic, normocephalic. Hears conversational speech. No nasal drainage. NECK: Supple without lymphadenopathy. CHEST: Non-labored respirations and equal bilateral excursions. CARDIOVASCULAR: Palpable 2+ radial pulses. ABDOMEN: Soft. Nondistended. Nontender. MUSCULOSKELETAL: No clubbing or cyanosis. NEUROLOGIC: No focal or lateralizing signs. Cranial nerves II through XII grossly intact. PSYCH: Appropriate affect. Alert and oriented to person, place and time. SKIN: Significant rash of the torso and up into the neck and arms bilaterally Breast: Left lateral progress with erythema and induration. Tenderness with palpation. SETH drain removed ASSESSMENT: 1. Left breast cellulitis 2. Left breast cancer status post lumpectomy and axillary node dissection on 07/12/2022. Status post radiation treatment 3. Anemia with reaction to blood transfusion 4. Significant skin rash involving the torso, neck and bilateral extremities PLAN: -Await further recommendations per oncology regarding rash and anemia -Repeat CBC in a.m. -Antibiotics per ID service -Continue IV steroids -Follow up on SETH drain culture results -Continue supportive care Physician [employer] Jointer note has been reviewed by physician. Signing provider agrees with the documented findings, assessment, and plan of care. CHIEF COMPLAINT: Left breast cellulitis HISTORY OF PRESENT ILLNESS: The patient is a 72-year-old female status post lumpectomy with subsequent left breast cellulitis. She developed severe erythema and rash involving the trunk, extremities no cancer in the face. She reports symptoms are not worse but persistent. She had anemia with questionable reaction to transfusion. ROS: No reports of nausea and vomiting. No bowel movements. No fevers or chills. No new chest pain. No productive sputum PHYSICAL EXAM: VITAL SIGNS: Reviewed CONSTITUTIONAL: Well developed and in no acute distress. EYES: Conjuctivae without sclera icterus. Extraocular movements grossly intact. HEAD, EARS, NOSE, THROAT: Moist buccal mucosa. Head is atraumatic, normocephalic. Hears conversational speech. No nasal drainage. RESPIRATORY: Non-labored respirations and equal bilateral excursions. CARDIOVASCULAR: Palpable 2+ radial pulses. ABDOMEN: No peritonitis. MUSCULOSKELETAL: No gross deformity of the lower extremities noted. No c lubbing. No cyanosis. SKIN: Good skin turgor. Well perfused. Diffuse rash maculopapular type along the body NEUROLOGIC: Cranial nerves II through XII grossly intact. No focal or lateralizing signs. PSYCH: Appropriate affect. Alert and oriented to person, place and time. BREAST: No moderate cellulitis of the left breast. Dressing intact. No active drainage. CLINICAL LABS: Reviewed. Anemia, hemoglobin 6.3-6.9, WBC low, leukopenia ASSESSMENT: 1. Left breast cancer 2. Left breast cellulitis 3. Maculopapular rash 4. Anemia PLAN: 1. Recommend oncology consult due to concurrent anemia and breast cancer management 2. Await cultures from 3. Infectious disease consultation due to immunocompromise state and abscess Objective - Vital Signs Vital signs: Vital Signs Temp 97.9 F 07/26/22 06:34 Pulse 66 07/26/22 06:34 Resp 18 07/26/22 09:44 BP 166/83 07/26/22 06:34 Pulse Ox 94 L 07/26/22 06:34 FiO2 Intake & Output 07/25/22 07/26/22 07/26/22 18:59 06:59 18:59 Intake Total 580 118 Output Total 20 Balance 560 118 Intake: Oral 480 118 Blood Product 100 Rc As-1 Unit 100 [id number] Output: Drainage 20 Left Lateral Breast 20 Other: Voiding Method Toilet Toilet Toilet # Voids 2 - Labs CBC & Chem 7: 07/26/22 06:15 07/26/22 06:15 Labs: Abnormal Lab Results - Last 24 Hours (Table) 04/13/23 04/14/23 04/14/23 Range/Units 06:30 06:15 06:15 WBC 4.27 L (4.50-10.00) X 10*3/uL RBC 1.86 L (4.10-5.20) X 10*6/uL Hgb 6.9 L* (12.0-15.0) g/dL Hct 21.2 L (37.2-46.3) % MCV 114.0 H (80.0-97.0) fL MCH 37.1 H (27.0-32.0) pg RDW 16.8 H (11.5-14.5) % Lymphocytes # 0.66 L (0.90-5.00) X 10*3/uL Monocytes # 0.11 L (0.20-1.00) X 10*3/uL Eosinophils # 0 L (0.04-0.35) X 10*3/uL Carbon Dioxide 18.3 L (20.0-27.5) mmol/L Est GFR (CKD-EPI)AfAm 58.1 L (60.0-200.0) Est GFR (CKD-EPI)NonAf 50.1 L (60.0-200.0) Glucose 151 H (70-110) mg/dL Calcium 8.2 L (8.7-10.3) mg/dL Crossmatch See Detail Microbiology - Last 24 Hours (Table) 07/25/22 11:00 Gram Stain - Preliminary Catheter Site Wound Culture - Preliminary 07/22/22 18:49 Blood Culture - Preliminary Blood No Growth after 72 hours
--- NOTE | 2022-07-26 17:20 | P.CONS ---
History of Present Illness - Reason for Consult Consult date: 07/26/22 hx breast cancer Requesting physician: Sherley Cordero - Chief Complaint post op infection - History of Present Illness Ms Ness is a pleasant white female, with multiple but well-controlled medical problems. We were consulted due to hx of breast cancer. She is a patient of Dr. Kasper. She was iniatilly refereed to our servce for anemia, and had workup at that time. The patient had additional workup done, that was negative other than a very small IgA kappa monoclonal protein that could not be further quantified. She had additional studies with 24 hr urine and bone survey, negative for any evidence for advanced plasma cell neoplasm. 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 She was placed on observation. The patient had a mammogram on 01/02/22, This showed a 2 cm thick related mass at 8.3 cm from the nipple. Prior mammogram had been in 2013. The also appear to be enlarged lymph nodes in the axilla. Ultrasound of the same day showed a 2 x 1.4 x 1.4 cm related mass at 1:00, 8 cm from the nipple. There are 2 enlarged lymph nodes in the left axilla that were concerning. The patient had an ultrasound-guided biopsy of the breast mass, as well as the left axillary tail lymph node. Both samples were positive for invasive ductal carcinoma, grade 2. She is s/p 6 cycle of TCH (Kanjinti)-P, finishing tx 06/07/22. She then had lumpectomy and LN dissection with Dr. Byers on 07/12/22, with plan for adjuvant treatment once recovered from surgery. Pt Reports that 4 days ago she began having swelling, redness and pain on the left lateral side of breast at the drain insertion site. She spoke to her surgeon who told her to come to the ER for further evaluation. Tmax was 103, patient has been afebrile for the last 72 hours. Blood cultures are negative. Patient is currently on vancomycin and cefepime for treatment of cellulitis of left breast. SETH drain was removed yesterday and culture was obtained from the catheter site, which is pending. Patient reports that swelling and pain of the left breast has improved. Review of Systems 10 point ROS is negative except as stated in the HPI Past Medical History Past Medical History: Blood Disorder, Coronary Artery Disease (CAD), Cancer, CVA/TIA, GERD/Reflux, Hyperlipidemia, Hypertension, Myocardial Infarction (ID), Osteoarthritis (OA), Renal Disease, Skin Disorder, Thyroid Disorder Additional Past Medical History / Comment(s): Hx thyroid cancer in the early . Colitis. blod clot in her eye about 10 years ago, TIA approximately 12 yrs ago with no residual effects. Chronic Kidney Disease Stage 4. Monoclonal Anemia. Left breast cancer diagnosed 12/2021, last chemo 06/07/22. Current full body rash from Chemo, on Prednisone until 07/13/22, per patient, Dr rajan. Last Myocardial Infarction Date:: 2018 History of Any Multi-Drug Resistant Organisms: None Reported Past Surgical History: Adenoidectomy, Back Surgery, Breast Surgery, Cholecystectomy, Heart Catheterization With Stent, Hysterectomy, Tonsillectomy Additional Past Surgical History / Comment(s): 5 total stents, total thyroidectomy with radioactive iodine treatment after, cage/disc back surgery, bilateral cataract surgery, right eye surgery, left breast biopsy, total hysterectomy. Past Anesthesia/Blood Transfusion Reactions: No Reported Reaction Date of Last Stent Placement:: 04/08/19 Past Psychological History: Depression Smoking Status: Former smoker Past Alcohol Use History: None Reported Additional Past Alcohol Use History / Comment(s): Quit smoking in 1992, smoked since teens, 1ppd. Past Drug Use History: None Reported - Past Family History Mother Family Medical History: No Reported History Father Family Medical History: Cancer Medications and Allergies Home Medications Medication Instructions Recorded Confirmed Type Levothyroxine Sodium 112 mcg PO DAILY 02/20/19 07/22/22 History Losartan [Cozaar] 25 mg PO HS PRN 02/20/19 07/22/22 History Sertraline [Zoloft] 50 mg PO DAILY 02/20/19 07/22/22 History lamoTRIgine [LaMICtal] 100 mg PO HS 02/20/19 07/22/22 History Nitroglycerin Sl Tabs [Nitrostat] 0.4 mg SUBLINGUAL Q5M PRN #25 tab 02/26/19 07/22/22 Rx carvediloL [Coreg] 3.125 mg PO BID 02/15/22 07/22/22 History Aspirin EC [Ecotrin Low Dose] 81 mg PO DAILY 02/19/22 07/22/22 History Cyanocobalamin [Vitamin B-12] 500 mcg PO DAILY 02/19/22 07/22/22 History Ergocalciferol [Vitamin D2 (1250 1.25 mg PO BOYKIN 02/19/22 07/22/22 History Mcg = [id number] Iu)] Pantoprazole [Protonix] 40 mg PO BID #60 tab 03/05/22 07/22/22 Rx Isosorbide Mononitrate ER [Imdur] 30 mg PO DAILY 07/10/22 07/22/22 History Pyridoxine HCl (Vitamin B6) 100 mg PO DAILY 07/10/22 07/22/22 History [Vitamin B-6] Diphenoxylate HCl/Atropine 1 - 2 tab PO BID PRN 07/22/22 07/22/22 History [Lomotil 2.5-0.025 mg Tablet] Triamcinolone 0.1% Ointment 1 applic TOPICAL BID 07/22/22 07/22/22 History [Kenalog 0.1% Ointment] Allergies Allergy/AdvReac Type Severity Reaction Status Date / Time amoxicillin Allergy Rash/Hives Verified 07/22/22 17:49 caffeine Allergy Rash/Hives Verified 07/22/22 17:49 erythromycin base Allergy Rash/Hives Verified 07/22/22 17:49 keratin Allergy Swelling Verified 07/22/22 17:49 Penicillins Allergy Rash/Hives Verified 07/22/22 17:49 Sulfa (Sulfonamide Allergy Unknown Verified 07/22/22 17:49 Antibiotics) Childhood wheat Allergy Rash/Hives Verified 07/22/22 17:49 clopidogrel [From Plavix] AdvReac Itching Verified 07/22/22 17:49 imiquimod AdvReac Nausea & Verified 07/22/22 17:49 Vomiting Physical Exam Vitals: Vital Signs Temp Pulse Pulse Resp BP BP Pulse Ox 07/26/22 09:44 18 07/26/22 06:34 97.9 F 66 16 166/83 94 L 07/26/22 03:28 98.2 F 67 19 162/83 95 07/25/22 20:22 97.9 F 79 16 143/80 96 07/25/22 20:00 16 07/25/22 17:06 76 129/70 07/25/22 13:46 98 F 82 17 105/52 98 07/25/22 12:55 98.2 F 76 16 117/66 07/25/22 12:20 98.3 F 76 17 108/59 98 07/25/22 12:00 99.1 F 71 14 95/56 97 07/25/22 11:41 98.5 F 78 16 102/48 96 Intake and Output 07/25/22 07/26/22 07/26/22 22:59 06:59 14:59 Intake Total 118 Balance 118 Intake: Oral 118 Other: Voiding Method Toilet Toilet # Voids 2 - Constitutional General appearance: average body habitus, no acute distress - EENT Eyes: anicteric sclerae, EOMI ENT: hearing grossly normal - Respiratory Breathing is even and unlabored - Cardiovascular Skin is warm and dry - Integumentary Diffuse macular papular erythematous rash present. Edema, erythema and tende rness noted to left lateral breast at SETH drain insertion site. Purulent drainage noted to bandage. Approximately 35 cm abscess palpated Integumentary: rash - Neurologic Neurologic: CNII-XII intact - Musculoskeletal Musculoskeletal: strength equal bilaterally - Psychiatric Psychiatric: A&O x's 3, appropriate affect, intact judgment & insight Results CBC & Chem 7: 07/26/22 06:15 07/26/22 06:15 Labs: Abnormal Lab Results - Last 24 Hours (Table) 07/25/22 07/26/22 Range/Units 06:30 06:15 Carbon Dioxide 18.3 L (20.0-27.5) mmol/L Est GFR (CKD-EPI)AfAm 58.1 L (60.0-200.0) Est GFR (CKD-EPI)NonAf 50.1 L (60.0-200.0) Glucose 151 H (70-110) mg/dL Calcium 8.2 L (8.7-10.3) mg/dL Crossmatch See Detail Microbiology - Last 24 Hours (Table) 07/25/22 11:00 Gram Stain - Preliminary Catheter Site Wound Culture - Preliminary 07/22/22 18:49 Blood Culture - Preliminary Blood No Growth after 72 hours Assessment and Plan (1) Cellulitis of left breast Current Visit: Yes Status: Acute Priority: High Code(s): N61.0 - MASTITIS WITHOUT ABSCESS SNOMED Code(s): 48025601 (2) Breast cancer, left Current Visit: Yes Status: Acute Priority: High Code(s): C50.912 - MALIGNANT NEOPLASM OF UNSPECIFIED SITE OF LEFT FEMALE BREAST SNOMED Code(s): 700016579 (3) Anemia Current Visit: Yes Status: Acute Priority: High Code(s): D64.9 - ANEMIA, UNSPECIFIED SNOMED Code(s): 559422367 Plan: Cellulitis breast: -Continues on vancomycin and cefepime -Blood cultures negative, culture of SETH drain catheter pending -Infectious disease and surgery following, will defer management Anemia: -Hemoglobin 6.9. Blood transfusion was stopped yesterday due to reaction. Requested PRBC transfusion today. We will premedicate with IV Benadryl and 650 mg Tylenol -Iron studies on pre-transfusion blood ordered -Anemia may be superimposed by infection, chemotherapy/bone marrow suppression. If hemoglobin continues to drop after blood transfusion will pursue GI workup. Patient denies any bleeding episodes, blood in stool, melena -Will continue to monitor counts. Please transfuse for hemoglobin less than 7 or if symptomatic Breast cancer: - Hx invasive ductal carcinoma, grade 2. She is s/p 6 cycle of TCH (Kanjinti)-P, finishing tx 06/07/22. She then had lumpectomy and LN dissection with Dr. Byers on 07/12/22, with plan for adjuvant treatment once recovered from surgery. - Clinic f/u scheduled on 08/14. Meets with rad onc 08/08 for simulation attests: I have performed H&P and developed impression and plan of care for patient, discussed with dictator. I agree with dictated note, documented as a scribe
[2022-07-26] MEDS: lamoTRIgine 100 MG TAB PO SCH (20:15)
[2022-07-26] MEDS ORDERED: VANCOMYCIN TROUGH DUE 1 EACH MISC MISCELLANE ONE (21:00)
[2022-07-26] MEDS: VANCOMYCIN 1,000 MG in SODIUM CHLORIDE 0.9% 250 ML IVPB SCH (21:18)
[2022-07-27 03:48] LABS: % Iron Saturation 20.61 (12.00-45.00)
[2022-07-27] MEDS: methylPREDNISolone SOD SUCCI 125 MG/2 ML VIAL IV SCH ×3 (04:56→20:35)
[2022-07-27] MEDS: PANTOPRAZOLE 40 MG TABLET PO SCH ×2 (04:57→15:11)
[2022-07-27] MEDS: CEFEPIME 2 GM in SODIUM CHLORIDE 0.9% 100 ML IVPB SCH ×2 (04:57→15:11)
[2022-07-27] MEDS: LEVOTHYROXINE 112 MCG TAB PO SCH (04:57)
[2022-07-27 07:07] LABS: Anisocytosis Slight; Basophils % (A) 0 %; Eosinophils % (A) 0 %; HCT 25.4 % (34.0-46.0); Lymphocytes # (A) 0.7 k/uL (1.0-4.8); Lymphocytes % (A) 10 %; MCH 35.3 pg (25.0-35.0); MCHC 32.7 g/dL (31.0-37.0); Macrocytosis Marked; Mean Platelet Volume 8.8; Monocytes # (A) 0.3 k/uL (0-1.0); Monocytes % (A) 5 %; Neutrophils # (A) 5.7 k/uL (1.3-7.7); Neutrophils % (A) 84 %; Platelet Count 170 k/uL (150-450); RBC 2.35 m/uL (3.80-5.40); RDW 18.2 % (11.5-15.5); WBC 6.8 k/uL (3.8-10.6)
[2022-07-27 07:22] LABS: HGB 8.3 gm/dL (11.4-16.0)
[2022-07-27] MEDS: carvediloL 3.125 MG TAB PO SCH ×2 (07:51→15:11)
[2022-07-27] MEDS: SERTRALINE 50 MG TAB PO SCH (07:51)
[2022-07-27] MEDS: MAGNESIUM OXIDE 400 MG TAB PO SCH ×2 (07:51→20:36)
[2022-07-27] MEDS: ISOSORBIDE MONONITRATE ER 30 MG TAB.ER.24H PO SCH (07:51)
[2022-07-27] MEDS: TRIAMCINOLONE ACET 0.1% OINTMENT 15 GM TUBE TOPICAL SCH ×2 (07:52→20:36)
[2022-07-27] MEDS ORDERED: SIMETHICONE 40 MG/0.6 ML DROPS 2,000 MG/30 ML BOTTLE PO PRN (10:15)
--- NOTE | 2022-07-27 10:41 | P.PN ---
Subjective Progress Note Date: 07/27/22 CHIEF COMPLAINT: Left breast cellulitis HISTORY OF PRESENT ILLNESS: The patient is a 72-year-old female status post lumpectomy with subsequent left breast cellulitis. She has diffuse maculopapular rash involving the torso, extremities and face. She reports feeling better today. She also reports new swelling along the left breast now present yesterday. She received 1 unit of blood after being premedicated by oncology team. Hemoglobin improved from 6.9-8.3. ROS: No reports of nausea and vomiting. No bowel movements. No fevers or chills. No new chest pain. No productive sputum PHYSICAL EXAM: VITAL SIGNS: Reviewed CONSTITUTIONAL: Well developed and in no acute distress. EYES: Conjuctivae without sclera icterus. Extraocular movements grossly intact. HEAD, EARS, NOSE, THROAT: Moist buccal mucosa. Head is atraumatic, normocephalic. Hears conversational speech. No nasal drainage. RESPIRATORY: Non-labored respirations and equal bilateral excursions. CARDIOVASCULAR: Palpable 2+ radial pulses. ABDOMEN: No peritonitis. MUSCULOSKELETAL: No gross deformity of the lower extremities noted. No clubbing. No cyanosis. SKIN: Good skin turgor. Well perfused. Diffuse rash maculopapular type along the body NEUROLOGIC: Cranial nerves II through XII grossly intact. No focal or lateral izing signs. PSYCH: Appropriate affect. Alert and oriented to person, place and time. BREAST: No cellulitis of the left breast. 4 x 3 cm swelling at the left upper outer quadrant of the breast. CLINICAL LABS: Reviewed. Anemia, hemoglobin 6.3-6.9, now 8.3. WBC elevated 4.2-6.8, normal MICRO: No growing organisms identified. Final culture still pending. ASSESSMENT: 1. Left breast cancer 2. Left breast cellulitis 3. Maculopapular rash 4. Anemia PLAN: 1. Appreciate oncology consultation with management of anemia. We'll monitor hemoglobin. 2. Cultures pending for bacterial growth 3. Continue IV antibiotics 4. Disposition home pending clearance from oncology, infectious disease for antibiotic management for home Objective - Vital Signs Vital signs: Vital Signs Temp 97.5 F L 07/27/22 08:00 Pulse 61 07/27/22 08:00 Resp 18 07/27/22 08:00 BP 188/89 07/27/22 08:00 Pulse Ox 95 07/27/22 08:00 FiO2 Intake & Output 07/26/22 07/27/22 07/27/22 18:59 06:59 18:59 Intake Total 428 Balance 428 Intake: Oral 118 Blood Product 310 Rc As-1 Unit 310 [id number] Other: Voiding Method Toilet Toilet Toilet # Voids 4 2 # Bowel Movements 3 - Labs CBC & Chem 7: 07/27/22 06:00 07/27/22 06:00 Labs: Abnormal Lab Results - Last 24 Hours (Table) 07/25/22 07/26/22 07/26/22 Range/Units 06:30 06:15 20:04 WBC 4.27 L (4.50-10.00) X 10*3/uL RBC 1.86 L (4.10-5.20) X 10*6/uL Hgb 6.9 L* (12.0-15.0) g/dL Hct 21.2 L (37.2-46.3) % MCV 114.0 H (80.0-97.0) fL MCH 37.1 H (27.0-32.0) pg RDW 16.8 H (11.5-14.5) % Lymphocytes # 0.66 L (0.90-5.00) X 10*3/uL Monocytes # 0.11 L (0.20-1.00) X 10*3/uL Eosinophils # 0 L (0.04-0.35) X 10*3/uL Macrocytosis Creatinine (0.52-1.04) mg/dL Iron 48 L (50-170) ug/dL Transferrin 165.0 L (204.0-354.0) mg/dL Ferritin 739.0 H (10.0-291.0) ng/mL Crossmatch See Detail 07/27/22 07/27/22 Range/Units 06:00 06:00 WBC (4.50-10.00) X 10*3/uL RBC 2.35 L (4.10-5.20) X 10*6/uL Hgb 8.3 L D (12.0-15.0) g/dL Hct 25.4 L (37.2-46.3) % MCV 108.0 H D (80.0-97.0) fL MCH 35.3 H (27.0-32.0) pg RDW 18.2 H (11.5-14.5) % Lymphocytes # 0.7 L (0.90-5.00) X 10*3/uL Monocytes # (0.20-1.00) X 10*3/uL Eosinophils # (0.04-0.35) X 10*3/uL Macrocytosis Marked A Creatinine 1.09 H (0.52-1.04) mg/dL Iron (50-170) ug/dL Transferrin (204.0-354.0) mg/dL Ferritin (10.0-291.0) ng/mL Crossmatch Microbiology - Last 24 Hours (Table) 07/22/22 18:49 Blood Culture - Preliminary Blood No Growth after 96 hours 07/25/22 11:00 Gram Stain - Preliminary Catheter Site Wound Culture - Preliminary
--- NOTE | 2022-07-27 14:36 | P.PN ---
Subjective Progress Note Date: 07/27/22 Principal diagnosis: Breast cancer -Received additional unit of packed red blood cells on 07/26/2022 with total of 2 units since admission -No acute events overnight -Ms. Ness is feeling well today with reduced tenderness in the left axilla/breast -She denies any dizziness, lightheadedness, chest pain, palpitations, melena, hematochezia, or bright red blood per rectum Objective - Vital Signs Vital signs: Vital Signs Temp 97.5 F L 07/27/22 08:00 Pulse 61 07/27/22 08:00 Resp 18 07/27/22 08:00 BP 188/89 07/27/22 08:00 Pulse Ox 95 07/27/22 08:00 FiO2 Intake & Output 07/26/22 07/27/22 07/27/22 18:59 06:59 18:59 Intake Total 428 Balance 428 Intake: Oral 118 Blood Product 310 Rc As-1 Unit 310 [id number] Other: Voiding Method Toilet Toilet Toilet # Voids 4 2 # Bowel Movements 3 - Constitutional General appearance: Present: cooperative, no acute distress - EENT Eyes: Present: EOMI - Respiratory Respiratory: bilateral: CTA - Cardiovascular Rhythm: regular - Gastrointestinal General gastrointestinal: Present: soft. Absent: distended - Integumentary Integumentary Comment(s): Maculopapular rash on the upper chest and neck along with redness along the cheeks bilaterally that is unchanged Integumentary: Present: rash - Musculoskeletal Musculoskeletal Comment(s): Left incision site of the axilla is clean/dry/ intact. Tenderness to palpation in the left axilla/upper left breast region - Labs CBC & Chem 7: 07/27/22 06:00 07/27/22 06:00 Labs: Abnormal Lab Results - Last 24 Hours (Table) 07/25/22 07/26/22 07/27/22 Range/Units 06:30 20:04 06:00 RBC (3.80-5.40) m/uL Hgb (11.4-16.0) gm/dL Hct (34.0-46.0) % MCV (80.0-100.0) fL MCH (25.0-35.0) pg RDW (11.5-15.5) % Lymphocytes # (1.0-4.8) k/uL Macrocytosis Creatinine 1.09 H (0.52-1.04) mg/dL Iron 48 L (50-170) ug/dL Transferrin 165.0 L (204.0-354.0) mg/dL Ferritin 739.0 H (10.0-291.0) ng/mL Crossmatch See Detail 07/27/22 Range/Units 06:00 RBC 2.35 L (3.80-5.40) m/uL Hgb 8.3 L D (11.4-16.0) gm/dL Hct 25.4 L (34.0-46.0) % MCV 108.0 H D (80.0-100.0) fL MCH 35.3 H (25.0-35.0) pg RDW 18.2 H (11.5-15.5) % Lymphocytes # 0.7 L (1.0-4.8) k/uL Macrocytosis Marked A Creatinine (0.52-1.04) mg/dL Iron (50-170) ug/dL Transferrin (204.0-354.0) mg/dL Ferritin (10.0-291.0) ng/mL Crossmatch Microbiology - Last 24 Hours (Table) 07/22/22 18:49 Blood Culture - Preliminary Blood No Growth after 96 hours Assessment and Plan (1) Anemia Current Visit: Yes Status: Acute Priority: High Code(s): D64.9 - ANEMIA, UNSPECIFIED SNOMED Code(s): 354347821 (2) Breast cancer, left Current Visit: Yes Status: Chronic Priority: High Code(s): C50.912 - MALIGNANT NEOPLASM OF UNSPECIFIED SITE OF LEFT FEMALE BREAST SNOMED Code(s): 747289450 (3) Cellulitis of left breast Current Visit: Yes Status: Acute Priority: High Code(s): N61.0 - MASTITIS WITHOUT ABSCESS SNOMED Code(s): 64289585 Plan: Cellulitis breast: -Continues on vancomycin and cefepime -Blood cultures negative, culture of SETH drain catheter pending -Infectious disease and surgery following, will defer management Anemia: -Hemoglobin noted to be 6.3 on 07/25/2022 followed by 6.9 on 07/26/2022 -Iron studies with elevated ferritin of 739 and normal iron saturation of 20.61%, which is consistent with anemia of inflammation likely secondary to cellulitis -She received a total of 2 units packed red blood cells this admission with increase in hemoglobin to 8.3 from 6.9 -There is no evidence for anemia secondary to blood loss at this time -We will check vitamin B12, methylmalonic acid, homocystine, and folate to ensure there are no other nutritional etiologies to the anemia -Transfuse for hemoglobin less than 7 Breast cancer: - Hx invasive ductal carcinoma, grade 2. She is s/p 6 cycle of TCH (Kanjinti)-P, finishing tx 06/07/22. She then had lumpectomy and LN dissection with Dr. Byers on 07/12/22 with evidence of persistent disease in the lymph node and microscopic disease in the breast -Plan for adjuvant treatment once recovered from surgery, likely with TDM 1 -Clinic f/u scheduled on 08/14. Meets with rad onc 08/08 for simulation -No additional work-up from an oncology perspective is needed at this time besides additional nutritional anemia work-up noted above -She can be discharged from an oncology perspective once she is clear for discharge from a surgical and infectious disease perspective -In particular, she will need plan for antibiotics prior to discharge
--- NOTE | 2022-07-27 15:09 | P.PN ---
Subjective Progress Note Date: 07/27/22 This is a pleasant 72-year-old female status post left breast lumpectomy and axillary node dissection with SETH drain secondary to left breast cancer on 07/12/2022, presented to the ER with significant increased swelling, pain, warmth of the left breast that started yesterday morning, awakening her from sleep. Denies any chills or fevers. T-max 103, WBC 5.7, neutrophils 79, lactic acid 0.7, minimal tachycardia, blood cultures obtained, infectious disease consulted. SETH drain with serous drainage ,denies any drainage from incisional sites. Denies any trauma to the affected site. Reports pain had been well controlled and not required any pain medication since last Friday. Reports rash on torso and extremities has been present since February after receiving chemo. Followed up with Dr. Byers last friday.Vital signs stable, maintaining O2 sats in the mid 90s to 100% on room air. Received IV fluid hydration with IV antibiotics initiated. Denies chest pain, palpitations or shortness of breath. Hemoglobin 7.5, platelets 161 and INR 1, BUN 26, creatinine 1, now 1.05, potassium 3.9, magnesium 1.2, received magnesium supplementation-repeat level pending. 07/24/2022 T-max 100.1, continues on vancomycin. BUN 21/creatinine 1.04. Preliminary blood cultures reporting no growth after 24 hours. Evaluated by a infectious disease with recommendations noted. Left breast redness persists, so fter but with significant SETH output of serous drainage. Denies chest pain, palpitations or shortness of breath. Maintaining O2 sats in the 90s on room air. 07/25. Patient seen and examined. Patient complaining of rash over her neck and arms, states this been going on for the last couple of months. 07/26. Patient seen and examined. Sitting upright in the chair. Patient has been afebrile. Hemoglobin 6.9, WBC 4.27. Rash is slightly improved compared to yesterday 07/27. Patient seen and examined. Laying comfortably in the bed. Hemoglobin this morning is 8.3 REVIEW OF SYSTEMS: CONSTITUTIONAL: No fever, no malaise,. CARDIOVASCULAR: No chest pain, no palpitations, no syncope. PULMONARY: No shortness of breath, no cough, GASTROINTESTINAL: No diarrhea, no nausea, no vomiting, no abdominal pain. NEUROLOGICAL: No headaches, no weakness, PHYSICAL EXAMINATION: GENERAL: The patient is alert and oriented x3, not in any acute distress. Well developed, well nourished. HEENT: Pupils are round and equally reacting to light. EOMI. No scleral icterus. No conjunctival pallor. Normocephalic, atraumatic. No pharyngeal erythema. No thyromegaly. CARDIOVASCULAR: S1 and S2 present. No murmurs, rubs, or gallops. PULMONARY: Chest is clear to auscultation, no wheezing or crackles. ABDOMEN: Soft, nontender, nondistended, normoactive bowel sounds. No palpable organomegaly. MUSCULOSKELETAL: No joint swelling or deformity. EXTREMITIES: No cyanosis, clubbing, or pedal edema. NEUROLOGICAL: Gross neurological examination did not reveal any focal deficits. SKIN: Rash seen. Left breast bandage seen Assessment and plan -Left Breast cellulitis, -Left breast cancer status post lumpectomy, axillary node dissection on 07/12/2022 -Hypomagnesemia -History of CAD,NSTEMI,stenting of mid and distal LAD,[place]. -Hyperlipidemia -Hypertension -Depression -Hypothyroidism Rash Plan: Monitor vital signs Monitor CBC Monitor CMP Continue Coreg, losartan, Imdur Continue Synthroid for hypothyroidism Continue wound care Continue pain management Continue IV cefepime and vancomycin follow-up in ID recs Follow-up in surgery recommendations Objective - Vital Signs Vital signs: Vital Signs Temp 97.8 F 07/27/22 14:00 Pulse 57 L 07/27/22 14:00 Resp 20 07/27/22 14:00 BP 195/89 07/27/22 14:00 Pulse Ox 98 07/27/22 14:00 FiO2 Intake & Output 07/26/22 07/27/22 07/27/22 18:59 06:59 18:59 Intake Total 428 Balance 428 Intake: Oral 118 Blood Product 310 Rc As-1 Unit 310 [id number] Other: Voiding Method Toilet Toilet Toilet # Voids 4 2 # Bowel Movements 3 - Labs CBC & Chem 7: 07/27/22 06:00 07/27/22 06:00 Labs: Abnormal Lab Results - Last 24 Hours (Table) 07/25/22 07/26/22 07/27/22 Range/Units 06:30 20:04 06:00 RBC (3.80-5.40) m/uL Hgb (11.4-16.0) gm/dL Hct (34.0-46.0) % MCV (80.0-100.0) fL MCH (25.0-35.0) pg RDW (11.5-15.5) % Lymphocytes # (1.0-4.8) k/uL Macrocytosis Creatinine 1.09 H (0.52-1.04) mg/dL Iron 48 L (50-170) ug/dL Transferrin 165.0 L (204.0-354.0) mg/dL Ferritin 739.0 H (10.0-291.0) ng/mL Crossmatch See Detail 07/27/22 Range/Units 06:00 RBC 2.35 L (3.80-5.40) m/uL Hgb 8.3 L D (11.4-16.0) gm/dL Hct 25.4 L (34.0-46.0) % MCV 108.0 H D (80.0-100.0) fL MCH 35.3 H (25.0-35.0) pg RDW 18.2 H (11.5-15.5) % Lymphocytes # 0.7 L (1.0-4.8) k/uL Macrocytosis Marked A Creatinine (0.52-1.04) mg/dL Iron (50-170) ug/dL Transferrin (204.0-354.0) mg/dL Ferritin (10.0-291.0) ng/mL Crossmatch Microbiology - Last 24 Hours (Table) 07/25/22 11:00 Gram Stain - Preliminary Catheter Site Wound Culture - Preliminary Presumptive Staph aureus 07/22/22 18:49 Blood Culture - Preliminary Blood No Growth after 96 hours
[2022-07-27] MEDS: LOSARTAN 25 MG TAB PO PRN (15:11)
[2022-07-27] MEDS: MORPHINE SULFATE 4 MG/ML SYRINGE IV PRN (17:30)
[2022-07-27] MEDS: LOSARTAN 25 MG TAB PO SCH (17:31)
[2022-07-27] MEDS: NIFEdipine XL 30 MG TAB.ER.24 PO SCH (20:35)
[2022-07-27] MEDS: lamoTRIgine 100 MG TAB PO SCH (20:36)
[2022-07-27] MEDS: VANCOMYCIN 1,000 MG in SODIUM CHLORIDE 0.9% 250 ML IVPB SCH (21:40)
[2022-07-28] MEDS: PANTOPRAZOLE 40 MG TABLET PO SCH ×2 (05:03→15:05)
[2022-07-28] MEDS: CEFEPIME 2 GM in SODIUM CHLORIDE 0.9% 100 ML IVPB SCH (05:03)
[2022-07-28] MEDS: LEVOTHYROXINE 112 MCG TAB PO SCH (05:04)
[2022-07-28] MEDS: methylPREDNISolone SOD SUCCI 125 MG/2 ML VIAL IV SCH ×3 (05:04→20:09)
[2022-07-28] MEDS: SERTRALINE 50 MG TAB PO SCH (07:38)
[2022-07-28] MEDS: carvediloL 3.125 MG TAB PO SCH ×2 (07:38→15:05)
[2022-07-28] MEDS: LOSARTAN 25 MG TAB PO SCH ×2 (07:38→20:08)
[2022-07-28] MEDS: NIFEdipine XL 30 MG TAB.ER.24 PO SCH (07:38)
[2022-07-28] MEDS: ISOSORBIDE MONONITRATE ER 30 MG TAB.ER.24H PO SCH (07:38)
[2022-07-28] MEDS: MAGNESIUM OXIDE 400 MG TAB PO SCH ×2 (07:38→20:08)
[2022-07-28] MEDS: TRIAMCINOLONE ACET 0.1% OINTMENT 15 GM TUBE TOPICAL SCH ×2 (07:38→20:09)
[2022-07-28] MEDS: CYANOCOBALAMIN 500 MCG TAB PO SCH (10:08)
[2022-07-28] MEDS: PYRIDOXINE 50 MG TAB PO SCH (10:08)
[2022-07-28] MEDS: FOLIC ACID 1 MG TAB PO SCH (10:54)
--- NOTE | 2022-07-28 10:59 | P.PN ---
Subjective Progress Note Date: 07/26/22 Principal diagnosis: Left breast abscess Patient is a 72 year old female with a past medical history significant for hypertension hyperlipidemia CVA TIA patient did have a left breast cancer diagnosed December 2021 with the last chemo has been on 06/07/2022 patient did have a history of left breast lumpectomy and lymph node dissection with SETH drain to the left breast since 07/12/2022, patient is presenting to the hospital for evaluation of increasing swelling pain and warmth to the left breast area, with concern for cellulitis to the left breast area. on today's evaluation that is 07/26/2022, the patient continues to be afebrile, patient pain to the left breast has slightly decreased in intensity, the patient denies chest pain shortness of cough, no vomiting no diarrhea continued to have significant rash to the upper torso Objective - Vital Signs Vital signs: Vital Signs Temp 97.9 F 07/26/22 06:34 Pulse 66 07/26/22 06:34 Resp 18 07/26/22 09:44 BP 166/83 07/26/22 06:34 Pulse Ox 94 L 07/26/22 06:34 FiO2 Intake & Output 07/25/22 07/26/22 07/26/22 18:59 06:59 18:59 Intake Total 580 118 Output Total 20 Balance 560 118 Intake: Oral 480 118 Blood Product 100 Rc As-1 Unit 100 [id number] Output: Drainage 20 Left Lateral Breast 20 Other: Voiding Method Toilet Toilet Toilet # Voids 2 - Exam GENERAL DESCRIPTION: An elderly female lying in bed in no distress RESPIRATORY SYSTEM: Unlabored breathing , decreased breath sounds at bases HEART: S1 S2 regular rate and rhythm , ABDOMEN: Soft , no tenderness Left breast exam in the presence of the daughter did shows slight more erythema induration and tenderness - Labs CBC & Chem 7: 07/27/22 06:00 07/27/22 06:00 Labs: Abnormal Lab Results - Last 24 Hours (Table) 07/25/22 07/26/22 07/26/22 Range/Units 06:30 06:15 06:15 WBC 4.27 L (4.50-10.00) X 10*3/uL RBC 1.86 L (4.10-5.20) X 10*6/uL Hgb 6.9 L* (12.0-15.0) g/dL Hct 21.2 L (37.2-46.3) % MCV 114.0 H (80.0-97.0) fL MCH 37.1 H (27.0-32.0) pg RDW 16.8 H (11.5-14.5) % Lymphocytes # 0.66 L (0.90-5.00) X 10*3/uL Monocytes # 0.11 L (0.20-1.00) X 10*3/uL Eosinophils # 0 L (0.04-0.35) X 10*3/uL Carbon Dioxide 18.3 L (20.0-27.5) mmol/L Est GFR (CKD-EPI)AfAm 58.1 L (60.0-200.0) Est GFR (CKD-EPI)NonAf 50.1 L (60.0-200.0) Glucose 151 H (70-110) mg/dL Calcium 8.2 L (8.7-10.3) mg/dL Crossmatch See Detail Microbiology - Last 24 Hours (Table) 07/25/22 11:00 Gram Stain - Preliminary Catheter Site Wound Culture - Preliminary 07/22/22 18:49 Blood Culture - Preliminary Blood No Growth after 72 hours Assessment and Plan (1) Cellulitis of left breast Current Visit: Yes Status: Acute Priority: High Code(s): N61.0 - MASTITIS WITHOUT ABSCESS SNOMED Code(s): 20145201 Plan: 1patient is in the hospital with sepsis in this patient who did have a left breast cancer status post lumpectomy and did have a SETH drain which did have whitish drainage and associated cellulitis involving the lateral aspect of the breast and concern for possible abscess 2-patient blood culture has been negative local cultures are currently pending, patient to continue with vancomycin and cefepime while waiting for the culture finalized
--- NOTE | 2022-07-28 11:01 | P.PN ---
Subjective Progress Note Date: 07/27/22 Principal diagnosis: Left breast abscess Patient is a 72 year old female with a past medical history significant for hypertension hyperlipidemia CVA TIA patient did have a left breast cancer diagnosed December 2021 with the last chemo has been on 06/07/2022 patient did have a history of left breast lumpectomy and lymph node dissection with SETH drain to the left breast since 07/12/2022, patient is presenting to the hospital for evaluation of increasing swelling pain and warmth to the left breast area, with concern for cellulitis to the left breast area. on today's evaluation that is 07/27/2022, the patient remains to be afebrile, patient pain to the left breast has slightly decreased in intensity, the patient denies chest pain shortness of cough, the patient denies vomiting no diarrhea continued to have significant rash to the upper torso, however slightly decreased in intensity and denies any worsening itching Objective - Vital Signs Vital signs: Vital Signs Temp 97.5 F L 07/27/22 08:00 Pulse 61 07/27/22 08:00 Resp 18 07/27/22 08:00 BP 188/89 07/27/22 08:00 Pulse Ox 95 07/27/22 08:00 FiO2 Intake & Output 07/26/22 07/27/22 07/27/22 18:59 06:59 18:59 Intake Total 428 Balance 428 Intake: Oral 118 Blood Product 310 Rc As-1 Unit 310 [id number] Other: Voiding Method Toilet Toilet Toilet # Voids 4 2 # Bowel Movements 3 - Exam GENERAL DESCRIPTION: An elderly female lying in bed in no distress RESPIRATORY SYSTEM: Unlabored breathing , decreased breath sounds at bases HEART: S1 S2 regular rate and rhythm , ABDOMEN: Soft , no tenderness Left breast exam in the presence of the daughter did shows slight more erythema induration and tenderness - Labs CBC & Chem 7: 07/27/22 06:00 07/27/22 06:00 Labs: Abnormal Lab Results - Last 24 Hours (Table) 07/25/22 07/26/22 07/27/22 Range/Units 06:30 20:04 06:00 RBC (3.80-5.40) m/uL Hgb (11.4-16.0) gm/dL Hct (34.0-46.0) % MCV (80.0-100.0) fL MCH (25.0-35.0) pg RDW (11.5-15.5) % Lymphocytes # (1.0-4.8) k/uL Macrocytosis Creatinine 1.09 H (0.52-1.04) mg/dL Iron 48 L (50-170) ug/dL Transferrin 165.0 L (204.0-354.0) mg/dL Ferritin 739.0 H (10.0-291.0) ng/mL Crossmatch See Detail 07/27/22 Range/Units 06:00 RBC 2.35 L (3.80-5.40) m/uL Hgb 8.3 L D (11.4-16.0) gm/dL Hct 25.4 L (34.0-46.0) % MCV 108.0 H D (80.0-100.0) fL MCH 35.3 H (25.0-35.0) pg RDW 18.2 H (11.5-15.5) % Lymphocytes # 0.7 L (1.0-4.8) k/uL Macrocytosis Marked A Creatinine (0.52-1.04) mg/dL Iron (50-170) ug/dL Transferrin (204.0-354.0) mg/dL Ferritin (10.0-291.0) ng/mL Crossmatch Microbiology - Last 24 Hours (Table) 07/22/22 18:49 Blood Culture - Preliminary Blood No Growth after 96 hours 07/25/22 11:00 Gram Stain - Preliminary Catheter Site Wound Culture - Preliminary Assessment and Plan (1) Cellulitis of left breast Current Visit: Yes Status: Acute Priority: High Code(s): N61.0 - MASTITIS WITHOUT ABSCESS SNOMED Code(s): 73256744 Plan: 1patient is in the hospital with sepsis in this patient who did have a left breast cancer status post lumpectomy and did have a SETH drain which did have whitish drainage and associated cellulitis involving the lateral aspect of the breast and concern for possible abscess 2-patient blood culture has been negative local cultures has not been finalized yet, patient to continue with vancomycin and cefepime while waiting for the culture finalized and monitor clinical course closely Time with Patient: Less than 30
[2022-07-28] MEDS: HYDROcodone/APAP 5-325MG 1 EACH TAB PO PRN (12:58)
--- NOTE | 2022-07-28 14:00 | P.PN ---
Subjective Progress Note Date: 07/28/22 Principal diagnosis: Breast cancer -No acute events overnight, afebrile -Notes improved tenderness in the upper aspect of the left breast/axilla Objective - Vital Signs Vital signs: Vital Signs Temp 97.8 F 07/28/22 08:00 Pulse 59 L 07/28/22 08:00 Resp 18 07/28/22 08:00 BP 169/85 07/28/22 08:00 Pulse Ox 93 L 07/28/22 08:00 FiO2 Intake & Output 07/27/22 07/28/22 07/28/22 18:59 06:59 18:59 Other: Voiding Method Toilet Toilet Toilet # Voids 3 3 - Constitutional General appearance: Present: cooperative, no acute distress - EENT Eyes: Present: EOMI - Respiratory Respiratory: bilateral: CTA - Cardiovascular Rhythm: regular - Gastrointestinal General gastrointestinal: Present: soft. Absent: distended - Integumentary Integumentary Comment(s): Decreased erythema of rash on the face, unchanged maculopapular rash on the neck and upper chest - Neurologic Neurologic: Present: CNII-XII intact. Absent: focal deficits - Musculoskeletal Musculoskeletal Comment(s): Decreased tenderness to palpation in the upper left breast/axilla region with mild induration noted - Labs CBC & Chem 7: 07/27/22 06:00 07/27/22 06:00 Labs: Abnormal Lab Results - Last 24 Hours (Table) 07/27/22 07/27/22 Range/Units 06:00 06:00 Vitamin B12 2643.0 H (200.0-944.0) pg/mL Folate 3.40 L (4.40-31.00) ng/mL Microbiology - Last 24 Hours (Table) 07/25/22 11:00 Gram Stain - Final Catheter Site Wound Culture - Final Staphylococcus aureus 07/22/22 18:49 Blood Culture - Preliminary Blood No Growth after 120 hours Assessment and Plan (1) Anemia Current Visit: Yes Status: Acute Priority: High Code(s): D64.9 - ANEMIA, UNSPECIFIED SNOMED Code(s): 585412449 (2) Breast cancer, left Current Visit: Yes Status: Chronic Priority: High Code(s): C50.912 - MALIGNANT NEOPLASM OF UNSPECIFIED SITE OF LEFT FEMALE BREAST SNOMED Code(s): 356371273 (3) Cellulitis of left breast Current Visit: Yes Status: Acute Priority: High Code(s): N61.0 - MASTITIS WITHOUT ABSCESS SNOMED Code(s): 82541424 Plan: Cellulitis breast: -Continues on vancomycin and cefepime -Blood cultures negative, culture of SETH drain catheter revealing MSSA -Infectious disease and surgery following, will defer management Anemia: -Hemoglobin noted to be 6.3 on 07/25/2022 followed by 6.9 on 07/26/2022 -Iron studies with elevated ferritin of 739 and normal iron saturation of 20.61%, which is consistent with anemia of inflammation likely secondary to cellulitis -She received a total of 2 units packed red blood cells this admission with increase in hemoglobin to 8.3 from 6.9 -There is no evidence for anemia secondary to blood loss at this time -Vitamin B12 and homocystine were noted to be normal with low folate 3.4 -Initiated folic acid 1 mg daily -Transfuse for hemoglobin less than 7 Breast cancer: - Hx invasive ductal carcinoma, grade 2. She is s/p 6 cycle of TCH (Kanjinti)-P, finishing tx 06/07/22. She then had lumpectomy and LN dissection with Dr. Byers on 07/12/22 with evidence of persistent disease in the lymph node and microscopic disease in the breast -Plan for adjuvant treatment once recovered from surgery, likely with TDM 1 -Clinic f/u scheduled on 08/14. Meets with rad onc 08/08 for simulation -No additional work-up from an oncology perspective is needed at this time besides additional nutritional anemia work-up noted above -She can be discharged from an oncology perspective once she is clear for discharge from a surgical and infectious disease perspective -In particular, she will need plan for antibiotics prior to discharge
[2022-07-28] MEDS ORDERED: ONDANSETRON 4 MG/2 ML VIAL IVP PRN (14:05)
--- NOTE | 2022-07-28 14:40 | P.PN ---
Subjective Progress Note Date: 07/28/22 This is a pleasant 72-year-old female status post left breast lumpectomy and axillary node dissection with SETH drain secondary to left breast cancer on 07/12/2022, presented to the ER with significant increased swelling, pain, warmth of the left breast that started yesterday morning, awakening her from sleep. Denies any chills or fevers. T-max 103, WBC 5.7, neutrophils 79, lactic acid 0.7, minimal tachycardia, blood cultures obtained, infectious disease consulted. SETH drain with serous drainage ,denies any drainage from incisional sites. Denies any trauma to the affected site. Reports pain had been well controlled and not required any pain medication since last Friday. Reports rash on torso and extremities has been present since February after receiving chemo. Followed up with Dr. Byers last friday.Vital signs stable, maintaining O2 sats in the mid 90s to 100% on room air. Received IV fluid hydration with IV antibiotics initiated. Denies chest pain, palpitations or shortness of breath. Hemoglobin 7.5, platelets 161 and INR 1, BUN 26, creatinine 1, now 1.05, potassium 3.9, magnesium 1.2, received magnesium supplementation-repeat level pending. 07/24/2022 T-max 100.1, continues on vancomycin. BUN 21/creatinine 1.04. Preliminary blood cultures reporting no growth after 24 hours. Evaluated by a infectious disease with recommendations noted. Left breast redness persists, so fter but with significant SETH output of serous drainage. Denies chest pain, palpitations or shortness of breath. Maintaining O2 sats in the 90s on room air. 07/25. Patient seen and examined. Patient complaining of rash over her neck and arms, states this been going on for the last couple of months. 07/26. Patient seen and examined. Sitting upright in the chair. Patient has been afebrile. Hemoglobin 6.9, WBC 4.27. Rash is slightly improved compared to yesterday 07/27. Patient seen and examined. Laying comfortably in the bed. Hemoglobin this morning is 8.3 07/28. Patient seen and examined. No acute issues overnight. Vital signs stable, temperature 97.8, heart rate 59, respirations 18, blood pressure 169/85. Blood pressure has been elevated, losartan dose increased to 25 mg twice a day REVIEW OF SYSTEMS: CONSTITUTIONAL: No fever, no malaise,. CARDIOVASCULAR: No chest pain, no palpitations, no syncope. PULMONARY: No shortness of breath, no cough, GASTROINTESTINAL: No diarrhea, no nausea, no vomiting, no abdominal pain. NEUROLOGICAL: No headaches, no weakness, PHYSICAL EXAMINATION: GENERAL: The patient is alert and oriented x3, not in any acute distress. Well developed, well nourished. HEENT: Pupils are round and equally reacting to light. EOMI. No scleral icterus. No conjunctival pallor. Normocephalic, atraumatic. No pharyngeal erythema. No thyromegaly. CARDIOVASCULAR: S1 and S2 present. No murmurs, rubs, or gallops. PULMONARY: Chest is clear to auscultation, no wheezing or crackles. ABDOMEN: Soft, nontender, nondistended, normoactive bowel sounds. No palpable organomegaly. MUSCULOSKELETAL: No joint swelling or deformity. EXTREMITIES: No cyanosis, clubbing, or pedal edema. NEUROLOGICAL: Gross neurological examination did not reveal any focal deficits. SKIN: Rash seen. Left breast bandage seen Assessment and plan -Left Breast cellulitis, -Left breast cancer status post lumpectomy, axillary node dissection on 07/12/2022 -Hypomagnesemia -History of CAD,NSTEMI,stenting of mid and distal LAD,[place]. -Hyperlipidemia -Hypertension -Depression -Hypothyroidism Rash Plan: Monitor vital signs Monitor CBC Monitor CMP Continue Coreg, losartan, Imdur. Losartan dose increased to 25 mg twice a day Continue Synthroid for hypothyroidism Continue wound care Continue pain management Antibiotic switched to IV cefazolin per ID recs Follow-up in surgery recommendations Objective - Vital Signs Vital signs: Vital Signs Temp 97.8 F 07/28/22 08:00 Pulse 59 L 07/28/22 08:00 Resp 18 07/28/22 08:00 BP 169/85 07/28/22 08:00 Pulse Ox 93 L 07/28/22 08:00 FiO2 Intake & Output 07/27/22 07/28/22 07/28/22 18:59 06:59 18:59 Other: Voiding Method Toilet Toilet Toilet # Voids 3 3 - Labs CBC & Chem 7: 07/27/22 06:00 07/27/22 06:00 Labs: Abnormal Lab Results - Last 24 Hours (Table) 07/27/22 Range/Units 06:00 Folate 3.40 L (4.40-31.00) ng/mL Microbiology - Last 24 Hours (Table) 07/22/22 18:49 Blood Culture - Preliminary Blood No Growth after 120 hours 07/25/22 11:00 Gram Stain - Preliminary Catheter Site Wound Culture - Preliminary Presumptive Staph aureus
[2022-07-28] MEDS: MORPHINE SULFATE 4 MG/ML SYRINGE IV PRN ×2 (15:33→20:19)
--- NOTE | 2022-07-28 17:12 | P.PN ---
Subjective Progress Note Date: 07/28/22 Principal diagnosis: Left breast abscess Patient is a 72 year old female with a past medical history significant for hypertension hyperlipidemia CVA TIA patient did have a left breast cancer diagnosed December 2021 with the last chemo has been on 06/07/2022 patient did have a history of left breast lumpectomy and lymph node dissection with SETH drain to the left breast since 07/12/2022, patient is presenting to the hospital for evaluation of increasing swelling pain and warmth to the left breast area, with concern for cellulitis to the left breast area. on today's evaluation that is 07/28/2022, the patient continues to be afebrile, patient pain to the left breast has decreased in intensity and did have minimal drainage on the dressing, the patient denies chest pain shortness of cough, the patient denies vomiting no diarrhea Objective - Vital Signs Vital signs: Vital Signs Temp 98.0 F 07/28/22 14:00 Pulse 58 L 07/28/22 14:00 Resp 16 07/28/22 14:00 BP 161/83 07/28/22 14:00 Pulse Ox 98 07/28/22 14:00 FiO2 Intake & Output 07/27/22 07/28/22 07/28/22 18:59 06:59 18:59 Other: Voiding Method Toilet Toilet Toilet # Voids 3 3 - Exam GENERAL DESCRIPTION: An elderly female lying in bed in no distress RESPIRATORY SYSTEM: Unlabored breathing , decreased breath sounds at bases HEART: S1 S2 regular rate and rhythm , ABDOMEN: Soft , no tenderness Left breast swelling and redness almost resolved no induration or drainage - Labs CBC & Chem 7: 07/27/22 06:00 07/27/22 06:00 Labs: Abnormal Lab Results - Last 24 Hours (Table) 07/27/22 07/27/22 Range/Units 06:00 06:00 Vitamin B12 2643.0 H (200.0-944.0) pg/mL Folate 3.40 L (4.40-31.00) ng/mL Microbiology - Last 24 Hours (Table) 07/25/22 11:00 Gram Stain - Final Catheter Site Wound Culture - Final Staphylococcus aureus 07/22/22 18:49 Blood Culture - Preliminary Blood No Growth after 120 hours Assessment and Plan (1) Cellulitis of left breast Current Visit: Yes Status: Acute Priority: High Code(s): N61.0 - MASTITIS WITHOUT ABSCESS SNOMED Code(s): 93383850 Plan: 1patient is in the hospital with sepsis in this patient who did have a left breast cancer status post lumpectomy and did have a SETH drain which did have whitish drainage and associated cellulitis involving the lateral aspect of the breast and concern for possible abscess 2-patient blood culture has been negative local cultures finalized as MSSA discontinue vancomycin and cefepime patient started on cefazolin will be able to finish therapy with a short course of oral Keflex on discharge the patient has multiple questions concerns those were answered in Layman terms Time with Patient: Less than 30
[2022-07-28] MEDS: lamoTRIgine 100 MG TAB PO SCH (20:08)
--- NOTE | 2022-07-28 21:50 | P.PN ---
Subjective Progress Note Date: 07/28/22 CHIEF COMPLAINT: Left breast cellulitis HISTORY OF PRESENT ILLNESS: The patient is a 72-year-old female status post lumpectomy with subsequent left breast cellulitis. She has diffuse maculopapular rash involving the torso, extremities and face. Her rash and redness is improving. She reports feeling better. ROS: No reports of nausea and vomiting. No bowel movements. No fevers or chills. No new chest pain. No productive sputum PHYSICAL EXAM: VITAL SIGNS: Reviewed CONSTITUTIONAL: Well developed and in no acute distress. EYES: Conjuctivae without sclera icterus. Extraocular movements grossly intact. HEAD, EARS, NOSE, THROAT: Moist buccal mucosa. Head is atraumatic, normocephalic. Hears conversational speech. No nasal drainage. RESPIRATORY: Non-labored respirations and equal bilateral excursions. CARDIOVASCULAR: Palpable 2+ radial pulses. ABDOMEN: No peritonitis. MUSCULOSKELETAL: No gross deformity of the lower extremities noted. No clubbing. No cyanosis. SKIN: Good skin turgor. Well perfused. Diffuse rash maculopapular type along the body NEUROLOGIC: Cranial nerves II through XII grossly intact. No focal or lateralizing signs. PSYCH: Appropriate affect. Alert and oriented to person, place and time. BREAST: No cellulitis of the left breast. 4 x 3 cm swelling at the left upper outer quadrant of the breast, stable CLINICAL LABS: Reviewed. MICRO: Methicillin sensitive staph aureus with multiple sensitivities ASSESSMENT: 1. Left breast cancer 2. Left breast cellulitis 3. Maculopapular rash 4. Anemia PLAN: 1. Her antibiotics has been adjusted by infectious disease for possible discharge on oral antibiotics 2. Overall clinically improving 3. Anticipated disposition 24 hrs. Objective - Vital Signs Vital signs: Vital Signs Temp 97.9 F 07/28/22 19:19 Pulse 63 07/28/22 20:09 Resp 18 07/28/22 20:09 BP 154/75 07/28/22 19:19 Pulse Ox 96 07/28/22 19:19 FiO2 Intake & Output 07/28/22 07/28/22 07/29/22 06:59 18:59 06:59 Other: Voiding Method Toilet Toilet Toilet # Voids 3 2 # Bowel Movements 1 - Labs CBC & Chem 7: 07/27/22 06:00 07/27/22 06:00 Labs: Abnormal Lab Results - Last 24 Hours (Table) 07/27/22 07/27/22 Range/Units 06:00 06:00 Vitamin B12 2643.0 H (200.0-944.0) pg/mL Folate 3.40 L (4.40-31.00) ng/mL Microbiology - Last 24 Hours (Table) 07/25/22 11:00 Gram Stain - Final Catheter Site Wound Culture - Final Staphylococcus aureus 07/22/22 18:49 Blood Culture - Preliminary Blood No Growth after 120 hours
[2022-07-29] MEDS: methylPREDNISolone SOD SUCCI 125 MG/2 ML VIAL IV SCH ×3 (05:54→20:31)
[2022-07-29] MEDS: PANTOPRAZOLE 40 MG TABLET PO SCH ×2 (05:54→18:07)
[2022-07-29] MEDS: LEVOTHYROXINE 112 MCG TAB PO SCH (05:54)
[2022-07-29] MEDS: NIFEdipine XL 30 MG TAB.ER.24 PO SCH (08:34)
[2022-07-29] MEDS: PYRIDOXINE 50 MG TAB PO SCH (08:34)
[2022-07-29] MEDS: SERTRALINE 50 MG TAB PO SCH (08:34)
[2022-07-29] MEDS: ISOSORBIDE MONONITRATE ER 30 MG TAB.ER.24H PO SCH (08:34)
[2022-07-29] MEDS: MAGNESIUM OXIDE 400 MG TAB PO SCH ×2 (08:34→20:30)
[2022-07-29] MEDS: LOSARTAN 25 MG TAB PO SCH ×2 (08:34→20:30)
[2022-07-29] MEDS: CYANOCOBALAMIN 500 MCG TAB PO SCH (08:34)
[2022-07-29] MEDS: carvediloL 3.125 MG TAB PO SCH ×2 (08:34→18:07)
[2022-07-29] MEDS: FOLIC ACID 1 MG TAB PO SCH (08:35)
[2022-07-29] MEDS: TRIAMCINOLONE ACET 0.1% OINTMENT 15 GM TUBE TOPICAL SCH ×2 (10:19→20:29)
--- NOTE | 2022-07-29 11:52 | P.PN ---
Subjective Progress Note Date: 07/29/22 CHIEF COMPLAINT: Left breast cellulitis HISTORY OF PRESENT ILLNESS: Patient still has erythema noted on the lateral aspect of the left breast. The redness has decreased in intensity. The patient also has increased firmness in the lateral aspect of the upper left breast which is new since last week. Patient having mild drainage. The culture did grow MSSA. Antibiotics just over the week and per infectious disease. Infectious diseases recommending oral antibiotics at discharge. She's afebrile. WBC 6.8 Hgb 6.9 up to 8.3 platelets 170 creatinine 1.09 PHYSICAL EXAM: VITAL SIGNS: Reviewed GENERAL: Well-developed in no acute distress. HEENT: No sclera icterus. Extraocular movements grossly intact. Moist buccal mucosa. Head is atraumatic, normocephalic. Hears conversational speech. No nasal drainage. NECK: Supple without lymphadenopathy. CHEST: Non-labored respirations and equal bilateral excursions. CARDIOVASCULAR: Palpable 2+ radial pulses. ABDOMEN: Soft. Nondistended. Nontender. MUSCULOSKELETAL: No clubbing or cyanosis. NEUROLOGIC: No focal or lateralizing signs. Cranial nerves II through XII grossly intact. PSYCH: Appropriate affect. Alert and oriented to person, place and time. SKIN: Patient continues to have rash on chest neck and arms. Slightly less red and at this time Breast: Left breast upper lateral aspect increase in area of firmness and induration. Erythema still noted on the lateral side. Decrease in tenderness and decrease in swelling. ASSESSMENT: 1. Left breast cellulitis 2. Left breast cancer status post lumpectomy and axillary node dissection on 07/12/2022. Status post radiation treatment 3. Anemia with reaction to blood transfusion 4. Significant skin rash involving the torso, neck and bilateral extremities PLAN: -Continue antibiotics per ID services -Continue supportive care -Further recommendations forthcoming per surgeon Physician Intermediate Card Tender note has been reviewed by physician. Signing provider agrees with the documented findings, assessment, and plan of care. I have personally seen and examined the patient, reviewed the [employer] /PAs history, exam and MDM and agree with the assessment and plan as written. Based on total visit time, I have performed more than 50% of the visit. As above: Patient doing well as far as the infection at the previous drain site. Unfortunately she has now developed a seroma left breast. We'll consult radiology for percutaneous drainage. Also oncology is requesting a skin biopsy. We'll proceed with skin biopsy tomorrow. Apparently her blood pressure is been somewhat elevated and cardiology has been asked to see her. If doing better tomorrow would consider discharge at that time. Objective - Vital Signs Vital signs: Vital Signs Temp 98.1 F 07/29/22 08:00 Pulse 57 L 07/29/22 08:00 Resp 17 07/29/22 08:00 BP 180/92 07/29/22 08:00 Pulse Ox 95 07/29/22 08:00 FiO2 Intake & Output 07/28/22 07/29/22 07/29/22 18:59 06:59 18:59 Intake Total 236 Balance 236 Intake: Oral 236 Other: Voiding Method Toilet Toilet Toilet # Voids 2 # Bowel Movements 1 - Labs CBC & Chem 7: 07/27/22 06:00 07/27/22 06:00 Labs: Microbiology - Last 24 Hours (Table) 07/22/22 18:49 Blood Culture - Final Blood No Growth after 144 hours 07/25/22 11:00 Gram Stain - Final Catheter Site Wound Culture - Final Staphylococcus aureus
--- NOTE | 2022-07-29 13:00 | P.PN ---
Subjective Progress Note Date: 07/29/22 Principal diagnosis: cellulitis At today's visit patient is resting comfortably in bed. She reports feeling well. She states that left breast abscess has improved but feels like the swelling has moved for medially. She denies fever and chills. Objective - Vital Signs Vital signs: Vital Signs Temp 98.1 F 07/29/22 08:00 Pulse 57 L 07/29/22 08:00 Resp 17 07/29/22 08:00 BP 184/93 07/29/22 12:20 Pulse Ox 95 07/29/22 08:00 FiO2 Intake & Output 07/28/22 07/29/22 07/29/22 18:59 06:59 18:59 Intake Total 236 Balance 236 Intake: Oral 236 Other: Voiding Method Toilet Toilet Toilet # Voids 2 # Bowel Movements 1 - Constitutional General appearance: Present: average body habitus, no acute distress - EENT Eyes: Present: anicteric sclerae, EOMI ENT: Present: hearing grossly normal - Respiratory Details: Breathing is even and unlabored - Cardiovascular Details: Skin is warm and dry - Integumentary Integumentary Comment(s): Left lateral breast abscess has improved, fullness and induration now noted me dial to abscess. Diffuse macular papular rash - Neurologic Neurologic: Present: CNII-XII intact - Musculoskeletal Musculoskeletal: Present: strength equal bilaterally - Psychiatric Psychiatric: Present: A&O x's 3, appropriate affect, intact judgment & insight - Labs CBC & Chem 7: 07/27/22 06:00 07/27/22 06:00 Labs: Microbiology - Last 24 Hours (Table) 07/22/22 18:49 Blood Culture - Final Blood No Growth after 144 hours 07/25/22 11:00 Gram Stain - Final Catheter Site Wound Culture - Final Staphylococcus aureus Assessment and Plan (1) Cellulitis of left breast Current Visit: Yes Status: Acute Priority: High Code(s): N61.0 - MASTITIS WITHOUT ABSCESS SNOMED Code(s): 11122508 (2) Breast cancer, left Current Visit: Yes Status: Chronic Priority: High Code(s): C50.912 - MALIGNANT NEOPLASM OF UNSPECIFIED SITE OF LEFT FEMALE BREAST SNOMED Code(s): 148993992 (3) Anemia Current Visit: Yes Status: Acute Priority: High Code(s): D64.9 - ANEMIA, UNSPECIFIED SNOMED Code(s): 093100113 (4) Rash and nonspecific skin eruption Current Visit: Yes Status: Acute Priority: Medium Code(s): R21 - RASH AND OTHER NONSPECIFIC SKIN ERUPTION SNOMED Code(s): 319345085 Plan: Cellulitis breast: -Blood cultures negative. Culture of SETH drain catheter Positive for staph aureus. Patient switched to cefazolin, with plan to discharge on Keflex per ID -Infectious disease and surgery following, will defer management Anemia: -Hemoglobin 8.3 on 07/27, CBC today pending. 2 units PRBCs given this admission, however, first unit was stopped due to reaction. -Iron studies not consistent with ESTEFANY. Vitamin B12 normal, folate 3.4, MMA pending -Anemia may be superimposed by infection, chemotherapy/bone marrow suppression. If hemoglobin continues to drop after blood transfusion will pursue GI workup. Patient denies any bleeding episodes, blood in stool, melena -Will continue to monitor counts. Please transfuse for hemoglobin less than 7 or if symptomatic Breast cancer: - Hx invasive ductal carcinoma, grade 2. She is s/p 6 cycle of TCH (Kanjinti)-P, finishing tx 06/07/22. She then had lumpectomy and LN dissection with Dr. Byers on 07/12/22, with plan for adjuvant treatment once recovered from surgery. - Clinic f/u scheduled on 08/14. Meets with rad onc 08/08 for simulation Rash: Macular papular rash, ongoing x 4-5 months. Initially thought to be chemo induce d, however, she has not had chemo for 2 months and rash is persisting. Derm has been consulted, but state they will f/u with patient in the outpatient setting. Spoke with surgery team and asked if they would consider skin biopsy. Awaiting recommendations
[2022-07-29] MEDS: MORPHINE SULFATE 4 MG/ML SYRINGE IV PRN (13:39)
--- NOTE | 2022-07-29 14:47 | P.PN ---
Subjective Progress Note Date: 07/29/22 This is a pleasant 72-year-old female status post left breast lumpectomy and axillary node dissection with SETH drain secondary to left breast cancer on 07/12/2022, presented to the ER with significant increased swelling, pain, warmth of the left breast that started yesterday morning, awakening her from sleep. Denies any chills or fevers. T-max 103, WBC 5.7, neutrophils 79, lactic acid 0.7, minimal tachycardia, blood cultures obtained, infectious disease consulted. SETH drain with serous drainage ,denies any drainage from incisional sites. Denies any trauma to the affected site. Reports pain had been well controlled and not required any pain medication since last Friday. Reports rash on torso and extremities has been present since February after receiving chemo. Followed up with Dr. Byers last friday.Vital signs stable, maintaining O2 sats in the mid 90s to 100% on room air. Received IV fluid hydration with IV antibiotics initiated. Denies chest pain, palpitations or shortness of breath. Hemoglobin 7.5, platelets 161 and INR 1, BUN 26, creatinine 1, now 1.05, potassium 3.9, magnesium 1.2, received magnesium supplementation-repeat level pending. 07/24/2022 T-max 100.1, continues on vancomycin. BUN 21/creatinine 1.04. Preliminary blood cultures reporting no growth after 24 hours. Evaluated by a infectious disease with recommendations noted. Left breast redness persists, so fter but with significant SETH output of serous drainage. Denies chest pain, palpitations or shortness of breath. Maintaining O2 sats in the 90s on room air. 07/25. Patient seen and examined. Patient complaining of rash over her neck and arms, states this been going on for the last couple of months. 07/26. Patient seen and examined. Sitting upright in the chair. Patient has been afebrile. Hemoglobin 6.9, WBC 4.27. Rash is slightly improved compared to yesterday 07/27. Patient seen and examined. Laying comfortably in the bed. Hemoglobin this morning is 8.3 07/28. Patient seen and examined. No acute issues overnight. Vital signs stable, temperature 97.8, heart rate 59, respirations 18, blood pressure 169/85. Blood pressure has been elevated, losartan dose increased to 25 mg twice a day 07/29. Patient seen and examined. Patient blood pressure continues to run high, denies any lightheadedness or dizziness. Denies any chest pain or shortness of breath REVIEW OF SYSTEMS: CONSTITUTIONAL: No fever, no malaise,. CARDIOVASCULAR: No chest pain, no palpitations, no syncope. PULMONARY: No shortness of breath, no cough, GASTROINTESTINAL: No diarrhea, no nausea, no vomiting, no abdominal pain. NEUROLOGICAL: No headaches, no weakness, PHYSICAL EXAMINATION: GENERAL: The patient is alert and oriented x3, not in any acute distress. Well developed, well nourished. HEENT: Pupils are round and equally reacting to light. EOMI. No scleral icterus. No conjunctival pallor. Normocephalic, atraumatic. No pharyngeal erythema. No thyromegaly. CARDIOVASCULAR: S1 and S2 present. No murmurs, rubs, or gallops. PULMONARY: Chest is clear to auscultation, no wheezing or crackles. ABDOMEN: Soft, nontender, nondistended, normoactive bowel sounds. No palpable organomegaly. MUSCULOSKELETAL: No joint swelling or deformity. EXTREMITIES: No cyanosis, clubbing, or pedal edema. NEUROLOGICAL: Gross neurological examination did not reveal any focal deficits. SKIN: Rash seen. Left breast bandage seen Assessment and plan -Left Breast cellulitis, -Left breast cancer status post lumpectomy, axillary node dissection on 07/12/2022 -Hypomagnesemia -History of CAD,NSTEMI,stenting of mid and distal LAD,[place]. -Hyperlipidemia -Hypertension -Depression -Hypothyroidism Rash Plan: Monitor vital signs Monitor CBC Monitor CMP Continue Coreg, losartan, Imdur. Continue Synthroid for hypothyroidism Continue wound care Continue pain management Continue IV cefazolin per ID recs, can be switched to oral Keflex at discharge per infectious disease Cardiology consulted for elevated blood pressure Follow-up in surgery recommendations Objective - Vital Signs Vital signs: Vital Signs Temp 98.1 F 07/29/22 08:00 Pulse 57 L 07/29/22 08:00 Resp 07/29/22 08:00 BP 180/92 07/29/22 08:00 Pulse Ox 95 07/29/22 08:00 FiO2 Intake & Output 07/28/22 07/29/22 07/29/22 18:59 06:59 18:59 Intake Total 236 Balance 236 Intake: Oral 236 Other: Voiding Method Toilet Toilet Toilet # Voids 2 # Bowel Movements 1 - Labs CBC & Chem 7: 07/27/22 06:00 07/27/22 06:00 Labs: Microbiology - Last 24 Hours (Table) 07/22/22 18:49 Blood Culture - Final Blood No Growth after 144 hours 07/25/22 11:00 Gram Stain - Final Catheter Site Wound Culture - Final Staphylococcus aureus
[2022-07-29] MEDS: lamoTRIgine 100 MG TAB PO SCH (20:30)
[2022-07-30] MEDS: methylPREDNISolone SOD SUCCI 125 MG/2 ML VIAL IV SCH ×3 (06:29→20:58)
[2022-07-30] MEDS: LEVOTHYROXINE 112 MCG TAB PO SCH (06:29)
[2022-07-30] MEDS: carvediloL 3.125 MG TAB PO SCH ×2 (06:29→17:07)
[2022-07-30 07:56] LABS: Anisocytosis Slight; Basophils % (A) 0 %; Eosinophils % (A) 0 %; HCT 26.1 % (34.0-46.0); HGB 8.8 gm/dL (11.4-16.0); Lymphocytes # (A) 0.8 k/uL (1.0-4.8); Lymphocytes % (A) 12 %; MCH 35.4 pg (25.0-35.0); MCHC 33.5 g/dL (31.0-37.0); MCV 105.6 fL (80.0-100.0); Macrocytosis Marked; Mean Platelet Volume 9.2; Monocytes # (A) 0.3 k/uL (0-1.0); Monocytes % (A) 5 %; Neutrophils # (A) 5.3 k/uL (1.3-7.7); Neutrophils % (A) 81 %; Platelet Count 227 k/uL (150-450); RBC 2.47 m/uL (3.80-5.40); RDW 18.2 % (11.5-15.5); WBC 6.5 k/uL (3.8-10.6)
[2022-07-30] MEDS ORDERED: LOSARTAN 25 MG TAB PO STA (08:20)
[2022-07-30] MEDS: LOSARTAN 50 MG TAB PO SCH ×2 (08:38→20:58)
[2022-07-30] MEDS: PYRIDOXINE 50 MG TAB PO SCH (09:09)
[2022-07-30] MEDS: PANTOPRAZOLE 40 MG TABLET PO SCH ×2 (09:10→17:07)
[2022-07-30] MEDS: FOLIC ACID 1 MG TAB PO SCH (09:10)
[2022-07-30] MEDS: ISOSORBIDE MONONITRATE ER 30 MG TAB.ER.24H PO SCH (09:10)
[2022-07-30] MEDS: CYANOCOBALAMIN 500 MCG TAB PO SCH (09:10)
[2022-07-30] MEDS: NIFEdipine XL 30 MG TAB.ER.24 PO SCH (09:10)
[2022-07-30] MEDS: SERTRALINE 50 MG TAB PO SCH (09:10)
[2022-07-30] MEDS: MAGNESIUM OXIDE 400 MG TAB PO SCH ×2 (09:14→20:58)
[2022-07-30] MEDS: TRIAMCINOLONE ACET 0.1% OINTMENT 15 GM TUBE TOPICAL SCH ×2 (09:15→20:59)
[2022-07-30 09:38] VITALS: BMI 22.3
[2022-07-30] MEDS: HYDROcodone/APAP 5-325MG 1 EACH TAB PO PRN (11:02)
--- NOTE | 2022-07-30 12:08 | P.CRDCN ---
History of Present Illness Consult date: 07/30/22 Reason for Consult (text): Hypertensive emergency History of present illness: History of present illness: This is a 72-year-old female patient of Dr. Slade with past medical history of coronary artery disease with prior triple vessel stenting, hypertension, dyslipidemia, ischemic cardiomyopathy, chronic anemia, history of breast cancer, family history of coronary artery disease less than 60 years of age. Regarding Patient's breast cancer, she underwent chemotherapy and subsequently lumpectomy was performed on 07/12. She states that one week later she had a hard feeling to the site being was instructed by her general surgeon to come back to the emergency center. She has been on antibiotics. She also has a chronic rash on most of her body most severe in the right upper arm and chest area secondary to chemotherapy. We have been asked to evaluate the patient for hypertensive emergency. Patient's initial blood pressure was stable but over time it became elevated consistently. This morning she is 199/90 despite medications. Changes that have been made to her home medications include losartan was changed to twice daily and Procardia was added on 07/27 at 30 mg daily. Home cardiac medications: Aspirin 81 mg daily, Coreg 3.125 mg twice daily, Imdur 30 mg daily, losartan 25 mg at bedtime as needed, Echocardiogram EF normal, mild TR, mild MR Lexiscan stress test 01/2022 normal Review Of Systems: At the time of my evaluation: Constitutional: No fever, no chills. No weakness, fatigue or lethargy. EENT: No headache. No dizziness. Lungs: No shortness of breath, cough, no sputum production. No wheezing. Cardiovascular: No chest pain, no lower extremity edema. No palpitations. No paroxysmal nocturnal dyspnea. No orthopnea. No lightheadedness or dizziness. No syncopal episodes. Abdominal: No abdominal pain. No nausea, vomiting. No diarrhea. Musculoskeletal: No myalgias. No muscle weakness, no frequent falls. No back pain. No neck pain. Integumentary: Surgical wound left chest. No rash. No unusual bruising. Neurologic: No aphasia. No facial droop. No change in mentation. No headache. Physical examination: Gen: This is a thin 72-year-old female. She is resting in bed and appears to be comfortable and in no acute distress VS: reviewed HEENT: Head is atraumatic, normocephalic. Pupils equal, round. Sclerae is anicteric. NECK: Supple. No JVD. LUNGS: Clear to auscultation. No wheezes or rhonchi. No intercostal retractions. HEART: Regular rate and rhythm. No murmur. ABDOMEN: Soft No tenderness. EXTREMITIES: No pedal edema. No calf tenderness. NEUROLOGICAL: Patient is awake, alert and oriented x3. Assessment: Hypertensive emergency Coronary artery disease with prior triple vessel stenting Hypertension Dyslipidemia Ischemic cardio myopathy Breast cancer status post lumpectomy and axillary node dissection 07/12 Left breast cellulitis Plan: Continue patient's home cardiac medications including addition of Procardia Increase losartan to 50 mg twice daily Continue to monitor blood pressure closely Obtain 2-D echocardiogram and Doppler study to assess cardiac structure and function Further recommendations to follow based upon clinical course Thank you kindly for this consultation. Nurse practitioner note has been reviewed, I agree with documented findings and plan of care. Patient was seen and examined. Past Medical History Past Medical History: Blood Disorder, Coronary Artery Disease (CAD), Cancer, CVA/TIA, GERD/Reflux, Hyperlipidemia, Hypertension, Myocardial Infarction ([place]), Osteoarthritis (OA), Renal Disease, Skin Disorder, Thyroid Disorder Additional Past Medical History / Comment(s): Hx thyroid cancer in the early . Colitis. blod clot in her eye about 10 years ago, TIA approximately 12 yrs ago with no residual effects. Chronic Kidney Disease Stage 4. Monoclonal Anemia. Left breast cancer diagnosed 12/2021, last chemo 06/07/22. Current full body rash from Chemo, on Prednisone until 07/13/22, per patient, Dr rajan. Last Myocardial Infarction Date:: 2018 History of Any Multi-Drug Resistant Organisms: None Reported Past Surgical History: Adenoidectomy, Back Surgery, Breast Surgery, Cholecystect refugio, Heart Catheterization With Stent, Hysterectomy, Tonsillectomy Additional Past Surgical History / Comment(s): 5 total stents, total thyroidectomy with radioactive iodine treatment after, cage/disc back surgery, bilateral cataract surgery, right eye surgery, left breast biopsy, total hysterectomy. Past Anesthesia/Blood Transfusion Reactions: No Reported Reaction Date of Last Stent Placement:: 04/08/19 Past Psychological History: Depression Smoking Status: Former smoker Past Alcohol Use History: None Reported Additional Past Alcohol Use History / Comment(s): Quit smoking in 1992, smoked since teens, 1ppd. Past Drug Use History: None Reported - Past Family History Mother Family Medical History: No Reported History Father Family Medical History: Cancer Medications and Allergies Home Medications Medication Instructions Recorded Confirmed Type Levothyroxine Sodium 112 mcg PO DAILY 02/20/19 07/22/22 History Losartan [Cozaar] 25 mg PO HS PRN 02/20/19 07/22/22 History Sertraline [Zoloft] 50 mg PO DAILY 02/20/19 07/22/22 History lamoTRIgine [LaMICtal] 100 mg PO HS 02/20/19 07/22/22 History Nitroglycerin Sl Tabs [Nitrostat] 0.4 mg SUBLINGUAL Q5M PRN #25 tab 02/26/19 07/22/22 Rx carvediloL [Coreg] 3.125 mg PO BID 02/15/22 07/22/22 History Aspirin EC [Ecotrin Low Dose] 81 mg PO DAILY 02/19/22 07/22/22 History Cyanocobalamin [Vitamin B-12] 500 mcg PO DAILY 02/19/22 07/22/22 History Ergocalciferol [Vitamin D2 (1250 1.25 mg PO BOYKIN 02/19/22 07/22/22 History Mcg = 60214 Iu)] Pantoprazole [Protonix] 40 mg PO BID #60 tab 03/05/22 07/22/22 Rx Isosorbide Mononitrate ER [Imdur] 30 mg PO DAILY 07/10/22 07/22/22 History Pyridoxine HCl (Vitamin B6) 100 mg PO DAILY 07/10/22 07/22/22 History [Vitamin B-6] Diphenoxylate HCl/Atropine 1 - 2 tab PO BID PRN 07/22/22 07/22/22 History [Lomotil 2.5-0.025 mg Tablet] Triamcinolone 0.1% Ointment 1 applic TOPICAL BID 07/22/22 07/22/22 History [Kenalog 0.1% Ointment] Allergies Allergy/AdvReac Type Severity Reaction Status Date / Time amoxicillin Allergy Rash/Hives Verified 07/22/22 17:49 caffeine Allergy Rash/Hives Verified 07/22/22 17:49 erythromycin base Allergy Rash/Hives Verified 07/22/22 17:49 keratin Allergy Swelling Verified 07/22/22 17:49 Penicillins Allergy Rash/Hives Verified 07/22/22 17:49 Sulfa (Sulfonamide Allergy Unknown Verified 07/22/22 17:49 Antibiotics) Childhood wheat Allergy Rash/Hives Verified 07/22/22 17:49 clopidogrel [From Plavix] AdvReac Itching Verified 07/22/22 17:49 imiquimod AdvReac Nausea & Verified 07/22/22 17:49 Vomiting Physical Exam Vitals: Vital Signs Temp Pulse Resp BP Pulse Ox 07/30/22 06:26 98.1 F 67 17 190/92 97 07/30/22 01:54 97.8 F 55 L 18 177/84 95 07/29/22 20:00 53 L 18 07/29/22 19:43 98.1 F 53 L 18 176/84 97 07/29/22 19:13 97.7 F 56 L 18 160/90 97 07/29/22 14:00 98.2 F 59 L 18 174/83 99 07/29/22 12:20 184/93 Intake and Output 07/29/22 07/30/22 07/30/22 22:59 06:59 14:59 Intake Total 350 Balance 350 Intake: Oral 350 Other: Voiding Method Toilet # Voids 1 3 Results 07/30/22 06:37 07/27/22 06:00 CBC 07/30/22 Range/Units 06:37 WBC 6.5 (3.8-10.6) k/uL RBC 2.47 L (3.80-5.40) m/uL Hgb 8.8 L (11.4-16.0) gm/dL Hct 26.1 L (34.0-46.0) % Plt Count 227 (150-450) k/uL Current Medications Generic Name Dose Route Start Last Admin Trade Name Freq PRN Reason Stop Dose Admin Acetaminophen 650 mg 07/23/22 08:59 07/26/22 12:59 Acetaminophen Tab 325 Mg Tab PO 650 mg Q6HR PRN Administration Fever and/ or Pain Hydrocodone Bitart/Acetaminophen 1 each 07/23/22 09:00 07/28/22 12:58 Hydrocodone/Apap 5-325mg 1 Each Tab PO 1 each Q6HR PRN Administration Pain Carvedilol 3.125 mg 07/23/22 09:00 07/30/22 06:29 Carvedilol 3.125 Mg Tab PO 3.125 mg BID-W/MEALS LEROY Administration Cyanocobalamin 500 mcg 07/28/22 09:00 07/29/22 08:34 Cyanocobalamin 500 Mcg Tab PO 500 mcg DAILY LEROY Administration Folic Acid 1 mg 07/28/22 10:15 07/29/22 08:35 Folic Acid 1 Mg Tab PO 1 mg DAILY LEROY Administration Cefazolin Sodium 2 gm/ Sodium 50 mls @ 100 mls/hr 07/28/22 16:00 07/29/22 23:12 Chloride IVPB 100 mls/hr Q8HR LEROY Administration Protocol Isosorbide Mononitrate 30 mg 07/23/22 09:00 07/29/22 08:34 Isosorbide Mononitrate Er 30 Mg Tab.Er.24h PO 30 mg DAILY LEROY Administration Lamotrigine 100 mg 07/23/22 21:00 07/29/22 20:30 Lamotrigine 100 Mg Tab PO 100 mg HS LEROY Administration Levothyroxine Sodium 112 mcg 07/23/22 09:00 07/30/22 06:29 Levothyroxine 112 Mcg Tab PO 112 mcg DAILY@0630 LEROY Administration Losartan Potassium 50 mg 07/30/22 09:00 Losartan 50 Mg Tab PO BID LEROY Magnesium Oxide 400 mg 07/23/22 09:00 07/29/22 20:30 Magnesium Oxide 400 Mg Tab PO 400 mg BID LEROY Administration Methylprednisolone Sodium Succinate 60 mg 07/25/22 13:30 07/30/22 06:29 Methylprednisolone Sod Succi 125 Mg/2 Ml Vial IV 60 mg Q8H LEROY Administration Miscellaneous Information 1 each 07/23/22 13:20 Magnesium Replacement Protocol 1 Each Misc MISCELLANE DAILY PRN Per Protocol Protocol Morphine Sulfate 4 mg 07/22/22 21:41 07/29/22 13:39 Morphine Sulfate 4 Mg/Ml Syringe IV 4 mg Q4HR PRN Administration Severe Pain (Scale 7 to 10) Naloxone HCl 0.2 mg 07/22/22 21:41 Naloxone 0.4 Mg/Ml 1 Ml Vial IV Q2M PRN Opioid Reversal Nifedipine 30 mg 07/27/22 20:15 07/29/22 08:34 Nifedipine Xl 30 Mg Tab.Er.24 PO 30 mg DAILY LEROY Administration Nitroglycerin 0.4 mg 07/23/22 09:02 Nitroglycerin Sl Tabs 0.4 Mg Tab SUBLINGUAL Q5M PRN Chest Pain Ondansetron HCl 4 mg 07/28/22 14:05 07/28/22 14:09 Ondansetron 4 Mg/2 Ml Vial IVP 4 mg Q6HR PRN Administration Nausea And Vomiting Pantoprazole Sodium 40 mg 07/23/22 09:00 07/29/22 18:07 Pantoprazole 40 Mg Tablet PO 40 mg AC-BID LEROY Administration Pyridoxine HCl 100 mg 07/28/22 09:00 07/29/22 08:34 Pyridoxine 50 Mg Tab PO 100 mg DAILY LEROY Administration Sertraline HCl 50 mg 07/23/22 09:00 07/29/22 08:34 Sertraline 50 Mg Tab PO 50 mg DAILY LEROY Administration Simethicone 20 mg 07/27/22 10:15 07/27/22 12:16 Simethicone 40 Mg/0.6 Ml Drops 2,000 Mg/30 Ml Bottle PO 20 mg TID PRN Administration Heartburn Triamcinolone Acetonide 1 applic 07/23/22 09:15 07/29/22 20:29 Triamcinolone Acet 0.1% Ointment 15 Gm Tube TOPICAL 1 applic BID LEROY Administration Protocol Intake and Output 07/29/22 07/30/22 07/30/22 22:59 06:59 14:59 Intake Total 350 Balance 350 Intake: Oral 350 Other: Voiding Method Toilet # Voids 1 3 07/30/22 06:37 07/27/22 06:00
[2022-07-30] MEDS ORDERED: NIFEdipine XL 30 MG TAB.ER.24 PO STA (12:31)
--- NOTE | 2022-07-30 12:37 | USB ---
Reason for Exam: Clinical finding. Patient History: Menarche at age 13. First Full-Term at age 25. Left ovary removed at age 43. Right ovary removed at age 43. Hysterectomy at age 43. Postmenopausal. Patient has history of breast feeding. Other cancer, age 30. Breast cancer, left, age 71. Breast cancer, left, age 72. Estrogen for 10 years from age 43 until age 53. 07/12/2022, Lumpectomy on the Left side. 07/12/2022, Malignant US breast localization LT on the left side. 07/12/2022, US breast local each add LT on the Left side. 01/08/2022, Malignant US biopsy breast VAD LT on the left side. 01/08/2022, US biopsy breast add'l VAD LT on the Left side. Paternal aunt had breast cancer, age 70. Technique: Method: Targeted. Targeted ultrasound left breast. Prior Study Comparison: 01/02/2022 Bilateral MG 3D screening mammo w/cad, [facility]. 01/08/2022 Left MG diagnostic mammo LT wo CAD., [facility]. 07/12/2022 Left MG diagnostic mammo LT wo CAD., [facility]. Findings: The upper outer quadrant of the left breast was scanned. Fluid pocket visualized 1:00 to 2:00 o'clock measuring 6.1 x 3.3 x 6.1 cm. It is relatively thin wall with a few thin internal septa and increased through transmission. IMPRESSION: Moderate size oval focal fluid collection favors postsurgical seroma. Hematoma not entirely excluded. Overall Assessment: Benign, BI-RAD 2 Management: Diagnostic Mammogram of both breasts in 6 months. Consider ultrasound-guided fine-needle aspiration due to moderate-sized focal fluid collection at site of surgical excision and because of patient's symptoms of pain. Electronically signed and approved by: Shalom Clifford M.D.
--- NOTE | 2022-07-30 15:09 | P.PCN ---
Date of Procedure: 07/30/22 Procedure(s) Performed: PREOPERATIVE DIAGNOSIS: Skin rash POSTOPERATIVE DIAGNOSIS: Same PROCEDURE: Punch biopsy skin rash right shoulder SURGEON: Zeeshan EBL: 1 mL ANESTHESIA: Lidocaine COMPLICATIONS: None OPERATIVE PROCEDURE: Patient kept in her room for the procedure. The right shoulder was prepped and draped. Skin localized with 1 mL of 1% lidocaine. A 3 mm punch biopsy taken. Pressure was held. Specimen sent to pathology. Site closed with a single 5-0 Monocryl stitch. Band-Aid applied. DISPOSITION: Stable
--- NOTE | 2022-07-30 15:35 | P.PN ---
Subjective Progress Note Date: 07/30/22 - History of Present Illness This is a pleasant 72-year-old female status post left breast lumpectomy and axillary node dissection with SETH drain secondary to left breast cancer on , presented to the ER with significant increased swelling, pain, warmth of the left breast that started yesterday morning, awakening her from sleep. Denies any chills or fevers. T-max 103, WBC 5.7, neutrophils 79, lactic acid 0.7, minimal tachycardia, blood cultures obtained, infectious disease consulted. SETH drain with serous drainage ,denies any drainage from incisional sites. Denies any trauma to the affected site. Reports pain had been well controlled and not required any pain medication since last Friday. Reports rash on torso and extremities has been present since February after receiving chemo. Followed up with Dr. Byers last friday.Vital signs stable, maintaining O2 sats in the mid 90s to 100% on room air. Received IV fluid hydration with IV antibiotics initiated. Denies chest pain, palpitations or shortness of breath. Hemoglobin 7.5, platelets 161 and INR 1, BUN 26, creatinine 1, now 1.05, potassium 3.9, magnesium 1.2, received magnesium supplementation-repeat level pending. 07/24/2022 T-max 100.1, continues on vancomycin. BUN 21/creatinine 1.04. Pre liminary blood cultures reporting no growth after 24 hours. Evaluated by a infectious disease with recommendations noted. Left breast redness persists, softer but with significant SETH output of serous drainage. Denies chest pain, palpitations or shortness of breath. Maintaining O2 sats in the 90s on room air. 07/30/2022 left breast SETH catheter site culture reporting MSSA, continues on cefazolin as per ID. Afebrile, normal WBC. Scheduled for punch biopsy of rash as per general surgery for persistent rash of 4-5 months, initially he felt to be chemo-induced. Significant hypertension, unresponsive to current regimen with systolic blood pressures in the 190s. evaluated by cardiology with losartan increased. Denies chest pain, palpitations or shortness of breath. Maintaining O2 sats in the high 90s on room air. Objective - Vital Signs Vital signs: Vital Signs Temp 98 F 07/30/22 13:45 Pulse 61 04/18/23 13:45 Resp 16 07/30/22 13:45 BP 186/85 07/30/22 13:54 Pulse Ox 97 07/30/22 13:45 FiO2 Intake & Output 07/29/22 07/30/22 07/30/22 18:59 06:59 18:59 Intake Total 476 350 Balance 476 350 Weight 58.967 kg Intake: Oral 476 350 Other: Voiding Method Toilet Toilet Toilet # Voids 1 3 10 # Bowel Movements 1 - Exam PHYSICAL EXAMINATION: GENERAL: The patient is alert and oriented x3, no acute distress. HEENT: Normocephalic, atraumatic.Pupils are round and equally reacting to light. EOMI. No scleral icterus. Right chest port. CARDIOVASCULAR: S1 and S2 present. No murmurs, rubs, or gallops. PULMONARY: Chest is clear to auscultation, no wheezing or crackles. ABDOMEN: Soft, nontender, nondistended, normoactive bowel sounds. EXTREMITIES: No cyanosis, clubbing, or pedal edema. NEUROLOGICAL: Gross neurological examination did not reveal any focal deficits. SKIN: Chronic post chemo rash -torso, extremities, face with left breast persistent erythema /macular papular rash radiating around under her axilla, warm, tender,increased firmness/induration left upper lateral breast. - Labs CBC & Chem 7: 07/30/22 06:37 07/27/22 06:00 Labs: Abnormal Lab Results - Last 24 Hours (Table) 07/30/22 Range/Units 06:37 RBC 2.47 L (3.80-5.40) m/uL Hgb 8.8 L (11.4-16.0) gm/dL Hct 26.1 L (34.0-46.0) % MCV 105.6 H (80.0-100.0) fL MCH 35.4 H (25.0-35.0) pg RDW 18.2 H (11.5-15.5) % Lymphocytes # 0.8 L (1.0-4.8) k/uL Macrocytosis Marked A Assessment and Plan Assessment: -Left Breast cellulitis, -Left breast cancer status post lumpectomy, axillary node dissection on 07/12/2022. MSSA reported per catheter site culture -Macular papular rash 4-5 months, punch biopsy pending -Hypertensive emergency -Hypomagnesemia -Anemia with blood transfusion reaction -History of CAD,NSTEMI,stenting of mid and distal LAD,[place]. -Hyperlipidemia -Hypertension -Depression -Hypothyroidism Plan: Continue on current medication regime ,monitoring and symptomatic sara tment. Antihypertensives adjusted further as per cardiology .echo pending .IV antibiotics as per infectious disease. The impression and plan of care has been dictated as directed. : I performed a history and examination of this patient, discussed the same with the dictator. I agree with the dictator's note ,documented as a scribe. Any additional findings or plans will be noted.
[2022-07-30] MEDS: MORPHINE SULFATE 4 MG/ML SYRINGE IV PRN ×2 (17:58→23:09)
--- NOTE | 2022-07-30 19:18 | P.PN ---
Subjective Progress Note Date: 07/29/22 Principal diagnosis: Left breast abscess Patient is a 72 year old female with a past medical history significant for hypertension hyperlipidemia CVA TIA patient did have a left breast cancer diagnosed December 2021 with the last chemo has been on 06/07/2022 patient did have a history of left breast lumpectomy and lymph node dissection with SETH drain to the left breast since 07/12/2022, patient is presenting to the hospital for evaluation of increasing swelling pain and warmth to the left breast area, with concern for cellulitis to the left breast area. on today's evaluation that is 07/29/2022, the patient remains to be afebrile, patient pain to the left breast has decreased in intensity and overall drainage has decreased in intensity, the patient denies chest pain shortness of cough, the patient denies vomiting no diarrhea Objective - Vital Signs Vital signs: Vital Signs Temp 98.1 F 07/29/22 08:00 Pulse 57 L 07/29/22 08:00 Resp 17 07/29/22 08:00 BP 180/92 07/29/22 08:00 Pulse Ox 95 07/29/22 08:00 FiO2 Intake & Output 07/28/22 07/29/22 07/29/22 18:59 06:59 18:59 Intake Total 236 Balance 236 Intake: Oral 236 Other: Voiding Method Toilet Toilet Toilet # Voids 2 # Bowel Movements 1 - Exam GENERAL DESCRIPTION: An elderly female lying in bed in no distress RESPIRATORY SYSTEM: Unlabored breathing , decreased breath sounds at bases HEART: S1 S2 regular rate and rhythm , ABDOMEN: Soft , no tenderness Left breast swelling and redness almost resolved no induration or drainage - Labs CBC & Chem 7: 07/30/22 06:37 07/27/22 06:00 Labs: Microbiology - Last 24 Hours (Table) 07/22/22 18:49 Blood Culture - Final Blood No Growth after 144 hours 07/25/22 11:00 Gram Stain - Final Catheter Site Wound Culture - Final Staphylococcus aureus Assessment and Plan (1) Cellulitis of left breast Current Visit: Yes Status: Acute Priority: High Code(s): N61.0 - MASTITIS WITHOUT ABSCESS SNOMED Code(s): 80056529 Plan: 1patient is in the hospital with sepsis in this patient who did have a left breast cancer status post lumpectomy and did have a SETH drain which did have whitish drainage and associated cellulitis involving the lateral aspect of the breast and concern for possible abscess 2-patient blood culture has been negative local cultures finalized as MSSA, patient to continue with cefazolin will be able to finish therapy with a short course of oral Keflex on discharge, questions and concerns were answered Time with Patient: Less than 30
--- NOTE | 2022-07-30 19:20 | P.PN ---
Subjective Progress Note Date: 07/30/22 Principal diagnosis: Left breast abscess Patient is a 72 year old female with a past medical history significant for hypertension hyperlipidemia CVA TIA patient did have a left breast cancer diagnosed December 2021 with the last chemo has been on 06/07/2022 patient did have a history of left breast lumpectomy and lymph node dissection with SETH drain to the left breast since 07/12/2022, patient is presenting to the hospital for evaluation of increasing swelling pain and warmth to the left breast area, with concern for cellulitis to the left breast area. on today's evaluation that is 07/30/2022, the patient continues to be afebrile, patient denies any worsening pain to the left breast, the patient denies chest pain shortness of cough, the patient denies vomiting no diarrhea Objective - Vital Signs Vital signs: Vital Signs Temp 98 F 07/30/22 13:45 Pulse 61 07/30/22 13:45 Resp 16 07/30/22 13:45 BP 186/85 07/30/22 13:54 Pulse Ox 97 07/30/22 13:45 FiO2 Intake & Output 07/29/22 07/30/22 07/30/22 18:59 06:59 18:59 Intake Total 476 350 Balance 476 350 Weight 58.967 kg Intake: Oral 476 350 Other: Voiding Method Toilet Toilet Toilet # Voids 1 3 10 # Bowel Movements 1 - Exam GENERAL DESCRIPTION: An elderly female lying in bed in no distress RESPIRATORY SYSTEM: Unlabored breathing , decreased breath sounds at bases HEART: S1 S2 regular rate and rhythm , ABDOMEN: Soft , no tenderness - Labs CBC & Chem 7: 07/30/22 06:37 07/27/22 06:00 Labs: Abnormal Lab Results - Last 24 Hours (Table) 07/30/22 Range/Units 06:37 RBC 2.47 L (3.80-5.40) m/uL Hgb 8.8 L (11.4-16.0) gm/dL Hct 26.1 L (34.0-46.0) % MCV 105.6 H (80.0-100.0) fL MCH 35.4 H (25.0-35.0) pg RDW 18.2 H (11.5-15.5) % Lymphocytes # 0.8 L (1.0-4.8) k/uL Macrocytosis Marked A Assessment and Plan (1) Cellulitis of left breast Current Visit: Yes Status: Acute Priority: High Code(s): N61.0 - MASTITIS WITHOUT ABSCESS SNOMED Code(s): 85309448 Plan: 1patient is in the hospital with sepsis in this patient who did have a left breast cancer status post lumpectomy and did have a SETH drain which did have whitish drainage and associated cellulitis involving the lateral aspect of the breast and concern for possible abscess 2-patient blood culture has been negative local cultures finalized as MSSA, patient seemed to have tolerated and will continue with cefazolin will be able to finish therapy with a short course of oral Keflex and monitor her clinical course closely Time with Patient: Less than 30
[2022-07-30] MEDS: lamoTRIgine 100 MG TAB PO SCH (20:58)
[2022-07-31] MEDS: MORPHINE SULFATE 4 MG/ML SYRINGE IV PRN (03:50)
[2022-07-31] MEDS: PANTOPRAZOLE 40 MG TABLET PO SCH ×2 (06:25→18:24)
[2022-07-31] MEDS: carvediloL 3.125 MG TAB PO SCH ×2 (06:25→18:24)
[2022-07-31] MEDS: LEVOTHYROXINE 112 MCG TAB PO SCH (06:25)
[2022-07-31] MEDS: methylPREDNISolone SOD SUCCI 125 MG/2 ML VIAL IV SCH ×2 (06:25→13:38)
[2022-07-31] MEDS: LOSARTAN 50 MG TAB PO SCH ×2 (08:19→21:07)
[2022-07-31] MEDS: FOLIC ACID 1 MG TAB PO SCH (08:19)
[2022-07-31] MEDS: MAGNESIUM OXIDE 400 MG TAB PO SCH ×2 (08:20→21:07)
[2022-07-31] MEDS: cloNIDine HCL 0.2 MG TAB PO SCH ×3 (08:20→21:07)
[2022-07-31] MEDS: ISOSORBIDE MONONITRATE ER 30 MG TAB.ER.24H PO SCH (08:20)
[2022-07-31] MEDS: PYRIDOXINE 50 MG TAB PO SCH (08:20)
[2022-07-31] MEDS: SERTRALINE 50 MG TAB PO SCH (08:20)
[2022-07-31] MEDS: CYANOCOBALAMIN 500 MCG TAB PO SCH (08:20)
[2022-07-31] MEDS: TRIAMCINOLONE ACET 0.1% OINTMENT 15 GM TUBE TOPICAL SCH ×2 (08:21→21:07)
--- NOTE | 2022-07-31 09:39 | US ---
PROCEDURE: Ultrasound-guided left breast seroma drainage catheter placement DATE: 07/30/2022 AVICULTURIST: Dr. Chavarria CLINICAL HISTORY: History of surgery and prior seroma drainage catheter placement with recent removal , patient reports no history of a breast implant. COMPARISON: Same day ultrasound ANESTHESIA: 1% local lidocaine PROCEDURE: The procedure, risks, and alternatives were discussed and all questions were answered. Written inform ed consent obtained. A complicating paperwork and verified for accuracy. Directed history and physica l exam performed prior to the procedure. Medication reconciliation performed by nursing personnel. Pr ocedure was performed using a cap, sterile gloves, hand hygiene, and chlorhexidine for cutaneous anti sepsis. A critical pause was performed with assisting personnel just prior to the procedure with the patient's identity confirmed using 2 identifiers, confirming site and side. Limited grayscale ultrasound of the left lateral breast demonstrates a simple appearing collection wi thin the 2:00 position which corresponds to the abnormality described on recent ultrasound. An approp riate skin entry site was marked, prepped, and draped in usual sterile fashion. 1% lidocaine was admi nistered into the skin and deeper soft tissues. A small skin incision was made. A 5 Vietnamese over-the-n eedle catheter was advanced into the collection under continuous ultrasound guidance. Aspiration yiel ded thick yellow-colored fluid. The inner stylet was removed and replaced with a wire. The catheter w as then removed. A new 6.5 Vietnamese all-purpose drainage catheter was advanced over the wire and the wi re and inner stiffener were removed. The internal retention loop was formed and locked. The catheter was secured to the patient's skin using a stay fix. The catheter was then connected to external gravi ty drainage. Specimens were collected for laboratory analysis. The patient tolerated the procedure well and there were no immediate complications. Blood loss was mi nimal. IMPRESSION: Successful, uncomplicated ultrasound-guided left breast drainage catheter placement for suspected ser nenita. Laboratory analysis pending.
[2022-07-31 11:03] LABS: African American GFR (CKD) 65.2 (60.0-200.0); Anion Gap 12.2 mmol/L (10.00-18.00); BUN/Creat Ratio 23.6 Ratio (12.00-20.00); Blood Urea Nitrogen 23.6 mg/dL (9.0-27.0); Calcium 8.8 mg/dL (8.7-10.3); Carbon Dioxide 26.8 mmol/L (20.0-27.5); Non-African American GFR(CKD) 56.2 (60.0-200.0); Potassium 3.5 mmol/L (3.5-5.5)
--- NOTE | 2022-07-31 11:54 | CA ---
Transthoracic Echo Report Name: Odilia Ness Age: 72 Gender: F : 1950 Exam Date: 07/31/2022 08:47 Exam Location: [facility] Ht (in): 64 Wt (lb): 130 Ordering Physician: Bebe Helm Attending/Referring Phys: [id number], Alicja Hearing And Speech Assistant Miles Obregon, ROSS Procedure CPT: Indications: LVF Cardiac Hx: Breast Cancer under Chemotherapy. Technical Quality: Fair Contrast 1: Total Dose (mL): Contrast 2: Total Dose (mL): MEASUREMENTS (Male / Female) Normal Values 2D ECHO LV Diastolic Diameter PLAX 4.0 cm 4.2 - 5.9 / 3.9 - 5.3 cm LV Systolic Diameter PLAX 2.9 cm LV Fractional Shortening PLAX 27.3 % IVS Diastolic Thickness 1.6 cm 0.6 - 1.0 / 0.6 - 0.9 cm IVS Systolic Thickness 1.8 cm LVPW Diastolic Thickness 1.5 cm 0.6 - 1.0 / 0.6 - 0.9 cm LVPW Systolic Thickness 1.9 cm LV Relative Wall Thickness 0.8 RV Internal Dim ED PLAX 3.6 cm LVOT Diameter 2.2 cm LA Systolic Diameter LX 3.9 cm 3.0 - 4.0 / 2.7 - 3.8 cm LV Diastolic Volume MOD 4C 92.5 cm??? LV Systolic Volume MOD 4C 25.3 cm??? LV Ejection Fraction MOD 4C 72.7 % LV Stroke Volume MOD 4C 67.2 cm??? LV Diastolic Length 4C 7.9 cm LV Systolic Length 4C 6.1 cm Ascending Aorta Diameter 2.9 cm M-MODE Aortic Root Diameter MM 3.1 cm LA Systolic Diameter MM 3.7 cm LA Ao Ratio MM 1.2 AV Cusp Separation MM 1.7 cm DOPPLER AV Peak Velocity 149.3 cm/s AV Peak Gradient 8.9 mmHg LVOT Peak Velocity 122.2 cm/s LVOT Peak Gradient 6.0 mmHg AV Area Cont Eq pk 3.1 cm??? MV Deceleration Runnels 447.8 cm/s??? MR Peak Velocity 460.5 cm/s MR Peak Gradient 84.8 mmHg MR Mean Velocity 370.7 cm/s MR Mean Gradient 60.1 mmHg MR Velocity Time Integral 177.9 cm Mitral E Point Velocity 86.4 cm/s Mitral A Point Velocity 67.7 cm/s Mitral E to A Ratio 1.3 MV Deceleration Time 192.9 ms MV E' Velocity 6.2 cm/s Mitral E to MV E' Ratio 14.0 TR Peak Velocity 219.8 cm/s TR Peak Gradient 19.3 mmHg Right Ventricular Systolic Press 29.3 mmHg PV Peak Velocity 90.4 cm/s PV Peak Gradient 3.3 mmHg FINDINGS Left Ventricle Left ventricular ejection fraction is estimated at 50-55 %. Mild concentric left ventricular hypertrophy. Grade 2 diastolic dysfunction. Right Ventricle Normal right ventricular size and function. RVSP- 29 mm Hg. Right Atrium Mild right atrial dilatation. Left Atrium Left atrial dilatation. Mitral Valve Mitral valve thickened. Flail of multiple scallops of the anterior mitral valve leaflet. Minimal mitral stenosis. Reegsctk-vc-flyycb mitral regurgitation. Aortic Valve Trileaflet aortic valve. Diffuse thickening (sclerosis) of the aortic valve cusps without reduced excursion. Tricuspid Valve Lzsj-ur-nzbuxfva tricuspid regurgitation. Pulmonic Valve Mild pulmonic regurgitation. Pericardium Normal pericardium. No pericardial effusion. Aorta Normal size aortic root and proximal ascending aorta. CONCLUSIONS Normal LV function Moderate to severe mitral regurgitation Previewed by: Dr. Danny Garcia MD (Electronically Signed) Final Date: 31 July 2022 11:53
--- NOTE | 2022-07-31 12:39 | P.PN ---
Subjective Progress Note Date: 07/31/22 History of present illness: This is a 72-year-old female patient of Dr. Slade with past medical history of coronary artery disease with prior triple vessel stenting, hypertension, dyslipidemia, ischemic cardiomyopathy, chronic anemia, history of breast cancer, family history of coronary artery disease less than 60 years of age. Regarding Patient's breast cancer, she underwent chemotherapy and subsequently lumpectomy was performed on 07/12. She states that one week later she had a hard feeling to the site being was instructed by her general surgeon to come back to the emergency center. She has been on antibiotics. She also has a chronic rash on most of her body most severe in the right upper arm and chest area secondary to chemotherapy. We have been asked to evaluate the patient for hypertensive emergency. Patient's initial blood pressure was stable but over time it became elevated consistently. This morning she is 199/90 despite medications. Changes that have been made to her home medications include losartan was changed to twice daily and Procardia was added on 07/27 at 30 mg daily. Home cardiac medications: Aspirin 81 mg daily, Coreg 3.125 mg twice daily, Imdur 30 mg daily, losartan 25 mg at bedtime as needed, Echocardiogram EF normal, mild TR, mild MR Lexiscan stress test 01/2022 normal 07/31 Patient is seen today in follow-up. Blood pressure remains elevated this mor sukhjinder at 183/87 3 heart rate is in the 50s to 70s. Patient is currently on Coreg 3.125 mg twice daily, Imdur 30 mg daily, losartan was increased yesterday to 50 mg twice daily, Procardia 30 mg daily. Echocardiogram is pending. Physical examination: Gen: This is a thin 72-year-old female. She is resting in bed and appears to be comfortable and in no acute distress VS: reviewed HEENT: Head is atraumatic, normocephalic. Pupils equal, round. Sclerae is anicteric. NECK: Supple. No JVD. LUNGS: Clear to auscultation. No wheezes or rhonchi. No intercostal retractions. HEART: Regular rate and rhythm. No murmur. ABDOMEN: Soft No tenderness. EXTREMITIES: No pedal edema. No calf tenderness. NEUROLOGICAL: Patient is awake, alert and oriented x3. Assessment: Hypertensive emergency Coronary artery disease with prior triple vessel stenting Hypertension Dyslipidemia Ischemic cardio myopathy Breast cancer status post lumpectomy and axillary node dissection 07/12 Left breast cellulitis Plan: Continue patient's home cardiac medications Continue increased dose of losartan 50 mg twice daily Increase Procardia to 60 mg daily and add Catapres 0.2 mg 3 times daily Patient is cleared for discharge from cardiology and may follow up with Dr. Slade in the office in 1-2 weeks. Nurse practitioner note has been reviewed, I agree with documented findings and plan of care. Patient was seen and examined. Objective - Vital Signs Vital signs: Vital Signs Temp 97.7 F 07/31/22 07:12 Pulse 57 L 07/31/22 07:12 Resp 18 07/31/22 07:12 BP 183/87 07/31/22 07:12 Pulse Ox 96 07/31/22 07:12 FiO2 Intake & Output 07/30/22 07/31/22 07/31/22 18:59 06:59 18:59 Intake Total 236 350 Balance 236 350 Weight 58.967 kg Intake: Intake, IV Titration 100 Amount ceFAZolin 2 gm In Sodium 100 Chloride 0.9% 50 ml @ 100 mls/hr IVPB Q8HR [facility] Rx# :[id number] Oral 236 250 Other: Voiding Method Toilet Toilet Toilet # Voids 10 # Bowel Movements 1 - Labs CBC & Chem 7: 07/30/22 06:37 07/31/22 06:50 Labs: Abnormal Lab Results - Last 24 Hours (Table) 07/30/22 Range/Units 06:37 Lymphocytes # 0.8 L (1.0-4.8) k/uL Microbiology - Last 24 Hours (Table) 07/30/22 16:15 Gram Stain - Preliminary Aspirate Body Fluid Culture - Preliminary 07/30/22 16:15 Anaerobic Culture - Preliminary Breast - Left
--- NOTE | 2022-07-31 15:37 | P.PN ---
Subjective Progress Note Date: 07/31/22 CHIEF COMPLAINT: Left breast cellulitis HISTORY OF PRESENT ILLNESS: Patient status post drain placement for left breast seroma. The swelling and pain have improved. She's afebrile. She has been having elevated blood pressures. She was evaluated by cardiology. They have adjusted medications. Cardiology and medicine service has cleared patient for discharge. Patient does report feeling weak with ambulating. Patient requesting to monitor blood pressure until tomorrow. She's had one good blood pressure of 138/78. PHYSICAL EXAM: VITAL SIGNS: Reviewed GENERAL: Well-developed in no acute distress. HEENT: No sclera icterus. Extraocular movements grossly intact. Moist buccal mucosa. Head is atraumatic, normocephalic. Hears conversational speech. No nasal drainage. NECK: Supple without lymphadenopathy. CHEST: Non-labored respirations and equal bilateral excursions. CARDIOVASCULAR: Palpable 2+ radial pulses. ABDOMEN: Soft. Nondistended. Nontender. MUSCULOSKELETAL: No clubbing or cyanosis. NEUROLOGIC: No focal or lateralizing signs. Cranial nerves II through XII grossly intact. PSYCH: Appropriate affect. Alert and oriented to person, place and time. SKIN: Patient continues to have rash on chest neck and arms. Slightly less red and at this time Breast: Swelling decreased with drain placement. Drain with serosanguineous output. Decreased tenderness to palpation ASSESSMENT: 1. Left breast cellulitis with seroma status post drain placement 2. Left breast cancer status post lumpectomy and axillary node dissection on 07/12/2022. Status post radiation treatment 3. Anemia with reaction to blood transfusion 4. Significant skin rash involving the torso, neck and bilateral extremities. Patient status post skin biopsy PLAN: -Anticipate discharge tomorrow -Discharging antibiotics per ID service -Continue supportive care -Discontinue IV steroids. Switch to oral prednisone. -Consult physical therapy for generalized weakness and ambulation Physician Sueding Machine Tender note has been reviewed by physician. Signing provider agrees with the documented findings, assessment, and plan of care. I have personally seen and examined the patient, reviewed the CERTIFIED WELLNESS PROGRAM COORDINATOR /PAs history, exam and MDM and agree with the assessment and plan as written. Based on total visit time, I have performed more than 50% of the visit. As above: Patient doing well today. Drain was placed yesterday. Approximately 100 mL output so far. It is serous in nature. No evidence of purulence or infection within that fluid grossly. Rash is improved. Continue antibiotics. Probable discharge tomorrow if blood pressure stable. Objective - Vital Signs Vital signs: Vital Signs Temp 97.7 F 07/31/22 07:12 Pulse 57 L 07/31/22 07:12 Resp 18 07/31/22 10:00 BP 183/87 07/31/22 07:12 Pulse Ox 96 07/31/22 07:12 FiO2 Intake & Output 07/30/22 07/31/22 07/31/22 18:59 06:59 18:59 Intake Total 236 350 Balance 236 350 Weight 58.967 kg Intake: Intake, IV Titration 100 Amount ceFAZolin 2 gm In Sodium 100 Chloride 0.9% 50 ml @ 100 mls/hr IVPB Q8HR [facility] Rx# :[id number] Oral 236 250 Other: Voiding Method Toilet Toilet Toilet # Voids 10 # Bowel Movements 1 - Labs CBC & Chem 7: 07/30/22 06:37 07/31/22 06:50 Labs: Abnormal Lab Results - Last 24 Hours (Table) 07/31/22 Range/Units 06:50 Est GFR (CKD-EPI)NonAf 56.2 L (60.0-200.0) BUN/Creatinine Ratio 23.60 H (12.00-20.00) Ratio Glucose 113 H (70-110) mg/dL Microbiology - Last 24 Hours (Table) 07/30/22 16:15 Gram Stain - Preliminary Aspirate Body Fluid Culture - Preliminary 07/30/22 16:15 Anaerobic Culture - Preliminary Breast - Left
[2022-07-31] MEDS ORDERED: methylPREDNISolone SOD SUCCI 125 MG/2 ML VIAL IV SCH (16:00)
[2022-07-31] MEDS ORDERED: Potassium Replacement Protocol 1 EACH MISC MISCELLANE PRN (16:30)
--- NOTE | 2022-07-31 16:31 | P.PN ---
Subjective Progress Note Date: 07/31/22 - History of Present Illness This is a pleasant 72-year-old female status post left breast lumpectomy and axillary node dissection with SETH drain secondary to left breast cancer on , presented to the ER with significant increased swelling, pain, warmth of the left breast that started yesterday morning, awakening her from sleep. Denies any chills or fevers. T-max 103, WBC 5.7, neutrophils 79, lactic acid 0.7, minimal tachycardia, blood cultures obtained, infectious disease consulted. SETH drain with serous drainage ,denies any drainage from incisional sites. Denies any trauma to the affected site. Reports pain had been well controlled and not required any pain medication since last Friday. Reports rash on torso and extremities has been present since February after receiving chemo. Followed up with Dr. Byers last friday.Vital signs stable, maintaining O2 sats in the mid 90s to 100% on room air. Received IV fluid hydration with IV antibiotics initiated. Denies chest pain, palpitations or shortness of breath. Hemoglobin 7.5, platelets 161 and INR 1, BUN 26, creatinine 1, now 1.05, potassium 3.9, magnesium 1.2, received magnesium supplementation-repeat level pending. 07/24/2022 T-max 100.1, continues on vancomycin. BUN 21/creatinine 1.04. Pre liminary blood cultures reporting no growth after 24 hours. Evaluated by a infectious disease with recommendations noted. Left breast redness persists, softer but with significant SETH output of serous drainage. Denies chest pain, palpitations or shortness of breath. Maintaining O2 sats in the 90s on room air. 07/30/2022 left breast SETH catheter site culture reporting MSSA, continues on cefazolin as per ID. Afebrile, normal WBC. Scheduled for punch biopsy of rash as per general surgery for persistent rash of 4-5 months, initially he felt to be chemo-induced. Significant hypertension, unresponsive to current regimen with systolic blood pressures in the 190s. evaluated by cardiology with losartan increased. Denies chest pain, palpitations or shortness of breath. Maintaining O2 sats in the high 90s on room air. 07/31/2020 status post punch biopsy of skin rash right shoulder, tolerated well. Pathology/cytology pending. Status post ultrasound-guided left breast seroma drainage catheter placement. Echo pending. Hypertensive, further adjustments in antihypertensive as per cardiology. Objective - Vital Signs Vital signs: Vital Signs Temp 97.8 F 07/31/22 14:00 Pulse 62 07/31/22 14:00 Resp 18 07/31/22 14:00 BP 138/78 07/31/22 14:00 Pulse Ox 95 07/31/22 14:00 FiO2 Intake & Output 07/30/22 07/31/22 07/31/22 18:59 06:59 18:59 Intake Total 236 350 Balance 236 350 Weight 58.967 kg Intake: Intake, IV Titration 100 Amount ceFAZolin 2 gm In Sodium 100 Chloride 0.9% 50 ml @ 100 mls/hr IVPB Q8HR [facility] Rx# :[id number] Oral 236 250 Other: Voiding Method Toilet Toilet Toilet # Voids 10 # Bowel Movements 1 - Exam PHYSICAL EXAMINATION: GENERAL: alert and oriented x3, no acute distress. HEENT: Normocephalic, atraumatic.Pupils are round and equally reacting to light. EOMI. Right chest port. NECK: Supple, no JVD CARDIOVASCULAR: S1 and S2 present. No murmurs, rubs, or gallops. PULMONARY: Chest is clear to auscultation, no wheezing or crackles. ABDOMEN: Soft, nontender, nondistended, normoactive bowel sounds. EXTREMITIES: No cyanosis, clubbing, or pedal edema. NEUROLOGICAL: Gross neurological examination did not reveal any focal deficits. SKIN: Chronic post chemo rash -torso, extremities, face with left breast macular papular rash radiating around under her axilla, warm, decreased edema and tenderness-drain present. - Labs CBC & Chem 7: 07/30/22 06:37 07/31/22 06:50 Labs: Abnormal Lab Results - Last 24 Hours (Table) 07/31/22 Range/Units 06:50 Est GFR (CKD-EPI)NonAf 56.2 L (60.0-200.0) BUN/Creatinine Ratio 23.60 H (12.00-20.00) Ratio Glucose 113 H (70-110) mg/dL Microbiology - Last 24 Hours (Table) 07/30/22 16:15 Gram Stain - Preliminary Aspirate Body Fluid Culture - Preliminary 07/30/22 16:15 Anaerobic Culture - Preliminary Breast - Left Assessment and Plan Assessment: -Left Breast cellulitis, -Left breast cancer status post lumpectomy, axillary node dissection on 07/12/2022. MSSA reported per catheter site culture -Macular papular rash 4-5 months, punch biopsy pending -Hypertensive emergency -Hypomagnesemia -Anemia with blood transfusion reaction -History of CAD,NSTEMI,stenting of mid and distal LAD,[place]. -Hyperlipidemia -Hypertension -Depression -Hypothyroidism Plan: Continue on current medication regime ,monitoring and symptomatic treatmen t. Further adjustment in antihypertensives as per cardiology .echo pending .IV antibiotics as per infectious disease. Medically cleared for discharge, follow- up with PCP in 1 week. Discharge planning in progress as per general surgery. The impression and plan of care has been dictated as directed. : I performed a history and examination of this patient, discussed the same with the dictator. I agree with the dictator's note ,documented as a scribe. Any additional findings or plans will be noted.
--- NOTE | 2022-07-31 16:47 | P.PN ---
Subjective Progress Note Date: 07/31/22 Principal diagnosis: Left breast abscess Patient is a 72 year old female with a past medical history significant for hypertension hyperlipidemia CVA TIA patient did have a left breast cancer diagnosed December 2021 with the last chemo has been on 06/07/2022 patient did have a history of left breast lumpectomy and lymph node dissection with SETH drain to the left breast since 07/12/2022, patient is presenting to the hospital for evaluation of increasing swelling pain and warmth to the left breast area, with concern for cellulitis to the left breast area. Patient did have a repeat drainage procedure done by IR on 07/30/2022 on today's evaluation that is 07/31/2022, the patient continues to be afebrile, patient pain to the left breast is currently controlled, the patient denies chest pain shortness of cough, the patient denies vomiting no diarrhea Objective - Vital Signs Vital signs: Vital Signs Temp 97.8 F 07/31/22 14:00 Pulse 62 07/31/22 14:00 Resp 18 07/31/22 14:00 BP 138/78 07/31/22 14:00 Pulse Ox 95 07/31/22 14:00 FiO2 Intake & Output 07/30/22 07/31/22 07/31/22 18:59 06:59 18:59 Intake Total 236 350 Balance 236 350 Weight 58.967 kg Intake: Intake, IV Titration 100 Amount ceFAZolin 2 gm In Sodium 100 Chloride 0.9% 50 ml @ 100 mls/hr IVPB Q8HR [facility] Rx# :[id number] Oral 236 250 Other: Voiding Method Toilet Toilet Toilet # Voids 10 # Bowel Movements 1 - Exam GENERAL DESCRIPTION: An elderly female lying in bed in no distress RESPIRATORY SYSTEM: Unlabored breathing , decreased breath sounds at bases HEART: S1 S2 regular rate and rhythm , ABDOMEN: Soft , no tenderness - Labs CBC & Chem 7: 07/30/22 06:37 07/31/22 06:50 Labs: Abnormal Lab Results - Last 24 Hours (Table) 07/31/22 Range/Units 06:50 Est GFR (CKD-EPI)NonAf 56.2 L (60.0-200.0) BUN/Creatinine Ratio 23.60 H (12.00-20.00) Ratio Glucose 113 H (70-110) mg/dL Microbiology - Last 24 Hours (Table) 07/30/22 16:15 Gram Stain - Preliminary Aspirate Body Fluid Culture - Preliminary 07/30/22 16:15 Anaerobic Culture - Preliminary Breast - Left Assessment and Plan (1) Cellulitis of left breast Current Visit: Yes Status: Acute Priority: High Code(s): N61.0 - MASTITIS WITHOUT ABSCESS SNOMED Code(s): 69314886 Plan: 1patient is in the hospital with sepsis in this patient who did have a left breast cancer status post lumpectomy and did have a SETH drain which did have whitish drainage and associated cellulitis involving the lateral aspect of the breast and concern for possible abscess 2-patient blood culture has been negative local cultures finalized as MSSA, patient did have a repeat drainage procedure completed on 07/30/2022, we will wait for those culture to be finalize if also positive for MSSA patient will benefit from IV otherwise oral Keflex discussed with the surgical team Time with Patient: Less than 30
[2022-07-31] MEDS: lamoTRIgine 100 MG TAB PO SCH (21:07)
[2022-08-01] MEDS: carvediloL 3.125 MG TAB PO SCH (06:39)
[2022-08-01] MEDS: PANTOPRAZOLE 40 MG TABLET PO SCH (06:39)
[2022-08-01] MEDS: LEVOTHYROXINE 112 MCG TAB PO SCH (06:40)
[2022-08-01 07:28] VITALS: RESP 16
[2022-08-01] MEDS ORDERED: predniSONE 20 MG TAB PO SCH (09:00)
[2022-08-01] MEDS: PYRIDOXINE 50 MG TAB PO SCH (09:18)
[2022-08-01] MEDS: SERTRALINE 50 MG TAB PO SCH (09:19)
[2022-08-01] MEDS: FOLIC ACID 1 MG TAB PO SCH (09:19)
[2022-08-01] MEDS: LOSARTAN 50 MG TAB PO SCH (09:20)
[2022-08-01] MEDS: cloNIDine HCL 0.2 MG TAB PO SCH ×2 (09:21→16:26)
[2022-08-01] MEDS: CYANOCOBALAMIN 500 MCG TAB PO SCH (09:22)
[2022-08-01] MEDS: ISOSORBIDE MONONITRATE ER 30 MG TAB.ER.24H PO SCH (09:24)
[2022-08-01] MEDS: MAGNESIUM OXIDE 400 MG TAB PO SCH (09:25)
[2022-08-01] MEDS: TRIAMCINOLONE ACET 0.1% OINTMENT 15 GM TUBE TOPICAL SCH (09:26)
[2022-08-01] MEDS ORDERED: POTASSIUM CHLORIDE ER 20 MEQ TAB.ER PO STA (11:49)
--- NOTE | 2022-08-01 11:57 | P.PN ---
Subjective Progress Note Date: 08/01/22 - History of Present Illness This is a pleasant 72-year-old female status post left breast lumpectomy and axillary node dissection with SETH drain secondary to left breast cancer on , presented to the ER with significant increased swelling, pain, warmth of the left breast that started yesterday morning, awakening her from sleep. Denies any chills or fevers. T-max 103, WBC 5.7, neutrophils 79, lactic acid 0.7, minimal tachycardia, blood cultures obtained, infectious disease consulted. SETH drain with serous drainage ,denies any drainage from incisional sites. Denies any trauma to the affected site. Reports pain had been well controlled and not required any pain medication since last Friday. Reports rash on torso and extremities has been present since February after receiving chemo. Followed up with Dr. Byers last friday.Vital signs stable, maintaining O2 sats in the mid 90s to 100% on room air. Received IV fluid hydration with IV antibiotics initiated. Denies chest pain, palpitations or shortness of breath. Hemoglobin 7.5, platelets 161 and INR 1, BUN 26, creatinine 1, now 1.05, potassium 3.9, magnesium 1.2, received magnesium supplementation-repeat level pending. 07/24/2022 T-max 100.1, continues on vancomycin. BUN 21/creatinine 1.04. Pre liminary blood cultures reporting no growth after 24 hours. Evaluated by a infectious disease with recommendations noted. Left breast redness persists, softer but with significant SETH output of serous drainage. Denies chest pain, palpitations or shortness of breath. Maintaining O2 sats in the 90s on room air. 07/30/2022 left breast SETH catheter site culture reporting MSSA, continues on cefazolin as per ID. Afebrile, normal WBC. Scheduled for punch biopsy of rash as per general surgery for persistent rash of 4-5 months, initially he felt to be chemo-induced. Significant hypertension, unresponsive to current regimen with systolic blood pressures in the 190s. evaluated by cardiology with losartan increased. Denies chest pain, palpitations or shortness of breath. Maintaining O2 sats in the high 90s on room air. 07/31/2022 status post punch biopsy of skin rash right shoulder, tolerated well. Pathology/cytology pending. Status post ultrasound-guided left breast seroma drainage catheter placement. Echo pending. Hypertensive, further adjustments in antihypertensive as per cardiology. 08/01/2022 significant clinical improvement. Blood pressure improving with further adjustments in antihypertensives. Denies nausea vomiting or diarrhea. Denies abdominal pain. Maintained on steroids, rash appearance improved. Denies breast pain. Afebrile, normal WBC. Echo reporting normal LV function, moderate to severe mitral regurgitation. Denies chest pain, palpitations or shortness of breath. Objective - Vital Signs Vital signs: Vital Signs Temp 97.8 F 08/01/22 07:26 Pulse 54 L 08/01/22 07:26 Resp 16 08/01/22 07:26 BP 179/89 08/01/22 07:26 Pulse Ox 95 08/01/22 07:26 FiO2 Intake & Output 07/31/22 08/01/22 08/01/22 18:59 06:59 18:59 Intake Total 350 236 Balance 350 236 Intake: Intake, IV Titration 100 Amount ceFAZolin 2 gm In Sodium 100 Chloride 0.9% 50 ml @ 100 mls/hr IVPB Q8HR [facility] Rx# :[id number] Oral 250 236 Other: Voiding Method Toilet Toilet Toilet - Exam PHYSICAL EXAMINATION: GENERAL: alert and oriented x3, no acute distress. HEENT: Normocephalic, atraumatic.Pupils are round and equally reacting to light. EOMI. Right chest port. NECK: Supple, no JVD CARDIOVASCULAR: S1 and S2 present. No murmurs, rubs, or gallops. PULMONARY: Chest is clear to auscultation, no wheezing or crackles. ABDOMEN: Soft, nontender, nondistended, normoactive bowel sounds. EXTREMITIES: No cyanosis, clubbing, or pedal edema. NEUROLOGICAL: Gross neurological examination did not reveal any focal deficits. SKIN: Chronic post chemo rash -torso, extremities, face with left breast macular papular rash improving ,decreased edema and tenderness-drain present. - Labs CBC & Chem 7: 07/30/22 06:37 07/31/22 06:50 Labs: Microbiology - Last 24 Hours (Table) 07/30/22 16:15 Gram Stain - Preliminary Aspirate Body Fluid Culture - Preliminary Assessment and Plan Assessment: -Left Breast cellulitis,MSSA reported per catheter site culture -Left breast cancer status post lumpectomy, axillary node dissection on 07/12/2022. -Macular papular rash 4-5 months, punch biopsy pending -Moderate to severe mitral regurgitation -Hypertensive emergency -Hypomagnesemia -Anemia with blood transfusion reaction -History of CAD,NSTEMI,stenting of mid and distal LAD,[place]. -Hyperlipidemia -Hypertension -Depression -Hypothyroidism Plan: Continue on current medication regime ,monitoring and symptomatic treatment. Antibiotics as per ID. Medically cleared for discharge, follow-up with PCP in 1 week. Discharge planning in progress as per general surgery. The impression and plan of care has been dictated as directed. : I performed a history and examination of this patient, discussed the same with the dictator. I agree with the dictator's note ,documented as a scribe. Any additional findings or plans will be noted.
--- NOTE | 2022-08-01 14:27 | P.PN ---
Subjective Progress Note Date: 08/01/22 CHIEF COMPLAINT: Left breast cellulitis HISTORY OF PRESENT ILLNESS: Patient status post drain placement for left breast seroma. The swelling and pain have improved. She's afebrile. Patient's blood pressure has shown improvement with adjustment of blood pressure medications. Cardiology and medicine service have cleared patient for discharge. Discussed case with infectious disease. Awaiting final culture results for discharge antibiotic recommendations. Afebrile. CBC pending. Patient did ambulate with physical therapy PHYSICAL EXAM: VITAL SIGNS: Reviewed GENERAL: Well-developed in no acute distress. HEENT: No sclera icterus. Extraocular movements grossly intact. Moist buccal mucosa. Head is atraumatic, normocephalic. Hears conversational speech. No nasal drainage. NECK: Supple without lymphadenopathy. CHEST: Non-labored respirations and equal bilateral excursions. CARDIOVASCULAR: Palpable 2+ radial pulses. ABDOMEN: Soft. Nondistended. Nontender. MUSCULOSKELETAL: No clubbing or cyanosis. NEUROLOGIC: No focal or lateralizing signs. Cranial nerves II through XII grossly intact. PSYCH: Appropriate affect. Alert and oriented to person, place and time. SKIN: Patient continues to have rash on chest neck and arms. Slightly less red and at this time Breast: Swelling decreased with drain placement. Drain with serosanguineous output. Decreased tenderness to palpation ASSESSMENT: 1. Left breast cellulitis with seroma status post drain placement 2. Left breast cancer status post lumpectomy and axillary node dissection on 07/12/2022. Status post radiation treatment 3. Anemia with reaction to blood transfusion 4. Significant skin rash involving the torso, neck and bilateral extremities. Patient status post skin biopsy PLAN: -Awaiting final culture results prior to discharge -Discharging antibiotics per ID service -Continue supportive care -Patient to be discharged with drain Physician Is/It Project Manager note has been reviewed by physician. Signing provider agrees with the documented findings, assessment, and plan of care. Objective - Vital Signs Vital signs: Vital Signs Temp 97.8 F 08/01/22 07:26 Pulse 54 L 08/01/22 07:26 Resp 16 08/01/22 07:26 BP 152/86 08/01/22 12:30 Pulse Ox 95 08/01/22 07:26 FiO2 Intake & Output 07/31/22 08/01/22 08/01/22 18:59 06:59 18:59 Intake Total 350 236 Balance 350 236 Intake: Intake, IV Titration 100 Amount ceFAZolin 2 gm In Sodium 100 Chloride 0.9% 50 ml @ 100 mls/hr IVPB Q8HR [facility] Rx# :[id number] Oral 250 236 Other: Voiding Method Toilet Toilet Toilet - Labs CBC & Chem 7: 07/30/22 06:37 07/31/22 06:50 Labs: Microbiology - Last 24 Hours (Table) 07/30/22 16:15 Gram Stain - Preliminary Aspirate Body Fluid Culture - Preliminary
--- NOTE | 2022-08-01 14:51 | P.PN ---
Subjective Progress Note Date: 08/01/22 Principal diagnosis: Left breast abscess Patient is a 72 year old female with a past medical history significant for hypertension hyperlipidemia CVA TIA patient did have a left breast cancer diagnosed December 2021 with the last chemo has been on 06/07/2022 patient did have a history of left breast lumpectomy and lymph node dissection with SETH drain to the left breast since 07/12/2022, patient is presenting to the hospital for evaluation of increasing swelling pain and warmth to the left breast area, with concern for cellulitis to the left breast area. Patient did have a repeat drainage procedure done by IR on 07/30/2022 on today's evaluation that is 08/01/2022, the patient remains to be afebrile, patient pain to the left breast has decreased in intensity, the patient denies chest pain shortness of cough, the patient denies vomiting no abdominal pain or diarrhea Objective - Vital Signs Vital signs: Vital Signs Temp 97.8 F 08/01/22 07:26 Pulse 54 L 08/01/22 07:26 Resp 16 08/01/22 07:26 BP 152/86 08/01/22 12:30 Pulse Ox 95 08/01/22 07:26 FiO2 Intake & Output 07/31/22 08/01/22 08/01/22 18:59 06:59 18:59 Intake Total 350 236 Balance 350 236 Intake: Intake, IV Titration 100 Amount ceFAZolin 2 gm In Sodium 100 Chloride 0.9% 50 ml @ 100 mls/hr IVPB Q8HR [facility] Rx# :[id number] Oral 250 236 Other: Voiding Method Toilet Toilet Toilet - Exam GENERAL DESCRIPTION: An elderly female lying in bed in no distress RESPIRATORY SYSTEM: Unlabored breathing , decreased breath sounds at bases HEART: S1 S2 regular rate and rhythm , left breast overall induration and swelling has decreased fluid in the drainage is mostly serosanguineous ABDOMEN: Soft , no tenderness - Labs CBC & Chem 7: 07/30/22 06:37 07/31/22 06:50 Labs: Microbiology - Last 24 Hours (Table) 07/30/22 16:15 Gram Stain - Preliminary Aspirate Body Fluid Culture - Preliminary Assessment and Plan (1) Cellulitis of left breast Current Visit: Yes Status: Acute Priority: High Code(s): N61.0 - MASTITIS WITHOUT ABSCESS SNOMED Code(s): 99363463 Plan: 1patient is in the hospital with sepsis in this patient who did have a left breast cancer status post lumpectomy and did have a SETH drain which did have whitish drainage and associated cellulitis involving the lateral aspect of the breast and concern for possible abscess 2-patient blood culture has been negative local cultures finalized as MSSA, patient did have a repeat drainage procedure completed on 07/30/2022, and those culture has been negative so for the patient has received about 10 days of IV therapy and had shown clinical improvement will consider 7-10 day course of oral Keflex on discharge discussed with the surgeon. Time with Patient: Less than 30
--- NOTE | 2022-08-01 15:03 | P.DS ---
Providers Date of admission: 07/23/22 15:12 Expected date of discharge: 08/01/22 Attending physician: Ki Byers Consults: 07/22/22 18:34 Consult Physician Routine Consulting Provider: Rosa Maria Delgado Consult Reason/Comments: fever Do you want consulting provider notified?: Yes Consult Physician Urgent Consulting Provider: Sebastian Marcano Consult Reason/Comments: medmanage Do you want consulting provider notified?: Yes 07/25/22 12:54 Consult Physician Routine Consulting Provider: Teto Miller Consult Reason/Comments: upper torso rash Do you want consulting provider notified?: Yes 07/25/22 13:07 Consult Physician Routine Consulting Provider: Irwin Appiah Consult Reason/Comments: breast Cancer, skin rash Do you want consulting provider notified?: Yes 07/29/22 12:18 Consult Physician Urgent Consulting Provider: Danny Garcia Consult Reason/Comments: hypertensive emergency Do you want consulting provider notified?: Yes Primary care physician: Marcelle Marcano Hospital Course: Discharge diagnosis 1. Left breast cellulitis with seroma status post drain placement with improvement 2. Left breast cancer status post lumpectomy and axillary node dissection on 07/12/2022. Status post radiation treatment 3. Anemia with reaction to blood transfusion 4. Significant skin rash involving the torso, neck and bilateral extremities. Patient status post skin biopsy Hospital course This is a 72-year-old female who is status post left breast with lumpectomy and axillary node dissection for left breast cancer completed on 07/12/[address] Byers. She reports she had been doing well and then she noted increased swelling and pain in the lateral aspect of the left breast. There is increased redness around the SETH drain site. Patient was started on IV antibiotics. Seen by infectious disease. She was not improving. Is undecided to remove the SETH drain. Tip was sent for culture and grew MSSA. Patient remained on antibiotics. However then developed a seroma in the upper portion of the left breast. IR was consulted in the drain was placed. Seroma has improved. Patient has drainage tube in place and will be discharged with drainage tube. Patient's pain has improved. Patient cleared for discharge by infectious disease recommending Keflex for one week. Patient seen by multiple consultants cardiology, medicine and oncology service during her admission. She has been cleared by all consultants for discharge. Patient is afebrile. She's tolerating diet. She is stable for discharge. Please refer to chart for any further details. Physician Nursery Technician note has been reviewed by physician. Signing provider agrees with the documented findings, assessment, and plan of care. I have personally seen and examined the patient, reviewed the [facility]IST /PAs history, exam and MDM and agree with the assessment and plan as written. Based on total visit time, I have performed more than 50% of the visit. As above: Patient doing well today. No residual seroma. Culture showing MSSA so far. Home on Keflex. Follow-up as outpatient. Patient Condition at Discharge: Stable Plan - Discharge Summary New Discharge Prescriptions: New cloNIDine HCL [Catapres] 0.2 mg PO TID #90 tab Cephalexin [Keflex] 500 mg PO Q8HR 7 Days #21 cap HYDROcodone/APAP 5-325MG [[place] 5-325] 1 tab PO Q6HR PRN 3 Days #10 tab PRN Reason: Pain Losartan [Cozaar] 50 mg PO BID #60 tab Folic Acid 1 mg PO DAILY tab NIFEdipine XL [Procardia XL] 60 mg PO DAILY #30 tab predniSONE [Deltasone] 20 mg PO DAILY #3 tab Continue Sertraline [Zoloft] 50 mg PO DAILY lamoTRIgine [LaMICtal] 100 mg PO HS Levothyroxine Sodium 112 mcg PO DAILY Nitroglycerin Sl Tabs [Nitrostat] 0.4 mg SUBLINGUAL Q5M PRN #25 tab PRN Reason: Chest Pain Pyridoxine HCl (Vitamin B6) [Vitamin B-6] 100 mg PO DAILY Diphenoxylate HCl/Atropine [Lomotil 2.5-0.025 mg Tablet] 1 - 2 tab PO BID PRN PRN Reason: Diarrhea Triamcinolone 0.1% Ointment [Kenalog 0.1% Ointment] 1 applic TOPICAL BID carvediloL [Coreg] 3.125 mg PO BID Ergocalciferol [Vitamin D2 (1250 Mcg = 22025 Iu)] 1.25 mg PO BOYKIN Aspirin EC [Ecotrin Low Dose] 81 mg PO DAILY Cyanocobalamin [Vitamin B-12] 500 mcg PO DAILY Pantoprazole [Protonix] 40 mg PO BID #60 tab Isosorbide Mononitrate ER [Imdur] 30 mg PO DAILY Discontinued Losartan [Cozaar] 25 mg PO HS PRN PRN Reason: HIGH BLOOD PRESSURE Discharge Medication List Levothyroxine Sodium 112 mcg PO DAILY 02/20/19 [History] Sertraline [Zoloft] 50 mg PO DAILY 02/20/19 [History] lamoTRIgine [LaMICtal] 100 mg PO HS 02/20/19 [History] Nitroglycerin Sl Tabs [Nitrostat] 0.4 mg SUBLINGUAL Q5M PRN #25 tab 02/26/19 [Rx] carvediloL [Coreg] 3.125 mg PO BID 02/15/22 [History] Aspirin EC [Ecotrin Low Dose] 81 mg PO DAILY 02/19/22 [History] Cyanocobalamin [Vitamin B-12] 500 mcg PO DAILY 02/19/22 [History] Ergocalciferol [Vitamin D2 (1250 Mcg = 09448 Iu)] 1.25 mg PO BOYKIN 02/19/22 [History] Pantoprazole [Protonix] 40 mg PO BID #60 tab 03/05/22 [Rx] Isosorbide Mononitrate ER [Imdur] 30 mg PO DAILY 07/10/22 [History] Pyridoxine HCl (Vitamin B6) [Vitamin B-6] 100 mg PO DAILY 07/10/22 [History] Diphenoxylate HCl/Atropine [Lomotil 2.5-0.025 mg Tablet] 1 - 2 tab PO BID PRN 07/22/22 [History] Triamcinolone 0.1% Ointment [Kenalog 0.1% Ointment] 1 applic TOPICAL BID 07/22/22 [History] Cephalexin [Keflex] 500 mg PO Q8HR 7 Days #21 cap 08/01/22 [Rx] Folic Acid 1 mg PO DAILY tab 08/01/22 [Rx] HYDROcodone/APAP 5-325MG [[place] 5-325] 1 tab PO Q6HR PRN 3 Days #10 tab 08/01/22 [Rx] Losartan [Cozaar] 50 mg PO BID #60 tab 08/01/22 [Rx] NIFEdipine XL [Procardia XL] 60 mg PO DAILY #30 tab 08/01/22 [Rx] cloNIDine HCL [Catapres] 0.2 mg PO TID #90 tab 08/01/22 [Rx] predniSONE [Deltasone] 20 mg PO DAILY #3 tab 08/01/22 [Rx] Follow up Appointment(s)/Referral(s): Ki Byers MD [Medical Doctor] - 08/08/22 8:00 am Irwin Appiah MD [STAFF PHYSICIAN] - 08/14/22 4:00 pm Marcelle Marcano DO [Primary Care Provider] - 3 Days Patient Instructions/Handouts: Cellulitis (GEN), Blood Transfusion Reactions (DC), Skin Biopsy (DC) Activity/Diet/Wound Care/Special Instructions: Discharge with drain Discharge Disposition: HOME SELF-CARE
--- NOTE | 2022-08-01 15:15 | P.PN ---
Subjective Progress Note Date: 08/01/22 Principal diagnosis: cellulitis At today's visit patient is resting comfortably in bed. She reports feeling improved. She reports fatigue. S/p left breast abscess I&D with the drain in place. Having dark yellow/orange output. Abscess has improved. She continues on IV antibiotics. She denies fever and chills. Objective - Vital Signs Vital signs: Vital Signs Temp 97.8 F 08/01/22 07:26 Pulse 54 L 08/01/22 07:26 Resp 16 08/01/22 07:26 BP 152/86 08/01/22 12:30 Pulse Ox 95 08/01/22 07:26 FiO2 Intake & Output 07/31/22 08/01/22 08/01/22 18:59 06:59 18:59 Intake Total 350 236 Balance 350 236 Intake: Intake, IV Titration 100 Amount ceFAZolin 2 gm In Sodium 100 Chloride 0.9% 50 ml @ 100 mls/hr IVPB Q8HR [facility] Rx# :[id number] Oral 250 236 Other: Voiding Method Toilet Toilet Toilet - Constitutional General appearance: Present: average body habitus, no acute distress - EENT Eyes: Present: anicteric sclerae, EOMI ENT: Present: hearing grossly normal - Respiratory Details: Breathing even and unlabored - Cardiovascular Details: Skin warm and dry - Integumentary Integumentary Comment(s): Diffuse erythematous maculopapular rash, improcing. Abscess left lateral breast shows improvement. Tissue soft nontender. Drain in place with dark yellow/orange output Integumentary: Present: rash - Neurologic Neurologic: Present: CNII-XII intact - Musculoskeletal Musculoskeletal: Present: strength equal bilaterally - Psychiatric Psychiatric: Present: A&O x's 3, appropriate affect, intact judgment & insight - Labs CBC & Chem 7: 07/30/22 06:37 07/31/22 06:50 Labs: Microbiology - Last 24 Hours (Table) 07/30/22 16:15 Gram Stain - Preliminary Aspirate Body Fluid Culture - Preliminary Assessment and Plan (1) Cellulitis of left breast Current Visit: Yes Status: Acute Priority: High Code(s): N61.0 - MASTITIS WITHOUT ABSCESS SNOMED Code(s): 78360885 (2) Breast cancer, left Current Visit: Yes Status: Chronic Priority: High Code(s): C50.912 - MALIGNANT NEOPLASM OF UNSPECIFIED SITE OF LEFT FEMALE BREAST SNOMED Code(s): 407039186 (3) Anemia Current Visit: Yes Status: Acute Priority: High Code(s): D64.9 - ANEMIA, UNSPECIFIED SNOMED Code(s): 617275876 (4) Rash and nonspecific skin eruption Current Visit: Yes Status: Acute Priority: Medium Code(s): R21 - RASH AND OTHER NONSPECIFIC SKIN ERUPTION SNOMED Code(s): 138980828 Plan: Cellulitis breast/abscess: -Blood cultures negative. Culture of SETH drain catheter Positive for staph aureus. Continues on cefazolin, with plan to discharge on Keflex per ID. S/p I&D of abscess with drain in place. Improvement in abscess -Infectious disease and surgery following, will defer management Anemia: -Hemoglobin 8.8 on 07/30, CBC today pending. 2 units PRBCs given this admission, however, first unit was stopped due to reaction. -Iron studies not consistent with ESTEFANY. Vitamin B12 normal, folate 3.4, MMA normal -Anemia may be superimposed by infection and chemotherapy/bone marrow suppression. Hemoglobin has remained stabe, if hemoglobin drops after blood transfusion will pursue GI workup. Patient denies any bleeding episodes, blood in stool, melena -Will continue to monitor counts. Please transfuse for hemoglobin less than 7 or if symptomatic Breast cancer: - Hx invasive ductal carcinoma, grade 2. She is s/p 6 cycle of TCH (Kanjinti)-P, finishing tx 06/07/22. She then had lumpectomy and LN dissection with Dr. Byers on 07/12/22, with plan for adjuvant treatment once recovered from surgery. - Clinic f/u scheduled on 08/14. Meets with rad onc 08/08 for simulation Rash: Macular papular rash, ongoing x 4-5 months. Initially thought to be chemo induced, however, she has not had chemo for 2 months and rash is persisting. Derm has been consulted, but state they will f/u with patient in the outpatient setting. Surgery consulted, skin biopsy obtained. Path pending -Rash improving, will continue to monitor
[2022-08-01 15:35] VITALS: TEMP 98.1
[2022-08-01 16:26] VITALS: BP 136/73; PULSE 66
[2022-08-01 17:02] LABS: Anisocytosis Slight; Basophils % (A) 0 %; Eosinophils % (A) 0 %; HGB 9.7 gm/dL (11.4-16.0); Lymphocytes # (A) 0.8 k/uL (1.0-4.8); Lymphocytes % (A) 11 %; MCH 36.4 pg (25.0-35.0); MCHC 34.4 g/dL (31.0-37.0); MCV 105.6 fL (80.0-100.0); Macrocytosis Marked; Mean Platelet Volume 8.3; Monocytes # (A) 0.3 k/uL (0-1.0); Monocytes % (A) 4 %; Neutrophils % (A) 85 %; Platelet Count 278 k/uL (150-450); RBC 2.65 m/uL (3.80-5.40); RDW 17.4 % (11.5-15.5); WBC 7.1 k/uL (3.8-10.6)
== END 2022-08-01 18:15 | disposition home or self-care (01) | DRG 862 ==
LOC: EC 12:52 → 6NMEDSUR 21:42 → OBSVTOIN 07-23 15:12
PROVIDERS: ADMIT Surgery; ATTEND Surgery
PROC: 30233N1 Transfusion of Nonautologous Red Blood Cells into Peripheral Vein, Percutaneous Approach (ICD-10-PCS; 2022-07-25)
PROC: 0HBBXZX Excision of Right Upper Arm Skin, External Approach, Diagnostic (ICD-10-PCS; principal; 2022-07-30)
DX: T81.41XA Infection following a procedure, superficial incisional surgical site, initial encounter (principal); A41.01 Sepsis due to Methicillin susceptible Staphylococcus aureus; T85.79XA Infection and inflammatory reaction due to other internal prosthetic devices, implants and grafts, initial encounter; M96.843 Postprocedural seroma of a musculoskeletal structure following other procedure; N18.4 Chronic kidney disease, stage 4 (severe); I16.1 Hypertensive emergency; T80.89XA Other complications following infusion, transfusion and therapeutic injection, initial encounter; C50.612 Malignant neoplasm of axillary tail of left female breast; D63.0 Anemia in neoplastic disease; E78.5 Hyperlipidemia, unspecified; F32.A Depression, unspecified; I34.0 Nonrheumatic mitral (valve) insufficiency; E89.0 Postprocedural hypothyroidism; I12.9 Hypertensive chronic kidney disease with stage 1 through stage 4 chronic kidney disease, or unspecified chronic kidney disease; I25.10 Atherosclerotic heart disease of native coronary artery without angina pectoris; L57.8 Other skin changes due to chronic exposure to nonionizing radiation; E83.42 Hypomagnesemia; N61.1 Abscess of the breast and nipple; K21.9 Gastro-esophageal reflux disease without esophagitis; Z53.8 Procedure and treatment not carried out for other reasons; T45.1X5A Adverse effect of antineoplastic and immunosuppressive drugs, initial encounter; I25.5 Ischemic cardiomyopathy; Y82.8 Other medical devices associated with adverse incidents; Y83.8 Other surgical procedures as the cause of abnormal reaction of the patient, or of later complication, without mention of misadventure at the time of the procedure; Z92.3 Personal history of irradiation; Z79.890 Hormone replacement therapy; Z85.3 Personal history of malignant neoplasm of breast; Z87.891 Personal history of nicotine dependence; Z85.850 Personal history of malignant neoplasm of thyroid; Z79.899 Other long term (current) drug therapy; Z95.5 Presence of coronary angioplasty implant and graft; Z88.8 Allergy status to other drugs, medicaments and biological substances; I25.2 Old myocardial infarction; Z86.73 Personal history of transient ischemic attack (TIA), and cerebral infarction without residual deficits; Z87.19 Personal history of other diseases of the digestive system; Z88.2 Allergy status to sulfonamides; Z88.0 Allergy status to penicillin; Z91.018 Allergy to other foods; Z79.82 Long term (current) use of aspirin; Z82.49 Family history of ischemic heart disease and other diseases of the circulatory system; Z92.21 Personal history of antineoplastic chemotherapy
CPT/HCPCS: 10030; 36415; 76942; 80048; 80053; 80202; 82565; 82607; 82728; 82746; 83090; 83540; 83550; 83605; 83735; 83921; 84100; 85025; 85610; 85730; 86850; 86880; 86900; 86901; 86920; 87040; 87070; 87075; 87077; 87186; 87205; 88305; 93306; 96361; 96365; 96366; 96375; 99284

== ENCOUNTER 2022-10-18 06:10 | Day surgery (SDC) | payer MEDICARE, OTHER ==
[~2022-10-18 06:10] MED LIST changes: -DEXAMETHASONE SOD PHOSPHATE 4 MG/ML 1 ML VIAL IV ONE; -HYDROmorphone 0.5 MG/0.5 ML SYRINGE IVP PRN; -LIDOCAINE 1% (10MG/ML) FOR IV START INTRADERMA PRN; -METOCLOPRAMIDE 5 MG/ML 2 ML VIAL IVP PRN; -ONDANSETRON 4 MG/2 ML VIAL IVP ONE; -Pre Op ABX Message 1 EACH MISC MISCELLANE ONE
[2022-10-18] MEDS ORDERED: LACTATED RINGERS 1,000 ML IV SCH (06:31)
[2022-10-18] MEDS ORDERED: ONDANSETRON 4 MG/2 ML VIAL ONE (06:51)
[2022-10-18 06:59] VITALS: TEMP 97.9
[2022-10-18] MEDS ORDERED: DEXAMETHASONE SOD PHOSPHATE 4 MG/ML 1 ML VIAL IV ONE (07:00)
[2022-10-18] MEDS ORDERED: LIDOCAINE 1% (10MG/ML) FOR IV START INTRADERMA ONE (07:00)
[2022-10-18] MEDS ORDERED: HYDROmorphone 0.5 MG/0.5 ML SYRINGE IVP PRN (07:00)
--- NOTE | 2022-10-18 07:27 | P.GSHP ---
History of Present Illness H&P Date: 10/18/22 Chief Complaint: Left breast cancer 72-year-old female here today for Port-A-Cath removal. Patient has declined any further chemotherapy at this point. No issues with port. Past Medical History Past Medical History: Blood Disorder, Coronary Artery Disease (CAD), Cancer, CVA/TIA, GERD/Reflux, Hyperlipidemia, Hypertension, Myocardial Infarction ([place]), Osteoarthritis (OA), Renal Disease, Skin Disorder, Thyroid Disorder Additional Past Medical History / Comment(s): Hx thyroid cancer in the early . Colitis. blod clot in her eye about 10 years ago, TIA approximately 12 yrs ago with no residual effects. Chronic Kidney Disease Stage 4. Monoclonal Anemia. Left breast cancer diagnosed 12/2021, last chemo 06/07/22. Current full body rash from Chemo, on Prednisone until 07/13/22, per patient, Dr rajan. Last Myocardial Infarction Date:: 2018 History of Any Multi-Drug Resistant Organisms: None Reported Past Surgical History: Adenoidectomy, Back Surgery, Breast Surgery, Cholecystectomy, Heart Catheterization With Stent, Hysterectomy, Tonsillectomy Additional Past Surgical History / Comment(s): 5 total stents, total thyroidectomy with radioactive iodine treatment after, cage/disc back surgery, bilateral cataract surgery, right eye surgery, left breast biopsy, total hysterectomy. med port placement Past Anesthesia/Blood Transfusion Reactions: Unable to Obtain, Blood Transfusion Reaction Additional Past Anesthesia/Blood Transfusion Reaction / Comment(s): pt stated had a blood transfusion 07/2022 and had to "stop becuase I didnt look good." pt stated she had to receive benedryl to continue transfusion. was medicated the next day prior to blood transfusion and tolerated transfusion without difficulty Date of Last Stent Placement:: 04/08/19 Past Psychological History: Depression Smoking Status: Former smoker Past Alcohol Use History: None Reported Additional Past Alcohol Use History / Comment(s): Quit smoking in 1992, smoked since teens, 1ppd. Past Drug Use History: None Reported - Past Family History Mother Family Medical History: No Reported History Father Family Medical History: Cancer Medications and Allergies Home Medications Medication Instructions Recorded Confirmed Type Levothyroxine Sodium 112 mcg PO DAILY 02/20/19 10/11/22 History Sertraline [Zoloft] 50 mg PO DAILY 02/20/19 10/11/22 History lamoTRIgine [LaMICtal] 100 mg PO HS 02/20/19 10/11/22 History carvediloL [Coreg] 3.125 mg PO BID 02/15/22 10/11/22 History Aspirin EC [Ecotrin Low Dose] 81 mg PO DAILY 02/19/22 10/11/22 History Cyanocobalamin [Vitamin B-12] 500 mcg PO DAILY 02/19/22 10/11/22 History Ergocalciferol [Vitamin D2 (1250 1,250 mcg PO BOYKIN 02/19/22 10/11/22 History Mcg = 42829 Iu)] Pantoprazole [Protonix] 40 mg PO BID #60 tab 03/05/22 10/11/22 Rx Isosorbide Mononitrate ER [Imdur] 30 mg PO DAILY 07/10/22 10/11/22 History Pyridoxine HCl (Vitamin B6) 100 mg PO DAILY 07/10/22 10/11/22 History [Vitamin B-6] Folic Acid 1 mg PO DAILY tab 08/01/22 10/11/22 Rx Nitroglycerin Sl Tabs [Nitrostat] 0.4 mg SL Q5M PRN 08/05/22 10/11/22 History Allergies Allergy/AdvReac Type Severity Reaction Status Date / Time amoxicillin Allergy Rash/Hives Verified 10/11/22 10:11 caffeine Allergy Rash/Hives Verified 10/11/22 10:11 erythromycin base Allergy Rash/Hives Verified 10/11/22 10:11 keratin Allergy Swelling Verified 10/11/22 10:11 Penicillins Allergy Rash/Hives Verified 10/11/22 10:11 Sulfa (Sulfonamide Allergy Unknown Verified 10/11/22 10:11 Antibiotics) Childhood wheat Allergy Rash/Hives Verified 10/11/22 10:11 clopidogrel [From Plavix] AdvReac Itching Verified 10/11/22 10:11 imiquimod AdvReac Nausea & Verified 10/11/22 10:11 Vomiting Surgical - Exam Vital Signs Temp Pulse Resp BP Pulse Ox 97.9 F 60 18 151/88 97 10/18/22 06:57 10/18/22 06:57 10/18/22 06:57 10/18/22 06:57 10/18/22 06:57 Physical exam: General: Well-developed, well-nourished HEENT: Normocephalic, sclerae nonicteric Abdomen: Nontender, nondistended Extremities: No edema Neuro: Alert and oriented Assessment and Plan (1) Breast cancer, left Narrative/Plan: 72-year-old female with left breast cancer. We'll proceed with Port-A-Cath removal this time. Current Visit: No Status: Chronic Priority: High Code(s): C50.912 - MALIGNANT NEOPLASM OF UNSPECIFIED SITE OF LEFT FEMALE BREAST SNOMED Code(s): 664178985
[2022-10-18] MEDS ORDERED: KETAMINE 10 MG/ML 20 ML VIAL ONE (07:42)
[2022-10-18] MEDS ORDERED: PROPOFOL 10 MG/ML 20 ML VIAL IV ONE (07:42)
[2022-10-18] MEDS ORDERED: MIDAZOLAM 2 MG/2 ML VIAL ONE (07:42)
[2022-10-18] MEDS ORDERED: fentaNYL (PF) 50 MCG/ML 2 ML AMP ONE (07:42)
[2022-10-18] MEDS ORDERED: BUPIVACAINE (PF) 0.25% 30 ML VIAL SQ ONE ×3 (07:44→08:00)
[2022-10-18] MEDS ORDERED: NALOXONE 0.4 MG/ML 1 ML VIAL IV PRN (08:19)
--- NOTE | 2022-10-18 08:21 | P.OP ---
Date of Procedure: 10/18/22 Procedure(s) Performed: PREOPERATIVE DIAGNOSIS: Left breast cancer POSTOPERATIVE DIAGNOSIS: Same PROCEDURE: Port-A-Cath removal SURGEON: Zeeshan EBL: Minimal ANESTHESIA: Sedation COMPLICATIONS: None OPERATIVE PROCEDURE: Patient was placed in the supine position. The patient was sedated per anesthesia that time. The chest was prepped and draped in the usual sterile fashion. The skin was localized with Marcaine solution. The previous incision was re-incised using a scalpel. The port was easily excised using accommodation of blunt dissection sharp dissection and electrocautery. The subcutaneous tissues were reapproximated using 3-0 Vicryl sutures. The skin was reapproximated using 4-0 Monocryl sutures. Skin glue was then applied. DISPOSITION: Stable to recovery room
[2022-10-18 08:52] VITALS: BP 152/79; PULSE 62; RESP 18
== END 2022-10-18 09:16 | disposition home or self-care (01) ==
LOC: OR 06:10
PROVIDERS: ATTEND Surgery
DX: C50.912 Malignant neoplasm of unspecified site of left female breast (principal); I25.10 Atherosclerotic heart disease of native coronary artery without angina pectoris; I10 Essential (primary) hypertension; E78.5 Hyperlipidemia, unspecified; K21.9 Gastro-esophageal reflux disease without esophagitis; I25.2 Old myocardial infarction; Z85.850 Personal history of malignant neoplasm of thyroid; Z45.2 Encounter for adjustment and management of vascular access device; Z86.73 Personal history of transient ischemic attack (TIA), and cerebral infarction without residual deficits; Z85.3 Personal history of malignant neoplasm of breast; Z90.89 Acquired absence of other organs; Z90.49 Acquired absence of other specified parts of digestive tract; Z90.710 Acquired absence of both cervix and uterus; Z87.891 Personal history of nicotine dependence; Z86.59 Personal history of other mental and behavioral disorders; Z79.890 Hormone replacement therapy; Z79.82 Long term (current) use of aspirin; Z88.2 Allergy status to sulfonamides; Z88.1 Allergy status to other antibiotic agents; Z79.899 Other long term (current) drug therapy
CPT/HCPCS: 36590; J2250; J1100; J2405; J3010; J2704; J1644

== ENCOUNTER → 2023-08-31 | Outpatient (CLI) | payer MEDICARE ==
--- NOTE | 2023-08-31 15:06 | MR ---
EXAMINATION TYPE: MR brain wo con DATE OF EXAM: 08/31/2023 9:40 AM CLINICAL INDICATION:Female, 73 years old with history of G45.9 TRANSIENT CEREBRAL ISCHEMIC ATTACK, UN SPECIF; PHH, Difficulty forming words, TIA. COMPARISON: None TECHNIQUE: Multi planar, multi sequence imaging was performed through the brain including: T1, T2, In version recovery, Diffusion weighted imaging, and gradient echo imaging. No gadolinium was given. FINDINGS: Prominent high T2 perivascular spaces around the basal ganglia. Mild cerebral atrophy with proportional dilation of ventricular system. Scattered foci of high T2 s ignal intensity are seen within the periventricular white matter. Midline structures show no abnormal ity. Diffusion-weighted imaging shows no evidence of restricted diffusion. The susceptibility weighte d images do not reveal any evidence for micro-hemorrhage. The bone marrow signal is within normal limits. Paranasal sinuses and mastoid air cells: Mild paranasal sinus mucosal thickening most prominent in th e maxillary sinuses. Visualized orbits: Bilaterally aphakia IMPRESSION: 1. No evidence of intracranial mass or acute/subacute infarct. 2. Nonspecific white matter changes, likely secondary to small vessel ischemic disease.
== END | disposition home or self-care (01) ==
LOC: RADMRIMAIN 09:01
PROVIDERS: ATTEND Family Medicine
DX: G93.89 Other specified disorders of brain (principal); G45.9 Transient cerebral ischemic attack, unspecified
CPT/HCPCS: 70551

== ENCOUNTER → 2024-01-21 | Outpatient (CLI) | payer MEDICARE ==
--- NOTE | 2024-01-21 14:15 | MM ---
Reason for Exam: Follow-up at short interval from prior study. Last mammogram was performed 2 year(s) and 1 month(s) ago. Patient History: Menarche at age 13. First Full-Term at age 25. Left ovary removed at age 43. Right ovary removed at age 43. Hysterectomy at age 43. Postmenopausal. Patient has history of breast feeding. Other cancer, age 30. Breast cancer, left, age 71. Breast cancer, left, age 72. Previous chest radiation therapy at age 71. Previous chemotherapy at age 71. Estrogen for 10 years from age 43 until age 53. 07/12/2022, Lumpectomy on the Left side. 07/12/2022, Malignant US breast localization LT on the left side. 07/12/2022, US breast local each add LT on the Left side. 01/08/2022, Malignant US biopsy breast VAD LT on the left side. 01/08/2022, US biopsy breast add'l VAD LT on the Left side. Paternal aunt had breast cancer, age 70. Tissue Density: The breasts are heterogeneously dense, which may obscure small masses. Findings: Analyzed By CAD. Postoperative lumpectomy changes left breast. No evidence for recurrent or residual mass within the left breast are new mass within the right breast. No suspicious calcifications evident. Overall Assessment: Benign, BI-RAD 2 Management: Diagnostic Mammogram of both breasts in 1 year. . Results were given to the patient verbally at the time of exam. Patient should continue monthly self-breast exams. A clinical breast exam by your physician is recommended on an annual basis. This exam should not preclude additional follow-up of suspicious palpable abnormalities. Note on Ursula scores and lifetime risk: 1. A Ursula score greater than 3% is considered moderate risk. If this is the case, consider specialist referral to assess eligibility for a risk reducing agent. 2. If overall lifetime risk for the development of breast cancer is 20% or higher, the patient may qualify for future screening with alternating mammogram and breast MRI. [facility], , 01/21/2024 1:44 PM. Electronically signed and approved by: Chetan Guzmán M.D. Radiologis
== END | disposition home or self-care (01) ==
LOC: RADMAMWWP 13:19
PROVIDERS: ATTEND Family Medicine
DX: Z85.3 Personal history of malignant neoplasm of breast
CPT/HCPCS: 77062; 77066